=== PATIENT | female | born 1955 | race Caucasian/White ===

== ENCOUNTER 2017-04-08 14:56 | Emergency (ER) | payer OTHER, SELFPAY ==
[2017-04-08 15:02] VITALS: BP 143/56; PULSE 86; RESP 20; TEMP 37.1; O2SAT 99; BMI 35.2
--- NOTE | 2017-04-08 15:09 | CT_ITS ---
CT abdomen pelvis wo con CLINICAL INDICATION: Nausea, vomiting, abdominal pain ITS.REASON: N/V/D/ABDOMINAL PAIN ORDERING PHYSICIAN: Sarah Foster MD PATIENT AGE: 61 years COMPARISON: None TECHNIQUE: Axial images obtained with sagittal and coronal reformats. PROCEDURE: Oral Contrast: None IV Contrast: None . FINDINGS: No acute finding in the lung bases. No focal liver lesion is evident. There is a long right hepatic lobe consistent with a Ina's lobe. The gallbladder is distended. There is a question of gallbladder wall thickening versus small amount of pericholecystic fluid. Ultrasound may be of further value. Spleen, adrenal glands, pancreas, and kidneys have an unremarkable appearance. No intestinal obstruction or free air is evident. There are few diverticula within the colon but no evidence of diverticulitis. No evidence of appendicitis. No focal inflammatory change or pelvic mass evident. No acute bony findings. IMPRESSION: 1. Distended gallbladder with suspected gallbladder wall thickening versus small amount pericholecystic fluid. Gallbladder ultrasound suggested for further evaluation. No radio opaque stones are identified. 2. Scattered colonic diverticula with no evidence of diverticulitis
[2017-04-08 15:27] LABS: Basophils % 0.2 % (0.1-2.0); Eosinophils % 0.4 % (0.1-12.0); Hematocrit 37.9 % (37.0-47.0); Hemoglobin 11.7 g/dL (12.2-16.2); Lymphocytes # 1.5 K/mm3 (0.7-4.5); Lymphocytes % 14.3 K/mm3 (10-50); Mean Corpuscular Hemoglobin 25.9 pg (27.0-31.2); Mean Corpuscular Volume 83.5 fl (81-99); Mean Platelet Volume 7.5 fl (7.4-10.4); Monocytes # 0.6 K/mm3 (0.1-1.0); Monocytes % 5.6 % (1.7-9.3); Neutrophils # 8.3 K/mm3 (1.8-7.8); Neutrophils % 79.5 % (37.0-80.0); Platelet Count 261 K/mm3 (142-424); Red Blood Count 4.53 M/mm3 (4.20-5.40); Red Cell Distribution Width 14.3 % (11.5-17.5); White Blood Count 10.4 K/mm3 (4.8-10.8)
--- NOTE | 2017-04-08 15:40 | HMH.EDGENADL ---
ED Disposition Clinical Impression: Acute cholecystitis with chronic cholecystitis Disposition: Home, Self-Care Condition on Discharge: Fair Additional Instructions: Alternate ice and heat and continue to use whichever helps the most Prescriptions: Acetaminophen with Codeine [Tylenol with Codeine #3 tablet] 1 tab PO Q6H PRN 3 Days #18 tab PRN Reason: Severe Pain Referrals: Faustino Toure MD [Primary Care Provider] - Time of Disposition: 19:22 - Critical Care Critical Care Time: No Attestation: On 04/08/17, the high probability of a clinically significant, sudden or life threatening deterioration of the following system(s) required my full and direct attention, intervention and personal management. The time I documented below is in addition to time spent performing reported procedures but includes the following listed in this critical care notation. Medical Decision Making - Medical Records Medical records reviewed: Yes: I reviewed the patient's medical records. Vital Signs: 04/08/17 15:02 Temperature 98.7 F Temperature Source Oral Pulse Rate [Left Brachial] 86 Respiratory Rate 20 Blood Pressure [Right Arm] 143/56 Blood Pressure Mean [Right Arm] 85 Blood Pressure Source [Right Arm] Automatic Cuff Blood Pressure Position [Right Arm] Supine 02 Sat by Pulse Oximetry 99 Oxygen Delivery Method Room Air - Lab Data Lab Results 04/08/17 15:12: WBC 10.4, RBC 4.53, Hgb 11.7 L, Hct 37.9, MCV 83.5, MCH 25.9 L, MCHC 31.0 L, RDW 14.3, Plt Count 261, MPV 7.5, Neut % (Auto) 79.5, Lymph % (Auto) 14.3, [place] % (Auto) 5.6, Eos % (Auto) 0.4, Baso % (Auto) 0.2, Neut # (Auto) 8.3 H, Lymph # (Auto) 1.5, [place] # (Auto) 0.6, Eos # (Auto) 0.0, Baso # (Auto) 0.0 04/08/17 15:12: Sodium 137, Potassium 3.8, Chloride 102, Carbon Dioxide 26, Anion Gap 12.8, BUN 7, Creatinine 0.68, Estimated Creat Clear 113, Estimated GFR 88, Est GFR ( Amer) 107, Glucose 145 H, Calcium 8.7, Total Bilirubin 0.3, AST 11 L, ALT 16, Alkaline Phosphatase 71, Total Protein 7.7, Albumin 3.4, Globulin 4.3 H, Albumin/Globulin Ratio 0.8 L 04/08/17 15:12: Amylase 25, Lipase 49 L 04/08/17 18:07: Urine Color Yellow, Urine Appearance Sl cloudy, Urine pH 6.0, Ur Specific [place] 1.025, Urine Protein Trace, Urine Glucose (UA) Negative, Urine Ketones Negative, Urine Blood 1+, Urine Nitrate Negative, Urine Bilirubin Negative, Urine Urobilinogen 0.2, Ur Leukocyte Esterase Negative, Urine RBC 3-5, Urine WBC 5-10, Ur Squamous Epith Cells 5-10, Urine Bacteria 2+, Urine Mucus 1+ Result diagrams: 04/08/17 15:12 04/08/17 15:12 Orders (Tests/Meds): ED MEDICATIONS Discontinued Medications Generic Name Dose Route Start Last Admin Trade Name Freq PRN Reason Stop Dose Admin Sodium Chloride 500 mls @ 999 mls/hr 04/08/17 15:15 04/08/17 15:24 Sod Chlor 0.9% 1000ml Bag IV 04/08/17 15:45 999 mls/hr .Q31M DAGOBERTO Administration Ondansetron HCl 4 mg 04/08/17 15:23 04/08/17 15:24 Zofran 4mg/2ml Vial IV 04/08/17 15:24 4 mg ONCE ONE Administration ORDERS Category Date Time Status Diarrhea Panel, PCR Stat Lab 04/08/17 15:09 Ordered Urine Culture Stat Micro 04/08/17 18:07 Received - CT Data CT Scan: Abdomen, Pelvis Time Received: 19:[address] Reviewed: Yes: I have reviewed the patient's CT results, I discussed the CT results w/the radiologist, I have viewed the radiologist's interpretation Findings Narrative: Distended and thickened GB...needs an US of gallbladder and if stones are present needs GB removed. If no stones present, needs a HIDA scan and if a non-functioning GB, also needs it removed - Alndry Inquiry Pt receiving controlled substance: Yes Landry was queried for this patient: No Reason not queried -: Emergent pt cond-no time Risks and benefits of using a controlled substance: were discussed with pt by me General Adult HPI - General Chief complaint: Nausea/Vomiting/Diarrhea Stated complaint: C/O ABDOMINAL PAIN
[2017-04-08 15:41] LABS: Alanine Aminotransferase 16 U/L (12-78); Albumin Level 3.4 gm/dL (3.4-5.0); Albumin/Globulin Ratio 0.8 (1.1-1.8); Alkaline Phosphatase 71 U/L (46-116); Anion Gap 12.8 mEq/L (5-15); Aspartate Amino Transferase 11 U/L (15-37); Bilirubin,Total 0.3 mg/dL (0.2-1.0); Blood Urea Nitrogen 7 mg/dL (7-18); Calcium 8.7 mg/dL (8.5-10.1); Carbon Dioxide 26 mmol/L (21.0-32.0); Chloride 102 mmol/L (98-107); Creatinine Clearance Estimated 113 mL/min (0-300); Creatinine,Serum 0.68 mg/dL (0.55-1.02); Estimated Glomerular Filt Rate 88 ml/min (>60); GFR (African American) 107 ML/MIN (>60); Globulin 4.3 gm/dl (1.3-3.2); Glucose 145 mg/dL (74-106); Potassium 3.8 mmoL/L (3.5-5.1); Sodium 137 mmol/L (136-145); Total Protein,Serum 7.7 gm/dL (6.4-8.2)
--- NOTE | 2017-04-08 15:48 | ED_ITS ---
ED Disposition Clinical Impression: Acute cholecystitis with chronic cholecystitis Disposition: Home, Self-Care Condition on Discharge: Fair Additional Instructions: Alternate ice and heat and continue to use whichever helps the most Prescriptions: Acetaminophen with Codeine [Tylenol with Codeine #3 tablet] 1 tab PO Q6H PRN 3 Days #18 tab PRN Reason: Severe Pain Referrals: Faustino Toure MD [Primary Care Provider] - Time of Disposition: 19:22 - Critical Care Critical Care Time: No Attestation: On 04/08/17, the high probability of a clinically significant, sudden or life threatening deterioration of the following system(s) required my full and direct attention, intervention and personal management. The time I documented below is in addition to time spent performing reported procedures but includes the following listed in this critical care notation. Medical Decision Making - Medical Records Medical records reviewed: Yes: I reviewed the patient's medical records. Vital Signs: 04/08/17 15:02 Temperature 98.7 F Temperature Source Oral Pulse Rate [Left Brachial] 86 Respiratory Rate 20 Blood Pressure [Right Arm] 143/56 Blood Pressure Mean [Right Arm] 85 Blood Pressure Source [Right Arm] Automatic Cuff Blood Pressure Position [Right Arm] Supine 02 Sat by Pulse Oximetry 99 Oxygen Delivery Method Room Air - Lab Data Lab Results 04/08/17 15:12: WBC 10.4, RBC 4.53, Hgb 11.7 L, Hct 37.9, MCV 83.5, MCH 25.9 L, MCHC 31.0 L, RDW 14.3, Plt Count 261, MPV 7.5, Neut % (Auto) 79.5, Lymph % (Auto ) 14.3, [place] % (Auto) 5.6, Eos % (Auto) 0.4, Baso % (Auto) 0.2, Neut # (Auto) 8.3 H, Lymph # (Auto) 1.5, [place] # (Auto) 0.6, Eos # (Auto) 0.0, Baso # (Auto) 0.0 04/08/17 15:12: Sodium 137, Potassium 3.8, Chloride 102, Carbon Dioxide 26, Anion Gap 12.8, BUN 7, Creatinine 0.68, Estimated Creat Clear 113, Estimated GFR 88, Est GFR ( Amer) 107, Glucose 145 H, Calcium 8.7, Total Bilirubin 0.3, AST 11 L, ALT 16, Alkaline Phosphatase 71, Total Protein 7.7, Albumin 3.4, Globulin 4.3 H, Albumin/Globulin Ratio 0.8 L 04/08/17 15:12: Amylase 25, Lipase 49 L 04/08/17 18:07: Urine Color Yellow, Urine Appearance Sl cloudy, Urine pH 6.0, Ur Specific [place] 1.025, Urine Protein Trace, Urine Glucose (UA) Negative, Urine Ketones Negative, Urine Blood 1+, Urine Nitrate Negative, Urine Bilirubin Negative, Urine Urobilinogen 0.2, Ur Leukocyte Esterase Negative, Urine RBC 3-5 , Urine WBC 5-10, Ur Squamous Epith Cells 5-10, Urine Bacteria 2+, Urine Mucus 1 + Result diagrams: 04/08/17 15:12 04/08/17 15:12 Orders (Tests/Meds): ED MEDICATIONS Discontinued Medications Generic Name Dose Route Start Last Admin Trade Name Freq PRN Reason Stop Dose Admin Sodium Chloride 500 mls @ 999 mls/hr 04/08/17 15:15 04/08/17 15:24 Sod Chlor 0.9% 1000ml Bag IV 04/08/17 15:45 999 mls/hr .Q31M DAGOBERTO Administration Ondansetron HCl 4 mg 04/08/17 15:23 04/08/17 15:24 Zofran 4mg/2ml Vial IV 04/08/17 15:24 4 mg ONCE ONE Administration ORDERS Category Date Time Status Diarrhea Panel, PCR Stat Lab 04/08/17 15:09 Ordered Urine Culture Stat Micro 04/08/17 18:07 Received - CT Data CT Scan: Abdomen, Pelvis Time Received: 19:[address] Reviewed: Yes: I have reviewed the patient's CT results, I discussed the CT results w/the radiologist
[2017-04-08 16:06] LABS: Amylase 25 U/L (25-125); Lipase 49 u/L (73-393)
[2017-04-08 18:19] LABS: Microscopic, Urine URINE MICROSCOPIC (MICROSCOPIC)
[2017-04-08 18:28] LABS: Appearance,Urine SL CLOUDY (Clear); Bilirubin,Urine Negative (Negative); Blood, Urine 1+ (Negative); Color,Urine YELLOW (Yellow); Glucose,Urine (UA) Negative (Negative); Ketones,Urine Negative (Negative); Leukocyte Esterase,Urine Negative (Negative); Nitrate,Urine Negative (Negative); Protein,Urine TRACE (Negative); Specific Gravity, Urine 1.025 (1.005-1.030); Urobilinogen,Urine 0.2 EU/dl (0.2)
[2017-04-08 18:46] LABS: Bacteria,Urine 2+ /lpf; Mucus,Urine 1+ /lpf
[2017-04-08 20:08] VITALS: BP 134/52; PULSE 96; RESP 20; TEMP 37.1; O2SAT 98
== END 2017-04-08 20:11 | disposition home or self-care (01) ==
PROVIDERS: Emergency Provider General Practice; PCP Emergency Medicine
DX: K81.2 Acute cholecystitis with chronic cholecystitis (principal); F17.210 Nicotine dependence, cigarettes, uncomplicated; Z79.84 Long term (current) use of oral hypoglycemic drugs; Z88.6 Allergy status to analgesic agent
CPT/HCPCS: 74176; 80053; 81001; 82150; 83690; 85025; 87086; 96365; 96374; 96375; 99282; J2405

== ENCOUNTER → 2017-10-24 07:20 | Outpatient (CLI) | payer OTHER, SELFPAY ==
--- NOTE | 2017-10-24 08:00 | US_ITS ---
US gallbladder HISTORY: ITS.REASON: ABD PAIN ORDERING PHYSICIAN: Faustino Toure MD PATIENT AGE: 62 years Comparison: None FINDINGS: PANCREAS: Unremarkable. No obvious mass or abnormal fluid collection. No ductal dilatation LIVER: No focal liver lesions demonstrated. Homogeneous echogenicity. No intrahepatic biliary ductal dilatation evident RIGHT KIDNEY: Unremarkable. Normal size and echogenicity. No hydronephrosis GALLBLADDER: Cholelithiasis. A gallstone is present measuring approximately 1.6 cm. No gallbladder wall thickening pericholecystic fluid or biliary dilatation is evident. IMPRESSION: Cholelithiasis
== END ==
PROVIDERS: PCP Emergency Medicine; Visit Provider Emergency Medicine
DX: R10.9 Unspecified abdominal pain (principal)
CPT/HCPCS: 76705

== ENCOUNTER 2017-10-24 08:21 | Outpatient (RCR) | payer OTHER, SELFPAY ==
--- NOTE | 2017-10-24 12:35 | HMH.SLDYSPHA ---
Speech & Language Evaluation Speech/Language Dysphagia Evaluation Start: 10/24/17 09:38 Freq: ONCE Status: Active Protocol: Document 10/24/17 09:38 LIVAN (Rec: 10/24/17 12:35 LIVAN [id number]) Dysphagia Assess/Goals/Plan Assessment Date of Evaluation: 10/24/17 Evaluation Type Initial Certification Assessment/Problems [facility]. Does Patient Qualify for Service No Qualify/Failure Comment No clinical signs or symptoms of dysphagia were observed during evaluation. Pt. denies difficulty with food going down the wrong way. Reports two incidences of choking months ago and coughing due to allergies. Recommendations PHYSICIAN CERTIFICATION: The specified therapy services are required, authorized, and reviewed every 30 days. Diet Recommendations chopped meat due to lack of teeth Liquid Type Recommendations Normal/Thin SL Swallow Guidelines Standard Aspiration Prec. Dysphagia Swallow Precautions/Strategies Sitting Upright (90 deg) Plan Pt/Guardian verbally ack understanding Yes of dx/prognosis/goals G -code Required No Education Instructions provided Pt instructed to eat slowly, take small bites, follow dry food with water or liquid to clear residue. Pt/Caregiver able to recall information Able to recall/restate Reinforcement needed Yes Speech & Language HPI History Present Illness Description of Patient Problem Pt was referred by physician for clinical evaluation of swallowing due to choking . Pt. denies choking with the exception of two incidences several months ago when she choked on food twice . She reports coughing when she is around cats and attibutes that to allergies. She denies difficulty chewing despite being edentulous. She reports her teeth have been gone since her 20's and that she can chew meat and crackers with no difficulty. Pt. did well with all consistencies given today. With water from straw and cup
== END 2017-10-24 08:22 | disposition home or self-care (01) ==
LOC: ST 08:21
PROVIDERS: PCP Emergency Medicine; Visit Provider Emergency Medicine
DX: R13.10 Dysphagia, unspecified (principal)
CPT/HCPCS: 92610

== ENCOUNTER 2017-10-24 08:29 | Outpatient (RCR) | payer OTHER, SELFPAY | END 2017-10-24 08:30 | disposition home or self-care (01) | LOC: PT 08:29 | PROVIDERS: PCP Emergency Medicine; Visit Provider Emergency Medicine | DX: R26.9 Unspecified abnormalities of gait and mobility (principal); G89.29 Other chronic pain ==

== ENCOUNTER 2017-11-21 10:00 | Outpatient (RCR) | payer OTHER, SELFPAY ==
--- NOTE | 2017-10-24 10:45 | HMH.OTOPEV ---
OT Inpatient Evaluation Rehab OT Outpatient Eval Start: 10/24/17 10:19 Freq: Status: Active Protocol: Document 10/24/17 10:19 RMARSHALL (Rec: 10/24/17 10:45 [facility] [id number] Electronically Signed By Santiago Quiles OT 10/24/17 10:19 Outpatient Therapy Subjective History Subjective History Pt is a 62 year old female who reports to therapy for initial evaluation to right hand. Pt reports she broke her right hand 3 years ago. Since she broke her hand pt's fingers MP joints have stayed in a flexed position. Pt is able to actively move her thumb and index finger within normal limits; digits 3-5 stay in ~65-70 degrees flexed at MP joints. Pt's MP joints 3-5 are able to be passively stretching WNL with pain. 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 Pt will continue to be seen in order address all deficits. 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 Work/Reading Sleeping Recreation Activity Symptom Description Constant but Variable Level of pain today (0-10) 4 Pain scale - at its best (0-10) 1 Pain scale - at its worst (0-10) 8 Wrist/Hand Eval Finger Range of Motion Right Little Finger Finger ROM Limitations Pain Finger Metacarpophalangeal Flexion 90 degrees Active Range of Motion (degrees) Finger Metacarpophalangeal Extension 0-70 degrees Active Range of Motion (degrees) Right Ring Finger Finger ROM Limitations Pain Finger Metacarpophalangeal Flexion 90 degrees Active Range of Motion (degrees) Finger Metacarpophalangeal Extension 0-68 degrees Active Range of Motion (degrees) Right Mi
== END 2017-11-21 10:01 | disposition home or self-care (01) ==
LOC: OT 10:00
PROVIDERS: PCP Emergency Medicine; Visit Provider Emergency Medicine
DX: G89.29 Other chronic pain (principal); M25.641 Stiffness of right hand, not elsewhere classified
CPT/HCPCS: 97140; 97166

== ENCOUNTER 2018-12-30 04:12 | Inpatient (IN) ==
[2018-12-30 04:45] LABS: Microscopic, Urine URINE MICROSCOPIC (MICROSCOPIC)
--- NOTE | 2018-12-30 04:48 | Emergency Department Note ---
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: without halfway use Diabetes mellitus complication status: without complication Qualified Code(s): E11.9 - Type 2 diabetes mellitus without complications Cholelithiasis Qualifiers: Cholelithiasis location: gallbladder Cholecystitis presence: without cholecystitis Biliary obstruction: without biliary obstruction Qualified Code(s): K80.20 - Calculus of gallbladder without cholecystitis without obstruction Disposition: Admitted As Inpatient Condition on Discharge: Fair - Critical Care Critical Care Time: No Attestation: On 12/30/18, the high probability of a clinically significant, sudden or life threatening deterioration of the following system(s) required my full and direct attention, intervention and personal management. The time I documented below is in addition to time spent performing reported procedures but includes the following listed in this critical care notation. Medical Decision Making - Medical Records Medical records reviewed: Yes: I reviewed the patient's medical records. - 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 Pt receiving controlled substance: No Vital Signs: 12/30/18 04:15 12/30/18 04:40 12/30/18 06:22 Temperature 102.8 F H 103.4 F H Temperature Source Oral Rectal Pulse Rate [Right Brachial] 105 H Respiratory Rate 20 Blood Pressure [Right Arm] 147/53 H 113/57 L Blood Pressure Mean [Right Arm] 84 75 Blood Pressure Source [Right Arm] Automatic Cuff Automatic Cuff Blood Pressure Position [Right Arm] Supine Supine 02 Sat by Pulse Oximetry 95 Oxygen Delivery Method Nasal Cannula Oxygen Flow Rate (LPM) 2 12/30/18 06:24 Temperature 100.3 F H Temperature Source Oral Pulse Rate [Right Brachial] 88 Respiratory Rate 18 Blood Pressure [Right Arm] 113/57 L Blood Pressure Mean [Right Arm] 75 Blood Pressure Source [Right Arm] Automatic Cuff Blood Pressure Position [Right Arm] Sitting 02 Sat by Pulse Oximetry 96 Oxygen Delivery Method Nasal Cannula Oxygen Flow Rate (LPM) 2 - Lab Data Lab results reviewed: Yes: I reviewed the patient's lab results. Lab Results 12/30/18 04:10: WBC 23.1 H*, RBC 4.22, Hgb 11.9 L, Hct 37.5, MCV 88.9, MCH 28.3, MCHC 31.8, RDW 15.3, Plt Count 318, MPV 7.9, Neut % (Auto) 90.6 H, Lymph % (Auto) 4.5 L, [place] % (Auto) 4.6, Eos % (Auto) 0.1, Baso % (Auto) 0.2, Neut # (Auto) 20.9 H, Lymph # (Auto) 1.1, [place] # (Auto) 1.1 H, Eos # (Auto) 0.0, Baso # (Auto) 0.0, Total Counted 100, Neutrophils % (Manual) 85 H, Band Neutrophils % 12.0 H, Lymphocytes % (Manual) 3 L, Platelet Estimate Normal, Hypochromasia 1+ 12/30/18 04:10: Sodium 128 L, Potassium 3.1 L, Chloride 88 L, Carbon Dioxide 29, Anion Gap 14.1, BUN 10, Creatinine 1.08 H, Estimated Creat Clear 62, Estimated GFR 51 L, Est GFR ( Amer) 62, Glucose 178 H, Calcium 8.8, Total Bilirubin 0.8, AST 22, ALT 12, Alkaline Phosphatase 93, Total Protein 8.0, Albumin 2.6 L, Globulin 5.4 H, Albumin/Globulin Ratio 0.5 L 12/30/18 04:10: Lactate 1.7 12/30/18 04:20: Influenza Type A Ag Negative, Influenza Type B Ag Negative 12/30/18 04:39: Urine Color Yellow, Urine Appearance Clear, Urine pH 6.0, Ur Specific [place] 1.010, Urine Protein 1+, Urine Glucose (UA) Negative, Urine Ketones Negative, Urine Blood 3+, Urine Nitrate Negative, Urine Bilirubin Negative, Urine Urobilinogen 1.0, Ur Leukocyte Esterase Negative, Urine RBC 5- 10, Urine WBC 3-5, Amorphous Sediment 1+ Result diagrams: 12/30/18 04:10 12/30/18 04:10 Orders (Tests/Meds): ED MEDICATIONS Generic Name Dose Route Start Last Admin Trade Name Freq PRN Reason Stop Dose Admin Ceftriaxone Sodium 1 gm/ 50 mls @ 100 mls/hr 12/30/18 05:00 12/30/18 05:04 Sodium Chloride IV 01/13/19 04:59 100 mls/hr Q24H DAGOBERTO Administration Protocol Azithromycin 500 mg/ Sodium 250 mls @ 250 mls/hr 12/30/18 05:00 12/30/18 05:33 Chloride IV 01/13/19 04:59 250 mls/hr Q24H DAGOBERTO Administration Protocol Sodium Chloride 1,000 mls @ 999 mls/hr 12/30/18 05:15 12/30/18 05:02 Sod Chlor 0.9% 1000ml Bag IV 12/30/18 06:15 999 mls/hr .Q1H1M DAGOBERTO Administration Discontinued Medications Generic Name Dose Route Start Last Admin Trade Name Iggyq PRN Reason Stop Dose Admin Acetaminophen 1,000 mg 12/30/18 04:40 12/30/18 04:45 Tylenol 500mg Tablet PO 12/30/18 04:41 1,000 mg ONCE ONE Administration Sodium Chloride 2,180 mls @ 1,090 mls/hr 12/30/18 04:40 12/30/18 04:42 Sod Chlor 0.9% 1000ml Bag 30 ml/kg infuse over 2 hr (2180 ml) 12/30/18 06:39 1,090 mls/hr IV Administration .Q2H ONE ORDERS Category Date Time Status Blood Culture Stat Micro 12/30/18 04:10 Received - Radiology Data #1 Image(s): Chest Image Reviewed: Yes I reviewed the patient's radiology image Preliminary Findings: Abnormal (lt pneumonia) Fever HPI - General Chief Complaint: Fever Stated Complaint: FEVER; CHEST CONGESTION Time Seen by Provider: 12/30/18 04:47 Mode of Arrival: EMS Source of Information: Patient, EMS, Medical Record Limitations: No Limitations Description of Symptoms (Recalled from ER Triage Doc. by RN): PATIENT PRESENTS TO [place] [facility] VIA EMS FROM [facility] C/O "NOT FEELING WELL" X 2 DAYS. EMS REPORTS ORAL TEMP OF 101.2 UPON THEIR ARRIVAL. NO TREATMENT ADMINISTERED PRIOR TO ARRIVAL. - History of Present Illness HPI Narrative: pt with not feeling well and was sent from [facility] for [facility]IL[facility] complaint: fever, weakness Onset (ago): day(s) Associated symptoms: denies other symptoms Treatments prior to arrival fever: none - Related Data Home Medications Medication Instructions Recorded Confirmed Acetaminophen [Acetaminophen 325mg 325 mg PO Q6HP PRN 04/08/17 12/30/18 tab] Albuterol Sulfate [Proventil-HFA 1 - 2 puffs IH Q4HP PRN 04/08/17 12/30/18 90mcg/puff Inh] Benztropine Mesylate 2 mg PO BID 04/08/17 12/30/18 Citalopram Hydrobromide [Celexa 20 mg PO DAILY 04/08/17 12/30/18 20mg Tablet] Metformin HCl [Glucophage 500mg 500 mg PO BID 04/08/17 12/30/18 Tablet] risperiDONE [Risperdal 1mg Tablet] 3 mg PO BID 04/08/17 12/30/18 gabapentin 100 mg capsule 100 mg PO BID cap 07/07/18 12/30/18 hydrochlorothiazide 12.5 mg tablet 12.5 mg PO DAILY 07/07/18 12/30/18 ropinirole 0.5 mg tablet 1 mg PO QHS 07/07/18 12/30/18 Previous Rx's Medication Instructions Recorded Acetaminophen with Codeine 1 tab PO Q6H PRN 3 Days #18 tab 04/08/17 [Tylenol with Codeine #3 tablet] Allergies Allergy/AdvReac Type Severity Reaction Status Date / Time aspirin Allergy Verified 12/02/17 11:10 [facility] History - Hepatitis A Screen Drug use history?: No High risk sexual behaviors?: No History of sexually transmitted infection?: No Currently employed?: No Childcare worker?: No Do you have indoor plumbing?: Yes Do you have electricity?: Yes Attestation statement:: This patient has been screened for Hepatitis A risk factors. I have reviewed the patient's past medical history: Yes Medical History: Reports:: Diabetes Mellitus Type 2 Denies:: Cancer, Diabetes Mellitus Type 1, MRSA Amputation: No Fractures: No - Social History Smoking Status: Current every day smoker Tobacco Type: cigarettes Alcohol Intake: never ROS Obtained: Yes All systems reviewed & no additional complaints - Constitutional Constitutional: Reports fever(s) - Eyes Eyes: Denies change in vision - ENT Ears, Nose, Mouth, and Throat: Denies sore throat - Cardiovascular Cardiovascular: Denies chest pain, Denies dyspnea - Respiratory Respiratory: Yes as per HPI, Yes cough, Yes non-productive cough, No coughing up blood - Gastrointestinal Gastrointestingal: Denies: vomiting - Genitourinary Female Genitourinary: Denies hematuria - Musculoskeletal Musculoskeletal: Denies joint pain, Denies joint swelling - Integumentary/Breasts Skin/Breast: Denies rash - Neurologic Neurologic: Denies seizure-like activity Physical Exam - General General appearance: alert, obese - Head Head exam: normocephalic - Eye Eye exam: Present: PERRL, EOMI - ENT ENT exam: Present: mucous membranes dry - Neck Neck exam: Present: trachea midline - Respiratory Respiratory exam: Present: other (dec bs bilat ). Absent: respiratory distress - Cardiovascular Cardiovascular exam: Present: regular rate, systolic murmur, +S4 - Abdominal Exam Abdominal exam: Present: soft - Extremities Exam Extremities exam: Absent: calf tenderness - Neurological Exam Neurological exam: Present: alert, oriented X3, CN II-XII intact - Psychiatric Psychiatric exam: Present: normal affect - Skin Skin exam: Absent: rash
[2018-12-30 04:54] LABS: Basophils % 0.2 % (0.1-2.0); Eosinophils % 0.1 % (0.1-12.0); Hematocrit 37.5 % (37.0-47.0); Hemoglobin 11.9 g/dL (12.2-16.2); Lymphocytes # 1.1 K/mm3 (0.7-4.5); Lymphocytes % 4.5 % (10-50); Mean Corpuscular HGB Conc 31.8 g/dL (31.8-35.4); Mean Corpuscular Volume 88.9 fl (81-99); Mean Platelet Volume 7.9 fl (7.4-10.4); Monocytes # 1.1 K/mm3 (0.1-1.0); Monocytes % 4.6 % (1.7-9.3); Neutrophils # 20.9 K/mm3 (1.8-7.8); Neutrophils % 90.6 % (37.0-80.0); Platelet Count 318 K/mm3 (142-424); Red Blood Count 4.22 M/mm3 (4.20-5.40); Red Cell Distribution Width 15.3 % (11.5-17.5); White Blood Count 23.1 K/mm3 (4.8-10.8)
[2018-12-30 04:56] LABS: Albumin Level 2.6 gm/dL (3.4-5.0); Albumin/Globulin Ratio 0.5 (1.1-1.8); Anion Gap 14.1 mEq/L (5-15); Bilirubin,Total 0.8 mg/dL (0.2-1.0); Calcium 8.8 mg/dL (8.5-10.1); Globulin 5.4 gm/dl (1.3-3.2)
[2018-12-30 04:56] LABS: Appearance,Urine CLEAR (Clear); Bilirubin,Urine Negative (Negative); Blood, Urine 3+ (Negative); Color,Urine YELLOW (Yellow); Glucose,Urine (UA) Negative (Negative); Ketones,Urine Negative (Negative); Leukocyte Esterase,Urine Negative (Negative); Protein,Urine 1+ (Negative)
[2018-12-30 05:01] LABS: Amorphous Sediment,Urine 1+ /lpf
[2018-12-30 05:08] LABS: Lymphocytes % 3 % (10-50); Neutrophils % 85 % (42-76); Total Cells Counted 100
[2018-12-30 05:10] LABS: Hypochromasia 1+
--- NOTE | 2018-12-30 08:32 | Pharmacy Consult Notes ---
[facility] Pharmacy VTE Monitoring - Patient Demographics Admission date: 12/30/18 Report Date: 12/30/18 Time: 08:32 Allergies/Adverse Reactions: Patient Allergies aspirin Allergy (Verified 12/02/17 11:10) Height: 1.55 m Weight: 73.539 kg Patient Problems: Current Active Problems CAP (community acquired pneumonia) (Acute) Schizophrenia (Acute) Diabetes mellitus (Acute) Hyponatremia (Acute) Hypokalemia (Acute) SIRS (systemic inflammatory response syndrome) (Acute) Cholelithiasis (Acute) - VTE Risk Labs: VTE Related Lab Results Hgb 11.9 g/dL (12.2-16.2) L 12/30/18 04:10 Hct 37.5 % (37.0-47.0) 12/30/18 04:10 Plt Count 318 K/mm3 (142-424) 12/30/18 04:10 BUN 10 mg/dL (7-18) 12/30/18 04:10 Creatinine 1.08 mg/dL (0.55-1.02) H 12/30/18 04:10 Estimated Creat Clear 62 mL/min (50-200) 12/30/18 04:10 - Prophylaxis VTE Prophylaxis Ordered?: Yes Types of VTE Prophylaxis: TEDS Knee High Location of Applied Device: Bilateral Lower Extremeties - VTE Diagnosis Confirmed Treatment or plan recommended: Continue Current Treatment
--- NOTE | 2018-12-30 08:48 | History & Physical Report ---
*Admission Date: 12/30/18 *Chief complaint: cough *History of present illness: this wf is patient at [facility] - over the last 2 days has had nonproductive cough and felt weak- she had dec po intake and dev fever last night with increasing resp sx- she does use tob and is a diabetic - she was sent to the ed and found to have lt cap - she was admitted with resp treatments and ivf and abx - [facility] History I have reviewed the patient's past medical history: Yes Medical History: Reports:: Diabetes Mellitus Type 2 Denies:: Cancer, Diabetes Mellitus Type 1, Internal Pacemaker, MRSA *Have you ever received a pneumonia vaccine?: No *Have you received a flu vaccine this season?: No Other Medical History: Reports: Cataracts Other Surgeries: No: Pacemaker Amputation: No Fractures: No - *Social History Educational Level: Completed High School Smoking Status: Current every day smoker Tobacco Type: cigarettes # Packs/Day (cigarettes): 1 Alcohol Intake: never *Occupational Status:: disabled Housing: other *Travel in the last 8 weeks: None Family Hx:: Unable to obtain Review of Systems - Review of Systems Review of systems:: pertinent systems reviewed and negative unless documented below - Constitutional Reports fever(s), Reports malaise, Reports weakness - Eyes Denies change in vision - ENT Denies change in voice - *Cardiovascular Reports shortness of breath - *Respiratory Reports cough, Denies coughing up blood - *Gastrointestinal Denies vomiting - *Genitourinary Denies blood in urine - *Musculoskeletal Denies joint pain, Denies joint swelling - Integumentary/Breasts Denies rash - *Neurologic Denies localized weakness, Denies seizure-like activity Meds Home Medications Medication Instructions Recorded Confirmed Type Acetaminophen [Acetaminophen 325mg 325 mg PO Q6HP PRN 04/08/17 12/30/18 History tab] Albuterol Sulfate [Proventil-HFA 1 - 2 puffs IH Q4HP PRN 04/08/17 12/30/18 History 90mcg/puff Inh] Benztropine Mesylate 2 mg PO BID 04/08/17 12/30/18 History Citalopram Hydrobromide [Celexa 20 mg PO DAILY 04/08/17 12/30/18 History 20mg Tablet] Metformin HCl [Glucophage 500mg 500 mg PO BID 04/08/17 12/30/18 History Tablet] risperiDONE [Risperdal 1mg Tablet] 3 mg PO BID 04/08/17 12/30/18 History gabapentin 100 mg capsule 100 mg PO BID cap 07/07/18 12/30/18 History hydrochlorothiazide 12.5 mg tablet 12.5 mg PO DAILY 07/07/18 12/30/18 History ropinirole 0.5 mg tablet 1 mg PO QHS 07/07/18 12/30/18 History Ondansetron [Zofran 4mg ODT] 4 mg PO QID PRN 12/30/18 12/30/18 History guaiFENesin [Tussin Chest 100 mg PO Q4-6H PRN 12/30/18 12/30/18 History Congestion] Allergies Allergy/AdvReac Type Severity Reaction Status Date / Time aspirin Allergy Verified 12/02/17 11:10 Exam Vital signs and Labs for Last 24 Hours: Temp Pulse Resp BP Pulse Ox 98.4 F 80 20 106/49 L 97 12/30/18 08:08 12/30/18 08:08 12/30/18 08:08 12/30/18 08:08 12/30/18 08:08 Laboratory Results - last 24 hr 12/30/18 04:10: WBC 23.1 H*, RBC 4.22, Hgb 11.9 L, Hct 37.5, MCV 88.9, MCH 28.3, MCHC 31.8, RDW 15.3, Plt Count 318, MPV 7.9, Neut % (Auto) 90.6 H, Lymph % (Auto) 4.5 L, [place] % (Auto) 4.6, Eos % (Auto) 0.1, Baso % (Auto) 0.2, Neut # (Auto) 20.9 H, Lymph # (Auto) 1.1, [place] # (Auto) 1.1 H, Eos # (Auto) 0.0, Baso # (Auto) 0.0, Total Counted 100, Neutrophils % (Manual) 85 H, Band Neutrophils % 12.0 H, Lymphocytes % (Manual) 3 L, Platelet Estimate Normal, Hypochromasia 1+ 12/30/18 04:10: Sodium 128 L, Potassium 3.1 L, Chloride 88 L, Carbon Dioxide 29, Anion Gap 14.1, BUN 10, Creatinine 1.08 H, Estimated Creat Clear 62, Estimated GFR 51 L, Est GFR ( Amer) 62, Glucose 178 H, Calcium 8.8, Total Bilirubin 0.8, AST 22, ALT 12, Alkaline Phosphatase 93, Total Protein 8.0, Albumin 2.6 L, Globulin 5.4 H, Albumin/Globulin Ratio 0.5 L 12/30/18 04:10: Lactate 1.7 12/30/18 04:20: Influenza Type A Ag Negative, Influenza Type B Ag Negative 12/30/18 04:39: Urine Color Yellow, Urine Appearance Clear, Urine pH 6.0, Ur Specific [place] 1.010, Urine Protein 1+, Urine Glucose (UA) Negative, Urine Ketones Negative, Urine Blood 3+, Urine Nitrate Negative, Urine Bilirubin Negative, Urine Urobilinogen 1.0, Ur Leukocyte Esterase Negative, Urine RBC 5- 10, Urine WBC 3-5, Amorphous Sediment 1+ I & O for Last 24 hours: Intake & Output 12/27/18 12/28/18 12/29/18 12/30/18 11:59 11:59 11:59 11:59 Intake Total 2500 / 2500 Balance 2500 / 2500 Weight 162 lb 2 oz - Constitutional no acute distress, obese - *Routine HEENT Exam Head: Present: normocephalic Eye: Present: EOMI, PERRL ENT: Present: mucous membranes dry - *Routine Neck Exam Present: supple. Absent: JVD - *Routine Respiratory Exam Present: decreased breath sounds, rhonchi - *Routine Cardiovascular Exam Present: RRR, murmur, S4 - *Routine Abdominal Exam Present: soft. Absent: tenderness - *Routine Extremities Exam Absent: calf tenderness - *Routine Skin Exam Present: intact - *Routine Neurological Exam Present: alert, CN II-XII intact. Absent: motor deficit - Routine Psychiatric Exam Present: normal affect Assessment and Plan (1) Obesity (BMI 30.0-34.9) Current visit: Yes Status: Acute Category: Medical Code(s): E66.9 - Obesity, unspecified (2) CAP (community acquired pneumonia) Current visit: Yes Status: Acute Qualifiers: Laterality: left Lung location: upper lobe of lung Qualified Code(s): J18.9 - Pneumonia, unspecified organism Category: Medical Code(s): J18.9 - Pneumonia, unspecified organism (3) Schizophrenia Current visit: Yes Status: Acute Qualifiers: Schizophrenia type: unspecified Qualified Code(s): F20.9 - Schizophrenia, unspecified Category: Medical Code(s): F20.9 - Schizophrenia, unspecified (4) Diabetes mellitus Current visit: Yes Status: Acute Qualifiers: Diabetes mellitus type: type 2 Diabetes mellitus watermelon inspector insulin use: without watermelon inspector use Diabetes mellitus complication status: without complication Qualified Code(s): E11.9 - Type 2 diabetes mellitus without complications Category: Medical Code(s): E11.9 - Type 2 diabetes mellitus without complications (5) Hyponatremia Current visit: Yes Status: Acute Category: Medical Code(s): E87.1 - Hypo- osmolality and hyponatremia (6) Hypokalemia Current visit: Yes Status: Acute Category: Medical Code(s): E87.6 - Hypokalemia (7) SIRS (systemic inflammatory response syndrome) Current visit: Yes Status: Acute Category: Medical Code(s): R65.10 - Systemic inflammatory response syndrome (SIRS) of non-infectious origin without acute organ dysfunction (8) Cholelithiasis Current visit: Yes Status: Acute Qualifiers: Cholelithiasis location: gallbladder Cholecystitis presence: without cholecystitis Biliary obstruction: without biliary obstruction Qualified Code(s): K80.20 - Calculus of gallbladder without cholecystitis without obstruction Category: Medical Code(s): K80.20 - Calculus of gallbladder without cholecystitis without obstruction (9) Tobacco use Current visit: Yes Status: Acute Category: Medical Code(s): Z72.0 - Tobacco use
[2018-12-31 06:03] LABS: Basophils % 0.1 % (0.1-2.0); Eosinophils # 0.1 K/mm3 (0.0-0.4); Eosinophils % 0.7 % (0.1-12.0); Hematocrit 33.7 % (37.0-47.0); Hemoglobin 10.7 g/dL (12.2-16.2); Lymphocytes # 1.7 K/mm3 (0.7-4.5); Lymphocytes % 9.6 % (10-50); Mean Corpuscular HGB Conc 31.9 g/dL (31.8-35.4); Mean Corpuscular Volume 88.7 fl (81-99); Mean Platelet Volume 7.6 fl (7.4-10.4); Monocytes # 0.6 K/mm3 (0.1-1.0); Monocytes % 3.5 % (1.7-9.3); Neutrophils # 15.5 K/mm3 (1.8-7.8); Platelet Count 248 K/mm3 (142-424); Red Cell Distribution Width 15.2 % (11.5-17.5); White Blood Count 18.1 K/mm3 (4.8-10.8)
[2018-12-31 06:14] LABS: Anion Gap 8.2 mEq/L (5-15); Calcium 8.8 mg/dL (8.5-10.1)
[2018-12-31 06:37] LABS: Hypochromasia 1+; Lymphocytes % 10 % (10-50); Neutrophils % 76 % (42-76); Total Cells Counted 100
--- NOTE | 2018-12-31 08:35 | Progress Note ---
Internal Medicine - PN: Subj *Date: 12/31/18 *Time: 08:33 Interval history: doing better - Exam Vital signs and Labs for Last 24 Hours: Temp Pulse Resp BP Pulse Ox 98.5 F 98 H 20 130/57 L 95 12/31/18 07:30 12/31/18 07:30 12/31/18 07:30 12/31/18 07:30 12/31/18 07:30 Laboratory Results - last 24 hr 12/30/18 04:39: Urine Color Yellow, Urine Appearance Clear, Urine pH 6.0, Ur Specific [place] 1.010, Urine Protein 1+, Urine Glucose (UA) Negative, Urine Ketones Negative, Urine Blood 3+, Urine Nitrate Negative, Urine Bilirubin Negative, Urine Urobilinogen 1.0, Ur Leukocyte Esterase Negative, Urine RBC 5- 10, Urine WBC 3-5, Amorphous Sediment 1+ 12/30/18 20:07: POC Glucose 162 H 12/31/18 05:45: WBC 18.1 H, RBC 3.80 L, Hgb 10.7 L, Hct 33.7 L, MCV 88.7, MCH 28.3, MCHC 31.9, RDW 15.2, Plt Count 248, MPV 7.6, Neut % (Auto) 86.0 H, Lymph % (Auto) 9.6 L, [place] % (Auto) 3.5, Eos % (Auto) 0.7, Baso % (Auto) 0.1, Neut # (Auto) 15.5 H, Lymph # (Auto) 1.7, [place] # (Auto) 0.6, Eos # (Auto) 0.1, Baso # (Auto) 0.0, Total Counted 100, Neutrophils % (Manual) 76, Band Neutrophils % 14.0 H, Lymphocytes % (Manual) 10, Platelet Estimate Normal, Hypochromasia 1+ 12/31/18 05:45: Sodium 135 L, Potassium 3.2 L, Chloride 99, Carbon Dioxide 31, Anion Gap 8.2, BUN 10, Creatinine 0.69 D, Estimated Creat Clear 69, Estimated GFR 86, Est GFR ( Amer) 104 D, Glucose 88, Calcium 8.8, Magnesium 2.0 I & O for Last 24 hours: Intake & Output 12/28/18 12/29/18 12/30/18 12/31/18 11:59 11:59 11:59 11:59 Intake Total 2500 / 2500 661 / 661 Balance 2500 / 2500 661 / 661 Weight 162 lb 2 oz 164 lb 6 oz Microbiology Reports for the Last 24 Hours: Microbiology 12/30/18 04:10 Blood Blood Culture - Preliminary Gram Positive Cocci - Constitutional no acute distress, morbidly obese - *Routine HEENT Exam Head: Present: normocephalic Eye: Present: EOMI, PERRL ENT: Present: mucous membranes dry - *Routine Neck Exam Present: supple - *Routine Respiratory Exam Absent: CTA bilaterally - *Routine Cardiovascular Exam Present: RRR, murmur - *Routine Abdominal Exam Present: soft - *Routine Extremities Exam Absent: calf tenderness - *Routine Skin Exam Present: intact - *Routine Neurological Exam Present: alert, CN II-XII intact - Routine Psychiatric Exam Present: normal affect Assessment and Plan (1) Obesity (BMI 30.0-34.9) Current visit: Yes Status: Acute Category: Medical Code(s): E66.9 - Obesity, unspecified (2) CAP (community acquired pneumonia) Current visit: Yes Status: Acute Qualifiers: Laterality: left Lung location: upper lobe of lung Qualified Code(s): J18.9 - Pneumonia, unspecified organism Category: Medical Code(s): J18.9 - Pneumonia, unspecified organism (3) Schizophrenia Current visit: Yes Status: Acute Qualifiers: Schizophrenia type: unspecified Qualified Code(s): F20.9 - Schizophrenia, unspecified Category: Medical Code(s): F20.9 - Schizophrenia, unspecified (4) Diabetes mellitus Current visit: Yes Status: Acute Qualifiers: Diabetes mellitus type: type 2 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 insulin use: without marine oil terminal superintendent use Diabetes mellitus complication status: without complication Qualified Code(s): E11.9 - Type 2 diabetes mellitus without complications Category: Medical Code(s): E11.9 - Type 2 diabetes mellitus without complications (5) Hyponatremia Current visit: Yes Status: Acute Category: Medical Code(s): E87.1 - Hypo- osmolality and hyponatremia (6) Hypokalemia Current visit: Yes Status: Acute Category: Medical Code(s): E87.6 - Hypokalemia (7) SIRS (systemic inflammatory response syndrome) Current visit: Yes Status: Acute Category: Medical Code(s): R65.10 - Systemic inflammatory response syndrome (SIRS) of non-infectious origin without acute organ dysfunction (8) Cholelithiasis Current visit: Yes Status: Acute Qualifiers: Cholelithiasis location: gallbladder Cholecystitis presence: without cholecystitis Biliary obstruction: without biliary obstruction Qualified Code(s): K80.20 - Calculus of gallbladder without cholecystitis without obstruction Category: Medical Code(s): K80.20 - Calculus of gallbladder without cholecystitis without obstruction (9) Tobacco use Current visit: Yes Status: Acute Category: Medical Code(s): Z72.0 - Tobacco use (10) Bacteremia due to Streptococcus pneumoniae Current visit: Yes Status: Acute Category: Medical Code(s): R78.81 - Bacteremia
--- NOTE | 2019-01-01 12:18 | Discharge Summary ---
General - General Admission date:: 12/30/18 Discharge date: 01/01/19 HPI HPI: this wf is patient at [facility] - over the last 2 days has had nonproductive cough and felt weak- she had dec po intake and dev fever last night with increasing resp sx- she does use tob and is a diabetic - she was sent to the ed and found to have lt cap - she was admitted with resp treatments and ivf and abx - Hospital Course Hospital Course: pt with cap and slowly improved on abx and was found to have strep pneumo bacteremia and has improved with stable loc and tolerating diet - Objective Vital signs: Temp Pulse Resp BP Pulse Ox 98.5 F 77 18 163/67 H 94 L 01/01/19 12:00 01/01/19 12:00 01/01/19 12:00 01/01/19 12:00 01/01/19 12:00 no acute distress, obese - *Routine HEENT Exam Head: Present: normocephalic Eye: Present: EOMI, PERRL ENT: Present: mucous membranes moist - *Routine Neck Exam Absent: JVD - *Routine Respiratory Exam Present: rhonchi - *Routine Cardiovascular Exam Present: RRR, murmur, S4 - *Routine Abdominal Exam Present: soft - *Routine Extremities Exam Present: edema - Routine Back/Spine/Pelvis Exam Back/Spine: Absent: CVA tenderness - *Routine Skin Exam Present: intact - *Routine Neurological Exam Present: alert, CN II-XII intact - Routine Psychiatric Exam Present: normal affect Results Labs on day of discharge: Labs from last 24 hours 01/01/19 12/31/18 12/31/18 06:06 20:04 16:51 POC Glucose 111 H 169 H 169 H 12/31/18 12/31/18 06:32 06:30 POC Glucose 91 94 Preliminary micro results at discharge 12/30/18 08:30 Sputum Culture - Preliminary Sputum - Expectorated Sputum 12/30/18 04:10 Blood Culture - Preliminary Blood Streptococcus pneumoniae 12/30/18 04:10 Blood Culture - Preliminary Blood NO GROWTH AFTER 48 HOURS DS: Diagnosis - Discharge Diagnosis (1) Obesity (BMI 30.0-34.9) Status: Acute (2) CAP (community acquired pneumonia) Status: Acute (3) Schizophrenia Status: Acute (4) Diabetes mellitus Status: Acute (5) Hyponatremia Status: Acute (6) Hypokalemia Status: Acute (7) SIRS (systemic inflammatory response syndrome) Status: Acute (8) Cholelithiasis Status: Acute (9) Tobacco use Status: Acute (10) Bacteremia due to Streptococcus pneumoniae Status: Acute Discharge Plan - Patient Discharge Instructions ACTIVITY: Continue current activity DIET: continue same diet Patient Instructions: DI for Pneumonia -- Adult, DI for Obesity -- Adult, DI for Bacteremia--Child - Follow up Plan Follow up with: Faustino Toure MD [Primary Care Provider] - Disposition: Home, Self-Halfway Medications: Home Medications Medication Instructions Recorded Confirmed Type Acetaminophen [Acetaminophen 325mg 325 mg PO Q6HP PRN 04/08/17 12/30/18 History tab] Albuterol Sulfate [Proventil-HFA 2 puffs IH Q4HP PRN 04/08/17 12/30/18 History 90mcg/puff Inh] Benztropine Mesylate 2 mg PO BID 04/08/17 12/30/18 History Citalopram Hydrobromide [Celexa 20 mg PO DAILY 04/08/17 12/30/18 History 20mg Tablet] Metformin HCl [Glucophage 500mg 500 mg PO BID 04/08/17 12/30/18 History Tablet] risperiDONE [Risperdal 1mg Tablet] 3 mg PO BID 04/08/17 12/30/18 History gabapentin 100 mg capsule 100 mg PO BID cap 07/07/18 12/30/18 History hydrochlorothiazide 12.5 mg tablet 12.5 mg PO DAILY 07/07/18 12/30/18 History ropinirole 0.5 mg tablet 1 mg PO HS 07/07/18 12/30/18 History Ondansetron [Zofran 4mg ODT] 4 mg PO Q6HP PRN 12/30/18 12/30/18 History guaiFENesin [Tussin Chest 100 mg PO Q4HP PRN 12/30/18 12/30/18 History Congestion] Ceftriaxone Sodium [Rocephin 1gm 1 gm IM Q24H 7 Days #7 vial 01/01/19 Rx vial] Nicotine [Nicoderm 21mg/24hr 21 mg TD DAILYP PRN #30 patch.td24 01/01/19 Rx patch] Prescriptions/Medication Reconciliation: New Ceftriaxone Sodium [Rocephin 1gm vial] 1 gm IM Q24H 7 Days #7 vial Nicotine [Nicoderm 21mg/24hr patch] 21 mg TD DAILYP PRN #30 patch.td24 PRN Reason: Nicotine Cravings Continued hydrochlorothiazide 12.5 mg tablet 12.5 mg PO DAILY ropinirole 0.5 mg tablet 1 mg PO HS gabapentin 100 mg capsule 100 mg PO BID cap Benztropine Mesylate 2 mg PO BID Albuterol Sulfate [Proventil-HFA 90mcg/puff Inh] 2 puffs IH Q4HP PRN PRN Reason: Shortness Of Breath Acetaminophen [Acetaminophen 325mg tab] 325 mg PO Q6HP PRN PRN Reason: PAIN risperiDONE [Risperdal 1mg Tablet] 3 mg PO BID Ondansetron [Zofran 4mg ODT] 4 mg PO Q6HP PRN PRN Reason: Nausea guaiFENesin [Tussin Chest Congestion] 100 mg PO Q4HP PRN PRN Reason: Cough Metformin HCl [Glucophage 500mg Tablet] 500 mg PO BID Citalopram Hydrobromide [Celexa 20mg Tablet] 20 mg PO DAILY - Problem Reconciliation Problems Reviewed?: Yes
--- OUTSIDE RECORDS SUMMARY | 2019-01-01 15:26 | External Medical Summary | Continuity of Care Document ---
:1955 Author Organization [facility] Address [address] [place] Phone Care Team Providers Name Role Phone Ani Toure Primary Care Provider Ani Toure Attending Provider Allergies, Adverse Reactions, Alerts Allergen Type Severity Reaction Last Updated Verified Status aspirin Allergy Yes Active Medications Medication Status Dose Units Route Sig Qty Days Start End Instruct ions Date Date Gabapentin Active 100 MG Oral Twice a July 072018 1:57pm Hydrochlorothia Active 12.5 MG Oral Daily July 072018 1:58pm Ropinirole Hcl Active 1 MG Oral At July 07, bedtime 2019 nightly 1:58pm Acetaminophen Active 325 MG Oral Every 6 April hours 2017 as 3:34pm needed Albuterol Active 2 PUFFS INHALATIO Every 4 April Sulfate N hours 2017 as 3:34pm needed Benztropine Active 2 MG Oral Twice a April Mesylate 2017 3:34pm Citalopram Active 20 MG Oral Daily April Hydrobromide 2017 3:34pm Metformin Hcl Active 500 MG Oral Twice a April 3:34pm Risperidone Active 3 MG Oral Twice a April 3:34pm Ondansetron Active 4 MG Oral Every 6 December needed 8:26am Guaifenesin Active 100 MG Oral Every 4 December hours 2018 needed 8:30am Nicotine Active 21 MG TRANSDERM Daily December 12:19pm Ceftriaxone Active 1 GM INTRAMUSC Q24H 7 7 December Sodium 2018 12:19pm Problems Active Problems Medical Problem Onset Date Status Acute cholecystitis with chronic Active cholecystitis Bacteremia due to Streptococcus Active pneumoniae Diabetes mellitus Active Hyponatremia Active CAP (community acquired pneumonia) Activ e SIRS (systemic inflammatory response Act drew syndrome) Obesity (BMI 30.0-34.9) Active Schizophrenia Active Tobacco use Active Cholelithiasis Active Hypokalemia Active Advance Directives Advance Directive Response Recorded Date/Time Living Will No December 30, 2018 7:20am Chief Complaint and Reason for Visit Chief Complaint Monthly Check-up Yearly H&P Pneumonia Reason for Visit Bacteremia due to Streptococ cus pneumoniae CAP (community acquired pneu monia) Cholelithiasis Diabetes mellitus Hypokalemia Hyponatremia Obesity (BMI 30.0-34.9) SIRS (systemic inflammatory response syndrome) Schizophrenia Tobacco use Encounters Encounter Location(s) Arrival/Admit Date Discharge/Depart Date Provider(s) Registered [facility] Physician October 06, 2018 [facility] Inpatient Group-Ambulatory 11:59pm MD Omaira Toure Registered [facility] Physician October 28 [facility] Inpatient Group-Ambulatory 2018 11:59pm MD Kenyon Toure Registered [facility] Physician December 30, [facility] January 01, [facility] Inpatient Group- 2019 3:16pm MD Tejal Recent Diagnosis Onset Date Bacteremia due to Streptococcus pneumoniae CAP (community acquired pneumonia) Cholelithiasis Diabetes mellitus Hypokalemia Hyponatremia Obesity (BMI 30.0-34.9) SIRS (systemic inflammatory response syndrome) Schizophrenia Tobacco use Assessments Diagnosis Onset Date Resolution Status Bacteremia due to acute Streptococcus pneumoniae CAP (community acquired acute pneumonia) Cholelithiasis acute Diabetes mellitus acute Hypokalemia acute Hyponatremia acute Obesity (BMI 30.0-34.9) acute SIRS (systemic inflammatory acut e response syndrome) Schizophrenia acute Tobacco use acute Functional Status No Functional Status information available Goals Acute Goals Nursing Diagnosis: Knowledge Deficit D isease/Condition Goal(s): Education of di sease process Instruction(s): Follow provider p cari/instructions (See attached discharge education) Follow/up with primary care provider as instructed in discharge packet Ambulatory Goals Patient verbalizes understanding of dise ase process/healthy behaviors. Patient to follow plan of care. Education provid ed. Immunizations Immunization Event Date Not Given Dose Traffic Counter Lot Vac cine Reason Number Number Informatio n Statement (VIS) Deta il Hepatitis A November Vaccine, adult 2017 dosage Mental Status No Mental Status Information Available Medical Equipment No Medical Equipment Information available Insurance Providers Guarantor Josefina Van Address [address] [place] [address] Contact Info. Home Phone: Payer Policy Id Coverage Id Subscriber's Subscriber Effective Expi ration Name Id Date Date [employer] [id number] Josefina [id number] John Paul Van Self Pay Self N/A Plan of Treatment Future Tests Future scheduled test information is unavailable Pending Tests Pending diagnostic test information is unavailable Future Visits Future appointment information is unavailable Referrals to Other Providers Reason for Referral Start Provider Provider Contact Provider Address Referral Date Information Admission to [facility] January [address] [place] [address] Future Procedures Future procedure information is unavailable Future Medications Future medication information is unavailable Patient Instructions DI for Pneumonia -- Adult DI for Obesity -- Adult DI for Bacteremia--Child Social History Observation Status Date of Observation Not December 30, 2018 Assigned Sex Female Vital Signs Vital Reading Result Reference Range Collection Date/ Time Height 155 cm January 01 12:24pm Weight 74.10 kg January 01 019 12:24pm Body Temperature 98.5 [degF] 97.6-99.6 January 01, 2019 12:00pm Heart Rate 76 /min 60-90 January 01 2:25pm Respiratory rate 18 /min -January 01, 2019 12:00pm Oxygen saturation by 94 % 95-100 January [id number] Pulse oximetry 12:00pm BP Systolic 163 mm[Hg] 110-140 January 01 019 12:00pm BP Diastolic 67 mm[Hg] 60-90 January 01 019 12:00pm BMI (Body Mass Index) 30.8 kg/m2 December 092018 12:24pm Inhaled oxygen 21 % January 01 concentration 6:41am
== END 2019-01-01 15:46 | disposition home or self-care (01) | DRG 194 ==
LOC: 2ND 04:12 → ER 04:12 → 2ND 08:02
PROVIDERS: ADMIT Emergency Medicine; ATTEND Emergency Medicine
CPT/HCPCS: 36415; 71010; 71045; 71250; 80048; 80053; 81001; 82962; 83605; 83735; 85007; 85025; 87040; 87070; 87077; 87186; 87205; 87275; 87276; 94640; 94761; 96365; 96366; 96367; 97162; 97166; 99285; J0456; J2405

== ENCOUNTER 2019-01-02 11:51 | Outpatient (CLI) | payer OTHER, SELFPAY ==
[2019-01-02 12:36] VITALS: BP 155/71; PULSE 84; RESP 18; O2SAT 94
== END 2019-01-02 12:36 | disposition home or self-care (01) ==
LOC: INF 11:51
PROVIDERS: Visit Provider Emergency Medicine
DX: J18.9 Pneumonia, unspecified organism (principal)
CPT/HCPCS: 96372

== ENCOUNTER 2019-01-03 10:53 | Outpatient (CLI) | payer OTHER, SELFPAY ==
[2019-01-03 11:50] VITALS: BP 148/81; PULSE 91; RESP 18
== END 2019-01-03 11:50 | disposition home or self-care (01) ==
LOC: INF 10:53
PROVIDERS: Visit Provider Emergency Medicine
DX: J18.9 Pneumonia, unspecified organism (principal)
CPT/HCPCS: 96372

== ENCOUNTER 2019-01-04 11:14 | Outpatient (CLI) | payer OTHER, SELFPAY ==
[2019-01-04 11:22] VITALS: BP 151/73; PULSE 103; RESP 20; TEMP 36.6; O2SAT 95; BMI 32.1
[2019-01-04 11:41] VITALS: BP 150/72; PULSE 98; RESP 17; TEMP 36.6; O2SAT 96
== END 2019-01-04 11:44 ==
LOC: INF 11:14
PROVIDERS: PCP Emergency Medicine; Visit Provider Emergency Medicine
DX: J18.9 Pneumonia, unspecified organism (principal)
CPT/HCPCS: G0463

== ENCOUNTER 2019-01-05 11:40 | Outpatient (CLI) | payer OTHER, SELFPAY ==
[2019-01-05 12:05] VITALS: BP 161/70; PULSE 87; RESP 18; TEMP 37.1; O2SAT 96
== END 2019-01-05 12:20 | disposition home or self-care (01) ==
LOC: INF 11:45
PROVIDERS: Visit Provider Emergency Medicine
DX: J18.9 Pneumonia, unspecified organism (principal)
CPT/HCPCS: 96372

== ENCOUNTER → 2019-01-06 10:24 | Outpatient (CLI) | payer OTHER, SELFPAY ==
[2019-01-06 10:55] VITALS: BP 152/71; PULSE 89; RESP 20; TEMP 36.7; O2SAT 100
[2019-01-06 11:15] VITALS: BP 146/72; PULSE 89; RESP 18; TEMP 36.7; O2SAT 98
== END ==
PROVIDERS: PCP Emergency Medicine; Visit Provider Emergency Medicine
DX: J18.9 Pneumonia, unspecified organism (principal)
CPT/HCPCS: 96372

== ENCOUNTER → 2019-01-07 13:24 | Outpatient (CLI) | payer OTHER, SELFPAY ==
[2019-01-07 13:58] VITALS: BP 119/63; PULSE 82; RESP 16; TEMP 36.6; O2SAT 96
== END ==
PROVIDERS: PCP Emergency Medicine; Visit Provider Emergency Medicine
DX: J18.9 Pneumonia, unspecified organism (principal)
CPT/HCPCS: 96372

== ENCOUNTER 2019-01-08 10:43 | Outpatient (CLI) | payer OTHER, SELFPAY ==
[2019-01-08 10:56] VITALS: BP 150/60; PULSE 86; RESP 18; TEMP 36.6; O2SAT 97
== END 2019-01-08 11:25 | disposition home or self-care (01) ==
LOC: INF 10:43
PROVIDERS: Visit Provider Emergency Medicine
DX: J18.9 Pneumonia, unspecified organism (principal)
CPT/HCPCS: 96372

== ENCOUNTER 2020-04-20 03:26 | Emergency (ER) | payer MEDICAID, SELFPAY ==
[2020-04-20] VITALS (8 sets, daily range): BP systolic 93–137; BP diastolic 38–72; PULSE 68–89; RESP 14–21; TEMP 36.4–36.6; O2SAT 91–97; BMI 37.8
--- NOTE | 2020-04-20 02:24 | ECG_ITS ---
APPROVED REPORT Exam: Resting ECG HR:89 bpm ECG Measurements Heart Rate 89 AXES IL 166 P 65 QRSd 100 QRS 72 QT 374 T 53 QTc 455 Conclusion Normal sinus rhythm Normal ECG Electronically signed by : Abdiaziz Ruiz, 04/20/2020 07:41:19
--- NOTE | 2020-04-20 03:25 | CT_ITS ---
PROCEDURE: CT ANGIO CHEST CLINCIAL INDICATION: shortness of air Cough, smoker, shortness of air COMPARISON: CT CT CHEST WO CON from 12/30/2018 TECHNIQUE: IV Contrast: 70ML Isovue 370 Axial images obtained with sagittal and coronal reformats. All CT scans at the facility use one or more dose reduction, viz: automated exposure control, ma/kV adjustment per patient size (including targeted exams where dose is matched to indication, i.e. head), or iterative reconstruction technique. FINDINGS: HEART AND MEDIASTINAL STRUCTURES: No central pulmonary embolus evident. Peripheral pulmonary arteries are not well opacified. No evidence of aortic aneurysm or dissection. Mild atheromatous changes are present involving the descending thoracic aorta. Coronary artery calcifications are present. LUNGS AND PLEURAL SPACES: Mild atelectatic or fibrotic changes are present in the right lower lobe medially and in the left upper lobe medially and lingula. There is evidence of old granulomatous disease. BONY STRUCTURES: Kyphosis with degenerative changes in the thoracic spine. UPPER ABDOMEN: Unremarkable. ADDITIONAL FINDINGS: No other significant abnormalities. IMPRESSION: 1. No evidence of pulmonary embolus. 2. Bilateral atelectatic or fibrotic change. Dictated by: Higinio Lemos MD 04/21/2020 11:41 Higinio Lemos MD in OV 04/21/2020 11:41
--- NOTE | 2020-04-20 03:42 | XR_ITS ---
PROCEDURE: XR CHEST 2V CLINICAL HISTORY: soa Shortness of air with cough COMPARISON: CR XR CHEST PORTABLE from 12/30/[address] CHEST WO CON from 12/30/2018 CR XR CHEST 2V from 01/08/[address] ANGIO CHEST from 04/20/2020 FINDINGS: The cardiomediastinal silhouette and pulmonary vascularity are within normal limits. . No lobar consolidation or collapse. No acute bony abnormalities. IMPRESSION: No acute findings. Dictated by: Higinio Lemos MD 04/20/2020 07:55 Higinio Lemos MD in [place] 04/20/2020 07:55
--- NOTE | 2020-04-20 03:45 | PC.NURSE ---
called radiology re: orders for patient
[2020-04-20 03:50] LABS: Basophils # 0.1 K/mm3 (0-0.2); Basophils % 0.6 % (0.1-2.0); Eosinophils # 0.3 K/mm3 (0.0-0.4); Eosinophils % 3.4 % (0.1-12.0); Hematocrit 40.6 % (37.0-47.0); Hemoglobin 13.4 g/dL (12.2-16.2); Lymphocytes # 2.6 K/mm3 (0.7-4.5); Lymphocytes % 29.9 % (10-50); Mean Corpuscular Hemoglobin 30.4 pg (27.0-31.2); Mean Corpuscular Volume 92.3 fl (81-99); Mean Platelet Volume 7.1 fl (7.4-10.4); Monocytes # 0.4 K/mm3 (0.1-1.0); Monocytes % 5.1 % (1.7-9.3); Neutrophils # 5.2 K/mm3 (1.8-7.8); Neutrophils % 60.9 % (37.0-80.0); Platelet Count 265 K/mm3 (142-424); Red Cell Distribution Width 14.3 % (11.5-17.5); White Blood Count 8.5 K/mm3 (4.8-10.8)
--- NOTE | 2020-04-20 03:50 | PC.NURSE ---
called xray re: xrays again
--- NOTE | 2020-04-20 03:55 | PC.NURSE ---
changed single view to 2 view per md request
[2020-04-20 04:00] LABS: Alanine Aminotransferase 12 U/L (12-78); Albumin Level 3.9 g/dl (3.5-5.0); Alkaline Phosphatase 77 U/L (38-126); Anion Gap 8.6 mEq/L (5-15); Aspartate Amino Transferase 26 U/L (14-36); Bilirubin,Indirect 0.3 mg/dL (0.0-0.9); Bilirubin,Total 0.3 mg/dl (0.2-1.3); Bilirubin,Unconjugated 0.2 mg/dL (0.0-1.1); Blood Urea Nitrogen 7 mg/dl (7-17); Calcium 9.1 mg/dl (8.4-10.2); Carbon Dioxide 31 mmol/L (22.0-30.0); Chloride 100 mmol/L (98-107); Creatinine Clearance Estimated 82 mL/min (50-200); Estimated Glomerular Filt Rate 101 ml/min (>60); GFR (African American) 122 ML/MIN (>60); Glucose 152 mg/dl (74-100); Potassium 3.6 mmoL/L (3.5-5.1); Sodium 136 mmol/L (136-145); Total Protein,Serum 7.7 g/dl (6.3-8.2)
[2020-04-20 04:04] LABS: C-Reactive Protein 23.6 mg/L (0-4)
[2020-04-20 04:10] LABS: NT Pro Brain Natriuretic Pep. 86.4 pg/mL (0-125)
--- NOTE | 2020-04-20 04:11 | PC.NURSE ---
continuing to wait on radiology to get patient
--- NOTE | 2020-04-20 04:13 | HMH.EDSOB ---
ED Disposition Clinical Impression: Acute exacerbation of chronic obstructive airways disease Disposition: Home, Self-Care Condition on Discharge: Good Instructions: DI for Shortness of Breath Additional Instructions: resume meds Referrals: Faustino Toure MD [Primary Care Provider] - - Critical Care Critical Care Time: No Attestation: On 04/20/20, the high probability of a clinically significant, sudden or life threatening deterioration of the following system(s) required my full and direct attention, intervention and personal management. The time I documented below is in addition to time spent performing reported procedures but includes the following listed in this critical care notation. Medical Decision Making - Medical Records Medical records reviewed: Yes: I reviewed the patient's medical records. - 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 Pt receiving controlled substance: No Vital Signs: 04/20/20 03:20 04/20/20 04:02 04/20/20 05:19 Temperature 97.9 F Temperature Source Oral Oral Pulse Rate Pulse Rate [Left Radial] 89 82 Respiratory Rate 21 16 Blood Pressure Blood Pressure [Right Arm] 126/72 137/64 109/38 L Blood Pressure Mean [Right Arm] 90 88 61 Blood Pressure Source Blood Pressure Source [Right Arm] Automatic Cuff Automatic Cuff Automatic Cuff Blood Pressure Position Blood Pressure Position [Right Arm] Supine 02 Sat by Pulse Oximetry 96 97 Oxygen Delivery Method Room Air Room Air 04/20/20 05:30 04/20/20 06:00 04/20/20 06:30 Temperature Temperature Source Pulse Rate Pulse Rate [Left Radial] 68 75 73 Respiratory Rate 16 15 14 Blood Pressure Blood Pressure [Right Arm] 93/39 L 93/40 L 104/41 L Blood Pressure Mean [Right Arm] 57 57 62 Blood Pressure Source Blood Pressure Source [Right Arm] Automatic Cuff Automatic Cuff Automatic Cuff Blood Pressure Position Blood Pressure Position [Right Arm] 02 Sat by Pulse Oximetry 93 L 91 L 92 L Oxygen Delivery Method Room Air Room Air 04/20/20 07:00 04/20/20 07:09 04/20/20 07:10 Temperature 97.5 F L Temperature Source Oral Pulse Rate 71 Pulse Rate [Left Radial] 74 Respiratory Rate 16 18 Blood Pressure 117/56 L Blood Pressure [Right Arm] 118/40 L Blood Pressure Mean [Right Arm] 66 Blood Pressure Source Automatic Cuff Blood Pressure Source [Right Arm] Automatic Cuff Blood Pressure Position Supine Blood Pressure Position [Right Arm] 02 Sat by Pulse Oximetry 94 L Oxygen Delivery Method Room Air Room Air Room Air - Lab Data Lab results reviewed: Yes: I reviewed the patient's lab results. Lab Results 04/20/20 03:40: WBC 8.5, RBC 4.40, Hgb 13.4, Hct 40.6, MCV 92.3, MCH 30.4, MCHC 33.0, RDW 14.3, Plt Count 265, MPV 7.1 L, Neut % (Auto) 60.9, Lymph % (Auto) 29.9, [place] % (Auto) 5.1, Eos % (Auto) 3.4, Baso % (Auto) 0.6, Neut # (Auto) 5.2, Lymph # (Auto) 2.6, [place] # (Auto) 0.4, Eos # (Auto) 0.3, Baso # (Auto) 0.1 04/20/20 03:40: Sodium 136, Potassium 3.6, Chloride 100, Carbon Dioxide 31 H, Anion Gap 8.6, BUN 7, Creatinine 0.60, Estimated Creat Clear 82, Estimated GFR 101, Est GFR ( Amer) 122, Glucose 152 H, Calcium 9.1, Total Bilirubin 0.3, Direct Bilirubin 0.0, Conjugated Bilirubin 0.0, Indirect Bilirubin 0.3, Unconjugated Bilirubin 0.2, AST 26, ALT 12, Alkaline Phosphatase 77, Total Protein 7.7, Albumin 3.9, Procalcitonin 0.042, TSH 2.80, Thyroxine (T4) 9.7 04/20/20 03:40: C-Reactive Protein 23.6 H, NT-Pro-B Natriuret Pep 86.4 04/20/20 03:40: ESR 63 H 04/20/20 03:40: Troponin I 0.04 H 04/20/20 04:00: Lactate 1.7 04/20/20 05:24: Urine Color Yellow, Urine Appearance Clear, Urine pH 6.5, Ur Specific [place] 1.010, Urine Protein Negative, Urine Glucose (UA) Negative, Urine Ketones Negative, Urine Blood 1+, Urine Nitrate Negative, Urine Bilirubin Negative, Urine Urobilinogen 0.2, Ur Leukocyte Esterase Negative, Urine RBC 3-5, Ur Squamous Epith Cells 3-5 04/20/20 06:30: Troponin I 0.03 Result diagrams: 0
--- NOTE | 2020-04-20 04:13 | PC.NURSE ---
xray at bedside transporting pt via wc.
[2020-04-20 04:16] LABS: Erythrocyte Sedimentation Rate 63 mm/hr (0-30)
[2020-04-20 04:17] LABS: Lactic Acid 1.7 mmol/L (0.7-2.1)
[2020-04-20 04:18] LABS: Procalcitonin 0.042 ng/mL (0.0-2.0); T4 (Thyroxine) 9.7 ug/dl (5.53-11.0)
--- NOTE | 2020-04-20 04:33 | PC.NURSE ---
Aspirin not given d/t pt reporting it causes swelling to hands and feet
[2020-04-20 04:41] LABS: Troponin I 0.04 ng/ml (0.00-0.034)
[2020-04-20 05:30] LABS: Appearance,Urine CLEAR (Clear); Bilirubin,Urine Negative (Negative); Blood, Urine 1+ (Negative); Color,Urine YELLOW (Yellow); Glucose,Urine (UA) Negative (Negative); Ketones,Urine Negative (Negative); Leukocyte Esterase,Urine Negative (Negative); Microscopic, Urine URINE MICROSCOPIC (MICROSCOPIC); Nitrate,Urine Negative (Negative); PH,Urine 6.5 (5.0-8.5); Protein,Urine Negative (Negative); Urobilinogen,Urine 0.2 EU/dl (0.2)
[2020-04-20 06:57] LABS: Troponin I 0.03 ng/ml (0.00-0.034)
--- NOTE | 2020-04-20 07:10 | PC.NURSE ---
Called [facility] to notify pt is ready to be picked up
== END 2020-04-20 07:21 | disposition home or self-care (01) ==
PROVIDERS: Emergency Provider Emergency Medicine; PCP Emergency Medicine
DX: J44.1 Chronic obstructive pulmonary disease with (acute) exacerbation (principal); E11.65 Type 2 diabetes mellitus with hyperglycemia; F17.210 Nicotine dependence, cigarettes, uncomplicated; Z79.899 Other long term (current) drug therapy
CPT/HCPCS: 71046; 71275; 80048; 80076; 81001; 83605; 83880; 84145; 84436; 84443; 84484; 85025; 85651; 86140; 93005; 96365; 96375; 99284; Q9967

== ENCOUNTER → 2020-10-30 08:24 | Outpatient (CLI) | payer MEDICAID, SELFPAY ==
--- NOTE | 2020-10-30 08:29 | US_ITS ---
PROCEDURE: US ABDOMEN LIMITED CLINICAL INDICATION: GALLSTONES ON PRIOR IMAGING COMPARISON: US US GALLBLADDER from 02/28/[address] ABDOMEN PELVIS WO CON from 02/28/2019 FINDINGS: PANCREAS: Unremarkable. No obvious mass or abnormal fluid collection. No ductal dilatation LIVER: No focal liver lesions demonstrated. Homogeneous echogenicity. No intrahepatic biliary ductal dilatation evident. There is appropriate direction of blood flow within a non dilated portal vein RIGHT KIDNEY: Unremarkable. Normal size and echogenicity. No hydronephrosis GALLBLADDER: There is a gallstone present measuring approximately 2 cm. No gallbladder wall thickening, pericholecystic fluid, or biliary dilatation. Common bile duct is 4 mm. IMPRESSION: Cholelithiasis otherwise negative. Dictated by: Higinio Lemos MD 10/30/2020 13:12 Higinio Lemos MD in [place] 10/30/2020 13:12
== END ==
PROVIDERS: PCP Emergency Medicine; Visit Provider Emergency Medicine
DX: K80.80 Other cholelithiasis without obstruction (principal)
CPT/HCPCS: 76705

== ENCOUNTER → 2020-12-18 09:29 | Outpatient (CLI) | payer MEDICAID, SELFPAY ==
--- NOTE | 2020-12-18 09:31 | CA_ITS ---
APPROVED REPORT EXAM: Comprehensive 2D, Doppler, and color-flow Echocardiogram Director Drug Safety: [place] CRT Ht: 5 ft 0 in Wt: 170lbs BSA: 1.74 BP: 147/61 mmHg Indications: Congenital Heart Disease, Shortness of Breath, Diabetes, Fatigue, Hypertension/HDD Chest Pressure, Diabetes, Fatigue, Hypertension/HDD, Pre-Op 2D Dimensions LVOT 1.77 cm (M/F) 1.5-2.5 LA Volume 26.80 mL LA Volume Index 15.40 mL/m2 (M/F) 16-34 M-Mode Dimensions RVDd 2.32 cm (0.9-2.6) LA Diam 3.43 cm (1.9-4.0) LVDd 4.14 cm (3.5-5.7) Ao Diam 2.93 cm (2.0-3.7) LVDs 2.71 cm (3.5-5.7) IVSd 1.07 cm (0.6-1.1) PWd 1.07 cm (0.6-1.1) EF (Teich) 64.00% FS 34.50% EDV (Teich) 75.90 mL TAPSE 2.70 (<1.7) ESV (Teich) 27.30 mL LV Diastology E Decel Time 263.00 (160-240 msec) E/A Ratio 0.84 MED E' 6.40 (< 7 cm/sec) MED A' 12.90 cm/s E'/MED E' Ratio 15.11 (>14) LAT E' 6.50 (<10 cm/sec) LAT A' 12.00 cm/s E/LAT E' Ratio 14.88 (>14) Aortic Valve AI PHT 347.00 ms AO Peak GR. 10.40 mmHg Mitral Valve MV A Velocity 115.00 (40-130 cm/s) E/A Ratio 0.84 MV Decel. Time 263.00 (160-240 ms) Pulmonary Valve PV Peak Velocity 97.00 (50-150 cm/s) Tricuspid Valve TR P. Velocity 156.00 cm/s RAP Estimate 10.00 mmHg RVSP 19.70 mmHg Left Ventricle Left atrium is mildly enlarged, left ventricle is normal size, mild concentric left ventricular hypertrophy, visually estimated ejection fraction 55% with no regional wall motion abnormality, grade 1 diastolic dysfunction seen without tissue Doppler evidence of raise left atrial pressure. Right Ventricle Right atrium and right ventricle is visually normal size and function. Aortic Valve Aortic valve is thickened and calcified without Doppler evidence of aortic stenosis, there is mild aortic insufficiency. Mitral Valve Mitral valve has mitral calcification, there is no mitral stenosis, there is mild mitral regurgitation. Tricuspid Valve Tricuspid valve is grossly normal, there is mild tricuspid regurgitation, tricuspid regurgitation jet velocity is inadequate for calculation of the right ventricular systolic pressure. Pulmonic Valve Pulmonic valve is poorly visualized. Great Vessels Aortic root is normal size. Inferior vena cava is normal size with normal inspiratory collapse. Pericardium No significant pericardial effusion noted. Conclusion 1. Mildly enlarged left atrium, normal left ventricular size, mild concentric left ventricular hypertrophy, visually estimated ejection fraction 55% with no regional wall motion abnormality, grade 1 diastolic dysfunction seen without tissue Doppler evidence of raise left atrial pressure. 2. Thickened and calcified aortic valve without aortic stenosis, there is mild aortic insufficiency. 3. Mild mitral and tricuspid regurgitation. 4. No significant pericardial effusion. 5. Inferior vena cava is normal size with normal inspiratory collapse. Electronically signed by : Remberto Pearce MD 12/19/2020 10:42:19
== END ==
PROVIDERS: PCP Emergency Medicine; Visit Provider Internal Medicine
DX: Z01.810 Encounter for preprocedural cardiovascular examination (principal); I10 Essential (primary) hypertension; Z72.0 Tobacco use
CPT/HCPCS: 93306

== ENCOUNTER 2021-06-29 12:59 | Emergency (ER) | payer MEDICAID, SELFPAY ==
[2021-06-29] VITALS (7 sets, daily range): BP systolic 111–122; BP diastolic 45–80; PULSE 80–96; RESP 16–18; TEMP 37; O2SAT 96–99; BMI 31.2
--- NOTE | 2021-06-29 13:43 | XR_ITS ---
FINAL REPORT CLINICAL HISTORY: soa, weakness FINDINGS: A portable view of the chest was obtained. Comparison is made to a prior exam dated April 20, 2020. Cardiac and mediastinal silhouettes are within normal limits. There are low lung volumes. There are bibasilar opacities which could represent atelectasis or pneumonia. There is no pleural effusion or pneumothorax. IMPRESSION: Bibasilar opacities could represent atelectasis or pneumonia. Reviewed, Interpreted and Dictated by Cathy Levi MD Transcribed by Stephen Fry Authenticated by Cathy Levi MD on 06/29/2021 03:14:[address] [facility]
--- NOTE | 2021-06-29 13:58 | ECG_ITS ---
APPROVED REPORT Exam: Resting ECG HR:74 bpm ECG Measurements Heart Rate 74 AXES [place] 183 P 56 QRSd 98 QRS 16 QT 379 T 44 QTc 407 Conclusion SINUS RHYTHM WITH OCCASIONAL VENTRICULAR PREMATURE COMPLEXES POSSIBLE LEFT ATRIAL ENLARGEMENT [-0.1mV P-WAVE IN V1/V2] LOW QRS VOLTAGE IN PRECORDIAL LEADS [QRS DEFLECTION < 1.0 mV IN CHEST LEADS] SEPTAL MYOCARDIAL INFARCTION , OF INDETERMINATE AGE [40+ ms Q WAVE IN V1/V2] ABNORMAL ECG UNCONFIRMED REPORT Electronically signed by : Abdiaziz Ruiz MD 06/29/2021 17:47:04
--- NOTE | 2021-06-29 14:19 | CT_ITS ---
FINAL REPORT TECHNIQUE: Thin section axial images were obtained from the lung bases to the pubic symphysis without IV contrast. CLINICAL HISTORY: generalized abd pain COMPARISON: 02/28/2019 FINDINGS: There are no renal or ureteral stones. There is no hydronephrosis or perinephric stranding. There is either gallbladder wall thickening or a small amount of pericholecystic fluid. There appears to be mild abnormal attenuation surrounding the gallbladder. Mild cholecystitis is not excluded. The liver is enlarged. There is no focal lesion. Spleen, adrenal glands, and pancreas are without acute abnormality. A small hiatal hernia is present. There is no small bowel obstruction. The appendix is normal. There are segmental areas of colonic wall thickening, to include the cecum and proximal ascending colon, as well as the mid descending colon. This could represent areas of colitis. There is a moderate amount of retained stool in the colon. The uterus is present. There is no lymphadenopathy or free fluid. No acute osseous abnormality is seen. No acute osseous abnormality is identified. IMPRESSION: Wall thickening of the gallbladder versus a small amount of pericholecystic fluid with possible surrounding inflammation. Acute cholecystitis is not excluded. Segmental areas of colonic wall thickening, favor colitis. Consider repeat exam with oral and IV contrast, if indicated. Reviewed, Interpreted and Dictated by Cathy Levi MD Transcribed by Gogo Wasserman Authenticated by Cathy Levi MD on 06/29/2021 05:02:03 PM [facility]
[2021-06-29 15:58] LABS: VBG HCO3 32.1 mmol/L (23-30); VBG Oxygen Saturation 71.9 % (50-70); VBG PH 7.32 mmol/L (7.31-7.41); VBG PO2 36.4 mmol/L (28-40); VBG Total CO2 34.1 mmol/L (23-27)
[2021-06-29 16:02] LABS: Basophils # 0.1 K/mm3 (0-0.2); Eosinophils # 0.3 K/mm3 (0.0-0.4); Eosinophils % 4.7 % (0.1-12.0); Hematocrit 42.4 % (37.0-47.0); Hemoglobin 13.3 g/dL (12.2-16.2); Lymphocytes # 1.5 K/mm3 (0.7-4.5); Lymphocytes % 22.6 % (10-50); Mean Corpuscular HGB Conc 31.3 g/dL (31.8-35.4); Mean Corpuscular Hemoglobin 29.9 pg (27.0-31.2); Mean Corpuscular Volume 95.3 fl (81-99); Mean Platelet Volume 7.7 fl (7.4-10.4); Monocytes # 0.5 K/mm3 (0.1-1.0); Monocytes % 6.7 % (1.7-9.3); Neutrophils # 4.3 K/mm3 (1.8-7.8); Platelet Count 302 K/mm3 (142-424); Red Blood Count 4.45 M/mm3 (4.20-5.40); Red Cell Distribution Width 15.6 % (11.5-17.5); White Blood Count 6.7 K/mm3 (4.8-10.8)
[2021-06-29 16:03] LABS: Chloride 100 mmol/L (98-107); Potassium 4.1 mmoL/L (3.5-5.1); Sodium 138 mmol/L (136-145)
[2021-06-29 16:05] LABS: Alanine Aminotransferase 14 U/L (12-78); Aspartate Amino Transferase 29 U/L (14-36); Blood Urea Nitrogen 9 mg/dl (7-17); Creatinine Clearance Estimated 65 mL/min (50-200); Estimated Glomerular Filt Rate 101 ml/min (>60); GFR (African American) 122 ML/MIN (>60)
[2021-06-29 16:06] LABS: Albumin Level 3.8 g/dl (3.5-5.0); Albumin/Globulin Ratio 1.2 (1.1-1.8); Alkaline Phosphatase 70 U/L (38-126); Anion Gap 6.1 mEq/L (5-15); Calcium 9.3 mg/dl (8.4-10.2); Carbon Dioxide 36 mmol/L (22.0-30.0); Globulin 3.3 g/dL (1.3-3.2); Glucose 121 mg/dl (74-100); Total Protein,Serum 7.1 g/dl (6.3-8.2)
[2021-06-29 16:14] LABS: Bilirubin,Total 0.1 mg/dl (0.2-1.3)
--- NOTE | 2021-06-29 16:30 | PC.NURSE ---
Pt up to restroom, walking on her own
--- NOTE | 2021-06-29 17:08 | PC.NURSE ---
Calling facility to let them know pt ready for d/c
--- NOTE | 2021-06-29 17:39 | HMH.EDGENADL ---
ED Disposition Clinical Impression: COPD (chronic obstructive pulmonary disease) Qualifiers: COPD type: COPD with acute exacerbation Qualified Code(s): J44.1 - Chronic obstructive pulmonary disease with (acute) exacerbation Disposition: Home, Self-Care Condition on Discharge: Good Instructions: DI for Chronic Obstructive Pulmonary Disease Additional Instructions: Please return to the ED with any new or worsening symptoms, please follow-up with surgery as scheduled outpatient if you develop right upper quadrant abdominal pain. Referrals: Faustino Toure MD [Primary Care Provider] - - Critical Care Critical Care Time: No Attestation: On 06/29/21, the high probability of a clinically significant, sudden or life threatening deterioration of the following system(s) required my full and direct attention, intervention and personal management. The time I documented below is in addition to time spent performing reported procedures but includes the following listed in this critical care notation. Medical Decision Making - Medical Records Medical records reviewed: Yes: I reviewed the patient's medical records. - 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 Pt receiving controlled substance: No Vital Signs: 06/29/21 12:59 Pulse Rate [Left Radial] 96 H Respiratory Rate 18 Blood Pressure [Right Arm] 111/45 L Blood Pressure Mean [Right Arm] 67 Blood Pressure Source [Right Arm] Automatic Cuff Blood Pressure Position [Right Arm] Sitting 02 Sat by Pulse Oximetry 96 Oxygen Delivery Method Room Air - Lab Data Lab Results 06/29/21 14:19: VBG pH 7.32, VBG pCO2 64.0 H, VBG pO2 36.4, VBG HCO3 32.1 H, VBG Total CO2 34.1 H, VBG O2 Saturation 71.9 H, VBG Base Excess 6.0 H 06/29/21 15:37: WBC 6.7, RBC 4.45, Hgb 13.3, Hct 42.4, MCV 95.3, MCH 29.9, MCHC 31.3 L, RDW 15.6, Plt Count 302, MPV 7.7, Neut % (Auto) 64.0, Lymph % (Auto) 22.6, [place] % (Auto) 6.7, Eos % (Auto) 4.7, Baso % (Auto) 2.0, Neut # (Auto) 4.3, Lymph # (Auto) 1.5, [place] # (Auto) 0.5, Eos # (Auto) 0.3, Baso # (Auto) 0.1 06/29/21 15:37: Sodium 138, Potassium 4.1, Chloride 100, Carbon Dioxide 36 H, Anion Gap 6.1, BUN 9, Creatinine 0.60, Estimated Creat Clear 65, Estimated GFR 101, Est GFR ( Amer) 122, Glucose 121 H, Calcium 9.3, Total Bilirubin 0.1 L, AST 29, ALT 14, Alkaline Phosphatase 70, Total Protein 7.1, Albumin 3.8, Globulin 3.3 H, Albumin/Globulin Ratio 1.2 Result diagrams: 06/29/21 15:37 06/29/21 15:37 Orders (Tests/Meds): ED MEDICATIONS Discontinued Medications Generic Name Dose Route Start Last Admin Trade Name Freq PRN Reason Stop Dose Admin Albuterol/Ipratropium 3 ml 06/29/21 14:20 06/29/21 14:42 Ipratropium/Albuterol 3 Ml Neb IH 06/29/21 14:21 3 ml Q4HP STA Administration Dexamethasone Sodium Phosphate 10 mg 06/29/21 17:00 06/29/21 17:03 Dexamethasone 4mg/Ml 1ml Vial IV 06/29/21 17:01 10 mg ONCE ONE Administration Medical Decision Narrative: Patient is a 65-year-old female presents the ED today for further evaluation of shortness of breath, somnolence at lunch today, patient states that she was very tired today as she was awake all night, states that she has restless legs and that these have kept her awake. Patient does endorse shortness of breath, states that she has been compliant with her inhalers at home, patient has prolonged expiratory phase, wheezes bilaterally on exam, we have given 1 nebulizer, 10 mg of IV Decadron, chest x-ray with bibasilar atelectasis, not consistent with pneumonia. Patient's abdomen is completely nontender, she has no generalized abdominal tenderness, no right upper quadrant pain, but was endorsing generalized abdominal tenderness yesterday, patient found to have gallstones, fluid around the gallbladder which could be consistent with a diagnosis of cholecystitis, however clinically she does not have this, no elevated white blood cell count, no elevation in bilirubin or liver enzymes. Will refer for outpatient
== END 2021-06-29 17:48 | disposition home or self-care (01) ==
PROVIDERS: Emergency Provider Student in an Organized Health Care Education/Training Program; PCP Emergency Medicine
DX: J44.1 Chronic obstructive pulmonary disease with (acute) exacerbation (principal); E11.9 Type 2 diabetes mellitus without complications; I10 Essential (primary) hypertension; Z72.0 Tobacco use
CPT/HCPCS: 71045; 74176; 80053; 82803; 85025; 93005; 96374; 99284

== ENCOUNTER → 2021-09-29 09:14 | Outpatient (CLI) | payer MEDICARE, MEDICAID, SELFPAY ==
--- NOTE | 2021-09-29 09:26 | US_ITS ---
FINAL REPORT CLINICAL HISTORY: poor circulation, Claudication, smoker, HTN, DM, FINDINGS: ANKLE-BRACHIAL PRESSURE INDICES Pressure indices are as follows: RIGHT LOWER EXTREMITY: Ankle-brachial pressure index: 0.45 LEFT LOWER EXTREMITY: Ankle-brachial pressure index: 0.52 Comments: Abnormally depressed bilaterally with monophasic waveforms. CONCLUSION: Findings consistent with moderate to extensive arterial occlusive disease. Consider a CTA or catheter directed angiogram. Reviewed, Interpreted and Dictated by Florentino Cuevas MD Transcribed by Pushpa Rondon Authenticated and [facility]
== END ==
PROVIDERS: PCP Emergency Medicine; Visit Provider Emergency Medicine
DX: R09.89 Other specified symptoms and signs involving the circulatory and respiratory systems (principal)
CPT/HCPCS: 93923

== ENCOUNTER 2022-01-25 13:55 | Inpatient (IN) | payer MEDICAID, MEDICARE, SELFPAY ==
[2022-01-25] VITALS (12 sets, daily range): BP systolic 129–161; BP diastolic 54–81; PULSE 78–95; RESP 8–26; TEMP 36.4–37.4; O2SAT 93–99; BMI 25.7; BMI 26.4
--- NOTE | 2022-01-25 14:04 | XR_ITS ---
FINAL REPORT CLINICAL HISTORY: COPD exacerbation COMPARISON: June 29, 2021 FINDINGS: A single portable view of the chest was obtained. The patient is rotated to the right. The heart size and pulmonary vascularity are within normal limits. The mediastinum is within normal limits. There are mild bibasilar opacities. The bony thorax is intact. IMPRESSION: Mild bibasilar opacities favor atelectasis. Reviewed, Interpreted and Dictated by Jose L Haas III, MD Transcribed by Pushpa Rondon Authenticated and [facility]
--- NOTE | 2022-01-25 14:05 | PC.NURSE ---
When pt arrives via EMS, o2 noted 66% on RA. Pt placed on 3.5L NC. 95% noted.
--- NOTE | 2022-01-25 14:11 | HMH.EDGENADL ---
Discharge Plan Disposition Patient Disposition: Admitted As Inpatient Condition: Fair Clinical Impressions Clinical Impression: Respiratory distress Discharge ED Provider: Bry Karimi General Adult HPI General Chief complaint: Shortness of Breath/Dyspnea Stated complaint: Weakness Time Seen by Provider: 01/25/22 14:00 Mode of Arrival: EMS Source of Information: Patient Limitations: No Limitations History of Present Illness HPI narrative: This is a 66-year-old female with history of COPD, diabetes, schizophrenia, morbid obesity, tobacco abuse, hypertension, hyperlipidemia presenting with shortness of breath and weakness. Patient states that she began feeling weak 1 day prior to arrival. She developed a cough that was productive of yellow sputum and she is coughing more than she usually does. Denies fevers, chills, chest pain, diaphoresis, unilateral weakness. She has been vomiting nonbloody/nonbilious vomiting intermittently that has no relation to food, not associated with abdominal pain, but denies diarrhea. Related Data Home Medications Medication Instructions Recorded Confirmed acetaminophen 325 mg tablet 325 mg PO Q6HP PRN PAIN 04/08/17 01/25/22 albuterol sulfate 90 mcg/actuation 2 puffs IH Q4HP PRN Shortness Of 04/08/17 01/25/22 aerosol inhaler Breath benztropine 2 mg tablet 2 mg PO BID MOOD 04/08/17 01/25/22 citalopram 20 mg tablet 20 mg PO DAILY Depression 04/08/17 01/25/22 metformin 500 mg tablet 500 mg PO BID Diabetes 04/08/17 01/25/22 risperidone 1 mg tablet 3 mg PO BID MOOD 04/08/17 01/25/22 hydrochlorothiazide 12.5 mg tablet 12.5 mg PO DAILY Hypertension 07/07/18 01/25/22 ropinirole 0.5 mg tablet 2 mg PO HS RLS 07/07/18 01/25/22 guaifenesin 100 mg/5 mL oral liquid 100 mg PO Q4HP PRN Cough 12/30/18 01/25/22 ondansetron 4 mg disintegrating 4 mg PO Q6HP PRN Nausea 12/30/18 11/18/20 tablet donepezil 5 mg tablet 5 mg PO HS mood 11/18/20 01/25/22 loperamide 2 mg capsule 2 mg PO Q4H PRN Diarrhea 11/18/20 01/25/22 gabapentin 400 mg capsule 400 mg PO TID Pain 01/25/22 01/25/22 Allergies Allergy/AdvReac Type Severity Reaction Status Date / Time aspirin Allergy Intermediate edema Verified 11/18/20 09:27 Influenza Virus Vaccines AdvReac Intermediate Verified 11/18/20 09:27 [facility] Disclaimer: The information contained in this section may have been updated after the patient was seen, as this information can be updated by other users. Medical History (Updated 01/25/22 @ 18:52 by Leslie Adair RN) Depression HTN (hypertension) Seizure Family History (Updated 01/25/22 @ 16:19 by Christa Mason RN) Other No significant family history Social History (Updated 01/25/22 @ 16:20 by Christa Mason RN) Smoking Status: Current every day smoker tobacco type: cigarettes packs per day: 1 alcohol intake: never substance use type: denies use current occupational status: disabled and other Travel in the last 8 weeks: None household members: other housing: assisted living facility current occupational exposures/hazards: No caffeine: Yes ROS Obtained: Yes All systems reviewed & no additional complaints except as documented Physical Exam General General appearance: alert, in no apparent distress and lethargic Comment: Arousable, but sleepy appearing Head Head exam: atraumatic, normocephalic and normal inspection Eye Eye exam: Present normal appearance, PERRL and EOMI ENT ENT exam: Present normal exam, normal oropharynx, mucous membranes dry, TM's normal bilaterally and normal external ear exam; Absent mucous membranes moist Neck Neck exam: Present normal inspection, full ROM and trachea midline; Absent meningismus or lymphadenopathy Chest Chest inspection: Present normal inspection and symmetric chest wall rise; Absent tenderness Respiratory Respiratory exam: Present respiratory distress, wheezes, accessory muscle use and prolonged expiratory phase; Absent normal l
--- NOTE | 2022-01-25 14:12 | ECG_ITS ---
APPROVED REPORT Exam: Resting ECG HR:87 bpm ECG Measurements Heart Rate 87 AXES [place] 162 P 39 QRSd 104 QRS -8 QT 358 T -48 QTc 402 Conclusion SINUS RHYTHM POSSIBLE ANTERIOR MYOCARDIAL INFARCTION , OF INDETERMINATE AGE [30 ms Q WAVE IN V3/V4, OR R < 0.2 mV IN V4] ABNORMAL ECG UNCONFIRMED REPORT Electronically signed by : Abdiaziz Ruiz MD 01/26/2022 22:20:34
[2022-01-25 14:23] LABS: Basophils # 0.1 K/mm3 (0-0.2); Basophils % 1.4 % (0.1-2.0); Eosinophils % 0.7 % (0.1-12.0); Hematocrit 42.4 % (37.0-47.0); Hemoglobin 14.1 g/dL (12.2-16.2); Lymphocytes # 1.6 K/mm3 (0.7-4.5); Lymphocytes % 26.5 % (10-50); Mean Corpuscular HGB Conc 33.2 g/dL (31.8-35.4); Mean Corpuscular Hemoglobin 30.5 pg (27.0-31.2); Mean Corpuscular Volume 91.9 fl (81-99); Mean Platelet Volume 7.7 fl (7.4-10.4); Monocytes # 0.4 K/mm3 (0.1-1.0); Monocytes % 6.4 % (1.7-9.3); Neutrophils # 3.8 K/mm3 (1.8-7.8); Neutrophils % 65.1 % (37.0-80.0); Platelet Count 201 K/mm3 (142-424); Red Blood Count 4.62 M/mm3 (4.20-5.40); Red Cell Distribution Width 14.7 % (11.5-17.5); White Blood Count 5.9 K/mm3 (4.8-10.8)
[2022-01-25 14:27] LABS: VBG Base Excess 4.7 mmol/L (-2.4-2.3); VBG HCO3 31.6 mmol/L (23-30); VBG Oxygen Saturation 66.4 % (50-70); VBG PH 7.27 mmol/L (7.31-7.41); VBG PO2 38.9 mmol/L (28-40); VBG Total CO2 33.8 mmol/L (23-27)
[2022-01-25 14:28] LABS: Lactic Acid 1.3 mmol/L (0.7-2.1)
[2022-01-25 14:35] LABS: VBG PCO2 70.7 mmol/L (35-51)
[2022-01-25 14:37] LABS: Coronavirus 19, PCR Not Detected (NotDetected); Influenza B, PCR Not Detected (NotDetected)
--- NOTE | 2022-01-25 14:38 | PC.NURSE ---
aware of VBG
[2022-01-25 14:39] LABS: Influenza A, PCR Detected (NotDetected)
--- NOTE | 2022-01-25 14:40 | PC.NURSE ---
MD requesting bipap for more lethargic pt, respiratory aware
--- NOTE | 2022-01-25 14:53 | PC.NURSE ---
Respiratory at bedside placing pt on bipap at this time.
[2022-01-25 14:55] LABS: Chloride 93 mmol/L (98-107); Potassium 3.6 mmoL/L (3.5-5.1); Sodium 133 mmol/L (136-145)
[2022-01-25 14:58] LABS: Anion Gap 7.6 mEq/L (5-15); Blood Urea Nitrogen 15 mg/dl (7-17); Calcium 9.2 mg/dl (8.4-10.2); Carbon Dioxide 36 mmol/L (22.0-30.0); Creatinine Clearance Estimated 60 mL/min (50-200); Estimated Glomerular Filt Rate 72 ml/min (>60); GFR (African American) 87 ML/MIN (>60); Glucose 111 mg/dl (74-100)
[2022-01-25 15:13] LABS: NT Pro Brain Natriuretic Pep. 650 pg/mL (0-125)
[2022-01-25 15:16] LABS: Troponin I 0.08 ng/ml (0.00-0.034)
[2022-01-25 15:21] LABS: HCG,Quantitative < 2 mIU/ml (0-5.42)
--- NOTE | 2022-01-25 15:28 | PC.NURSE ---
HOWARD SILVERIO speaking with Dr. Jaramillo for admission
--- NOTE | 2022-01-25 15:40 | PC.NURSE ---
Spoke with Leanne in Care management regarding patient admission
[2022-01-25 15:51] LABS: ABG Base Excess 2.8 mmol/L (-2.4-2.3); ABG HCO3 29.7 mmhg (22.0-26.0); ABG Oxygen Saturation 99 % (90-100); ABG PH 7.27 mmol/L (7.35-7.45); ABG PO2 232.8 mmhg (80-100); ABG TCO2 31.7 mmhg (23-27)
--- NOTE | 2022-01-25 15:54 | EXP.HP ---
[facility] Disclaimer: The information contained in this section may have been updated after the patient was seen, as this information can be updated by other users. Social History Smoking Status: Current every day smoker tobacco type: cigarettes packs per day: 1 alcohol intake: never substance use type: denies use current occupational status: other Travel in the last 8 weeks: Inside the [place] household members: other housing: assisted living facility current occupational exposures/hazards: No caffeine: Yes Meds Home Medications and Allergies Home Medications Medication Instructions Recorded Confirmed Type acetaminophen 325 mg tablet 325 mg PO Q6HP PRN PAIN 04/08/17 11/18/20 History albuterol sulfate 90 mcg/actuation 2 puffs IH Q4HP PRN Shortness Of 04/08/17 11/18/20 History aerosol inhaler Breath benztropine 2 mg tablet 2 mg PO BID MOOD 04/08/17 11/18/20 History citalopram 20 mg tablet 20 mg PO DAILY Depression 04/08/17 11/18/20 History metformin 500 mg tablet 500 mg PO BID Diabetes 04/08/17 11/18/20 History risperidone 1 mg tablet 3 mg PO BID MOOD 04/08/17 11/18/20 History hydrochlorothiazide 12.5 mg tablet 12.5 mg PO DAILY Hypertension 07/07/18 11/18/20 History ropinirole 0.5 mg tablet 2 mg PO HS RLS 07/07/18 11/18/20 History guaifenesin 100 mg/5 mL oral liquid 100 mg PO Q4HP PRN Cough 12/30/18 11/18/20 History ondansetron 4 mg disintegrating 4 mg PO Q6HP PRN Nausea 12/30/18 11/18/20 History tablet donepezil 5 mg tablet 5 mg PO HS 11/18/20 11/18/20 History loperamide 2 mg capsule 2 mg PO Q4H PRN 11/18/20 11/18/20 History gabapentin 400 mg capsule 400 mg PO TID #90 caps 09/21/21 Rx New Prescriptions to Start Prescriptions: Allergies Allergy/AdvReac Type Severity Reaction Status Date / Time aspirin Allergy Intermediate edema Verified 11/18/20 09:27 Influenza Virus Vaccines AdvReac Intermediate Verified 11/18/20 09:27 Exam Data for Last 24 hours Vital signs and Labs for Last 24 Hours: Temp Pulse Resp BP Pulse Ox FiO2 99.3 F 88 20 134/65 95 60 01/25/22 13:55 01/25/22 15:00 01/25/22 13:55 01/25/22 15:00 01/25/22 15:00 01/25/22 15:00 Laboratory Results - last 24 hr 01/25/22 13:50: Sodium 133 L, Potassium 3.6, Chloride 93 L, Carbon Dioxide 36 H, Anion Gap 7.6, BUN 15, Creatinine 0.80, Estimated Creat Clear 60, Estimated GFR 72, Est GFR ( Amer) 87, Glucose 111 H, Calcium 9.2, Troponin I 0.08 H, NT-Pro-B Natriuret Pep 650 H, HCG, Quant < 2 01/25/22 14:05: VBG pH 7.27 L, VBG pCO2 70.7 H, VBG pO2 38.9, VBG HCO3 31.6 H, VBG Total CO2 33.8 H, VBG O2 Saturation 66.4, VBG Base Excess 4.7 H 01/25/22 14:05: WBC 5.9, RBC 4.62, Hgb 14.1, Hct 42.4, MCV 91.9, MCH 30.5, MCHC 33.2, RDW 14.7, Plt Count 201, MPV 7.7, Neut % (Auto) 65.1, Lymph % (Auto) 26.5, [place]cock % (Auto) 6.4, Eos % (Auto) 0.7, Baso % (Auto) 1.4, Neut # (Auto) 3.8, Lymph # (Auto) 1.6, [place]cock # (Auto) 0.4, Eos # (Auto) 0.0, Baso # (Auto) 0.1 01/25/22 14:05: Lactate 1.3 01/25/22 14:05: SARS-CoV-2 (PCR) Not detected, Influenza A Untype (PCR) Detected A, Influenza Type B (PCR) Not detected I & O for Last 24 hours: Intake & Output 01/22/22 01/23/22 01/24/22 01/25/22 23:59 23:59 23:59 23:59 Weight 68.039 kg
[2022-01-25 15:55] LABS: Allen's Test ACCEPTABLE; Oxygen 60 %; Pressure Support BIPAP 18/8; Source Left Radial; Vent Rate 18
[2022-01-25 15:57] LABS: ABG PCO2 65.7 mmhg (35.0-45.0)
--- NOTE | 2022-01-25 15:57 | PC.NURSE ---
RESPIRATORY CALLED WITH CRITICAL LABS ON ABG. NOTIFIED.
--- NOTE | 2022-01-25 16:34 | PC.NURSE ---
CALLED REPORT TO JULES CELIS.
[2022-01-25 16:49] LABS: Microscopic, Urine URINE MICROSCOPIC (MICROSCOPIC)
--- NOTE | 2022-01-25 16:52 | PC.NURSE ---
patient arrived from ED by stretcher
[2022-01-25 16:55] LABS: Appearance,Urine CLEAR (Clear); Bilirubin,Urine Negative (Negative); Blood, Urine 3+ (Negative); Color,Urine YELLOW (Yellow); Glucose,Urine (UA) Negative (Negative); Ketones,Urine Negative (Negative); Leukocyte Esterase,Urine Negative (Negative); Nitrate,Urine POSITIVE (Negative); PH,Urine 5.5 (5.0-8.5); Protein,Urine TRACE (Negative); Specific Gravity, Urine >= 1.030 (1.005-1.030); Urobilinogen,Urine 0.2 EU/dl (0.2)
[2022-01-25 16:59] LABS: Hemoglobin A1C 5.6 % (4.0-6.0)
[2022-01-25 17:05] LABS: Bacteria,Urine 3+ /lpf
[2022-01-25 18:56] LABS: Troponin I 0.05 ng/ml (0.00-0.034)
--- NOTE | 2022-01-25 19:45 | PC.NURSE ---
RESP CARE NOTE: Pt BIPAP setting adjusted per Dr Jaramillo order. IPAP of 20 cmH2O, and EPAP of 8 cmH2O. Rate also adjusted to 22 breaths per minute. Will continue to monitor patient closely.
[2022-01-25 19:58] LABS: ABG Base Excess 5.8 mmol/L (-2.4-2.3); ABG HCO3 31.4 mmhg (22.0-26.0); ABG Oxygen Saturation 93 % (90-100); ABG PH 7.35 mmol/L (7.35-7.45); ABG PO2 66.1 mmhg (80-100); ABG TCO2 33.1 mmhg (23-27)
[2022-01-25 20:01] LABS: Oxygen 30 %
[2022-01-25 20:02] LABS: Allen's Test Non Applicable; Pressure Support BIPAP 20/8; Source Right Radial
[2022-01-25 20:05] LABS: ABG PCO2 57.7 mmhg (35.0-45.0)
[2022-01-25 20:49] LABS: Troponin I 0.04 ng/ml (0.00-0.034)
[2022-01-25 20:57] LABS: POC Glucose,Bedside 151 (70-110)
--- NOTE | 2022-01-25 23:05 | PC.NURSE ---
Notified Dr Ruiz of pt being anxious, not wanting to wear Bipap, see new order for Ativan.
--- NOTE | 2022-01-25 23:43 | EXP.HP ---
History of Present Illness *Admission Date: 01/25/22 *Reason for visit:: Shorness of air, weakness *History of present illness: Ms. Van is a 66-year-old female with a past medical history of COPD, Chronic Tobacco Use, DM, Schizophrenia, HTN and Hyperlipidemia. She presented to [facility] due to shortness of air that progressively worsened over a 1 week period. In the ER she was noted to have a pCo2 of 65.7 with a pH of 7.27. Cxray showed mild bibasilar opacities, EKG and Troponin were unremarkable. The patient tested positive for Influenza A. The patient was admitted with initial impression: Acute Hypercapnic Respiratory Failure and Influenza. She was placed on BIPAP and transferred to the Medical Surgical Unit. [facility] Disclaimer: The information contained in this section may have been updated after the patient was seen, as this information can be updated by other users. Medical History (Updated 01/25/22 @ 23:51 by Austin Wheatley DNP) Depression HTN (hypertension) Hypertension Schizophrenia Seizure Family History Other No significant family history Social History Smoking Status: Current every day smoker tobacco type: cigarettes packs per day: 1 alcohol intake: never substance use type: denies use current occupational status: disabled and other Travel in the last 8 weeks: None household members: other housing: assisted living facility current occupational exposures/hazards: No caffeine: Yes Review of Systems Review of Systems Review of systems:: unable to obtain Meds Home Medications and Allergies Home Medications Medication Instructions Recorded Confirmed Type acetaminophen 325 mg tablet 650 mg PO MONTHLY Pain 04/08/17 01/26/22 History albuterol sulfate 90 mcg/actuation 2 puffs IH Q4HP PRN Shortness Of 04/08/17 01/25/22 History aerosol inhaler Breath benztropine 2 mg tablet 2 mg PO BID Tremors 04/08/17 01/25/22 History citalopram 20 mg tablet 20 mg PO DAILY Depression 04/08/17 01/25/22 History metformin 500 mg tablet 500 mg PO BID Diabetes 04/08/17 01/25/22 History risperidone 1 mg tablet 3 mg PO BID Mood 04/08/17 01/25/22 History hydrochlorothiazide 12.5 mg tablet 12.5 mg PO DAILY Hypertension 07/07/18 01/25/22 History ropinirole 0.5 mg tablet 2 mg PO HS Restless leg syndrome 07/07/18 01/25/22 History guaifenesin 100 mg/5 mL oral liquid 200 mg PO Q4HP PRN Cough 12/30/18 01/26/22 History ondansetron 4 mg disintegrating 4 mg PO Q6HP PRN Nausea 12/30/18 01/26/22 History tablet donepezil 5 mg tablet 5 mg PO HS Dementia 11/18/20 01/25/22 History loperamide 2 mg capsule 2 mg PO Q3HP PRN Diarrhea 11/18/20 01/26/22 History gabapentin 400 mg capsule 400 mg PO TID Neuropathic pain 01/25/22 01/25/22 History New Prescriptions to Start Prescriptions: Allergies Allergy/AdvReac Type Severity Reaction Status Date / Time aspirin Allergy Intermediate edema Verified 11/18/20 09:27 Influenza Virus Vaccines AdvReac Intermediate Verified 11/18/20 09:27 Exam Data for Last 24 hours Vital signs and Labs for Last 24 Hours: Temp Pulse Resp BP Pulse Ox FiO2 98.0 F 78 25 H 135/64 94 L 30 01/25/22 20:00 01/25/22 20:00 01/25/22 20:00 01/25/22 20:00 01/25/22 20:00 01/25/22 22:10 Laboratory Results - last 24 hr 01/25/22 13:50: Sodium 133 L, Potassium 3.6, Chloride 93 L, Carbon Dioxide 36 H, Anion Gap 7.6, BUN 15, Creatinine 0.80, Estimated Creat Clear 60, Estimated GFR 72, Est GFR ( Amer) 87, Glucose 111 H, Calcium 9.2, Troponin I 0.08 H, NT-Pro-B Natriuret Pep 650 H, HCG, Quant < 2 01/25/22 14:05: VBG pH 7.27 L, VBG pCO2 70.7 H, VBG pO2 38.9, VBG HCO3 31.6 H, VBG Total CO2 33.8 H, VBG O2 Saturation 66.4, VBG Base Excess 4.7 H 01/25/22 14:05: WBC 5.9, RBC 4.62, Hgb 14.1, Hct 42.4, MCV 91.9, MCH 30.5, MCHC 33.2, RDW 14.7, Plt Count 201, MPV 7.7, Ke
[2022-01-26] VITALS (9 sets, daily range): BP systolic 122–150; BP diastolic 44–66; PULSE 58–84; RESP 22–27; TEMP 36.4–36.7; O2SAT 91–98; BMI 25.9
[2022-01-26 01:42] LABS: Adenovirus,PCR Not Detected (NotDetected); Bordetella Pertussis Not Detected (NotDetected); Chlamydophila Pneumoniae, PCR Not Detected (NotDetected); Coronavirus 19, PCR Not Detected (NotDetected); Coronavirus 229E Not Detected (NotDetected); Coronavirus NL63 Not Detected (NotDetected); Coronavirus OC43 Not Detected (NotDetected); Coronovirus HKU1,PCR Not Detected (NotDetected); Human Metapneumovirus Not Detected (NotDetected); Influenza A, PCR Not Detected (NotDetected); Influenza AH1, PCR Not Detected (NotDetected); Influenza AH3,PCR Not Detected (NotDetected); Influenza B, PCR Not Detected (NotDetected); Mycoplasma Pneumoniae, PCR Not Detected (NotDetected); Parainfluenza 1, PCR Not Detected (NotDetected); Parainfluenza 2, PCR Not Detected (NotDetected); Parainfluenza 3, PCR Not Detected (NotDetected); Parainfluenza 4, PCR Not Detected (NotDetected); Respiratory Syncytial Virus Not Detected (NotDetected); Rhinovirus/Enterovirus Not Detected (NotDetected)
[2022-01-26 03:15] LABS: Influenza AH1, 2009 Detected (NotDetected)
--- NOTE | 2022-01-26 03:24 | PC.NURSE ---
Pt has been in bed all night, awake at this time, Alert to self and place at this time, pt has reported some leg cramps through the night, was anxious and would not wear Bipap early in shift. pt was given Ativan and did rest some. Pt is currently wearing Bipap at 35%. Lungs have been clear diminished this morning, resp even and non labored. Pt has a bed alarm on, pt is impulsive, tries to get up alone. IV in LAC is patent, no s/sx of infection at site. Pt was educated on Plan of care and encouraged to call out for any needs. Bed locked in low position, side rails up x 2, call light in reach.
[2022-01-26 06:15] LABS: POC Glucose,Bedside 138 (70-110)
[2022-01-26 06:49] LABS: ABG Base Excess 4.5 mmol/L (-2.4-2.3); ABG HCO3 30.1 mmhg (22.0-26.0); ABG Oxygen Saturation 95 % (90-100); ABG PH 7.35 mmol/L (7.35-7.45); ABG TCO2 31.8 mmhg (23-27)
[2022-01-26 06:53] LABS: Allen's Test ACCEPTABLE; Source R RADIAL
[2022-01-26 06:55] LABS: ABG PCO2 55.8 mmhg (35.0-45.0)
[2022-01-26 07:53] LABS: Basophils % 0.7 % (0.1-2.0); Eosinophils # 0.1 K/mm3 (0.0-0.4); Eosinophils % 0.9 % (0.1-12.0); Hematocrit 38.8 % (37.0-47.0); Hemoglobin 13.1 g/dL (12.2-16.2); Lymphocytes % 15.6 % (10-50); Mean Corpuscular HGB Conc 33.8 g/dL (31.8-35.4); Mean Corpuscular Hemoglobin 30.8 pg (27.0-31.2); Mean Corpuscular Volume 91.3 fl (81-99); Mean Platelet Volume 10.2 fl (7.4-10.4); Monocytes # 0.5 K/mm3 (0.1-1.0); Monocytes % 8.4 % (1.7-9.3); Neutrophils # 4.7 K/mm3 (1.8-7.8); Neutrophils % 74.4 % (37.0-80.0); Platelet Count 151 K/mm3 (142-424); Red Blood Count 4.25 M/mm3 (4.20-5.40); Red Cell Distribution Width 14.8 % (11.5-17.5); White Blood Count 6.3 K/mm3 (4.8-10.8)
--- NOTE | 2022-01-26 08:23 | P.CONPHA_ITS ---
Pharmacy Intervention Comments: home medication list clarified using list from senior care
[2022-01-26 09:33] LABS: Chloride 96 mmol/L (98-107); Potassium 3.8 mmoL/L (3.5-5.1); Sodium 134 mmol/L (136-145)
[2022-01-26 09:35] LABS: Alanine Aminotransferase 13 U/L (12-78); Aspartate Amino Transferase 41 U/L (14-36); Blood Urea Nitrogen 14 mg/dl (7-17); Creatinine Clearance Estimated 61 mL/min (50-200); Estimated Glomerular Filt Rate 100 ml/min (>60); GFR (African American) 121 ML/MIN (>60)
[2022-01-26 09:36] LABS: Albumin Level 3.4 g/dl (3.5-5.0); Albumin/Globulin Ratio 1.2 (1.1-1.8); Alkaline Phosphatase 61 U/L (38-126); Anion Gap 5.8 mEq/L (5-15); Calcium 8.5 mg/dl (8.4-10.2); Carbon Dioxide 36 mmol/L (22.0-30.0); Globulin 2.9 g/dL (1.3-3.2); Glucose 76 mg/dl (74-100); Total Protein,Serum 6.3 g/dl (6.3-8.2)
[2022-01-26 09:40] LABS: Bilirubin,Total < 0.1 mg/dl (0.2-1.3)
--- NOTE | 2022-01-26 10:18 | SW/DCPLANNER ---
Addendum entered by [facility] 01/28/22 08:06: Latoya allen/ [facility] is able to accept this patient today. I have updated patient's State Guardian and [facility] staff. Addendum entered by [facility] 01/27/22 15:18: [facility] is also reviewing patient information. Addendum entered by [facility] 01/27/22 13:33: [facility] is not able to accept this patient. Patient information has been faxed to [facility] and [facility]. Addendum entered by [facility] 01/27/22 12:30: Chelsy allen/ [facility] stated that she can not accept this patient at this time. Emily allen/ [facility] is reviewing patient information. Addendum entered by [facility] 01/27/22 10:34: Patient is still requiring oxygen at 3L. I have updated patient's State Guardian (Bobby) regarding discharge plans. Patient will need short term placement due to O2 requirement. Patient information has been faxed to [facility] and [facility]. I will continue to follow up with facilities and State Guardian. Discharge date is unknown at this time. Original Note: This patient currently resides at [facility]. I have faxed updated patient information to [facility]. Discharge date is unknown at this time. I will continue to update Sharon allen/ [facility] and patient's State Guardian.
--- NOTE | 2022-01-26 10:20 | PC.NURSE ---
per sindler, remove bipap and apply o2 via nc. o2 on 3l at 96%
[2022-01-26 11:49] LABS: POC Glucose,Bedside 143 (70-110)
--- NOTE | 2022-01-26 16:05 | PC.NURSE ---
pt has done well this shift. pt voices no conerns at this time. alert to self, lungs clear. still unable to obtain sputum at this time. O2 on 3l via nc with sats around 96%. elkins in place, adequate uop. cb within reach.
[2022-01-26 16:22] LABS: ABG Base Excess 7.3 mmol/L (-2.4-2.3); ABG HCO3 32.2 mmhg (22.0-26.0); ABG Oxygen Saturation 97 % (90-100); ABG PO2 94.8 mmhg (80-100); ABG TCO2 33.9 mmhg (23-27); Oxygen 3 LPM %
[2022-01-26 16:23] LABS: Allen's Test Patient Unable; Source Right Radial
[2022-01-26 16:25] LABS: ABG PCO2 53.8 mmhg (35.0-45.0)
[2022-01-26 17:09] LABS: POC Glucose,Bedside 161 (70-110)
--- NOTE | 2022-01-26 18:38 | PC.NURSE ---
pt unable to produce sputum during induction
--- NOTE | 2022-01-26 19:37 | EXP.PN ---
Subjective *Date: 01/26/22 *Time: 19:37 Interval history: No acute events overnight, patient tolerated BiPAP well and is feeling better this morning. Exam Data for Last 24 hours Vital signs and Labs for Last 24 Hours: Temp Pulse Resp BP Pulse Ox FiO2 97.6 F 66 24 144/66 H 97 35 01/26/22 16:00 01/26/22 18:21 01/26/22 16:00 01/26/22 16:00 01/26/22 16:00 01/26/22 05:49 Laboratory Results - last 24 hr 01/25/22 13:50: Chlamy pneumoniae PCR Not detected, Adenovirus (PCR) Not detected, B. pertussis DNA (PCR) Not detected, Coronavirus OC43 (PCR) Not detected, Coronavirus HKU1 (PCR) Not detected, Coronavirus 229E (PCR) Not detected, SARS-CoV-2 (PCR) Not detected, Coronavirus NL63 (PCR) Not detected, Human Metapneumovir PCR Not detected, Influenza A (H1) PCR Not detected, Influ A (H1N1/09) PCR Detected A, Influenza A (H3) PCR Not detected, Influenza Type A (PCR) Not detected, Influenza Type B (PCR) Not detected, M. pneumoniae (PCR) Not detected, Parainfluenza 1 (PCR) Not detected, Parainfluenza 2 (PCR) Not detected, Parainfluenza 3 (PCR) Not detected, Parainfluenza 4 (PCR) Not detected, RSV (PCR) Not detected, Entero/Rhino (PCR) Not detected 01/25/22 16:40: Urine Color Yellow, Urine Appearance Clear, Urine pH 5.5, Ur Specific [place] >= 1.030, Urine Protein Trace, Urine Glucose (UA) Negative, Urine Ketones Negative, Urine Blood 3+, Urine Nitrate Positive, Urine Bilirubin Negative, Urine Urobilinogen 0.2, Ur Leukocyte Esterase Negative, Urine RBC None, Urine WBC 3-5, Ur Squamous Epith Cells None, Urine Bacteria 3+ 01/25/22 19:42: Specimen Source Right radial, O2 % 30, ABG pH 7.35, ABG pCO2 57.7 H, ABG pO2 66.1 L, ABG HCO3 31.4 H, ABG Total CO2 33.1 H, ABG O2 Saturation 93, ABG Base Excess 5.8 H, Higinio Test Non applicable 01/25/22 20:11: POC Glucose 151 H 01/25/22 20:15: Troponin I 0.04 H 01/26/22 05:46: POC Glucose 138 H 01/26/22 06:00: Specimen Source R radial, O2 % 35%$, ABG pH 7.35, ABG pCO2 55.8 H, ABG pO2 78.0 L, ABG HCO3 30.1 H, ABG Total CO2 31.8 H, ABG O2 Saturation 95, ABG Base Excess 4.5 H, Higinio Test Acceptable, Tidal Volume /8 rr 22 01/26/22 07:27: WBC 6.3, RBC 4.25, Hgb 13.1, Hct 38.8, MCV 91.3, MCH 30.8, MCHC 33.8, RDW 14.8, Plt Count 151, MPV 10.2, Neut % (Auto) 74.4, Lymph % (Auto) 15.6, Potter % (Auto) 8.4, Eos % (Auto) 0.9, Baso % (Auto) 0.7, Neut # (Auto) 4.7, Lymph # (Auto) 1.0, Potter # (Auto) 0.5, Eos # (Auto) 0.1, Baso # (Auto) 0.0 01/26/22 09:08: Sodium 134 L, Potassium 3.8, Chloride 96 L, Carbon Dioxide 36 H, Anion Gap 5.8, BUN 14, Creatinine 0.60 D, Estimated Creat Clear 61, Estimated GFR 100, Est GFR ( Amer) 121 D, Glucose 76 D, Calcium 8.5, Magnesium 2.0, Total Bilirubin < 0.1 L, AST 41 H, ALT 13, Alkaline Phosphatase 61, Total Protein 6.3, Albumin 3.4 L, Globulin 2.9, Albumin/Globulin Ratio 1.2 01/26/22 11:41: POC Glucose 143 H 01/26/22 16:15: Specimen Source Right radial, O2 % 3 lpm, ABG pH 7.40, ABG pCO2 53.8 H, ABG pO2 94.8, ABG HCO3 32.2 H, ABG Total CO2 33.9 H, ABG O2 Saturation 97, ABG Base Excess 7.3 H, Higinio Test Patient unable 01/26/22 16:48: POC Glucose 161 H I & O for Last 24 hours: Intake & Output 01/23/22 01/24/22 01/25/22 01/26/22 23:59 23:59 23:59 23:59 Intake Total 120 / 120 Output Total 0 / 0 650 / 650 Balance 0 / 0 -530 / -530 Weight 70.364 kg 68.8 kg Microbiology Reports for the Last 24 Hours: Microbiology 01/25/22 16:40 Urine,Clean Catch Urine Culture - Preliminary Gram Negative Rods Constitutional Constitutional: no acute distress, chronically ill appearing and cooperative *Routine HEENT Exam Head: Present normocephalic and atraumatic Eye: Present EOMI and PERRL ENT: Present mucous membranes moist and oropharynx clear *Routine Neck Exam Neck: Present supple and full ROM *Routine Respiratory Exam Respiratory: Present decreased breath sounds, prolonged expiratory phase, wheezes, normal respiratory effort and able to speak in comp
[2022-01-27] VITALS (9 sets, daily range): BP systolic 123–137; BP diastolic 56–70; PULSE 60–87; RESP 18–22; TEMP 36.4–37.5; O2SAT 90–98; BMI 25.9
[2022-01-27 01:32] LABS: POC Glucose,Bedside 116 (70-110)
--- NOTE | 2022-01-27 03:59 | PC.NURSE ---
Pt has been resting in bed, has not worn Bipap, pt refused. Has been on 3L NC sats in the 's. Pt has been sleeping most of shift. Gas been a/o when awake. Pt was hard to wake at beginning of shift. Lungs had Bilat rhonchi and diminished this morning. loose cough. Pt IV is patent. Pt educated on deep breathing. Encouraged pt to use call light for needs. Safety alarm is on, Bed locked in low position, side rails up x 2. Call light in reach
[2022-01-27 05:49] LABS: POC Glucose,Bedside 91 (70-110)
[2022-01-27 06:16] LABS: Basophils % 0.4 % (0.1-2.0); Eosinophils % 0.5 % (0.1-12.0); Hematocrit 36.8 % (37.0-47.0); Lymphocytes # 2.1 K/mm3 (0.7-4.5); Lymphocytes % 30.6 % (10-50); Mean Corpuscular HGB Conc 32.5 g/dL (31.8-35.4); Mean Corpuscular Hemoglobin 30.3 pg (27.0-31.2); Mean Corpuscular Volume 93.1 fl (81-99); Mean Platelet Volume 7.7 fl (7.4-10.4); Monocytes # 0.2 K/mm3 (0.1-1.0); Monocytes % 3.5 % (1.7-9.3); Neutrophils # 4.5 K/mm3 (1.8-7.8); Platelet Count 162 K/mm3 (142-424); Red Blood Count 3.95 M/mm3 (4.20-5.40); Red Cell Distribution Width 15.1 % (11.5-17.5); White Blood Count 6.9 K/mm3 (4.8-10.8)
[2022-01-27 06:18] LABS: Chloride 98 mmol/L (98-107); Potassium 3.4 mmoL/L (3.5-5.1); Sodium 135 mmol/L (136-145)
[2022-01-27 06:20] LABS: Alanine Aminotransferase 12 U/L (12-78); Alkaline Phosphatase 61 U/L (38-126); Anion Gap 5.4 mEq/L (5-15); Aspartate Amino Transferase 35 U/L (14-36); Blood Urea Nitrogen 14 mg/dl (7-17); Carbon Dioxide 35 mmol/L (22.0-30.0); Creatinine Clearance Estimated 61 mL/min (50-200); Estimated Glomerular Filt Rate 100 ml/min (>60); GFR (African American) 121 ML/MIN (>60)
[2022-01-27 06:21] LABS: Albumin Level 3.3 g/dl (3.5-5.0); Albumin/Globulin Ratio 1.2 (1.1-1.8); Calcium 8.6 mg/dl (8.4-10.2); Globulin 2.8 g/dL (1.3-3.2); Glucose 70 mg/dl (74-100); Total Protein,Serum 6.1 g/dl (6.3-8.2)
[2022-01-27 06:31] LABS: Troponin I 0.03 ng/ml (0.00-0.034)
[2022-01-27 06:35] LABS: Bilirubin,Total < 0.1 mg/dl (0.2-1.3)
--- NOTE | 2022-01-27 10:22 | HMH.OTEV ---
OT Inpatient Evaluation Rehab OT IP Evaluation Start: 01/27/22 07:46 Freq: ONCE Status: Active Protocol: Document 01/27/22 10:11 ANASTASIA (Rec: 01/27/22 10:22 ANASTASIA [id number]) Rehab OT IP Assessment Subjective History Ms. Van is a 66-year-old female with a past medical history of COPD, Chronic Tobacco Use, DM, Schizophrenia , HTN and Hyperlipidemia. She presented to [facility] due to shortness of air that progressively worsened over a 1 week period. In the ER she was noted to have a pCo2 of 65 .7 with a pH of 7.27. Cxray showed mild bibasilar opacities, EKG and Troponin were unremarkable. The patient tested positive for Influenza A. The patient was admitted with initial impression: Acute Hypercapnic Respiratory Failure and Influenza. She was placed on BIPAP and transferred to the Medical Surgical Unit. Patient lives in at [facility]. Subjective I can get up. Instructed Patient on proper hand and foot placement to complete supine->sit @ EOB requiring CGA. Instructed Patient on SPT from EOB->BSC. Assisted Patient back to recliner at end of session. Patient is currently on 02 dependent and will need placement for rehabilitation prior to returning to . Objective Patient Orientation Person,Place,Name,Age,Birthday ,Year Upper Extremity Gross ROM WFL Bed Mobility bed mobility - supine/sit Assist Level Contact Guard/Hand Hold Transfer Training Sit/Stand/Pivot Transfer Assist Level Contact Guard/Hand Hold Chair Transfer Ability Contact Guard/Hand Hold Chair Transfer Technique Sit to/from Ambulatory Chair Transfer Assistive Devices Rolling Walker
--- NOTE | 2022-01-27 10:27 | PC.NURSE ---
courtesy tech round: took some coffee to pt per request. pt is up to chair and states she is comfortable. call light is within reach
--- NOTE | 2022-01-27 11:21 | HMH.PTEV ---
Physical Therapy Evaluation Rehab PT IP Evaluation Start: 01/27/22 07:46 Freq: ONCE Status: Active Protocol: Document 01/27/22 11:11 JOHN (Rec: 01/27/22 11:21 JOHN [id number]) Subjective/History History History Patient is a 66 year old female admitted to [facility] secondary to respiratory failure and flu. Patient reports that she was previously living at [facility] where she was indpenent with all ADL's except for cooking. Patient is currently on 3L O2. Subjective Subjective Patient reports mild shortness of air. Rehab PT IP Eval Objective Appearance Patient Behavior Appropriate,Cooperative Patient Orientation Person,Place,Name,Birthday Difficulty following instructions none Speech Pattern Clear,Appropriate Ambulation Patient Able to Ambulate Yes Ambulation Observation IP General Gait Pattern Observation No Deviations/Normal Ambulation Distance (feet) 10 Ambulation Assistive Device None Ambulation Ability Contact Guard/Hand Hold Balance Ability to Arise Able, uses arms to help Sitting Balance Steady, safe Dynamic Sitting Balance Ability Normal Dynamic Standing Balance Ability Good Transfers Bed Transfer Ability Supervision/Stand by Sit to Stand Bed Transfer Ability Minimal x 1 (25% assist) Sit to Stand Chair Transfer Ability Supervision/Stand by ROM All Extremities PT ROM Status WFL MMT All Extremities PT MMT WFL Rehab PT IP prob,goals,plan Problems Date of Evaluation: 01/27/22 PT IP Problems Bed Mobility,Transfers,Gait, Balance,Self care,Safety Rehab Potential Rehab Potential Good Equipment Needs Assistive Devices Rolling / Wheeled Walker Plan PT Intervention Plan Bed Mobility,Transfers,Gait, Balance,Self care,Safety, Therapeutic Exercise PT Plan Frequency BID Duration LOS Discharge Goals Bed Transfer Ability Supervision/Stand by Sit to Stand Chair Transfer Ability Supervision/Stand by Ambulation Assistive Device Rolling Walker Ambulation Distance (feet) 20 Discharge Plan PT Discharge Plan PT suggests that patient is good to discharge back to SNF once found medically stable by
--- NOTE | 2022-01-27 14:57 | EXP.PN ---
Subjective *Date: 01/27/22 *Time: 14:57 Interval history: Patient still feels very tired and overall unwell today. Exam Data for Last 24 hours Vital signs and Labs for Last 24 Hours: Temp Pulse Resp BP Pulse Ox FiO2 97.6 F 82 18 137/66 90 L 35 01/27/22 08:00 01/27/22 11:06 01/27/22 08:00 01/27/22 08:00 01/27/22 11:06 01/26/22 05:49 Laboratory Results - last 24 hr 01/26/22 16:15: Specimen Source Right radial, O2 % 3 lpm, ABG pH 7.40, ABG pCO2 53.8 H, ABG pO2 94.8, ABG HCO3 32.2 H, ABG Total CO2 33.9 H, ABG O2 Saturation 97, ABG Base Excess 7.3 H, Higinio Test Patient unable 01/26/22 16:48: POC Glucose 161 H 01/26/22 21:08: POC Glucose 116 H 01/27/22 05:13: POC Glucose 91 01/27/22 05:48: Troponin I 0.03 01/27/22 05:48: WBC 6.9, RBC 3.95 L, Hgb 12.0 L, Hct 36.8 L, MCV 93.1, MCH 30.3, MCHC 32.5, RDW 15.1, Plt Count 162, MPV 7.7, Neut % (Auto) 65.0, Lymph % (Auto) 30.6, [place]kins % (Auto) 3.5, Eos % (Auto) 0.5, Baso % (Auto) 0.4, Neut # (Auto) 4.5, Lymph # (Auto) 2.1, [place] # (Auto) 0.2, Eos # (Auto) 0.0, Baso # (Auto) 0.0 01/27/22 05:48: Sodium 135 L, Potassium 3.4 L, Chloride 98, Carbon Dioxide 35 H, Anion Gap 5.4, BUN 14, Creatinine 0.60, Estimated Creat Clear 61, Estimated GFR 100, Est GFR ( Amer) 121, Glucose 70 L, Calcium 8.6, Total Bilirubin < 0.1 L, AST 35, ALT 12, Alkaline Phosphatase 61, Total Protein 6.1 L, Albumin 3.3 L, Globulin 2.8, Albumin/Globulin Ratio 1.2 I & O for Last 24 hours: Intake & Output 01/24/22 01/25/22 01/26/22 01/27/22 23:59 23:59 23:59 23:59 Intake Total 120 / 120 600 / 600 Output Total 0 / 0 650 / 1630 1830 / 1830 Balance 0 / 0 -530 / -1510 -1230 / -1230 Weight 70.364 kg 68.8 kg 69.031 kg Microbiology Reports for the Last 24 Hours: Microbiology 01/25/22 16:40 Urine,Clean Catch Urine Culture - Final Escherichia coli Constitutional Constitutional: no acute distress, average body habitus, chronically ill appearing and cooperative *Routine HEENT Exam Head: Present normocephalic and atraumatic Eye: Present EOMI and PERRL ENT: Present mucous membranes moist and oropharynx clear *Routine Neck Exam Neck: Present supple and full ROM *Routine Respiratory Exam Respiratory: Present decreased breath sounds, prolonged expiratory phase, wheezes, crackles (Bibasilar), normal respiratory effort and able to speak in complete sentences; Absent accessory muscle use, CTA bilaterally, respiratory distress or rhonchi *Routine Cardiovascular Exam Cardiovascular: Present RRR, Normal S1 and Normal S2; Absent murmur *Routine Abdominal Exam Abdominal: Present soft and normoactive bowel sounds; Absent tenderness, distended, rebound or guarding *Routine Extremities Exam Extremities: Present full ROM, pulses intact and normal capillary refill; Absent edema or tenderness *Routine Neurological Exam Neurological: Present alert, oriented X3, CN II-XII intact, moving all extremities, normal tone and normal speech; Absent sensory deficit or motor deficit Routine Psychiatric Exam Psychiatric: Present normal affect, normal thought process and cooperative; Absent good insight (Patient seems to have some baseline confusion versus intellectual deficit) Assessment and Plan *Assessment and plan (1) Acute hypercapnic respiratory failure: Status: Acute Category: Medical Code(s): J96.02 - Acute respiratory failure with hypercapnia (2) Influenza: Status: Acute Category: Medical Code(s): J11.1 - Influenza due to unidentified influenza virus with other respiratory manifestations (3) COPD exacerbation: Status: Acute Category: Medical Code(s): J44.1 - Chronic obstructive pulmonary disease with (acute) exacerbation (4) Diabetes: Status: Acute Category: Medical Code(s): E11.9 - Type 2 diabetes mellitus without complications (5) Hypertension: Status: Acute Category: Medical Code(s): I10 -
--- NOTE | 2022-01-27 17:43 | PC.NURSE ---
NO ACUTE CHANGES. PT IS PLEASANT AND COOPERATIVE. LUNGS W/ WHEEZES TO. HR REG. ABDOMEN SOFT, NON-TENDER W/ ACTIVE BS. PT DID HAVE A BM TODAY. VOIDING W/O DIFFICULTY SINCE COELLO CATH WAS DC'D. PT HAS BEEN ASSISTED TO BSC, PT REPORTS W/ ACTIVITY SHE DOES BECOME LIGHT HEADED AND SOA BUT TOLERATES ACTIVITY WELL. PT CONTINUES TO HAVE NON-PRODUCTIVE COUGH, SPECI CUP AT BEDSIDE FOR SPUTUM COLLECTION IF SHE IS ABLE. NO COMPLAINTS VOICED THIS SHIFT. CALL BONILLA W/IN REACH. NO NEEDS VOICED.
[2022-01-27 20:08] LABS: POC Glucose,Bedside 272 (70-110)
--- NOTE | 2022-01-28 03:45 | PC.NURSE ---
Pt has been up in chair this shift. Pt currently resting in bed. Has been A/O X 4 this shift. Pt sats in the 90's on 2 L NC, tolerates ambulation well. Pt lungs had some wheezing Bilat, non productive cough. Pt is is Patent no s/sx of infection at IV site. Pt educated on medications and Plan of care. Pt bed locked in low position, side rails up x 2, call light in reach.
[2022-01-28 04:00] VITALS: BP 131/58; PULSE 72; RESP 18; TEMP 36.8; O2SAT 97; BMI 26.5
[2022-01-28 06:28] VITALS: PULSE 75; PULSE 79; O2SAT 92
[2022-01-28 07:42] LABS: Basophils # 0.1 K/mm3 (0-0.2); Basophils % 0.9 % (0.1-2.0); Eosinophils % 0.4 % (0.1-12.0); Hematocrit 38.6 % (37.0-47.0); Hemoglobin 12.5 g/dL (12.2-16.2); Lymphocytes % 38.2 % (10-50); Mean Corpuscular HGB Conc 32.4 g/dL (31.8-35.4); Mean Corpuscular Hemoglobin 30.2 pg (27.0-31.2); Mean Corpuscular Volume 93.2 fl (81-99); Mean Platelet Volume 7.6 fl (7.4-10.4); Monocytes # 0.3 K/mm3 (0.1-1.0); Monocytes % 6.3 % (1.7-9.3); Neutrophils # 2.9 K/mm3 (1.8-7.8); Neutrophils % 54.2 % (37.0-80.0); Platelet Count 186 K/mm3 (142-424); Red Blood Count 4.14 M/mm3 (4.20-5.40); White Blood Count 5.3 K/mm3 (4.8-10.8)
[2022-01-28 07:50] LABS: Chloride 95 mmol/L (98-107); Potassium 3.5 mmoL/L (3.5-5.1); Sodium 135 mmol/L (136-145)
[2022-01-28 07:53] LABS: Alanine Aminotransferase 18 U/L (12-78); Albumin Level 3.6 g/dl (3.5-5.0); Albumin/Globulin Ratio 1.1 (1.1-1.8); Alkaline Phosphatase 64 U/L (38-126); Anion Gap 8.5 mEq/L (5-15); Aspartate Amino Transferase 53 U/L (14-36); Blood Urea Nitrogen 12 mg/dl (7-17); Calcium 9.1 mg/dl (8.4-10.2); Carbon Dioxide 35 mmol/L (22.0-30.0); Creatinine Clearance Estimated 62 mL/min (50-200); Estimated Glomerular Filt Rate 100 ml/min (>60); GFR (African American) 121 ML/MIN (>60); Globulin 3.3 g/dL (1.3-3.2); Glucose 80 mg/dl (74-100); Total Protein,Serum 6.9 g/dl (6.3-8.2)
[2022-01-28 07:55] LABS: Bilirubin,Total 0.1 mg/dl (0.2-1.3)
[2022-01-28 08:00] VITALS: BP 115/61; PULSE 86; RESP 16; TEMP 36.9; O2SAT 95
--- NOTE | 2022-01-28 10:43 | EXP.DC.SUM ---
General Admission date:: 01/25/22 Discharge date: 01/28/22 HPI HPI HPI: Ms. Van is a 66-year-old female with a past medical history of COPD, Chronic Tobacco Use, DM, Schizophrenia, HTN and Hyperlipidemia. She presented to [facility] due to shortness of air that progressively worsened over a 1 week period. In the ER she was noted to have a pCo2 of 65.7 with a pH of 7.27. Cxray showed mild bibasilar opacities, EKG and Troponin were unremarkable. The patient tested positive for Influenza A. The patient was admitted with initial impression: Acute Hypercapnic Respiratory Failure and Influenza. She was placed on BIPAP and transferred to the Medical Surgical Unit. Hospital Course Hospital Course Hospital Course: Patient was admitted for acute hypercapnic respiratory failure secondary to COPD exacerbation and influenza. Patient was initially placed on BiPAP, however this was able to be transitioned to nasal cannula by the morning after admission. She was given Tamiflu and nebulizers for COPD and influenza, as well as doxycycline and steroids for COPD. Patient's supplemental oxygen requirement gradually improved from 4-3 to now 2 L by nasal cannula. Wheezing improved as well and today she is medically stable for transfer to intermediate care facility. Patient is well was noted to have UTI with urine cultures positive for E. coli with ESBL. Ertapenem was started on 01/27, so patient will continue Bactrim DS p.o. twice daily and Macrobid for 6 days. Patient's diabetes was managed with sliding scale insulin, hypertension with hydrochlorothiazide 12.5 mg p.o. daily. Aricept was DC'd to avoid polypharmacy. Continue citalopram 20 mg p.o. daily gabapentin 400 mg p.o. 3 times daily Risperdal 3 mg p.o. twice daily, ropinirole 2 mg p.o. nightly, and benztropine 2 mg p.o. twice daily. Consider weaning down risperidone if polypharmacy is a concern. Exam Data for Last 24 hours Vital signs and Labs for Last 24 Hours: Temp Pulse Resp BP Pulse Ox FiO2 98.4 F 86 16 115/61 95 35 01/28/22 08:00 01/28/22 08:00 01/28/22 08:00 01/28/22 08:00 01/28/22 08:00 01/26/22 05:49 Laboratory Results - last 24 hr 01/27/22 20:01: POC Glucose 272 H 01/28/22 07:23: WBC 5.3, RBC 4.14 L, Hgb 12.5, Hct 38.6, MCV 93.2, MCH 30.2, MCHC 32.4, RDW 15.0, Plt Count 186, MPV 7.6, Neut % (Auto) 54.2, Lymph % (Auto) 38.2, [place] % (Auto) 6.3, Eos % (Auto) 0.4, Baso % (Auto) 0.9, Neut # (Auto) 2.9, Lymph # (Auto) 2.0, [place] # (Auto) 0.3, Eos # (Auto) 0.0, Baso # (Auto) 0.1 01/28/22 07:23: Sodium 135 L, Potassium 3.5, Chloride 95 L, Carbon Dioxide 35 H, Anion Gap 8.5, BUN 12, Creatinine 0.60, Estimated Creat Clear 62, Estimated GFR 100, Est GFR ( Amer) 121, Glucose 80, Calcium 9.1, Total Bilirubin 0.1 L, AST 53 H D, ALT 18 D, Alkaline Phosphatase 64, Total Protein 6.9, Albumin 3.6, Globulin 3.3 H, Albumin/Globulin Ratio 1.1 I & O for Last 24 hours: Intake & Output 01/25/22 01/26/22 01/27/22 01/28/22 23:59 23:59 23:59 23:59 Intake Total 120 / 120 1530 / 1530 860 / 860 Output Total 0 / 0 650 / 1630 2530 / 2530 1400 / 1400 Balance 0 / 0 -530 / -1510 -1000 / -1000 -540 / -540 Weight 70.364 kg 68.8 kg 69.031 kg 70.5 kg Microbiology Reports for the Last 24 Hours: Microbiology 01/25/22 16:40 Urine,Clean Catch Urine Culture - Final Escherichia coli Constitutional Constitutional: no acute distress, average body habitus, chronically ill appearing and cooperative *Routine HEENT Exam Head: Present normocephalic and atraumatic Eye: Present EOMI and PERRL ENT: Present mucous membranes moist and oropharynx clear *Routine Neck Exam Neck: Present supple and full ROM *Routine Respiratory Exam Respiratory: Present decreased breath sounds, prolonged expiratory phase, wheezes (faint, improved ), normal respiratory effort and able to speak in complete sentences; Absent accessory muscle use, CTA bilaterally, respira
[2022-01-28 11:00] VITALS: PULSE 69; O2SAT 92
[2022-01-28 12:40] LABS: Coronavirus 19, PCR Not Detected (NotDetected); Influenza B, PCR Not Detected (NotDetected)
[2022-01-28 13:07] LABS: Influenza A, PCR Detected (NotDetected)
--- NOTE | 2022-01-28 13:34 | PC.NURSE ---
REPORT GIVEN TO SANTANA AT [facility]. CALLED [facility] FOR TRANSPORT DIDN'T GET AN ANSWER, WILL CONTINUE TO CALL.
--- NOTE | 2022-01-28 14:41 | PC.NURSE ---
EMS HAS BEEN NOTIFIED, WAITING FOR TRANSPORT
--- NOTE | 2022-01-29 13:21 | CARE MANAGER ---
Contacted [facility] patient is doing very well. They deny questions or concerns at this time. LALITA Hodgson
== END 2022-01-28 17:00 | DRG 189 ==
LOC: ER 14:06 → 2ND 15:47
PROVIDERS: Nurse Practitioner Family; Admitting Provider Internal Medicine Adolescent Medicine; Emergency Provider Emergency Medicine; Visit Provider Emergency Medicine
DX: J96.02 Acute respiratory failure with hypercapnia (principal); J10.00 Influenza due to other identified influenza virus with unspecified type of pneumonia; N39.0 Urinary tract infection, site not specified; J44.1 Chronic obstructive pulmonary disease with (acute) exacerbation; Z16.12 Extended spectrum beta lactamase (ESBL) resistance; E11.9 Type 2 diabetes mellitus without complications; Z79.84 Long term (current) use of oral hypoglycemic drugs; J44.9 Chronic obstructive pulmonary disease, unspecified; F20.9 Schizophrenia, unspecified; I10 Essential (primary) hypertension; E78.5 Hyperlipidemia, unspecified; B96.20 Unspecified Escherichia coli [E. coli] as the cause of diseases classified elsewhere
CPT/HCPCS: 36415; 51702; 71045; 80048; 80053; 81001; 82803; 82962; 83036; 83605; 83735; 83880; 84484; 84702; 85025; 87086; 87088; 87186; 87581; 87632; 87798; 93005; 94640; 94761; 97163; 97165; 97530; 97535; 99285; C9803; J1335; U0003; U0005

== ENCOUNTER 2022-07-28 09:38 | Emergency (ER) | payer MEDICARE, MEDICAID, SELFPAY ==
[2022-07-28 09:39] VITALS: BP 134/53; PULSE 84; RESP 16; TEMP 36.6; O2SAT 96; BMI 30.2
--- NOTE | 2022-07-28 09:44 | XR_ITS ---
FINAL REPORT CLINICAL HISTORY: cough weakness COMPARISON: 01/25/2022 FINDINGS: The heart size is normal. The mediastinum is normal. There is no focal infiltrate or edema. There are mild chronic changes in the lungs bilaterally that are unchanged since the prior exam of January 2022. There are no pleural effusions. There is no pneumothorax. There is no osseous abnormality. IMPRESSION: No acute cardiopulmonary process Mild chronic changes in the lung crowder bilaterally unchanged since January 2022. Reviewed, Interpreted and Dictated by Florentino Cuevas MD Transcribed by Laureen Fallon Authenticated and [facility]
--- NOTE | 2022-07-28 09:45 | HMH.EDGENADL ---
Discharge Plan Disposition Patient Disposition: Home, Self-Care Condition: Good Chief Complaint: Fall Prescriptions Prescriptions: No Action gabapentin 400 mg capsule 400 mg PO TID Qty: 90 5RF clonazepam [Klonopin] 0.5 mg tablet 0.5 mg PO BID Qty: 60 2RF citalopram 20 MG tablet 20 mg PO DAILY benztropine 2 MG tablet 2 mg PO BID sulfamethoxazole-trimethoprim [Bactrim DS] 800-160 mg tablet 1 tab PO BID 6 Days Qty: 12 0RF nitrofurantoin monohyd/m-cryst [Macrobid] 100 mg capsule 100 mg PO BID 6 Days Qty: 12 0RF Rx Instructions: must administer with a meal/food prednisone 20 mg Tablet See Rx Instructions .ROUTE .COMPLEX Qty: 12 0RF Rx Instructions: Take 2 tabs daily for 3 days; 1 tab daily for 3 days; then 1/2 tab daily for 3 days. metformin 500 MG tablet 500 mg PO BID Qty: 60 0RF acetaminophen 325 MG tablet 650 mg PO MONTHLY Qty: 30 0RF ropinirole 0.5 mg tablet 2 mg PO HS Qty: 30 0RF albuterol sulfate 200 PUFFS HFA aerosol inhaler 2 puff inhalation Q4HP PRN (Reason: Shortness Of Breath) Qty: 8.5 0RF ondansetron 4 MG tablet,disintegrating 4 mg PO Q6HP PRN (Reason: Nausea) Qty: 20 0RF risperidone 1 MG tablet 3 mg PO BID Qty: 30 0RF hydrochlorothiazide 12.5 mg tablet 12.5 mg PO DAILY Qty: 30 0RF Referrals Follow up/Referrals: Provider,Referral, MD [Primary Care Provider] - See instructions Clinical Impressions Clinical Impression: Weakness Instructions Patient Instructions: DI for Muscle Weakness Discharge ED Provider: Jan Doss General Adult HPI General Chief complaint: Fall Stated complaint: weakness Time Seen by Provider: 07/28/22 09:52 History of Present Illness HPI narrative: This is a 66-year-old white female brought in via EMS from her care facility because apparently she was at the dining table and fell asleep. Here in the emergency room patient only has a complaint of URI type symptoms for the past week no chest pain no shortness of breath no abdominal pain no nausea vomiting or diarrhea. Related Data Home Medications Medication Instructions Recorded Confirmed benztropine 2 mg tablet 2 mg PO BID Tremors 04/08/17 01/25/22 citalopram 20 mg tablet 20 mg PO DAILY Depression 04/08/17 01/25/22 Previous Rx's Medication Instructions Recorded acetaminophen 325 mg tablet 650 mg PO MONTHLY Pain #30 tabs 01/28/22 albuterol sulfate 90 mcg/actuation 2 puff inhalation Q4HP PRN 01/28/22 aerosol inhaler Shortness Of Breath #8.5 grams hydrochlorothiazide 12.5 mg tablet 12.5 mg PO DAILY Hypertension #30 01/28/22 tabs metformin 500 mg tablet 500 mg PO BID Diabetes #60 tabs 01/28/22 nitrofurantoin 100 mg PO BID 6 days #12 caps 01/28/22 monohydrate/macrocrystals 100 mg capsule (Macrobid) ondansetron 4 mg disintegrating 4 mg PO Q6HP PRN Nausea #20 tabs 01/28/22 tablet prednisone 20 mg tablet See Rx Instructions .Route 01/28/22 .COMPLEX #12 tabs risperidone 1 mg tablet 3 mg PO BID Mood #30 tabs 01/28/22 ropinirole 0.5 mg tablet 2 mg PO HS Restless leg syndrome 01/28/22 #30 tabs sulfamethoxazole 800 1 tab PO BID 6 days #12 tabs 01/28/22 mg-trimethoprim 160 mg tablet (Bactrim DS) gabapentin 400 mg capsule 400 mg PO TID Neuropathic pain #90 03/25/22 caps clonazepam 0.5 mg tablet (Klonopin) 0.5 mg PO BID #60 tabs 06/21/22 Allergies Allergy/AdvReac Type Severity Reaction Status Date / Time aspirin Allergy Intermediate edema Verified 11/18/20 09:27 Influenza Virus Vaccines AdvReac Intermediate Verified 11/18/20 09:27 [facility] Disclaimer: The information contained in this section may have been updated after the patient was seen, as this information can be updated by other users. Medical History (Updated 07/28/22 @ 10:52 by Jan Doss MD) Depression HTN (hypertension) Hypertension Schizophrenia Seizure Family History Ot
[2022-07-28 10:15] LABS: Basophils % 0.2 % (0.1-2.0); Eosinophils # 0.3 K/mm3 (0.0-0.4); Eosinophils % 5.2 % (0.1-12.0); Hematocrit 37.7 % (37.0-47.0); Hemoglobin 11.9 g/dL (12.2-16.2); Lymphocytes # 1.5 K/mm3 (0.7-4.5); Lymphocytes % 26.6 % (10-50); Mean Corpuscular HGB Conc 31.6 g/dL (31.8-35.4); Mean Corpuscular Volume 88.6 fl (81-99); Mean Platelet Volume 7.2 fl (7.4-10.4); Monocytes # 0.4 K/mm3 (0.1-1.0); Monocytes % 7.6 % (1.7-9.3); Neutrophils # 3.3 K/mm3 (1.8-7.8); Neutrophils % 60.4 % (37.0-80.0); Platelet Count 296 K/mm3 (142-424); Red Blood Count 4.25 M/mm3 (4.20-5.40); Red Cell Distribution Width 15.2 % (11.5-17.5); White Blood Count 5.5 K/mm3 (4.8-10.8)
[2022-07-28 10:16] LABS: Chloride 101 mmol/L (98-107)
[2022-07-28 10:17] LABS: Potassium 4.1 mmoL/L (3.5-5.1); Sodium 138 mmol/L (136-145)
[2022-07-28 10:19] LABS: Alanine Aminotransferase 20 U/L (12-78); Alkaline Phosphatase 74 U/L (38-126); Anion Gap 10.1 mEq/L (5-15); Aspartate Amino Transferase 25 U/L (14-36); Bilirubin,Total 0.2 mg/dl (0.2-1.3); Blood Urea Nitrogen 8 mg/dl (7-17); Carbon Dioxide 31 mmol/L (22.0-30.0); Creatinine Clearance Estimated 64 mL/min (50-200); Estimated Glomerular Filt Rate 84 ml/min (>60); GFR (African American) 102 ML/MIN (>60)
[2022-07-28 10:20] LABS: Albumin Level 3.4 g/dl (3.5-5.0); Albumin/Globulin Ratio 1.1 (1.1-1.8); Globulin 3.2 g/dL (1.3-3.2); Glucose 160 mg/dl (74-100); Total Protein,Serum 6.6 g/dl (6.3-8.2)
[2022-07-28 10:31] VITALS: BP 95/42; PULSE 62; RESP 18; O2SAT 94
[2022-07-28 11:00] VITALS: BP 107/45; PULSE 62; O2SAT 92
--- NOTE | 2022-07-28 11:00 | PC.NURSE ---
rolando states they will come for pt
[2022-07-28 11:30] VITALS: BP 108/47; PULSE 64; RESP 20; O2SAT 94
[2022-07-28 11:58] VITALS: BP 108/50; PULSE 68; RESP 16; TEMP 36.7
== END 2022-07-28 11:59 | disposition home or self-care (01) ==
PROVIDERS: Emergency Provider Emergency Medicine
DX: R53.1 Weakness (principal); F17.210 Nicotine dependence, cigarettes, uncomplicated; F20.9 Schizophrenia, unspecified; I10 Essential (primary) hypertension; F32.A Depression, unspecified
CPT/HCPCS: 71045; 80053; 85025; 99283; 99284

== ENCOUNTER 2022-11-09 08:45 | Day surgery (SDC) | payer MEDICARE, MEDICAID, SELFPAY ==
[2022-11-09] VITALS (13 sets, daily range): BP systolic 95–160; BP diastolic 53–88; PULSE 68–92; RESP 17–18; TEMP 37.1; O2SAT 94–98; BMI 30.2
--- NOTE | 2022-11-09 07:06 | IR_ITS ---
APPROVED REPORT Patient Location: Outpatient [employer] Administrator: PORTIA Nielson RT (R) PROCEDURES Left heart catheterization Left ventriculogram Selective coronary angiogram Catheter placed in the right external iliac artery Right external iliac artery antegrade angiogram with unilateral runoff to the right foot Catheter placement in the left external iliac artery Left external iliac artery antegrade angiogram with unilateral runoff to the left foot Catheter placement in the distal abdominal aorta Distal abdominal aortography INDICATION Coronary artery disease, Abnormal CECE 0.50.4, Rico claudication class III-IV, Peripheral artery disease, Informed consent was obtained prior to the procedure. COMPLICATIONS None Estimated Blood Loss: Less than 10 ML TECHNIQUE One percent lidocaine used to anesthetize the right anterior aspect of the wrist. The right radial artery was accessed via the Seldinger technique. A 6 Swedish sheath was placed in the right radial artery. 2.5 mg of Verapamil, 800 mcg of nitroglycerin, 1mg Lidocaine and 5000 U Heparin were given through the arterial sheath. The papa catheter was also used to perform left heart catheterization, left ventriculogram and selective coronary angiogram. At the end the diagnostic angiogram of the Poppa catheter was placed in the transverse aorta and the wire was advanced to the descending aorta. The catheter was exchanged for a PV multi curve with a PV multi curve was advanced under fluoroscopic guidance into the right external iliac artery where antegrade angiography was performed with unilateral runoff to the right foot. This was repeated into the left external iliac artery where antegrade angiography was performed with unilateral runoff to the left foot. The catheter was then pulled back to the distal abdominal aorta were distal abdominal aortography was performed. At the end the procedure the apparatus was removed the sheath was removed and hemostasis achieved using TR banding patient was transferred to postop putting in stable condition ANGIOGRAPHIC RESULTS The left main artery Normal The left anterior descending artery Has proximal concentric 30% stenosis with a mid vessel 30% stenosis. The circumflex artery Nondominant with proximal to mid vessel 30 to 40% stenosis The right coronary artery Is a large dominant vessel and has proximal to mid vessel 40 to 50% calcified stenoses with distal 30% calcified stenosis The VERDE ventriculogram reveals Slightly hyperdynamic at 70 to 75% The left ventricular end-diastolic pressure 15 mmHg Distal abdominal aorta is atheromatous calcified with 30% stenosis Right common internal and external iliac arteries are patent. The right common femoral artery has 20 to 30% stenoses. The right superficial femoral artery is ostially occluded and fills distally from the profunda femoris at the suprapatellar level.. The popliteal artery is then patent and then trifurcates and gives three-vessel runoff to the foot Left common internal and external iliac arteries are patent. The left common femoral artery is patent. The left profunda femoris artery is patent. The left superficial femoral artery has a long proximal 90% stenosis however is patent and gives inline flow into the popliteal artery. The left popliteal artery is patent and then trifurcates distally and gives three-vessel runoff to the left foot IMPRESSION Moderate coronary artery disease as described above best treated medically Hyperdynamic ventricle with mildly elevated LVEDP Bilateral SFA disease as described above Three-vessel runoff below the knees bilaterally PLAN 1. Medical management for coronary artery disease 2. Patient be brought back to the [facility] in 2 weeks and will undergo left leg drug-c
[2022-11-09 09:32] LABS: Basophils % 0.3 % (0.1-2.0); Eosinophils # 0.3 K/mm3 (0.0-0.4); Hematocrit 43.7 % (37.0-47.0); Hemoglobin 13.7 g/dL (12.2-16.2); Lymphocytes % 24.4 % (10-50); Mean Corpuscular HGB Conc 31.4 g/dL (31.8-35.4); Mean Corpuscular Hemoglobin 28.9 pg (27.0-31.2); Mean Corpuscular Volume 91.9 fl (81-99); Mean Platelet Volume 7.5 fl (7.4-10.4); Monocytes # 0.5 K/mm3 (0.1-1.0); Monocytes % 5.8 % (1.7-9.3); Neutrophils # 5.5 K/mm3 (1.8-7.8); Neutrophils % 66.4 % (37.0-80.0); Platelet Count 249 K/mm3 (142-424); Red Blood Count 4.75 M/mm3 (4.20-5.40); Red Cell Distribution Width 15.4 % (11.5-17.5); White Blood Count 8.2 K/mm3 (4.8-10.8)
[2022-11-09 09:35] LABS: Chloride 98 mmol/L (98-107); Potassium 4.6 mmoL/L (3.5-5.1); Sodium 134 mmol/L (136-145)
[2022-11-09 09:38] LABS: Anion Gap 9.6 mEq/L (5-15); Blood Urea Nitrogen 9 mg/dl (7-17); Calcium 8.7 mg/dl (8.4-10.2); Carbon Dioxide 31 mmol/L (22.0-30.0); Creatinine Clearance Estimated 63 mL/min (50-200); Estimated Glomerular Filt Rate 84 ml/min (>60); GFR (African American) 101 ML/MIN (>60); Glucose 103 mg/dl (74-100)
--- NOTE | 2022-11-09 14:57 | SUR.PHASEII ---
Spoke to kenan from [facility] mo storey gave d/c instructions
== END 2022-11-09 14:58 | disposition home or self-care (01) ==
PROVIDERS: PCP Emergency Medicine; Visit Provider Internal Medicine
DX: E78.5 Hyperlipidemia, unspecified (principal); I10 Essential (primary) hypertension; I70.223 Atherosclerosis of native arteries of extremities with rest pain, bilateral legs; R06.00 Dyspnea, unspecified; R60.0 Localized edema; R94.31 Abnormal electrocardiogram [ECG] [EKG]; I25.10 Atherosclerotic heart disease of native coronary artery without angina pectoris; F17.210 Nicotine dependence, cigarettes, uncomplicated; Z79.899 Other long term (current) drug therapy; R07.89 Other chest pain; I77.1 Stricture of artery
CPT/HCPCS: 36247; 75716; 80048; 85025; 93458; 99152; 99153; C1725; C1760; C1769; J1644; Q9966; Q9967

== ENCOUNTER 2022-11-20 13:29 | Inpatient (IN) | payer MEDICAID, MEDICARE, SELFPAY ==
[2022-11-20] VITALS (11 sets, daily range): BP systolic 112–164; BP diastolic 32–86; PULSE 74–104; RESP 12–20; TEMP 36.8–36.9; O2SAT 88–100; BMI 31.2; BMI 31.3
--- NOTE | 2022-11-20 13:40 | ECG_ITS ---
APPROVED REPORT Exam: Resting ECG HR:76 bpm ECG Measurements Heart Rate 76 AXES NH 198 P 54 QRSd 98 QRS 28 QT 379 T 47 QTc 410 Conclusion SINUS RHYTHM NORMAL ECG UNCONFIRMED REPORT Electronically signed by : Abdiaziz Ruiz MD 11/21/2022 15:16:47
--- NOTE | 2022-11-20 13:40 | CT_ITS ---
PROCEDURE INFORMATION: Exam: CT Head Without Contrast Exam date and time: 11/20/2022 2:50 PM Age: 67 years old Clinical indication: Injury or trauma; Fall; Blunt trauma (contusions or hematomas); Additional info: Fall confusion TECHNIQUE: Imaging protocol: Computed tomography of the head without contrast. Radiation optimization: All CT scans at this facility use at least one of these dose optimization techniques: automated exposure control; mA and/or kV adjustment per patient size (includes targeted exams where dose is matched to clinical indication); or iterative reconstruction. REPORTING DATA: Count of CT and Cardiac NM exams in prior 12 months: This patient has received 0 known CTs and 0 known cardiac nuclear medicine studies in the 12 months prior to the current study. COMPARISON: No relevant prior studies available. FINDINGS: Brain: Central and cortical brain atrophy evident, appropriate for patient age. There is nonspecific periventricular low attenuation, likely microangiopathic disease. No acute intracranial hemorrhage. Cerebral ventricles: No ventriculomegaly. Paranasal sinuses: Visualized sinuses are unremarkable. No fluid levels. Mastoid air cells: Visualized mastoid air cells are well aerated. Bones/joints: Unremarkable. No acute fracture. Soft tissues: Unremarkable. Other findings: Limited by patient motion. IMPRESSION: 1. Limited by patient motion. 2. No acute intracranial abnormality.
--- NOTE | 2022-11-20 13:40 | XR_ITS ---
PROCEDURE INFORMATION: Exam: XR Chest Exam date and time: 11/20/2022 3:25 PM Age: 67 years old Clinical indication: Shortness of breath; Additional info: O2 req TECHNIQUE: Imaging protocol: Radiologic exam of the chest. Views: 1 view. Portable upright chest x-ray. COMPARISON: CT CHEST W CON 11/20/2022 2:57 PM FINDINGS: Lungs: Bibasilar reticulonodular opacities. Mild peribronchial thickening. No confluent airspace consolidation or nodules. Pleural spaces: No pleural effusion. No pneumothorax. Heart/Mediastinum: Heart may be slightly enlarged. Bones/joints: No fractures or bone lesions. IMPRESSION: 1. Reticulonodular opacities and peribronchial thickening could represent pulmonary edema or pneumonitis, either viral or atypical. 2. Mild cardiomegaly.
[2022-11-20 13:46] LABS: Basophils % 0.5 % (0.1-2.0); Eosinophils # 0.2 K/mm3 (0.0-0.4); Eosinophils % 2.8 % (0.1-12.0); Hemoglobin 11.3 g/dL (12.2-16.2); Lymphocytes # 2.2 K/mm3 (0.7-4.5); Lymphocytes % 28.6 % (10-50); Mean Corpuscular HGB Conc 33.2 g/dL (31.8-35.4); Mean Corpuscular Hemoglobin 30.5 pg (27.0-31.2); Mean Corpuscular Volume 91.8 fl (81-99); Monocytes # 0.5 K/mm3 (0.1-1.0); Monocytes % 7.1 % (1.7-9.3); Neutrophils # 4.7 K/mm3 (1.8-7.8); Platelet Count 227 K/mm3 (142-424); Red Cell Distribution Width 15.4 % (11.5-17.5); White Blood Count 7.7 K/mm3 (4.8-10.8)
[2022-11-20 13:51] LABS: Chloride 96 mmol/L (98-107); Sodium 134 mmol/L (136-145)
[2022-11-20 13:53] LABS: Blood Urea Nitrogen 11 mg/dl (7-17); Creatinine Clearance Estimated 63 mL/min (50-200); Estimated Glomerular Filt Rate 84 ml/min (>60); GFR (African American) 101 ML/MIN (>60)
[2022-11-20 13:54] LABS: Alanine Aminotransferase 17 U/L (12-78); Albumin Level 3.6 g/dl (3.5-5.0); Alkaline Phosphatase 66 U/L (38-126); Aspartate Amino Transferase 30 U/L (14-36); Calcium 8.5 mg/dl (8.4-10.2); Carbon Dioxide 32 mmol/L (22.0-30.0); Globulin 3.6 g/dL (1.3-3.2); Glucose 93 mg/dl (74-100); Total Protein,Serum 7.2 g/dl (6.3-8.2)
[2022-11-20 13:55] LABS: VBG Base Excess 4.9 mmol/L (-2.4-2.3); VBG PH 7.32 mmol/L (7.31-7.41); VBG Total CO2 32.9 mmol/L (23-27)
[2022-11-20 13:59] LABS: VBG PCO2 61.7 mmol/L (35-51)
[2022-11-20 14:27] LABS: Bilirubin,Total 0.1 mg/dl (0.2-1.3)
[2022-11-20 14:30] LABS: Microscopic, Urine URINE MICROSCOPIC (MICROSCOPIC)
--- NOTE | 2022-11-20 14:30 | CT_ITS ---
PROCEDURE INFORMATION: Exam: CT Cervical Spine Without Contrast Exam date and time: 11/20/2022 2:55 PM Age: 67 years old Clinical indication: Injury or trauma; Fall; Blunt trauma; Additional info: Fall, neck pain TECHNIQUE: Imaging protocol: Computed tomography of the cervical spine without contrast. Radiation optimization: All CT scans at this facility use at least one of these dose optimization techniques: automated exposure control; mA and/or kV adjustment per patient size (includes targeted exams where dose is matched to clinical indication); or iterative reconstruction. REPORTING DATA: Count of CT and Cardiac NM exams in prior 12 months: This patient has received 0 known CTs and 0 known cardiac nuclear medicine studies in the 12 months prior to the current study. COMPARISON: CT HEAD/BRAIN WO CON 11/20/2022 2:50 PM FINDINGS: Bones/joints: No acute fracture. Normal alignment. No significant disc bulge or herniation. No severe spinal canal stenosis. Multilevel facet arthropathy. No significant neural foraminal narrowing. Lungs: Lung apices are normal. Soft tissues: Unremarkable. IMPRESSION: No acute findings.
--- NOTE | 2022-11-20 14:30 | CT_ITS ---
PROCEDURE INFORMATION: Exam: CT Chest With Contrast; Diagnostic Exam date and time: 11/20/2022 2:57 PM Age: 67 years old Clinical indication: Cough and shortness of breath; Additional info: SOA cough TECHNIQUE: Imaging protocol: Diagnostic computed tomography of the chest with contrast. Radiation optimization: All CT scans at this facility use at least one of these dose optimization techniques: automated exposure control; mA and/or kV adjustment per patient size (includes targeted exams where dose is matched to clinical indication); or iterative reconstruction. Contrast material: ISOVUE; Contrast volume: 75 ml; Contrast route: IV; REPORTING DATA: Count of CT and Cardiac NM exams in prior 12 months: This patient has received 0 known CTs and 0 known cardiac nuclear medicine studies in the 12 months prior to the current study. COMPARISON: CT ANGIO CHEST 04/20/2020 4:30 AM FINDINGS: Lungs: Smooth peribronchial thickening and occasional mucoid impaction in both lung bases. Scattered interstitial thickening and reticulonodular opacities affect the lung bases more than the upper lobes. No confluent airspace consolidation. Mild centrilobular emphysema. Pleural spaces: No pneumothorax. No pleural effusion. Heart: No cardiomegaly. No pericardial effusion. Coronary arteries: Moderate number of coronary artery calcifications. Esophagus: No wall thickening or abnormal luminal dilatation. Lymph nodes: A few subcentimeter paratracheal and subcarinal lymph nodes are probably inflammatory. Vasculature: No aortic aneurysm. Bones/joints: No acute fracture. No focal bone lesions. Soft tissues: No chest wall masses. IMPRESSION: 1. Peribronchial thickening, reticulonodular opacities, and occasional mucoid impaction in the lung bases likely due to pneumonia. Exacerbation of airways disease is a consideration. 2. No other acute findings in the chest. COMMENTS: In the absence of a history or active diagnosis of lung cancer, it is recommended that this patient with emphysema be evaluated for enrollment in a low dose CT lung cancer screening program.
--- NOTE | 2022-11-20 14:31 | HMH.EDGENADL ---
Discharge Plan Disposition Patient Disposition: Home, Self-Care Chief Complaint: Fall Prescriptions Prescriptions: No Action gabapentin 400 mg capsule 400 mg PO TID Qty: 90 5RF albuterol sulfate 90 mcg/actuation HFA aerosol inhaler 2 puff inhalation Q4HP PRN (Reason: Shortness Of Breath) Qty: 8.5 6RF atorvastatin [Lipitor] 40 mg tablet 40 mg PO DAILY prednisone 20 mg tablet See Rx Instructions .ROUTE .COMPLEX Rx Instructions: Take 2 tabs daily for 3 days; 1 tab daily for 3 days; then 1/2 tab daily for 3 days. clonazepam [Klonopin] 0.5 mg tablet 0.5 mg PO BID sulfamethoxazole-trimethoprim [Bactrim DS] 800-160 mg tablet 1 tab PO BID aspirin [Adult Low Dose Aspirin] 81 mg tablet,delayed release (DR/EC) 81 mg PO DAILY nitrofurantoin monohyd/m-cryst [Macrobid] 100 mg capsule 100 mg PO BID Rx Instructions: must administer with a meal/food citalopram 20 MG tablet 20 mg PO DAILY benztropine 2 MG tablet 2 mg PO BID metformin 500 MG tablet 500 mg PO BID Qty: 60 0RF Hold Instructions: Resume on 11/12/22. HOLD FOR 2 DAYS acetaminophen 325 MG tablet 650 mg PO MONTHLY Qty: 30 0RF ropinirole 0.5 mg tablet 2 mg PO HS Qty: 30 0RF ondansetron 4 MG tablet,disintegrating 4 mg PO Q6HP PRN (Reason: Nausea) Qty: 20 0RF risperidone 1 MG tablet 3 mg PO BID Qty: 30 0RF hydrochlorothiazide 12.5 mg tablet 12.5 mg PO DAILY Qty: 30 0RF Referrals Follow up/Referrals: Provider,MD Nancy [Primary Care Provider] - See instructions Clinical Impressions Clinical Impression: COPD (chronic obstructive pulmonary disease), Non-ST elevation MS (NSTEMI), Acute on chronic respiratory failure with hypoxemia, Pneumonia Discharge ED Provider: Bry Karimi General Adult HPI <Tiny Morin MD - Last Filed: 11/20/22 15:52> General Chief complaint: Fall Stated complaint: FALL Time Seen by Provider: 11/20/22 14:04 Mode of Arrival: EMS Source of Information: Patient and EMS Limitations: No Limitations Description of Symptoms (Recalled from ER Triage Doc. by RN): [facility] with possible LOC, pt denies back pain but complains of neck pain and right sided face/head pain. pt is on no blood thinners according to facility records, pt appears very drowsy but say this is her norm. per ems fbs was 113 and pt has bed bugs and a 20g in left ac History of Present Illness HPI narrative: This 67-year-old female presents to the emergency department from [place] with concerns of fall and possible loss of consciousness, but it was unwitnessed. Patient is complaining of neck pain as well as right-sided face/head pain. Patient appears drowsy but states that she feels essentially at baseline though she feels mildly short of breath compared to normal. She states she has been having a cough for the last 2 to 3 days and also says she has felt feverish occasionally. EMS states that her fingerstick glucose was 113 and that she has bedbugs. Patient does not take any blood thinners. She is unsure if she lost consciousness. She is not complaining of pain or injury elsewhere. She is on 2 L nasal cannula due to saturating 88% on room air with EMS prior to arrival. Related Data Home Medications Medication Instructions Recorded Confirmed benztropine 2 mg tablet 2 mg PO BID Tremors 04/08/17 11/09/22 citalopram 20 mg tablet 20 mg PO DAILY Depression 04/08/17 11/09/22 aspirin 81 mg tablet,delayed 81 mg PO DAILY . 11/09/22 11/09/22 release (Adult Low Dose Aspirin) atorvastatin 40 mg tablet (Lipitor) 40 mg PO DAILY . 11/09/22 11/09/22 clonazepam 0.5 mg tablet (Klonopin) 0.5 mg PO BID . 11/09/22 11/09/22 Previous Rx's Medication Instructions Recorded acetaminophen 325 mg tablet 650 mg PO MONTHLY Pain #30 tabs 01/28/22 hydrochlorothiazide 12.5 mg tablet 12.5 mg PO DAILY Hypertension #30 01/28/22 tabs metformin 500 mg table
[2022-11-20 14:34] LABS: Appearance,Urine CLEAR (Clear); Bilirubin,Urine Negative (Negative); Blood, Urine 2+ (Negative); Color,Urine YELLOW (Yellow); Glucose,Urine (UA) Negative (Negative); Ketones,Urine Negative (Negative); Leukocyte Esterase,Urine Negative (Negative); Nitrate,Urine Negative (Negative); PH,Urine 5.5 (5.0-8.5); Protein,Urine Negative (Negative); Specific Gravity, Urine 1.025 (1.005-1.030); Urobilinogen,Urine 0.2 EU/dl (0.2)
--- NOTE | 2022-11-20 14:44 | PC.NURSE ---
transported to radiology via stretcher, 2 l of o2, and radio operator
[2022-11-20 14:47] LABS: Troponin I 0.13 ng/ml (0.00-0.034)
--- NOTE | 2022-11-20 15:21 | PC.NURSE ---
c collar in place per ER MD verbal order
--- NOTE | 2022-11-20 15:56 | PC.NURSE ---
removed c collar per er md, ct scan of neck is clear
--- NOTE | 2022-11-20 16:00 | PC.NURSE ---
Per ER MD blood cultures not needed
--- NOTE | 2022-11-20 16:30 | PC.NURSE ---
Dr Karimi speaking with hospitalist, dr almazan
--- NOTE | 2022-11-20 16:32 | PC.NURSE ---
ER on the phone with hospital medicine for admission
--- NOTE | 2022-11-20 16:38 | EXP.HP ---
History of Present Illness *Admission Date: 11/20/22 *Reason for visit:: weakness, found down *History of present illness: Ms. Van is a 67yo F with Hx of smoking, CAD, diabetes, COPD, schizophrenia who presented via EMS from her personal-correction [facility]. Patient was found down with a witnessed episode at her personal-correction. EMS was called. Patient's fingerstick on arrival was 113. Concern for new oxygen requirement/hypoxia on evaluation in the field. Was brought to the ER for further management. Patient states she has been feeling weak and short of breath for about a week. Continues to smoke up until earlier today. Denies any nausea or vomiting. Cough is productive. Necessitating 2 L nasal cannula in the ER for sats above 88%. Work-up in the ER concerning for patchy airspace disease on CT, rhonchorous breath sounds, productive cough. Given new oxygen requirement and concern for pneumonia on imaging, medicine consulted for admission and further management. Arrival to the floor, patient states she is feeling little bit better now. Is afebrile. Stable on 2 L nasal cannula. Does not recall losing consciousness. States there are bugs at her personal-correction including bedbugs. Does not think she has them in her room. [facility] Disclaimer: The information contained in this section may have been updated after the patient was seen, as this information can be updated by other users. Medical History Abnormal ankle brachial index (CECE) Coronary artery calcification seen on CAT scan Depression Dyspnea HTN (hypertension) Hypertension Schizophrenia Seizure Family History No significant family history Social History Smoking Status: Current every day smoker tobacco type: cigarettes packs per day: 1 alcohol intake: never substance use type: denies use current occupational status: disabled and other Travel in the last 8 weeks: None household members: other housing: assisted living facility current occupational exposures/hazards: No caffeine: Yes Review of Systems Review of Systems Review of systems (narrative): 14 point review of systems performed, pertinent positives and negatives as per HPI Constitutional Constitutional: Reports headache(s) and Denies weakness ENT Ears, Nose, Mouth, and Throat: Denies dizziness and Reports headache(s) *Musculoskeletal Musculoskeletal: Denies numbness and Denies tingling *Neurologic Neurologic: Denies dizziness, Reports headache(s), Denies numbness, Denies tingling and Denies weakness Meds Home Medications and Allergies Home Medications Medication Instructions Recorded Confirmed Type benztropine 2 mg tablet 2 mg PO BID Tremors 04/08/17 11/20/22 History citalopram 20 mg tablet 20 mg PO DAILY Depression 04/08/17 11/20/22 History acetaminophen 325 mg tablet 650 mg PO MONTHLY Pain #30 tabs 01/28/22 11/20/22 Rx hydrochlorothiazide 12.5 mg tablet 12.5 mg PO DAILY Hypertension #30 01/28/22 11/20/22 Rx tabs metformin 500 mg tablet 500 mg PO BID Diabetes #60 tabs 01/28/22 11/20/22 Rx ondansetron 4 mg disintegrating 4 mg PO Q6HP PRN Nausea #20 tabs 01/28/22 11/20/22 Rx tablet risperidone 1 mg tablet 3 mg PO BID Mood #30 tabs 01/28/22 11/20/22 Rx ropinirole 0.5 mg tablet 2 mg PO HS Restless leg syndrome 01/28/22 11/20/22 Rx #30 tabs gabapentin 400 mg capsule 400 mg PO TID Neuropathic pain #90 09/23/22 11/20/22 Rx caps albuterol sulfate 90 mcg/actuation 2 puff inhalation Q4HP PRN 11/03/22 11/20/22 Rx aerosol inhaler Shortness Of Breath #8.5 grams aspirin 81 mg tablet,delayed 81 mg PO DAILY . 11/09/22 11/09/22 History release (Adult Low Dose Aspirin) atorvastatin 40 mg tablet (Lipitor) 40 mg PO DAILY . 11/09/22 11/09/22 History clonazepam 0.5 mg tablet (Klonopin) 0.5 mg PO BID . 11/09/22
--- NOTE | 2022-11-20 16:58 | PC.NURSE ---
called report to Sena CELIS
[2022-11-20 17:35] LABS: Troponin I 0.13 ng/ml (0.00-0.034)
[2022-11-20 17:55] LABS: Adenovirus,PCR Not Detected (NotDetected); Coronavirus 19, PCR Not Detected (NotDetected); Coronavirus 229E Not Detected (NotDetected); Coronavirus NL63 Not Detected (NotDetected); Coronavirus OC43 Not Detected (NotDetected); Coronovirus HKU1,PCR Not Detected (NotDetected); Human Metapneumovirus Not Detected (NotDetected); Influenza A, PCR Not Detected (NotDetected); Influenza AH1, 2009 Not Detected (NotDetected); Influenza AH1, PCR Not Detected (NotDetected); Influenza AH3,PCR Not Detected (NotDetected); Influenza B, PCR Not Detected (NotDetected); Parainfluenza 1, PCR Not Detected (NotDetected); Parainfluenza 2, PCR Not Detected (NotDetected); Parainfluenza 3, PCR Not Detected (NotDetected); Parainfluenza 4, PCR Not Detected (NotDetected); Respiratory Syncytial Virus Not Detected (NotDetected)
--- NOTE | 2022-11-20 19:02 | PC.NURSE ---
Patient admitted today from [facility]. Patient has a new oxygen requirement after arrival to ER.
[2022-11-20 19:20] LABS: Rhinovirus/Enterovirus Detected (NotDetected)
[2022-11-20 20:02] LABS: Troponin I 0.11 ng/ml (0.00-0.034)
[2022-11-21] VITALS (14 sets, daily range): BP systolic 103–143; BP diastolic 48–61; PULSE 64–101; RESP 16–22; TEMP 36.9–37.4; O2SAT 91–100; BMI 31.7
[2022-11-21 01:25] LABS: POC Glucose,Bedside 171 (70-110)
[2022-11-21 05:28] LABS: POC Glucose,Bedside 120 (70-110)
[2022-11-21 08:23] LABS: Basophils % 0.4 % (0.1-2.0); Eosinophils # 0.1 K/mm3 (0.0-0.4); Eosinophils % 2.1 % (0.1-12.0); Hematocrit 36.4 % (37.0-47.0); Hemoglobin 11.8 g/dL (12.2-16.2); Lymphocytes # 1.2 K/mm3 (0.7-4.5); Mean Corpuscular HGB Conc 32.4 g/dL (31.8-35.4); Mean Corpuscular Volume 95.7 fl (81-99); Mean Platelet Volume 7.5 fl (7.4-10.4); Monocytes # 0.4 K/mm3 (0.1-1.0); Monocytes % 8.1 % (1.7-9.3); Neutrophils # 3.6 K/mm3 (1.8-7.8); Neutrophils % 66.3 % (37.0-80.0); Platelet Count 187 K/mm3 (142-424); White Blood Count 5.4 K/mm3 (4.8-10.8)
[2022-11-21 08:31] LABS: Chloride 99 mmol/L (98-107); Potassium 3.6 mmoL/L (3.5-5.1); Sodium 134 mmol/L (136-145)
[2022-11-21 08:34] LABS: Alanine Aminotransferase 11 U/L (12-78); Albumin Level 3.2 g/dl (3.5-5.0); Alkaline Phosphatase 66 U/L (38-126); Anion Gap 9.6 mEq/L (5-15); Aspartate Amino Transferase 28 U/L (14-36); Blood Urea Nitrogen 8 mg/dl (7-17); Calcium 8.1 mg/dl (8.4-10.2); Carbon Dioxide 29 mmol/L (22.0-30.0); Creatinine Clearance Estimated 64 mL/min (50-200); Estimated Glomerular Filt Rate 100 ml/min (>60); GFR (African American) 121 ML/MIN (>60); Globulin 3.3 g/dL (1.3-3.2); Glucose 147 mg/dl (74-100); Magnesium 1.8 mg/dl (1.6-2.3); Total Protein,Serum 6.5 g/dl (6.3-8.2)
[2022-11-21 08:46] LABS: Bilirubin,Total < 0.1 mg/dl (0.2-1.3)
--- NOTE | 2022-11-21 09:29 | EXP.ACUTE.PN ---
Subjective *Date: 11/21/22 *Time: 12:59 Interval history: Patient still requiring 2 L nasal cannula oxygen this morning. Afebrile overnight and hemodynamically stable. No nausea or vomiting. Cough still slightly productive. Labs consistent with yesterday. Medical Exam Vital signs and Labs for Last 24 Hours: Vital Signs Temp Pulse Pulse Resp BP BP Pulse Ox 11/21/22 08:00 98.8 F 95 H 22 118/51 L 100 11/21/22 06:00 101 H 11/21/22 06:00 100 H 11/21/22 06:00 93 L 11/21/22 06:35 11/21/22 04:54 11/21/22 04:00 86 11/21/22 04:00 98.5 F 92 H 18 119/54 L 91 L 11/21/22 03:00 11/21/22 01:00 11/21/22 00:22 88 11/21/22 00:00 99.4 F 90 22 143/59 H 98 11/21/22 00:03 85 11/21/22 00:02 88 11/20/22 23:00 11/20/22 20:00 86 11/20/22 21:00 11/20/22 20:00 100 11/20/22 19:52 98.3 F 90 18 124/50 L 100 11/20/22 18:44 93 H 11/20/22 18:44 93 H 11/20/22 18:44 91 L 11/20/22 18:20 98.2 F 96 H 18 126/78 96 11/20/22 16:55 98.5 F 100 H 14 144/86 H 11/20/22 16:31 104 H 20 144/86 H 93 L 11/20/22 16:00 78 18 139/61 99 11/20/22 15:30 74 16 147/32 H 95 11/20/22 14:30 77 16 121/65 93 L 11/20/22 14:01 99 H 18 112/64 98 11/20/22 13:29 98.4 F 79 12 164/55 H 88 L O2 Del Method O2 Flow Rate 11/21/22 08:00 Nasal Cannula 2 11/21/22 06:00 11/21/22 06:00 11/21/22 06:00 Nasal Cannula 2 11/21/22 06:35 Nasal Cannula 2 11/21/22 04:54 Nasal Cannula 2 11/21/22 04:00 11/21/22 04:00 Nasal Cannula 2 11/21/22 03:00 Nasal Cannula 2 11/21/22 01:00 Nasal Cannula 2 11/21/22 00:22 11/21/22 00:00 Nasal Cannula 2 11/21/22 00:03 11/21/22 00:02 11/20/22 23:00 Room Air 11/20/22 20:00 11/20/22 21:00 Nasal Cannula 2 11/20/22 20:00 Nasal Cannula 2 11/20/22 19:52 Room Air 11/20/22 18:44 11/20/22 18:44 11/20/22 18:44 Nasal Cannula 2 11/20/22 18:20 Nasal Cannula 2 11/20/22 16:55 Nasal Cannula 2 11/20/22 16:31 2 11/20/22 16:00 11/20/22 15:30 2 11/20/22 14:30 11/20/22 14:01 11/20/22 13:29 Room Air 2 Intake and Output 11/20/22 11/21/22 11/21/22 23:59 07:59 15:59 Intake Total 480 / 480 Output Total 800 / 800 400 / 400 Balance -320 / -320 -400 / -400 Intake: Intake, Oral Amount 480 / 480 Output: Output, Urine Amount 800 / 800 400 / 400 Other: Number of Unmeasured Voids 1 0 Weight 72.688 kg 73.284 kg Patient Weight 11/21/22 23:59 Weight 73.284 kg Laboratory Results - last 24 hr 11/20/22 13:33: WBC 7.7, RBC 3.70 L, Hgb 11.3 L, Hct 34.0 L, MCV 91.8, MCH 30.5, MCHC 33.2, RDW 15.4, Plt Count 227, MPV 8.0, Neut % (Auto) 61.0, Lymph % (Auto) 28.6, Gregg % (Auto) 7.1, Eos % (Auto) 2.8, Baso % (Auto) 0.5, Neut # (Auto) 4.7, Lymph # (Auto) 2.2, Gregg # (Auto) 0.5, Eos # (Auto) 0.2, Baso # (Auto) 0.0, Sodium 134 L, Potassium 4.0, Chloride 96 L, Carbon Dioxide 32 H, Anion Gap 10.0, BUN 11, Creatinine 0.70, Estimated Creat Clear 63, Estimated GFR 84, Est GFR ( Amer) 101, Glucose 93, Calcium 8.5, Total Bilirubin 0.1 L, AST 30, ALT 17, Alkaline Phosphatase 66, Troponin I 0.13 H, Total Protein 7.2, Albumin 3.6, Globulin 3.6 H, Albumin/Globulin Ratio 1.0 L 11/20/22 13:40: VBG pH 7.32, VBG pCO2 61.7 H, VBG pO2 55.0 H, VBG HCO3 31.0 H, VBG Total CO2 32.9 H, VBG O2 Saturation 88.0 H, VBG Base Excess 4.9 H 11/20/22 14:20: Urine Color Yellow, Urine Appearance Clear, Urine pH 5.5, Ur Specific [place] 1.025, Urine Protein Negative, Urine Glucose (UA) Negative, Urine Ketones Negative, Urine Blood 2+, Urine Nitrate Negative, Urine Bilirubin Negative, Urine Urobilinogen 0.2, Ur Leukocyte Esterase Negative, Urine RBC 3-5, Urine WBC None, Ur Squamous Epith Cells None, Urine Bacteria None 11/20/22 17:08: Troponin I 0.13 H 11/20/22 17:50: Chlamy pneumoniae PCR TNP, Ruslan
--- NOTE | 2022-11-21 09:33 | HMH.PHAINT1 ---
Pharmacy Intervention Comments: MEDICATION RECONCILIATION COMPLETE USING MAR FROM [facility] GODINE[facility].
[2022-11-21 11:21] LABS: POC Glucose,Bedside 95 (70-110)
[2022-11-21 16:53] LABS: POC Glucose,Bedside 105 (70-110)
--- NOTE | 2022-11-21 18:24 | PC.NURSE ---
Pt o2 sats 100% on 2lpm n/c. Turn pt down to 1pm n/c
--- NOTE | 2022-11-21 18:55 | PC.NURSE ---
Patient was weaned to 1L NC throughout shift. Vital signs stable
[2022-11-21 21:17] LABS: POC Glucose,Bedside 145 (70-110)
--- NOTE | 2022-11-21 21:51 | PC.NURSE ---
patient c/o cough: PAPITO Yousif called orders received see MAR
[2022-11-22] VITALS: BP 136/50; PULSE 100; PULSE 87; RESP 20; TEMP 36.9; O2SAT 95
[2022-11-22 04:00] VITALS: BP 139/54; PULSE 100; PULSE 80; RESP 20; TEMP 37.2; O2SAT 95; BMI 32.5
[2022-11-22 05:51] VITALS: PULSE 63; PULSE 68
[2022-11-22 05:51] LABS: POC Glucose,Bedside 93 (70-110)
--- NOTE | 2022-11-22 05:55 | PC.NURSE ---
Patient has been stable this shift, adequate urine output via purewick. Had c/o coughing and pain due to cough, one time dose order of tesslon pearls administered stated it helped. Patient had a coughing spell at 0530 and wanted to get up to [facility], respiratory called for scheduled breathing treatment. Vitals remained stable. No acute changes noted this shift. Remains on1lnc.
[2022-11-22 07:31] VITALS: BP 145/53; PULSE 97; RESP 18; TEMP 36.8; O2SAT 94
--- NOTE | 2022-11-22 07:38 | PC.NURSE ---
RA SAT 94% AT REST.
[2022-11-22 08:00] VITALS: PULSE 85
--- NOTE | 2022-11-22 10:29 | HMH.OTEV ---
OT Inpatient Evaluation Rehab OT IP Evaluation Start: 11/22/22 07:37 Freq: ONCE Status: Active Protocol: Document 11/22/22 10:22 ANASTASIA (Rec: 11/22/22 10:29 ANASTASIA [id number]) Rehab OT IP Assessment Subjective History Ms. Van is a 67yo F with Hx of smoking, CAD, diabetes, COPD, schizophrenia who presented via EMS from her personal-group home [facility]. Patient was found down with a witnessed episode at her personal-group home. EMS was called. Patient's fingerstick on arrival was 113. Concern for new oxygen requirement/ hypoxia on evaluation in the field. Was brought to the ER for further management. Patient states she has been feeling weak and short of breath for about a week. Continues to smoke up until earlier today. Denies any nausea or vomiting. Cough is productive. Necessitating 2 L nasal cannula in the ER for sats above 88%. Work-up in the ER concerning for patchy airspace disease on CT, rhonchorous breath sounds, productive cough. Given new oxygen requirement and concern for pneumonia on imaging, medicine consulted for admission and further management. Arrival to the floor, patient states she is feeling little bit better now. Is afebrile. Stable on 2 L nasal cannula. Does not recall losing consciousness. States there are bugs at her personal-group home including bedbugs. Does not think she has them in her room. Patient is a resident at [facility]. Independent with ADLs and fx'l m
--- NOTE | 2022-11-22 10:46 | HMH.PTEV ---
Physical Therapy Evaluation Rehab PT IP Evaluation Start: 11/22/22 07:37 Freq: ONCE Status: Active Protocol: Document 11/22/22 10:43 KIKI (Rec: 11/22/22 10:46 KIKI [id number]) Subjective/History History History 67 yowf adm to [facility] with PNA and COPD exac. She has PMH of CAD, DM, COPD, and schizophrenia. She lives at a local personal residential at baseline and is generally independent with all mobility and ADLs Subjective Subjective Pt has no c/o this am and is aggreable to mobility assessment. New diagnosis of cancer in past 12 No months? Rehab PT IP Eval Objective Appearance Patient Behavior Appropriate,Confused Patient Orientation Person Difficulty following instructions mild Speech Pattern Clear Ambulation Patient Able to Ambulate Yes Ambulation Observation IP General Gait Pattern Observation Wide Based Gait Ambulation Distance (feet) 40 Ambulation Assistive Device None Ambulation Ability Supervision/Stand by Balance Ability to Arise Able, uses arms to help Sitting Balance Steady, safe Standing Balance Steady, wide stance Dynamic Sitting Balance Ability Good Dynamic Standing Balance Ability Good Transfers Chair Transfer Ability Supervision/Stand by Sit to Stand Bed Transfer Ability Supervision/Stand by Sit to Stand Chair Transfer Ability Supervision/Stand by ROM All Extremities PT ROM Status WFL MMT All Extremities PT MMT WFL Rehab PT IP prob,goals,plan Problems Date of Evaluation: 11/22/22 Discharge Plan PT Discharge Plan Pt appears to be at baseline for all mobility at this time. She is appropriate to return to personal residential once medically stable for d/c. Eval Complexity Eval Charge Codes 56023 - High Complexity PHYSICIAN CERTIFICATION: I certify the specified therapy services for Josefina Van are required, authorized, and reviewed every 30 days.
--- NOTE | 2022-11-22 10:50 | EXP.DC.SUM ---
General Admission date:: 11/20/22 Discharge date: 11/22/22 HPI HPI HPI: Ms. Van is a 67yo F with Hx of smoking, CAD, diabetes, COPD, schizophrenia who presented via EMS from her personal-retirement [facility]. Patient was found down with a witnessed episode at her personal-retirement. EMS was called. Patient's fingerstick on arrival was 113. Concern for new oxygen requirement/hypoxia on evaluation in the field. Was brought to the ER for further management. Patient states she has been feeling weak and short of breath for about a week. Continues to smoke up until earlier today. Denies any nausea or vomiting. Cough is productive. Necessitating 2 L nasal cannula in the ER for sats above 88%. Work-up in the ER concerning for patchy airspace disease on CT, rhonchorous breath sounds, productive cough. Given new oxygen requirement and concern for pneumonia on imaging, medicine consulted for admission and further management. Arrival to the floor, patient states she is feeling little bit better now. Is afebrile. Stable on 2 L nasal cannula. Does not recall losing consciousness. States there are bugs at her personal-retirement including bedbugs. Does not think she has them in her room. Hospital Course Hospital Course Hospital Course: 67-year-old female with schizophrenia, COPD, CAD who presented to the ER after being found down at [place] personal-retirement. New oxygen requirement. Imaging concerning for pneumonia. Discussed case with ER physician, request admission for oxygen therapy, breathing treatments, IV antibiotics. Medicine agreed to admit for further management. Continues to require inpatient management due to persistent O2 requirement. Comprehensive respiratory panel found to be positive for rhino/enterovirus. Able to wean oxygen over 48 hours. Independently ambulatory, stable to discharge back to her personal-retirement. We will continue antibiotics and steroids for 5 days for COPD exacerbation. Stable to discharge. Problems addressed as follows during admission: Pneumonia COPD -New oxygen requirement, required 2 L to maintain sats greater 90%. Gradually weaned over admission. CT reviewed showing patchy right-sided airspace disease consistent with pneumonia, viral panel positive for rhino enterovirus. Likely viral pneumonia. Initiated on ceftriaxone and azithromycin. We will continue azithromycin to complete 5-day course. Started on steroids, will continue prednisone 40 mg daily for 5-day course. Continue inhalers at discharge. DuoNebs during admission. CAD: Hypertension: NSTEMI -Recent heart cath 2 weeks ago, recommended medical management. Initiated on Plavix 75 mg daily. We will continue at this time. Holding aspirin due to allergy. No chest pain during admission. Troponin trended down from 0.13-0.09. Follow-up with cardiology as scheduled Diabetes: Sliding scale and fingerstick ACHS during admission, initially held gabapentin and metformin due to sedation and found down. resume on discharge. Schizophrenia: Continue home Risperdal and ropinirole. Held trazodone initially due to sedation. Okay to resume meds at discharge. Stable for discharge back to [place]. Patient is weaned to room air. Finish antibiotics and steroids for COPD exacerbation and viral pneumonia. Exam Data for Last 24 hours Vital signs and Labs for Last 24 Hours: Temp Pulse Resp BP Pulse Ox O2 Del Method O2 Flow Rate 98.3 F 97 H 18 145/53 H 94 L Room Air 1 11/22/22 07:31 11/22/22 07:31 11/22/22 07:31 11/22/22 07:31 11/22/22 07:31 11/22/22 09:00 11/22/22 04:00 Laboratory Results - last 24 hr 11/21/22 11:03: POC Glucose 95 11/21/22 16:38: POC Glucose 105 11/21/22 20:49: POC Glucose 145 H 11/22/22 05:37: POC Glucose 93 I & O for Last 24 hours: Intake & Output 11/19/22 11/20/22 11/21/22 11/22/22 23:59 23:59 23:59 23:59 Intake Total 480 / 480 810 / 870 330 / 330 Output Total 800 /
[2022-11-22 11:09] LABS: POC Glucose,Bedside 123 (70-110)
[2022-11-22 11:10] VITALS: PULSE 80; RESP 18
--- NOTE | 2022-11-22 11:16 | SW/DCPLANNER ---
This patient currently resides at [facility]. PT/OT evaluated patient today and stated that patient is good to return to [facility] at time of discharge. I have updated Sharon allen/ [facility] and she is marvin allen/ patient returning. Patient will return to [facility] today. I will arrange [facility] for this patient.
--- NOTE | 2022-11-23 14:40 | CARE MANAGER ---
Contacted [facility] related to patient's discharge. They state patient is doing well and deny any questions or concerns. LALITA Hodgson
== END 2022-11-22 12:39 | disposition home or self-care (01) | DRG 193 ==
LOC: ER 16:34 → 2ND 18:23
PROVIDERS: Emergency Medicine; Admitting Provider Internal Medicine Adolescent Medicine; Emergency Provider Emergency Medicine; Visit Provider Internal Medicine Adolescent Medicine
DX: J18.9 Pneumonia, unspecified organism (principal); I21.4 Non-ST elevation (NSTEMI) myocardial infarction; J96.21 Acute and chronic respiratory failure with hypoxia; J44.1 Chronic obstructive pulmonary disease with (acute) exacerbation; J44.0 Chronic obstructive pulmonary disease with (acute) lower respiratory infection; I10 Essential (primary) hypertension; F20.9 Schizophrenia, unspecified; F32.A Depression, unspecified; F17.210 Nicotine dependence, cigarettes, uncomplicated; E11.9 Type 2 diabetes mellitus without complications; Z79.84 Long term (current) use of oral hypoglycemic drugs
CPT/HCPCS: 70450; 71045; 71260; 72125; 80053; 81001; 82803; 82962; 83735; 84484; 85025; 87632; 87635; 93005; 94640; 94760; 97163; 97165; 99291; J0456; J0696; J2405; Q9967

== ENCOUNTER 2022-12-20 12:51 | Emergency (ER) | payer MEDICARE, MEDICAID, SELFPAY ==
[2022-12-20] VITALS (8 sets, daily range): BP systolic 103–161; BP diastolic 44–75; PULSE 75–98; RESP 14–20; TEMP 36.6–36.7; O2SAT 92–96
--- NOTE | 2022-12-20 13:25 | HMH.EDGENADL ---
Discharge Plan Disposition Patient Disposition: Home, Self-Care Prescriptions Prescriptions: No Action gabapentin 400 mg capsule 400 mg PO TID Qty: 90 5RF albuterol sulfate 90 mcg/actuation HFA aerosol inhaler 2 puff inhalation Q4HP PRN (Reason: Shortness Of Breath) Qty: 8.5 6RF clopidogrel 75 mg tablet See Rx Instructions .ROUTE .COMPLEX Qty: 30 11RF Dose Instruction: GIVE 1 TABLET BY MOUTH ONCE DAILY Rx Instructions: GIVE 1 TABLET BY MOUTH ONCE DAILY clonazepam 0.5 mg tablet 0.5 mg PO BID Qty: 60 0RF citalopram 20 MG tablet 20 mg PO DAILY benztropine 2 MG tablet 2 mg PO BID ondansetron 4 MG tablet,disintegrating 4 mg PO Q6HP PRN (Reason: Nausea) Qty: 20 0RF hydrochlorothiazide 12.5 mg tablet 12.5 mg PO DAILY Qty: 30 0RF loperamide 2 mg Tablet 2 mg PO Q3HP PRN (Reason: Diarrhea) donepezil 5 mg Tablet 5 mg PO HS trazodone 50 mg Tablet 50 mg PO HS metformin 500 mg tablet 500 mg PO BIDWMEAL sennosides [senna] 8.6 mg Tablet 17.2 mg PO DAILYP PRN (Reason: Constipation) acetaminophen 325 mg Tablet 650 mg PO BID risperidone 3 mg tablet 3 mg PO BID guaifenesin 100 mg/5 mL Liquid 200 mg PO Q4HP PRN (Reason: Chest Congestion) ropinirole 2 mg tablet 2 mg PO HS atorvastatin 40 mg Tablet 40 mg PO DAILY 30 Days Qty: 30 0RF prednisone 20 mg Tablet 40 mg PO DAILY 3 Days Qty: 6 0RF azithromycin 500 mg tablet 500 mg PO DAILY 2 Days Qty: 2 0RF Referrals Follow up/Referrals: Provider,Referral, [Primary Care Provider] - See instructions Clinical Impressions Clinical Impression: Weakness, Tremor, Elevated troponin Discharge ED Provider: Pasquale Bernal General Adult HPI <Bry Karimi MD - Last Filed: 12/22/22 08:02> General Chief complaint: Weakness Stated complaint: weakness Time Seen by Provider: 12/20/22 12:54 Mode of Arrival: EMS Source of Information: Patient and EMS Limitations: No Limitations Description of Symptoms (Recalled from ER Triage Doc. by RN): EMS states the patient complains of restless leg pain. Per [place] patient hasn't been getting up and walking around lately. Patient states that her whole body is shaking and her stomach is upset. History of Present Illness HPI narrative: 67-year-old female history of hypertension, hyperlipidemia, diabetes, schizophrenia, COPD not currently on home oxygen presenting with restless legs. Patient states she has been having troubles with her right leg shaking for months. Alert and oriented, not currently complaining of right leg shakes. Denies spine injuries, bowel or bladder dysfunction, or any other concerns at this time. Related Data Home Medications Medication Instructions Recorded Confirmed benztropine 2 mg tablet 2 mg PO BID Tremors 04/08/17 11/21/22 citalopram 20 mg tablet 20 mg PO DAILY Depression 04/08/17 11/21/22 donepezil 5 mg tablet 5 mg PO HS MEMORY 11/20/22 11/21/22 loperamide 2 mg tablet 2 mg PO Q3HP PRN Diarrhea 11/20/22 11/21/22 trazodone 50 mg tablet 50 mg PO HS Insomnia 11/20/22 11/21/22 acetaminophen 325 mg tablet 650 mg PO BID Pain 11/21/22 11/21/22 guaifenesin 100 mg/5 mL oral liquid 200 mg PO Q4HP PRN Chest Congestion 11/21/22 11/21/22 metformin 500 mg tablet 500 mg PO BIDWMEAL Diabetes 11/21/22 11/21/22 risperidone 3 mg tablet 3 mg PO BID MOOD 11/21/22 11/21/22 ropinirole 2 mg tablet 2 mg PO HS Restless Leg(S) 11/21/22 11/21/22 sennosides 8.6 mg tablet (senna) 17.2 mg PO DAILYP PRN Constipation 11/21/22 11/21/22 Previous Rx's Medication Instructions Recorded hydrochlorothiazide 12.5 mg tablet 12.5 mg PO DAILY Hypertension #30 01/28/22 tabs ondansetron 4 mg disintegrating 4 mg PO Q6HP PRN Nausea #20 tabs 01/28/22 tablet gabapentin 400 mg capsule 400 mg PO TID Neuropathic pain #90 09/23/22 caps albuterol sulfate 90 mcg/actuation 2 puff inhalation Q4HP PRN 11/03/22 aerosol inhaler Shortness O
--- NOTE | 2022-12-20 13:26 | XR_ITS ---
FINAL REPORT TECHNIQUE: Single view chest CLINICAL HISTORY: bed bugs, tired. history of copd FINDINGS: A single view of the chest was obtained. The heart and mediastinum are within normal limits. There are chronic changes at the lung bases. The lungs are otherwise clear. There is no pneumothorax. Osseous structures are unremarkable. IMPRESSION: No acute cardiopulmonary process. Reviewed, Interpreted and Dictated by Florentino Cuevas MD Transcribed by Fatimah Calhoun Authenticated and [facility]
--- NOTE | 2022-12-20 13:52 | ECG_ITS ---
APPROVED REPORT Exam: Resting ECG HR:77 bpm ECG Measurements Heart Rate [address] 181 P 61 QRSd 101 QRS 43 QT 374 T 15 QTc 405 Conclusion SINUS RHYTHM LOW QRS VOLTAGE IN PRECORDIAL LEADS [QRS DEFLECTION < 1.0 mV IN CHEST LEADS] BORDERLINE ECG UNCONFIRMED REPORT Electronically signed by : Abdiaziz Ruiz MD 12/21/2022 20:12:42
[2022-12-20 14:08] LABS: VBG Base Excess 3.8 mmol/L (-2.4-2.3); VBG HCO3 29.4 mmol/L (23-30); VBG Oxygen Saturation 97.9 % (50-70); VBG PH 7.35 mmol/L (7.31-7.41); VBG PO2 103.2 mmol/L (28-40); VBG Total CO2 31.1 mmol/L (23-27)
[2022-12-20 14:12] LABS: VBG PCO2 54.6 mmol/L (35-51)
[2022-12-20 14:14] LABS: Alanine Aminotransferase 18 U/L (12-78); Albumin Level 3.8 g/dl (3.5-5.0); Albumin/Globulin Ratio 1.1 (1.1-1.8); Alkaline Phosphatase 82 U/L (38-126); Anion Gap 9.6 mEq/L (5-15); Aspartate Amino Transferase 29 U/L (14-36); Blood Urea Nitrogen 8 mg/dl (7-17); Calcium 8.9 mg/dl (8.4-10.2); Carbon Dioxide 33 mmol/L (22.0-30.0); Chloride 98 mmol/L (98-107); Creatinine Clearance Estimated 61 mL/min (50-200); Estimated Glomerular Filt Rate 84 ml/min (>60); GFR (African American) 101 ML/MIN (>60); Globulin 3.4 g/dL (1.3-3.2); Glucose 96 mg/dl (74-100); Potassium 3.6 mmoL/L (3.5-5.1); Sodium 137 mmol/L (136-145); Total Protein,Serum 7.2 g/dl (6.3-8.2)
[2022-12-20 14:15] LABS: Bilirubin,Total 0.1 mg/dl (0.2-1.3)
[2022-12-20 14:23] LABS: NT Pro Brain Natriuretic Pep. 135 pg/mL (0-125)
[2022-12-20 14:26] LABS: Troponin I 0.13 ng/ml (0.00-0.034)
[2022-12-20 14:36] LABS: Basophils % 0.3 % (0.1-2.0); Eosinophils # 0.2 K/mm3 (0.0-0.4); Eosinophils % 3.7 % (0.1-12.0); Hematocrit 35.9 % (37.0-47.0); Hemoglobin 12.1 g/dL (12.2-16.2); Lymphocytes # 1.6 K/mm3 (0.7-4.5); Lymphocytes % 29.6 % (10-50); Mean Corpuscular HGB Conc 33.6 g/dL (31.8-35.4); Mean Corpuscular Hemoglobin 30.5 pg (27.0-31.2); Mean Corpuscular Volume 90.7 fl (81-99); Mean Platelet Volume 6.6 fl (7.4-10.4); Monocytes # 0.3 K/mm3 (0.1-1.0); Neutrophils # 3.4 K/mm3 (1.8-7.8); Neutrophils % 60.4 % (37.0-80.0); Platelet Count 232 K/mm3 (142-424); Red Blood Count 3.96 M/mm3 (4.20-5.40); Red Cell Distribution Width 15.2 % (11.5-17.5); White Blood Count 5.6 K/mm3 (4.8-10.8)
--- NOTE | 2022-12-20 14:56 | PC.NURSE ---
Dr. Karimi speaking with hospitalist
--- NOTE | 2022-12-20 15:02 | ECG_ITS ---
APPROVED REPORT Exam: Resting ECG HR:91 bpm ECG Measurements Heart Rate 91 AXES MA 175 P 54 QRSd 99 QRS 56 QT 351 T 9 QTc 400 Conclusion SINUS RHYTHM LOW QRS VOLTAGE IN PRECORDIAL LEADS [QRS DEFLECTION < 1.0 mV IN CHEST LEADS] SEPTAL MYOCARDIAL INFARCTION , OF INDETERMINATE AGE [40+ ms Q WAVE IN V1/V2] ABNORMAL ECG UNCONFIRMED REPORT Electronically signed by : Abdiaziz Ruiz MD 12/21/2022 20:12:12
--- NOTE | 2022-12-20 15:03 | EXP.MED.CON ---
History of Present Illness *Admission Date: 12/20/22 *Reason for visit:: Shortness of breath *History of present illness: Ms. Corona is a 67-year-old female who resides at [facility]. Multiple comorbidities including diabetes, CAD, hyperlipidemia, diabetes, hypertension, schizophrenia, and COPD. She presented to the ER via EMS due to complaint of legs feeling restless. Per [facility], she has not been as ambulatory lately. Has had an upset stomach for the past day. Denies any vomiting, diarrhea. She is stable on room air at time of my evaluation. Denies any falls or amos loss of consciousness. Work in the ER with relatively unremarkable labs. She has a normal white cell count, normal kidney function. Blood gas nonactionable. Sats in the low 90s on room air. Noted to have a troponin initially of 0.13. This is the same level she had 4 weeks ago. Of note, per chart review she had a heart cath 6 weeks ago at [facility]. Noted to have some moderate disease that did not require intervention. Recommended medical management at that time. Patient adamantly denies chest pain and EKG shows no ischemic changes or T wave inversions. Medicine consulted to evaluate patient. On my evaluation, she ambulated to the bathroom with no assistance. She will awaken to voice and minimal stimuli. Afebrile and hemodynamically stable. Of note had bedbugs upon arrival to the ER. [facility] Disclaimer: The information contained in this section may have been updated after the patient was seen, as this information can be updated by other users. Medical History Abnormal ankle brachial index (CECE) Abnormal electrocardiogram [ECG] [EKG] Coronary artery calcification seen on CAT scan Depression Dyspnea HTN (hypertension) Hypertension Schizophrenia Seizure Family History No significant family history Social History Smoking Status: Current every day smoker tobacco type: cigarettes packs per day: 1 alcohol intake: never substance use type: denies use current occupational status: disabled and other Travel in the last 8 weeks: None household members: other housing: assisted living facility current occupational exposures/hazards: No caffeine: Yes Review of Systems Review of Systems Review of systems (narrative): 14 point review of systems performed, pertinent positives and negatives as per HPI Exam Data for Last 24 hours Vital signs and Labs for Last 24 Hours: Temp Pulse Resp BP Pulse Ox O2 Del Method 97.9 F 80 18 133/53 L 96 Room Air 12/20/22 12:47 12/20/22 14:30 12/20/22 14:30 12/20/22 14:30 12/20/22 14:30 12/20/22 12:47 Laboratory Results - last 24 hr 12/20/22 13:26: VBG pH 7.35, VBG pCO2 54.6 H, VBG pO2 103.2 H, VBG HCO3 29.4, VBG Total CO2 31.1 H, VBG O2 Saturation 97.9 H, VBG Base Excess 3.8 H 12/20/22 13:49: WBC 5.6, RBC 3.96 L, Hgb 12.1 L, Hct 35.9 L, MCV 90.7, MCH 30.5, MCHC 33.6, RDW 15.2, Plt Count 232, MPV 6.6 L, Neut % (Auto) 60.4, Lymph % (Auto) 29.6, [place] % (Auto) 6.0, Eos % (Auto) 3.7, Baso % (Auto) 0.3, Neut # (Auto) 3.4, Lymph # (Auto) 1.6, [place] # (Auto) 0.3, Eos # (Auto) 0.2, Baso # (Auto) 0.0, Sodium 137, Potassium 3.6, Chloride 98, Carbon Dioxide 33 H, Anion Gap 9.6, BUN 8, Creatinine 0.70, Estimated Creat Clear 61, Estimated GFR 84, Est GFR ( Amer) 101, Glucose 96, Calcium 8.9, Total Bilirubin 0.1 L, AST 29, ALT 18, Alkaline Phosphatase 82, Troponin I 0.13 H, NT-Pro-B Natriuret Pep 135 H, Total Protein 7.2, Albumin 3.8, Globulin 3.4 H, Albumin/Globulin Ratio 1.1 I & O for Last 24 hours: Intake & Output 12/17/22 12/18/22 12/19/22 12/20/22 23:59 23:59 23:59 23:59 Weight 69.853 kg Constitutional Constitutional: no acute distress, average body habitus, chronically ill appearing and coope
--- NOTE | 2022-12-20 15:11 | PC.NURSE ---
notified care management of admission
--- NOTE | 2022-12-20 15:14 | SW/DCPLANNER ---
Addendum entered by Tiara Olson 12/20/22 15:41: Per Dr Jaramillo patient could return back to [facility] if able to ambulate independently. Nursing staff (May) ambulated patient: patient could walk independently. Original Note: This patient currently resides at [facility]. I have updated Sharon allen/ [facility] [place] that patient is being admitted to [facility].
--- NOTE | 2022-12-20 15:38 | PC.NURSE ---
pt ambulated [address] feet down the hallway with minimal assistance
--- NOTE | 2022-12-20 15:45 | PC.NURSE ---
per dr. almazan and dr. heredia get repeat troponin, if not elevation pt okay to d/c back to [facility]. holding admission at this time.
[2022-12-20 17:18] LABS: Troponin I 0.08 ng/ml (0.00-0.034)
--- NOTE | 2022-12-20 17:48 | PC.NURSE ---
attempted to call [facility] for transport, no answer
--- NOTE | 2022-12-20 18:32 | PC.NURSE ---
called [facility] to check on eta of arrival time for lease picker on pt. states they are trying to get ahold of their accounting office manager to find someone to come and get her. er aware.
--- NOTE | 2022-12-20 19:45 | PC.NURSE ---
unable to reach staff at [place] or [facility]. Nurse informed
--- NOTE | 2022-12-20 19:55 | PC.NURSE ---
Spoke with [facility] at this time. States they do not have pt by this name. Called [place], and no answer.
--- NOTE | 2022-12-20 19:55 | PC.NURSE ---
call placed to dispatch to see if there is anyone available to transport back to [place]. Dispatch will place a call out to see if there is anyone available
[2022-12-20 20:46] LABS: Troponin I 0.13 ng/ml (0.00-0.034)
--- NOTE | 2022-12-20 20:53 | PC.NURSE ---
Spoke with [facility] staff. Unable to make contact with [facility] staff. Inquired about when staff was going to be able to pick patient up and transport back to facility and a good number to reach staff at at [facility], since our phone numbers are not answered by facility. Informed by [facility] staff member that she will call her manager film for return call back to [facility] ER.
--- NOTE | 2022-12-20 21:29 | PC.NURSE ---
Spoke with Noah Nichols lawn manager java, who states that Rebecca from [facility] will be coming shortly to cherry picker operator resident to transport home.
== END 2022-12-20 22:16 | disposition home or self-care (01) ==
LOC: ER 15:19 → 2ND 16:17
PROVIDERS: Emergency Medicine; Emergency Provider Emergency Medicine
DX: R53.1 Weakness (principal); J44.9 Chronic obstructive pulmonary disease, unspecified; E78.5 Hyperlipidemia, unspecified; I10 Essential (primary) hypertension; F20.9 Schizophrenia, unspecified; E11.9 Type 2 diabetes mellitus without complications; I21.4 Non-ST elevation (NSTEMI) myocardial infarction; R74.8 Abnormal levels of other serum enzymes; R25.1 Tremor, unspecified; F17.210 Nicotine dependence, cigarettes, uncomplicated; Z79.84 Long term (current) use of oral hypoglycemic drugs
CPT/HCPCS: 36415; 71045; 80053; 82803; 83880; 84484; 85025; 93005; 96374; 99285

== ENCOUNTER 2023-03-14 12:44 | Emergency (ER) | payer MEDICARE, MEDICAID, SELFPAY ==
[2023-03-14 12:44] VITALS: BP 136/64; PULSE 86; RESP 18; TEMP 36.7; O2SAT 94; BMI 28.1
--- NOTE | 2023-03-14 12:58 | PC.NURSE ---
DR HARKINS AT BEDSIDE
--- NOTE | 2023-03-14 13:17 | ED_ITS ---
Discharge Plan Disposition Patient Disposition: Home, Self-Care Condition: Good Prescriptions Prescriptions: No Action albuterol sulfate 90 mcg/actuation HFA aerosol inhaler 2 puff inhalation Q4HP PRN (Reason: Shortness Of Breath) Qty: 8.5 6RF clopidogrel 75 mg tablet See Rx Instructions .ROUTE .COMPLEX Qty: 30 11RF Dose Instruction: GIVE 1 TABLET BY MOUTH ONCE DAILY Rx Instructions: GIVE 1 TABLET BY MOUTH ONCE DAILY gabapentin 400 mg capsule 400 mg PO TID Qty: 90 5RF clonazepam 0.5 mg tablet 0.5 mg PO BID Qty: 60 0RF citalopram 20 MG tablet 20 mg PO DAILY benztropine 2 MG tablet 2 mg PO BID ondansetron 4 MG tablet,disintegrating 4 mg PO Q6HP PRN (Reason: Nausea) Qty: 20 0RF hydrochlorothiazide 12.5 mg tablet 12.5 mg PO DAILY Qty: 30 0RF loperamide 2 mg Tablet 2 mg PO Q3HP PRN (Reason: Diarrhea) donepezil 5 mg Tablet 5 mg PO HS trazodone 50 mg Tablet 50 mg PO HS metformin 500 mg tablet 500 mg PO BIDWMEAL sennosides [senna] 8.6 mg Tablet 17.2 mg PO DAILYP PRN (Reason: Constipation) acetaminophen 325 mg Tablet 650 mg PO BID risperidone 3 mg tablet 3 mg PO BID guaifenesin 100 mg/5 mL Liquid 200 mg PO Q4HP PRN (Reason: Chest Congestion) ropinirole 2 mg tablet 2 mg PO HS atorvastatin 40 mg Tablet 40 mg PO DAILY 30 Days Qty: 30 0RF prednisone 20 mg Tablet 40 mg PO DAILY 3 Days Qty: 6 0RF azithromycin 500 mg tablet 500 mg PO DAILY 2 Days Qty: 2 0RF Activity Restrictions/Add. Instructions Additional Instructions/Restrictions: Please follow-up with your primary care provider. Take your medications at home as prescribed. Return to the emergency department for new or worsening symptoms. Clinical Impressions Clinical Impression: Bilateral leg pain Instructions Patient Instructions: DI for Acute Pain -- Adult Discharge ED Provider: Lenora Mohan General Adult HPI General Chief complaint: PAIN Stated complaint: LEG PAIN Time Seen by Provider: 03/14/23 12:45 Mode of Arrival: EMS Source of Information: Patient Limitations: No Limitations Description of Symptoms (Recalled from ER Triage Doc. by RN): Patient reports bilateral leg pain. History of Present Illness HPI narrative: This patient is a 67-year-old female with extensive psychiatric history as well as hypertension, hyperlipidemia, and chronic tremor presenting from [facility] by EMS with concern for leg twitching and pain. Patient states that she is not sure what is wrong, but she knows that she does have sleeping legs. She denies any other concerns or complaints. EMS notes the vitals were normal en route. Related Data Home Medications Medication Instructions Recorded Confirmed benztropine 2 mg tablet 2 mg PO BID Tremors 04/08/17 11/21/22 citalopram 20 mg tablet 20 mg PO DAILY Depression 04/08/17 11/21/22 donepezil 5 mg tablet 5 mg PO HS MEMORY 11/20/22 11/21/22 loperamide 2 mg tablet 2 mg PO Q3HP PRN Diarrhea 11/20/22 11/21/22 trazodone 50 mg tablet 50 mg PO HS Insomnia 11/20/22 11/21/22 acetaminophen 325 mg tablet 650 mg PO BID Pain 11/21/22 11/21/22 guaifenesin 100 mg/5 mL oral liquid 200 mg PO Q4HP PRN Chest Congestion 11/21/22 11/21/22 metformin 500 mg tablet 500 mg PO BIDWMEAL Diabetes 11/21/22 11/21/22 risperidone 3 mg tablet 3 mg PO BID MOOD 11/21/22 11/21/22 ropinirole 2 mg tablet 2 mg PO HS Restless Leg(S) 11/21/22 11/21/22 sennosides 8.6 mg tablet (senna) 17.2 mg PO DAILYP PRN Constipation 11/21/22 11/21/22 Previous Rx's Medication Instructions Recorded hydrochlorothiazide 12.5 mg tablet 12.5 mg PO DAILY Hypertension #30 01/28/22 tabs ondansetron 4 mg disintegrating 4 mg PO Q6HP PRN Nausea #20 tabs 01/28/22 tablet albuterol sulfate 90 mcg/actuation 2 puff inhalation Q4HP PRN 11/03/22 aerosol inhaler Shortness Of Breath #8.5 grams atorvastatin 40 mg tablet 40 mg PO DAILY 30 days #30 tabs 11/22/22 azithromycin 500 mg tablet 500 mg PO DAILY 2 days #2 tabs 11/22/22 prednisone 20 mg tablet 40 mg PO DAILY 3 days #6 tabs 11/22/22 clopidogrel 75 mg tablet See Rx Instructions .Route 12/08/22 .COMPLEX #30 ea gabapentin 400 mg capsule 400 mg PO TID Neuropathic pain #90 12/28/22 caps clonazepam 0.5 mg tablet 0.5 mg PO BID #60 ea 01/20/23 Allergies Allergy/AdvReac Type Severity Reaction Status Date / Time aspirin Allergy Intermediate edema Verified 11/20/22 18:04 Influenza Virus Vaccines AdvReac Intermediate Verified 11/20/22 18:04 PFSH [facility] Disclaimer: The information contained in this section may have been updated after the patient was seen, as this information can be updated by other users. Medical History Abnormal ankle brachial index (CECE) Abnormal electrocardiogram [ECG] [EKG] Coronary artery calcification seen on CAT scan Depression Dyspnea HTN (hypertension) Hypertension Schizophrenia Seizure Family History Other No significant family history Social History Smoking Status: Unknown if ever smoked alcohol intake: never substance use type: denies use current occupational status: disabled and other Travel in the last 8 weeks: None household members: other housing: assisted living facility current occupational exposures/hazards: No caffeine: Yes ROS Obtained: Yes All systems reviewed & no additional complaints except as documented Physical Exam General General appearance: alert and in no apparent distress Head Head exam: atraumatic and normocephalic Eye Eye exam: Present normal appearance, PERRL and EOMI ENT ENT exam: Present normal exam, normal oropharynx, mucous membranes moist and normal external ear exam Neck Neck exam: Present normal inspection, full ROM and trachea midline; Absent tenderness Chest Chest inspection: Present normal inspection and symmetric chest wall rise; Absent tenderness Respiratory Respiratory exam: Present normal lung sounds bilaterally; Absent respiratory distress, wheezes, stridor or accessory muscle use Cardiovascular Cardiovascular exam: Present regular rate and normal rhythm Abdominal Exam Abdominal exam: Present soft; Absent distention, tenderness or guarding Extremities Exam Extremities exam: Present normal inspection, full ROM, normal capillary refill and other (Full intact range of motion of the bilateral lower extremities with no rigidity. All compartments soft. No deformities or swelling. Neurovascularly intact.); Absent tenderness or edema Back Exam Back exam: Present normal inspection and full ROM; Absent tenderness Neurological Exam Neurological exam: Present alert, oriented X3, CN II-XII intact and normal gait; Absent motor sensory deficit Psychiatric Psychiatric exam: Present normal affect and normal mood Skin Skin exam: Present warm and dry Medical Decision Making Medical Records Medical records reviewed: Yes I reviewed the patient's medical records. 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 Pt receiving controlled substance: No Vital Signs: 03/14/23 12:44 03/14/23 13:30 03/14/23 14:45 Temperature 98.1 F 98.2 F Temperature Source Oral Oral Pulse Rate 90 88 Pulse Rate [Radial] 86 Respiratory Rate 18 20 18 Blood Pressure 127/65 136/80 Blood Pressure [Right Arm] 136/64 Blood Pressure Mean 85 Blood Pressure Mean [Right Arm] 88 Blood Pressure Source Automatic Cuff Blood Pressure Source [Right Arm] Automatic Cuff Blood Pressure Position Sitting Blood Pressure Position [Right Arm] Sitting 02 Sat by Pulse Oximetry 94 L 96 Oxygen Delivery Method Room Air Room Air Lab Data Lab results reviewed: Yes I reviewed the patient's lab results. Lab Results 03/14/23 13:30: WBC 6.0, RBC 4.21, Hgb 12.1 L, Hct 37.2, MCV 88.5, MCH 28.8, MCHC 32.5, RDW 16.6, Plt Count 288, MPV 7.6, Neut % (Auto) 58.3, Lymph % (Auto) 30.7, [place] % (Auto) 6.1, Eos % (Auto) 4.4, Baso % (Auto) 0.4, Neut # (Auto) 3.5, Lymph # (Auto) 1.8, [place] # (Auto) 0.4, Eos # (Auto) 0.3, Baso # (Auto) 0.0, Sodium 139, Potassium 3.9, Chloride 100, Carbon Dioxide 35 H, Anion Gap 7.9, BUN 6 L, Creatinine 0.70, Estimated Creat Clear 61, Estimated GFR 84, Est GFR ( Amer) 101, Glucose 90, Calcium 8.9, Total Bilirubin 0.1 L, AST 25, ALT 16, Alkaline Phosphatase 77, Total Creatine Kinase 72, Total Protein 6.6, Albumin 3.5, Globulin 3.1, Albumin/Globulin Ratio 1.1 03/14/23 13:30 03/14/23 13:30 Orders (Tests/Meds): ED MEDICATIONS Discontinued Medications Generic Name Dose Route Start Last Admin Trade Name Idania PRN Reason Stop Dose Admin Acetaminophen 1,000 mg 03/14/23 13:06 03/14/23 13:31 Acetaminophen 500mg Tab PO 03/14/23 13:07 1,000 mg ONCE ONE Administration Sodium Chloride 10 ml 03/14/23 14:38 Sodium Chloride 0.9% 10ml Flush Syringe IV 04/13/23 14:37 NEEDED PRN Maintain IV Site ORDERS Category Date Time Status Complete Blood Count Auto Diff Stat Lab 03/14/23 13:30 Completed Comprehensive Metabolic Panel Stat Lab 03/14/23 13:30 Completed Creatine Kinase Stat Lab 03/14/23 13:30 Completed Medical Decision Narrative: In summary, this patient is a 67-year-old female presenting to the Emergency Department for evaluation of bilateral leg pain and twitching, stating she has sleeping legs . Differential diagnoses considered include but are not limited to restless leg syndrome, clonus, rhabdomyolysis. Ruling out the most morbid conditions drove assessment. Patient is on a statin which increases her risk for rhabdomyolysis. She also has extensive psychiatric history on multiple psychiatric medications. This is increased risk for morbidity. On exam, the patient is well-appearing. Her legs are neurovascularly intact with no swelling or other concerns. She has intact range of motion. No traumatic injuries noted. Workup included CBC, CMP, and CK. She was given oral Tylenol. On reassessment, the patient is resting calmly with improved symptoms. Vitals are reassuring on cardiac telemetry. Labs do not demonstrate any acute concerning abnormalities but given this, feel the patient is appropriate for discharge with close follow-up with primary care provider. She was given strict return precautions and was discharged back to [facility] in stable condition. Critical Care Critical Care Time Critical Care Time: No
[2023-03-14 13:30] VITALS: BP 127/65; PULSE 90; RESP 20; O2SAT 96
[2023-03-14] MEDS: ACETAMINOPHEN 500MG TAB 1000 MG PO (13:31)
[2023-03-14 13:48] LABS: Basophils % 0.4 % (0.1-2.0); Eosinophils # 0.3 K/mm3 (0.0-0.4); Eosinophils % 4.4 % (0.1-12.0); Hematocrit 37.2 % (37.0-47.0); Hemoglobin 12.1 g/dL (12.2-16.2); Lymphocytes # 1.8 K/mm3 (0.7-4.5); Lymphocytes % 30.7 % (10-50); Mean Corpuscular HGB Conc 32.5 g/dL (31.8-35.4); Mean Corpuscular Hemoglobin 28.8 pg (27.0-31.2); Mean Corpuscular Volume 88.5 fl (81-99); Mean Platelet Volume 7.6 fl (7.4-10.4); Monocytes # 0.4 K/mm3 (0.1-1.0); Monocytes % 6.1 % (1.7-9.3); Neutrophils # 3.5 K/mm3 (1.8-7.8); Neutrophils % 58.3 % (37.0-80.0); Platelet Count 288 K/mm3 (142-424); Red Blood Count 4.21 M/mm3 (4.20-5.40); Red Cell Distribution Width 16.6 % (11.5-17.5)
[2023-03-14 13:59] LABS: Alanine Aminotransferase 16 U/L (12-78); Albumin Level 3.5 g/dl (3.5-5.0); Albumin/Globulin Ratio 1.1 (1.1-1.8); Alkaline Phosphatase 77 U/L (38-126); Anion Gap 7.9 mEq/L (5-15); Aspartate Amino Transferase 25 U/L (14-36); Blood Urea Nitrogen 6 mg/dl (7-17); Calcium 8.9 mg/dl (8.4-10.2); Carbon Dioxide 35 mmol/L (22.0-30.0); Chloride 100 mmol/L (98-107); Creatine Kinase 72 U/L (30-135); Creatinine Clearance Estimated 61 mL/min (50-200); Estimated Glomerular Filt Rate 84 ml/min (>60); GFR (African American) 101 ML/MIN (>60); Globulin 3.1 g/dL (1.3-3.2); Glucose 90 mg/dl (74-100); Potassium 3.9 mmoL/L (3.5-5.1); Sodium 139 mmol/L (136-145); Total Protein,Serum 6.6 g/dl (6.3-8.2)
[2023-03-14 14:04] LABS: Bilirubin,Total 0.1 mg/dl (0.2-1.3)
--- NOTE | 2023-03-14 14:22 | PC.NURSE ---
[facility] NOTIFIED THAT PT IS READY FOR DISCHARGE, SOMEONE WILL BE HERE SOON TO [employer] [facility] [employer] PT.
[2023-03-14 14:45] VITALS: BP 136/80; PULSE 88; RESP 18; TEMP 36.8; O2SAT 97
== END 2023-03-14 14:45 | disposition home or self-care (01) ==
PROVIDERS: Emergency Provider Emergency Medicine
DX: M79.604 Pain in right leg (principal); M79.605 Pain in left leg; I10 Essential (primary) hypertension; E78.5 Hyperlipidemia, unspecified
CPT/HCPCS: 80053; 82550; 85025; 99283

== ENCOUNTER 2023-03-23 09:21 | Emergency (ER) | payer MEDICARE, MEDICAID, SELFPAY ==
[2023-03-23] VITALS (8 sets, daily range): BP systolic 111–135; BP diastolic 52–57; PULSE 71–84; RESP 16–18; TEMP 36.6–36.9; O2SAT 95–98; BMI 28.1
--- NOTE | 2023-03-23 09:36 | PC.NURSE ---
Dr. Corey at [facility] for pt eval
--- NOTE | 2023-03-23 09:48 | PC.NURSE ---
Dr. Corey speaking with staff at [facility]
--- NOTE | 2023-03-23 09:49 | HMH.EDGENADL ---
Discharge Plan Disposition Patient Disposition: Home, Self-Care Condition: Good Prescriptions Prescriptions: New cefdinir 300 mg capsule 300 mg PO BID 7 Days Qty: 14 0RF No Action albuterol sulfate 90 mcg/actuation HFA aerosol inhaler 2 puff inhalation Q4HP PRN (Reason: Shortness Of Breath) Qty: 8.5 6RF clopidogrel 75 mg tablet See Rx Instructions .ROUTE .COMPLEX Qty: 30 11RF Dose Instruction: GIVE 1 TABLET BY MOUTH ONCE DAILY Rx Instructions: GIVE 1 TABLET BY MOUTH ONCE DAILY gabapentin 400 mg capsule 400 mg PO TID Qty: 90 5RF clonazepam 0.5 mg tablet 0.5 mg PO BID Qty: 60 0RF citalopram 20 MG tablet 20 mg PO DAILY benztropine 2 MG tablet 2 mg PO BID ondansetron 4 MG tablet,disintegrating 4 mg PO Q6HP PRN (Reason: Nausea) Qty: 20 0RF hydrochlorothiazide 12.5 mg tablet 12.5 mg PO DAILY Qty: 30 0RF loperamide 2 mg Tablet 2 mg PO Q3HP PRN (Reason: Diarrhea) donepezil 5 mg Tablet 5 mg PO HS trazodone 50 mg Tablet 50 mg PO HS metformin 500 mg tablet 500 mg PO BIDWMEAL sennosides [senna] 8.6 mg Tablet 17.2 mg PO DAILYP PRN (Reason: Constipation) acetaminophen 325 mg Tablet 650 mg PO BID risperidone 3 mg tablet 3 mg PO BID guaifenesin 100 mg/5 mL Liquid 200 mg PO Q4HP PRN (Reason: Chest Congestion) ropinirole 2 mg tablet 2 mg PO HS atorvastatin 40 mg Tablet 40 mg PO DAILY 30 Days Qty: 30 0RF prednisone 20 mg Tablet 40 mg PO DAILY 3 Days Qty: 6 0RF azithromycin 500 mg tablet 500 mg PO DAILY 2 Days Qty: 2 0RF Referrals Follow up/Referrals: Provider,Referral, MD [Referring] - See instructions Activity Restrictions/Add. Instructions Additional Instructions/Restrictions: You have been evaluated in the ED for your complaints. You may follow-up with your PCP in the next 3 to 5 days. Please return to ED for any new or worsening symptoms. I have written for prescription for cefdinir to treat your urinary tract infection. Please take this medication as prescribed. Clinical Impressions Clinical Impression: UTI (urinary tract infection), Generalized weakness Instructions Patient Instructions: Urinary Tract Infection Discharge ED Provider: Wang Corey General Adult HPI General Chief complaint: Headache Stated complaint: Generalized weakness Time Seen by Provider: 03/23/23 09:35 Mode of Arrival: EMS Source of Information: Patient Limitations: No Limitations Description of Symptoms (Recalled from ER Triage Doc. by RN): Patient states she has a headache. History of Present Illness HPI narrative: 67-year-old female with past medical history significant for COPD, schizophrenia, diabetes, history of STEMI, hypertension, history of seizures, presents today from care facility for evaluation concerning cough, congestion, lethargy, myalgias over the past few days. Patient has also been urinating on herself as well. She denies having any fevers, chills, chest pain, shortness of breath, hematuria. She does report generalized abdominal pain. She has also been having diarrhea. No further complaints. Related Data Home Medications Medication Instructions Recorded Confirmed benztropine 2 mg tablet 2 mg PO BID Tremors 04/08/17 11/21/22 citalopram 20 mg tablet 20 mg PO DAILY Depression 04/08/17 11/21/22 donepezil 5 mg tablet 5 mg PO HS MEMORY 11/20/22 11/21/22 loperamide 2 mg tablet 2 mg PO Q3HP PRN Diarrhea 11/20/22 11/21/22 trazodone 50 mg tablet 50 mg PO HS Insomnia 11/20/22 11/21/22 acetaminophen 325 mg tablet 650 mg PO BID Pain 11/21/22 11/21/22 guaifenesin 100 mg/5 mL oral liquid 200 mg PO Q4HP PRN Chest Congestion 11/21/22 11/21/22 metformin 500 mg tablet 500 mg PO BIDWMEAL Diabetes 11/21/22 11/21/22 risperidone 3 mg tablet 3 mg PO BID MOOD 11/21/22 11/21/22 ropinirole 2 mg tablet 2 mg PO HS Restless Leg(S) 11/21/22 11/21/22 sennosides 8.6 mg tablet (senna) 17.2 mg PO DAILYP PRN Constipation 11/21/22 11/21/22 Previous Rx's Medication Instructions Recorded hydrochlorothiazide 12.5 mg tablet 12.5 mg PO DAILY Hypertension #30 01/28/22 tabs ondansetron 4 mg disintegrating 4 mg PO Q6HP PRN Nausea #20 tabs 01/28/22 tablet albuterol sulfate 90 mcg/actuation 2 puff inhalation Q4HP PRN 11/03/22 aerosol inhaler Shortness Of Breath #8.5 grams atorvastatin 40 mg tablet 40 mg PO DAILY 30 days #30 tabs 11/22/22 azithromycin 500 mg tablet 500 mg PO DAILY 2 days #2 tabs 11/22/22 prednisone 20 mg tablet 40 mg PO DAILY 3 days #6 tabs 11/22/22 clopidogrel 75 mg tablet See Rx Instructions .Route 12/08/22 .COMPLEX #30 ea gabapentin 400 mg capsule 400 mg PO TID Neuropathic pain #90 12/28/22 caps clonazepam 0.5 mg tablet 0.5 mg PO BID #60 ea 01/20/23 cefdinir 300 mg capsule 300 mg PO BID 7 days #14 caps 03/23/23 Allergies Allergy/AdvReac Type Severity Reaction Status Date / Time aspirin Allergy Intermediate edema Verified 11/20/22 18:04 Influenza Virus Vaccines AdvReac Intermediate Verified 11/20/22 18:04 PFSH [facility] Disclaimer: The information contained in this section may have been updated after the patient was seen, as this information can be updated by other users. Medical History Abnormal ankle brachial index (CECE) Abnormal electrocardiogram [ECG] [EKG] Coronary artery calcification seen on CAT scan Depression Dyspnea HTN (hypertension) Hypertension Schizophrenia Seizure Family History Other No significant family history Social History Smoking Status: Current every day smoker tobacco type: cigarettes packs per day: 1 alcohol intake: never substance use type: denies use current occupational status: disabled and other Travel in the last 8 weeks: None household members: other housing: assisted living facility current occupational exposures/hazards: No caffeine: Yes ROS Obtained: Yes All systems reviewed & no additional complaints except as documented Physical Exam General General appearance: alert, in no apparent distress and lethargic Head Head exam: atraumatic and normocephalic Eye Eye exam: Present normal appearance, PERRL and EOMI ENT ENT exam: Present normal oropharynx and mucous membranes moist Neck Neck exam: Present full ROM; Absent meningismus Respiratory Respiratory exam: Absent respiratory distress, wheezes, stridor or accessory muscle use Cardiovascular Cardiovascular exam: Present normal rhythm Abdominal Exam Abdominal exam: Present soft and tenderness (Mild generalized tenderness palpation of the abdomen.); Absent distention, guarding, rebound or rigidity Neurological Exam Neurological exam: Present alert, oriented X3 and CN II-XII intact; Absent motor sensory deficit Psychiatric Psychiatric exam: Present normal affect and normal mood Skin Skin exam: Present warm and dry Medical Decision Making Medical Records Medical records reviewed: Yes I reviewed the patient's medical records. 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 Pt receiving controlled substance: No Landry was queried for this patient: No Vital Signs: 03/23/23 09:21 03/23/23 11:01 Temperature 98.4 F Temperature Source Oral Pulse Rate 71 Pulse Rate [Radial] 82 Respiratory Rate 16 Blood Pressure 113/54 L Blood Pressure [Right Arm] 115/52 L Blood Pressure Mean 77 Blood Pressure Mean [Right Arm] 73 Blood Pressure Source [Right Arm] Automatic Cuff Blood Pressure Position [Right Arm] Sitting 02 Sat by Pulse Oximetry 95 98 Oxygen Delivery Method Room Air Room Air Lab Data Lab Results 03/23/23 09:58: WBC 7.4, RBC 4.03 L, Hgb 11.5 L, Hct 35.7 L, MCV 88.5, MCH 28.5, MCHC 32.2, RDW 16.6, Plt Count 257, MPV 8.0, Neut % (Auto) 69.8, Lymph % (Auto) 21.4, [place] % (Auto) 6.4, Eos % (Auto) 2.2, Baso % (Auto) 0.2, Neut # (Auto) 5.2, Lymph # (Auto) 1.6, [place] # (Auto) 0.5, Eos # (Auto) 0.2, Baso # (Auto) 0.0, Sodium 137, Potassium 4.0, Chloride 102, Carbon Dioxide 37 H, Anion Gap 2.0 L, BUN 11, Creatinine 0.80, Estimated Creat Clear 61, Estimated GFR 72, Est GFR ( Amer) 87, Glucose 114 H, Lactate 1.1, Calcium 8.3 L, Total Bilirubin 0.3, AST 25, ALT 14, Alkaline Phosphatase 81, Total Protein 6.6, Albumin 3.4 L, Globulin 3.2, Albumin/Globulin Ratio 1.1, Lipase 12 L 03/23/23 10:12: SARS-CoV-2 (PCR) Not detected, Influenza A Untype (PCR) Not detected, Influenza Type B (PCR) Not detected 03/23/23 10:47: Urine Color Yellow, Urine Appearance Clear, Urine pH 7.0, Ur Specific [place] 1.020, Urine Protein Negative, Urine Glucose (UA) Negative, Urine Ketones Negative, Urine Blood 2+, Urine Nitrate Negative, Urine Bilirubin Negative, Urine Urobilinogen 0.2, Ur Leukocyte Esterase 2+ A, Urine RBC 3-5, Urine WBC 10-20, Ur Squamous Epith Cells 20-50, Urine Bacteria 1+ 03/23/23 09:58 03/23/23 09:58 Orders (Tests/Meds): ED MEDICATIONS Discontinued Medications Generic Name Dose Route Start Last Admin Trade Name Freq PRN Reason Stop Dose Admin Lactated Ringer's 500 mls @ 999 mls/hr 03/23/23 09:47 03/23/23 10:06 Lactated Ringer's 1000 Ml Bag IV 03/23/23 10:17 999 mls/hr .Q31M ONE Administration ORDERS Category Date Time Status CBC w/Auto Diff [Complete Blood Count Auto Diff] Stat Lab 03/23/23 09:58 Completed CMP [Comprehensive Metabolic Panel] Stat Lab 03/23/23 09:58 Completed Lactic Acid Stat Lab 03/23/23 09:58 Completed Lipase Stat Lab 03/23/23 09:58 Completed Rapid PCR Covid and Flu A/B Stat Lab 03/23/23 10:12 Completed UA [Urinalysis and Microscopic] Stat Lab 03/23/23 10:47 Completed Urine Culture Stat Micro 03/23/23 10:47 Received ECG initial [place] Routine Y 03/23/23 09:52 Completed Medical Decision Narrative: 67-year-old female with past medical history significant for COPD, schizophrenia, diabetes, history of STEMI, hypertension, history of seizures, presents today from care facility for evaluation concerning cough, congestion, lethargy, myalgias over the past few days. Patient has also been urinating on herself as well and has also had nonbloody diarrhea. Has not had any fevers or chills. On assessment, she is in medically stable and in no acute distress. She did have a lethargic appearance however she was alert and able to converse. Chest was clear to auscultation bilaterally. The abdomen was soft and nondistended however was generally tender to palpation. Otherwise exam findings unremarkable. Differential diagnoses include not limited to COVID, influenza, other viral URI, UTI, gastritis, gastroenteritis, electrolyte disturbance, among others Patient's lab workup today has been remarkable for a stable anemia with hemoglobin of 11.5. Hematocrit of 35.7. No elevation in WBC at 7.4. CMP with a low anion gap of 2.0. Otherwise nonactionable. Negative COVID and influenza swabs. Urinalysis with 2+ leukocyte esterase, 10-20 WBCs, 1+ bacteria. Will treat as UTI. On reassessment patient nakita medically stable and in no acute distress. I discussed her ED workup and results and current plan to discharge home with prescription for cefdinir to treat her urinary tract infection which is likely contributing to her symptoms today. She has requested a sandwich and a beverage prior to discharge for which I have provided. Provided her with return ED precautions and instructions concerning PCP follow-up. She verbalized understanding and agreement with plan. Subsequently discharged hemodynamically stable and in no acute distress. Critical Care Critical Care Time Critical Care Time: No
--- NOTE | 2023-03-23 09:52 | ECG_ITS ---
APPROVED REPORT Exam: Resting ECG HR:75 bpm ECG Measurements Heart Rate 75 AXES ID 183 P 81 QRSd 102 QRS 72 QT 377 T 70 QTc 406 Conclusion SINUS RHYTHM NORMAL ECG UNCONFIRMED REPORT Electronically signed by : Abdiaziz Ruiz MD 03/23/2023 20:58:18
[2023-03-23] MEDS: LACTATED RINGERS 1000ML 500 ML 999 ML IV (10:06)
[2023-03-23 10:09] LABS: Basophils % 0.2 % (0.1-2.0); Eosinophils # 0.2 K/mm3 (0.0-0.4); Eosinophils % 2.2 % (0.1-12.0); Hematocrit 35.7 % (37.0-47.0); Hemoglobin 11.5 g/dL (12.2-16.2); Lymphocytes # 1.6 K/mm3 (0.7-4.5); Lymphocytes % 21.4 % (10-50); Mean Corpuscular HGB Conc 32.2 g/dL (31.8-35.4); Mean Corpuscular Hemoglobin 28.5 pg (27.0-31.2); Mean Corpuscular Volume 88.5 fl (81-99); Monocytes # 0.5 K/mm3 (0.1-1.0); Monocytes % 6.4 % (1.7-9.3); Neutrophils # 5.2 K/mm3 (1.8-7.8); Neutrophils % 69.8 % (37.0-80.0); Platelet Count 257 K/mm3 (142-424); Red Blood Count 4.03 M/mm3 (4.20-5.40); Red Cell Distribution Width 16.6 % (11.5-17.5); White Blood Count 7.4 K/mm3 (4.8-10.8)
[2023-03-23 10:13] LABS: Chloride 102 mmol/L (98-107)
[2023-03-23 10:14] LABS: Sodium 137 mmol/L (136-145)
--- NOTE | 2023-03-23 10:14 | PC.NURSE ---
PT RESTING ON LEFT SIDE, CALL LIGHT WITHIN REACH. NO NEEDS VOICED AT THIS TIME
[2023-03-23 10:16] LABS: Coronavirus 19, PCR Not Detected (NotDetected); Influenza A, PCR Not Detected (NotDetected); Influenza B, PCR Not Detected (NotDetected)
[2023-03-23 10:16] LABS: Alanine Aminotransferase 14 U/L (12-78); Albumin Level 3.4 g/dl (3.5-5.0); Alkaline Phosphatase 81 U/L (38-126); Aspartate Amino Transferase 25 U/L (14-36); Bilirubin,Total 0.3 mg/dl (0.2-1.3); Blood Urea Nitrogen 11 mg/dl (7-17); Carbon Dioxide 37 mmol/L (22.0-30.0); Creatinine Clearance Estimated 61 mL/min (50-200); Estimated Glomerular Filt Rate 72 ml/min (>60); GFR (African American) 87 ML/MIN (>60); Lipase 12 U/L (23-300)
[2023-03-23 10:17] LABS: Albumin/Globulin Ratio 1.1 (1.1-1.8); Calcium 8.3 mg/dl (8.4-10.2); Globulin 3.2 g/dL (1.3-3.2); Glucose 114 mg/dl (74-100); Lactic Acid 1.1 mmol/L (0.7-2.1); Total Protein,Serum 6.6 g/dl (6.3-8.2)
[2023-03-23 10:50] LABS: Microscopic, Urine URINE MICROSCOPIC (MICROSCOPIC)
--- NOTE | 2023-03-23 11:04 | PC.NURSE ---
Pt assisted to move up in bed. No other needs voiced. Call light within reach.
--- NOTE | 2023-03-23 11:06 | PC.NURSE ---
Patient was bathed and cleaned up. Straight cath for urine.
[2023-03-23 11:07] LABS: Appearance,Urine CLEAR (Clear); Bilirubin,Urine Negative (Negative); Blood, Urine 2+ (Negative); Color,Urine YELLOW (Yellow); Glucose,Urine (UA) Negative (Negative); Ketones,Urine Negative (Negative); Leukocyte Esterase,Urine 2+ (Negative); Nitrate,Urine Negative (Negative); Protein,Urine Negative (Negative); Urobilinogen,Urine 0.2 EU/dl (0.2)
--- NOTE | 2023-03-23 12:09 | PC.NURSE ---
PT PROVIDED SANDWICH AND DRINK, CALL LIGHT WITHIN REACH
[2023-03-23 12:14] LABS: Bacteria,Urine 1+ /lpf; Squamous Epithelial Cell,Urine 20-50 #/hpf (0-5)
--- NOTE | 2023-03-23 12:32 | PC.NURSE ---
[facility] notified of patient's discharge.
--- NOTE | 2023-03-23 12:50 | PC.NURSE ---
PT REPOSITIONED IN BED, REAPPLIED B/P CUFF. PT INSTRUCTED TO KEEP B/P CUFF ON FOR MONITORING OF VITAL SIGNS. CALL LIGHT WITHI REACH. PT DENIES NEEDS AT THIS TIME
--- NOTE | 2023-03-23 13:31 | PC.NURSE ---
PT ASSISTED TO BR. PLACED IN WC. CALL LIGHT WITHIN REACH
--- NOTE | 2023-03-23 13:43 | PC.NURSE ---
SPOKE WITH RONAK R/T PT'S RIDE FOR DISCHARGE, STAFF STATES THAT SOMEONE FROM [facility] WOULD BE PICKING UP PT.
== END 2023-03-23 14:05 | disposition home or self-care (01) ==
PROVIDERS: Emergency Provider Emergency Medicine; PCP Nurse Practitioner Acute Care
DX: N39.0 Urinary tract infection, site not specified (principal); R53.1 Weakness; J44.9 Chronic obstructive pulmonary disease, unspecified; F17.210 Nicotine dependence, cigarettes, uncomplicated; E11.9 Type 2 diabetes mellitus without complications; I10 Essential (primary) hypertension; Z79.84 Long term (current) use of oral hypoglycemic drugs; R05.9 Cough, unspecified; R09.81 Nasal congestion
CPT/HCPCS: 80053; 81001; 83605; 83690; 85025; 87086; 87636; 93005; 99284

== ENCOUNTER 2023-05-05 13:10 | Emergency (ER) | payer MEDICARE, MEDICAID, SELFPAY ==
[2023-05-05 13:11] VITALS: BP 103/45; PULSE 88; RESP 18; TEMP 36.7; O2SAT 91
[2023-05-05 13:30] VITALS: BP 84/40; PULSE 77; RESP 20
[2023-05-05 14:00] VITALS: BP 106/43; PULSE 86; RESP 20
--- NOTE | 2023-05-05 14:10 | CT_ITS ---
FINAL REPORT TECHNIQUE: Axial images were obtained of the cervical spine by computed tomography. Coronal and sagittal reconstruction process performed. This study was performed with techniques to keep radiation doses as low as reasonably achievable (ALARA). Individualized dose reduction techniques using automated exposure control or adjustment of mA and/or kV according to the patient''s size were employed. CLINICAL HISTORY: AMS, fall COMPARISON: 11/20/2022 FINDINGS: There is mild disc space narrowing at C5-6 and C6-7. Endplate hypertrophy is noted. On the parasagittal images there is mild bilateral neuroforaminal narrowing at C5-6 and moderate to high-grade bilateral neuroforaminal narrowing at C6-7. Incidental note is made of a 1.3 cm nodule inferior to the right parotid gland best seen on image 37 of series 7. Significance is unclear. IMPRESSION: No acute process. Reviewed, Interpreted and Dictated by Florentino Cuevas MD Transcribed by Leanne Xiong Authenticated and [facility]
--- NOTE | 2023-05-05 14:10 | XR_ITS ---
FINAL REPORT CLINICAL HISTORY: AMS, fall COMPARISON: 12/20/2022 FINDINGS: The heart size is normal. The mediastinum is normal. There is no focal infiltrate or edema. There are mild chronic changes in both lungs. There are no pleural effusions. There is no pneumothorax. There is no osseous abnormality. IMPRESSION: No acute cardiopulmonary process. No acute osseous abnormality. Reviewed, Interpreted and Dictated by Florentino Cuevas MD Transcribed by Leanne Xiong Authenticated and . [facility]
--- NOTE | 2023-05-05 14:10 | XR_ITS ---
FINAL REPORT CLINICAL HISTORY: AMS, fall COMPARISON: None FINDINGS: SINGLE VIEW PELVIS: A single view of the pelvis was obtained. There is no acute fracture or dislocation. There are mild hypertrophic changes of the acetabular margins. Visualized joint spaces are normally aligned. Soft tissues are unremarkable. IMPRESSION: No acute bony abnormality. Reviewed, Interpreted and Dictated by Florentino Cuevas MD Transcribed by Leanne Xiong Authenticated and [facility]
--- NOTE | 2023-05-05 14:10 | CT_ITS ---
FINAL REPORT TECHNIQUE: multiple axial CT images were performed from the foramen magnum to the vertex without enhancement. CLINICAL HISTORY: AMS, fall COMPARISON: 11/20/2022 FINDINGS: The ventricles are enlarged. There is moderate atrophy. There is periventricular white matter change likely related to small vessel disease. There is no evidence of hemorrhage. No masses are identified. No extra-axial fluid is seen. There is mild mucoperiosteal thickening in both maxillary sinuses. There are no air-fluid levels. IMPRESSION: Moderate atrophy without acute intracranial abnormality. Chronic sinusitis. Reviewed, Interpreted and Dictated by Florentino Cuevas MD Transcribed by Leanne Xiong Authenticated and [facility]
--- NOTE | 2023-05-05 14:17 | ED_ITS ---
Discharge Plan Disposition Patient Disposition: Home, Self-Care Prescriptions Prescriptions: No Action albuterol sulfate 90 mcg/actuation HFA aerosol inhaler 2 puff inhalation Q4HP PRN (Reason: Shortness Of Breath) Qty: 8.5 6RF clopidogrel 75 mg tablet See Rx Instructions .ROUTE .COMPLEX Qty: 30 11RF Dose Instruction: GIVE 1 TABLET BY MOUTH ONCE DAILY Rx Instructions: GIVE 1 TABLET BY MOUTH ONCE DAILY gabapentin 400 mg capsule 400 mg PO TID Qty: 90 5RF clonazepam 0.5 mg tablet 0.5 mg PO BID Qty: 60 0RF cefdinir 300 mg capsule 300 mg PO BID 7 Days Qty: 14 0RF citalopram 20 MG tablet 20 mg PO DAILY benztropine 2 MG tablet 2 mg PO BID ondansetron 4 MG tablet,disintegrating 4 mg PO Q6HP PRN (Reason: Nausea) Qty: 20 0RF hydrochlorothiazide 12.5 mg tablet 12.5 mg PO DAILY Qty: 30 0RF loperamide 2 mg Tablet 2 mg PO Q3HP PRN (Reason: Diarrhea) donepezil 5 mg Tablet 5 mg PO HS trazodone 50 mg Tablet 50 mg PO HS metformin 500 mg tablet 500 mg PO BIDWMEAL sennosides [senna] 8.6 mg Tablet 17.2 mg PO DAILYP PRN (Reason: Constipation) acetaminophen 325 mg Tablet 650 mg PO BID risperidone 3 mg tablet 3 mg PO BID guaifenesin 100 mg/5 mL Liquid 200 mg PO Q4HP PRN (Reason: Chest Congestion) ropinirole 2 mg tablet 2 mg PO HS atorvastatin 40 mg Tablet 40 mg PO DAILY 30 Days Qty: 30 0RF prednisone 20 mg Tablet 40 mg PO DAILY 3 Days Qty: 6 0RF azithromycin 500 mg tablet 500 mg PO DAILY 2 Days Qty: 2 0RF Referrals Follow up/Referrals: Bobby Bates, [facility] [Primary Care Provider] - See instructions Activity Restrictions/Add. Instructions Additional Instructions/Restrictions: At this time it was felt you are safe to be discharged home. If new or worsening symptoms please do not hesitate to return the emergency department. If symptoms persist please follow-up with your family doctor as you are able. Clinical Impressions Clinical Impression: Fall Discharge ED Provider: Pasquale Bernal General Adult HPI <Lenora Mohan DO - Last Filed: 05/05/23 15:39> General Chief complaint: Fall Stated complaint: fall Time Seen by Provider: 05/05/23 13:11 Mode of Arrival: EMS Source of Information: Patient Limitations: No Limitations Description of Symptoms (Recalled from ER Triage Doc. by RN): Patient states she misstepped and was assisted to the ground by her friend. Denies any pain or discomfort. History of Present Illness HPI narrative: This patient is a 67-year-old female with a history of COPD, schizophrenia, diabetes, history of STEMI, hypertension, history of seizures, and multiple frequent ED evaluations with concern for falls and chronic leg pain presenting with concern for possible fall. According to EMS, they were called to [facility], where the patient resides, because she misstepped, her legs gave out, and she had to be lowered to the ground by an acquaintance there. She denies true fall or head injury. She initially denied any concerns or complaints upon arrival, but then she became very somnolent. She does have history of polypharmacy, which could be playing a role. Related Data Home Medications Medication Instructions Recorded Confirmed benztropine 2 mg tablet 2 mg PO BID Tremors 04/08/17 11/21/22 citalopram 20 mg tablet 20 mg PO DAILY Depression 04/08/17 11/21/22 donepezil 5 mg tablet 5 mg PO HS MEMORY 11/20/22 11/21/22 loperamide 2 mg tablet 2 mg PO Q3HP PRN Diarrhea 11/20/22 11/21/22 trazodone 50 mg tablet 50 mg PO HS Insomnia 11/20/22 11/21/22 acetaminophen 325 mg tablet 650 mg PO BID Pain 11/21/22 11/21/22 guaifenesin 100 mg/5 mL oral liquid 200 mg PO Q4HP PRN Chest Congestion 11/21/22 11/21/22 metformin 500 mg tablet 500 mg PO BIDWMEAL Diabetes 11/21/22 11/21/22 risperidone 3 mg tablet 3 mg PO BID MOOD 11/21/22 11/21/22 ropinirole 2 mg tablet 2 mg PO HS Restless Leg(S) 11/21/22 11/21/22 sennosides 8.6 mg tablet (senna) 17.2 mg PO DAILYP PRN Constipation 11/21/22 11/21/22 Previous Rx's Medication Instructions Recorded hydrochlorothiazide 12.5 mg tablet 12.5 mg PO DAILY Hypertension #30 01/28/22 tabs ondansetron 4 mg disintegrating 4 mg PO Q6HP PRN Nausea #20 tabs 01/28/22 tablet albuterol sulfate 90 mcg/actuation 2 puff inhalation Q4HP PRN 11/03/22 aerosol inhaler Shortness Of Breath #8.5 grams atorvastatin 40 mg tablet 40 mg PO DAILY 30 days #30 tabs 11/22/22 azithromycin 500 mg tablet 500 mg PO DAILY 2 days #2 tabs 11/22/22 prednisone 20 mg tablet 40 mg (2 x 20 mg) PO DAILY 3 days 11/22/22 #6 tabs clopidogrel 75 mg tablet See Rx Instructions .Route 12/08/22 .COMPLEX #30 ea gabapentin 400 mg capsule 400 mg PO TID Neuropathic pain #90 12/28/22 caps clonazepam 0.5 mg tablet 0.5 mg PO BID #60 ea 01/20/23 cefdinir 300 mg capsule 300 mg PO BID 7 days #14 caps 03/23/23 Allergies Allergy/AdvReac Type Severity Reaction Status Date / Time aspirin Allergy Intermediate edema Verified 11/20/22 18:04 Influenza Virus Vaccines AdvReac Intermediate Verified 11/20/22 18:04 PFSH <Lenora Mohan DO - Last Filed: 05/05/23 15:39> PFS Disclaimer: The information contained in this section may have been updated after the patient was seen, as this information can be updated by other users. Medical History Coronary artery calcification seen on CAT scan Dyspnea Abnormal ankle brachial index (CECE) Abnormal electrocardiogram [ECG] [EKG] Hypertension Schizophrenia Seizure Depression HTN (hypertension) Family History Other No significant family history Social History Smoking Status: Current every day smoker tobacco type: cigarettes packs per day: 1 alcohol intake: never substance use type: denies use current occupational status: disabled and other Travel in the last 8 weeks: None household members: other housing: assisted living facility current occupational exposures/hazards: No caffeine: Yes <Lenora Mohan DO - Last Filed: 05/05/23 15:39> ROS Obtained: Yes unobtainable due to mental status Physical Exam <Lenora Candelaria Mohan, DO - Last Filed: 05/05/23 15:39> General General appearance: in no apparent distress and obtunded Comment: Somnolent, sleeping comfortably. Arouses to repetitive stimuli Head Head exam: atraumatic and normocephalic Eye Eye exam: Present normal appearance, PERRL and EOMI ENT ENT exam: Present normal exam, normal oropharynx, mucous membranes moist and normal external ear exam Neck Neck exam: Present normal inspection, full ROM and trachea midline; Absent tenderness Chest Chest inspection: Present normal inspection and symmetric chest wall rise; Absent tenderness Respiratory Respiratory exam: Present normal lung sounds bilaterally; Absent respiratory distress, wheezes, stridor or accessory muscle use Cardiovascular Cardiovascular exam: Present regular rate and normal rhythm Abdominal Exam Abdominal exam: Present soft; Absent distention, tenderness or guarding Extremities Exam Extremities exam: Present normal inspection, full ROM and normal capillary refill; Absent tenderness or edema Back Exam Back exam: Present normal inspection and full ROM; Absent tenderness Neurological Exam Neurological exam: Present CN II-XII intact and other (No obvious focal deficits); Absent motor sensory deficit Psychiatric Psychiatric exam: Present flat affect Skin Skin exam: Present warm and dry Medical Decision Making <Lenora Teagan Mohan, DO - Last Filed: 05/05/23 15:39> Medical Records Medical records reviewed: Yes I reviewed the patient's medical records. 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 Lab Results 05/05/23 14:10: VBG pH 7.35, VBG pCO2 54.8 H, VBG pO2 40.9 H, VBG HCO3 29.7, VBG Total CO2 31.4 H, VBG O2 Saturation 77.4 H, VBG Base Excess 4.1 H, VBG Lactic Acid 1.6 05/05/23 14:25: Urine Color Yellow, Urine Appearance Clear, Urine pH 6.0, Ur Specific Milligan 1.020, Urine Protein Negative, Urine Glucose (UA) Negative, Urine Ketones Negative, Urine Blood 2+, Urine Nitrate Negative, Urine Bilirubin Negative, Urine Urobilinogen 0.2, Ur Leukocyte Esterase 1+ A, Urine RBC 3-5, Urine WBC 3-5, Ur Squamous Epith Cells 5-10, Urine Bacteria Trace, Urine Opiates Screen Negative, Urine Methadone Screen Negative, Ur Barbituates Screen Negative, Ur Phencyclidine Scrn Negative, Ur Amphetamines Screen Negative, U Benzodiazepines Scrn Negative, Urine Cocaine Screen Negative, U Marijuana (THC) Screen Negative 05/05/23 15:20: WBC 5.7, RBC 4.12 L, Hgb 11.7 L, Hct 36.7 L, MCV 89.0, MCH 28.3, MCHC 31.8, RDW 16.8, Plt Count 211, MPV 7.9, Neut % (Auto) 50.5, Lymph % (Auto) 36.3, [place] % (Auto) 6.6, Eos % (Auto) 5.4, Baso % (Auto) 1.2, Neut # (Auto) 2.9, Lymph # (Auto) 2.1, [place] # (Auto) 0.4, Eos # (Auto) 0.3, Baso # (Auto) 0.1, D- Dimer 0.36, Sodium 134 L, Potassium 3.6, Chloride 98, Carbon Dioxide 35 H, Anion Gap 4.6 L, BUN 13, Creatinine 0.80, Estimated Creat Clear 61, Estimated GFR 72, Est GFR ( Amer) 87, Glucose 88, Calcium 8.9, Total Bilirubin 0.1 L, AST 33, ALT 17, Alkaline Phosphatase 84, Ammonia < 9 L, Troponin I 0.03, Total Protein 6.8, Albumin 3.8, Globulin 3.0, Albumin/Globulin Ratio 1.3, Salicylates < 1.0 L, Acetaminophen < 10 L 05/05/23 15:20 05/05/23 15:20 Orders (Tests/Meds): ORDERS Category Date Time Status CT cervical spine wo con Stat Cat Scan 05/05/23 14:[address] head/brain wo con Stat Cat Scan 05/05/23 14:10 Completed XR chest portable Stat Exams 05/05/23 14:10 Completed XR pelvis 1-2V Stat Exams 05/05/23 14:10 Completed Acetaminophen Stat Lab 05/05/23 15:20 Completed Ammonia Stat Lab 05/05/23 15:20 Completed Complete Blood Count Auto Diff Stat Lab 05/05/23 15:20 Completed Comprehensive Metabolic Panel Stat Lab 05/05/23 15:20 Completed D-Dimer Stat Lab 05/05/23 15:20 Completed Drug Screen,Urine Stat Lab 05/05/23 14:25 Completed Salicylate Stat Lab 05/05/23 15:20 Completed Troponin I Q3H Lab 05/05/23 17:15 Ordered Troponin I Q3H Lab 05/05/23 20:15 Ordered Troponin I Stat Lab 05/05/23 15:20 Completed Urinalysis and Microscopic Stat Lab 05/05/23 14:25 Completed Urine Culture Stat Micro 05/05/23 14:25 Received Venous Blood Gas Stat RT 05/05/23 14:10 Completed ECG Data Tracing #1: I reviewed this ECG and interpreted as documented below: Normal sinus rhythm with a ventricular rate of [address]/T wave wave changes without acute STEMI. No significant changes from prior EKG ECG initial impression date: 05/05/23 ECG initial impression time: 14:52 Medical Decision Narrative: In summary, this patient is a 67-year-old female presenting to the Emergency Department for evaluation after being lowered to the ground by an acquaintance at [facility] where she resides. She initially arrived awake with no complaints. On my assessment, she was generally weak and somnolent. She wakes up with repetitive stimulation. Differential diagnoses considered include but are not limited to fall, traumatic injury, electrolyte arrangement, anemia, polypharmacy, syncope, ACS, UTI. Ruling out the most morbid conditions drove assessment. Given the patient's complicated history as well as unreliable exam and history, decision was made to order a very broad workup including infectious, metabolic, cardiac, and tox workup. workup included CT head, CT C-spine, chest x-ray, pelvic x-ray, and EKG. Once workup was ordered, patient woke up stating that she needed to go to the bathroom. She got up out of bed and ambulated without difficulty to the restroom. Vitals are reassuring. I feel that she likely has waxing waning mental status secondary to polypharmacy, but workup is ongoing. Overall, patient is now well-appearing with no concerns or complaints. Patient care was signed out to the oncoming provider, Dr. Bernal, pending workup and disposition. <Pasquale Bernal MD - Last Filed: 05/05/23 16:47> Vital Signs: 05/05/23 13:11 05/05/23 13:30 05/05/23 14:00 Temperature 98.0 F Temperature Source Oral Pulse Rate 77 86 Pulse Rate [Radial] 88 Respiratory Rate 18 20 20 Blood Pressure 84/40 L 106/43 L Blood Pressure [Right Arm] 103/45 L Blood Pressure Mean 50 54 Blood Pressure Mean [Right Arm] 64 Blood Pressure Source [Right Arm] Automatic Cuff Blood Pressure Position [Right Arm] Supine 02 Sat by Pulse Oximetry 91 L Oxygen Delivery Method Room Air Lab Data Lab Results 05/05/23 14:10: VBG pH 7.35, VBG pCO2 54.8 H, VBG pO2 40.9 H, VBG HCO3 29.7, VBG Total CO2 31.4 H, VBG O2 Saturation 77.4 H, VBG Base Excess 4.1 H, VBG Lactic Acid 1.6 05/05/23 14:25: Urine Color Yellow, Urine Appearance Clear, Urine pH 6.0, Ur Specific Milligan 1.020, Urine Protein Negative, Urine Glucose (UA) Negative, Urine Ketones Negative, Urine Blood 2+, Urine Nitrate Negative, Urine Bilirubin Negative, Urine Urobilinogen 0.2, Ur Leukocyte Esterase 1+ A, Urine RBC 3-5, Urine WBC 3-5, Ur Squamous Epith Cells 5-10, Urine Bacteria Trace, Urine Opiates Screen Negative, Urine Methadone Screen Negative, Ur Barbituates Screen Negative, Ur Phencyclidine Scrn Negative, Ur Amphetamines Screen Negative, U Benzodiazepines Scrn Negative, Urine Cocaine Screen Negative, U Marijuana (THC) Screen Negative 05/05/23 15:20: WBC 5.7, RBC 4.12 L, Hgb 11.7 L, Hct 36.7 L, MCV 89.0, MCH 28.3, MCHC 31.8, RDW 16.8, Plt Count 211, MPV 7.9, Neut % (Auto) 50.5, Lymph % (Auto) 36.3, [place] % (Auto) 6.6, Eos % (Auto) 5.4, Baso % (Auto) 1.2, Neut # (Auto) 2.9, Lymph # (Auto) 2.1, [place] # (Auto) 0.4, Eos # (Auto) 0.3, Baso # (Auto) 0.1, D- Dimer 0.36, Sodium 134 L, Potassium 3.6, Chloride 98, Carbon Dioxide 35 H, Anion Gap 4.6 L, BUN 13, Creatinine 0.80, Estimated Creat Clear 61, Estimated GFR 72, Est GFR ( Amer) 87, Glucose 88, Calcium 8.9, Total Bilirubin 0.1 L, AST 33, ALT 17, Alkaline Phosphatase 84, Ammonia < 9 L, Troponin I 0.03, Total Protein 6.8, Albumin 3.8, Globulin 3.0, Albumin/Globulin Ratio 1.3, Salicylates < 1.0 L, Acetaminophen < 10 L Orders (Tests/Meds): ORDERS Category Date Time Status CT cervical spine wo con Stat Cat Scan 05/05/23 14:[address] head/brain wo con Stat Cat Scan 05/05/23 14:10 Completed XR chest portable Stat Exams 05/05/23 14:10 Completed XR pelvis 1-2V Stat Exams 05/05/23 14:10 Completed Acetaminophen Stat Lab 05/05/23 15:20 Completed Ammonia Stat Lab 05/05/23 15:20 Completed Complete Blood Count Auto Diff Stat Lab 05/05/23 15:20 Completed Comprehensive Metabolic Panel Stat Lab 05/05/23 15:20 Completed D-Dimer Stat Lab 05/05/23 15:20 Completed Drug Screen,Urine Stat Lab 05/05/23 14:25 Completed Salicylate Stat Lab 05/05/23 15:20 Completed Troponin I Q3H Lab 05/05/23 17:15 Ordered Troponin I Q3H Lab 05/05/23 20:15 Ordered Troponin I Stat Lab 05/05/23 15:20 Completed Urinalysis and Microscopic Stat Lab 05/05/23 14:25 Completed Urine Culture Stat Micro 05/05/23 14:25 Received Venous Blood Gas Stat RT 05/05/23 14:10 Completed Medical Decision Narrative: In summary, this patient is a 67-year-old female presenting to the Emergency Department for evaluation after being lowered to the ground by an acquaintance at [facility] where she resides. She initially arrived awake with no complaints. On my assessment, she was generally weak and somnolent. She wakes up with repetitive stimulation. Differential diagnoses considered include but are not limited to fall, traumatic injury, electrolyte arrangement, anemia, polypharmacy, syncope, ACS, UTI. Ruling out the most morbid conditions drove assessment. Given the patient's complicated history as well as unreliable exam and history, decision was made to order a very broad workup including infectious, metabolic, cardiac, and tox workup. workup included CT head, CT C-spine, chest x-ray, pelvic x-ray, and EKG. Once workup was ordered, patient woke up stating that she needed to go to the bathroom. She got up out of bed and ambulated without difficulty to the restroom. Vitals are reassuring. I feel that she likely has waxing waning mental status secondary to polypharmacy, but workup is ongoing. Overall, patient is now well-appearing with no concerns or complaints. Patient care was signed out to the oncoming provider, Dr. Bernal, pending workup and disposition. Pasquale Bernal: Upon assumption of care patient was hemodynamically stable. Workup thus far reviewed by me, hematologic labs are nonactionable. Patient has no complaints at bedside and is ambulatory. CT imaging shows no acute pathology, chronic sinusitis. Radiographic trauma survey negative. Given this patient is appropriate for discharge at this time. Critical Care <Lenora Mohan, DO - Last Filed: 05/05/23 15:39> Critical Care Time Critical Care Time: No
[2023-05-05 14:31] LABS: Microscopic, Urine URINE MICROSCOPIC (MICROSCOPIC)
[2023-05-05 14:33] LABS: Appearance,Urine CLEAR (Clear); Bilirubin,Urine Negative (Negative); Blood, Urine 2+ (Negative); Color,Urine YELLOW (Yellow); Glucose,Urine (UA) Negative (Negative); Ketones,Urine Negative (Negative); Leukocyte Esterase,Urine 1+ (Negative); Nitrate,Urine Negative (Negative); Protein,Urine Negative (Negative); Urobilinogen,Urine 0.2 EU/dl (0.2)
[2023-05-05 14:49] LABS: Amphetamine/Metha Screen,Urine Negative ng/ml (<1000); Barbiturates Screen,Urine Negative ng/ml (<200)
[2023-05-05 14:50] LABS: Benzodiazepines Screen,Urine Negative ng/ml (<200); Cannabinoid Screen,Urine Negative ng/ml (<50)
--- NOTE | 2023-05-05 14:50 | ECG_ITS ---
APPROVED REPORT Exam: Resting ECG HR:76 bpm ECG Measurements Heart Rate 76 AXES SC 172 P 69 QRSd 102 QRS 41 QT 374 T 42 QTc 404 Conclusion SINUS RHYTHM LOW QRS VOLTAGE IN PRECORDIAL LEADS [QRS DEFLECTION < 1.0 mV IN CHEST LEADS] BORDERLINE ECG Electronically signed by : AMT ALVARADO, 05/05/2023 23:35:56
[2023-05-05 14:51] LABS: Cocaine Screen,Urine Negative ng/ml (<300)
[2023-05-05 14:52] LABS: Methadone Screen,Urine Negative ng/ml (<300); Opiate Screen,Urine Negative ng/ml (<300)
[2023-05-05 14:53] LABS: Bacteria,Urine Trace /lpf; Phencyclidine Screen,Urine Negative ng/ml (<25)
[2023-05-05 15:35] LABS: Basophils # 0.1 K/mm3 (0-0.2); Basophils % 1.2 % (0.1-2.0); Eosinophils # 0.3 K/mm3 (0.0-0.4); Eosinophils % 5.4 % (0.1-12.0); Hematocrit 36.7 % (37.0-47.0); Hemoglobin 11.7 g/dL (12.2-16.2); Lymphocytes # 2.1 K/mm3 (0.7-4.5); Lymphocytes % 36.3 % (10-50); Mean Corpuscular HGB Conc 31.8 g/dL (31.8-35.4); Mean Corpuscular Hemoglobin 28.3 pg (27.0-31.2); Mean Platelet Volume 7.9 fl (7.4-10.4); Monocytes # 0.4 K/mm3 (0.1-1.0); Monocytes % 6.6 % (1.7-9.3); Neutrophils # 2.9 K/mm3 (1.8-7.8); Neutrophils % 50.5 % (37.0-80.0); Platelet Count 211 K/mm3 (142-424); Red Blood Count 4.12 M/mm3 (4.20-5.40); Red Cell Distribution Width 16.8 % (11.5-17.5); White Blood Count 5.7 K/mm3 (4.8-10.8)
[2023-05-05 15:41] LABS: Chloride 98 mmol/L (98-107); Sodium 134 mmol/L (136-145)
[2023-05-05 15:42] LABS: Lactate Venous 1.6 mmol/L (0.4-2.0); VBG Base Excess 4.1 mmol/L (-2.4-2.3); VBG HCO3 29.7 mmol/L (23-30); VBG Oxygen Saturation 77.4 % (50-70); VBG PH 7.35 mmol/L (7.31-7.41); VBG PO2 40.9 mmol/L (28-40); VBG Total CO2 31.4 mmol/L (23-27)
[2023-05-05 15:42] LABS: Potassium 3.6 mmoL/L (3.5-5.1)
[2023-05-05 15:44] LABS: Alanine Aminotransferase 17 U/L (12-78); Alkaline Phosphatase 84 U/L (38-126); Ammonia < 9 umol/L (9-30); Anion Gap 4.6 mEq/L (5-15); Aspartate Amino Transferase 33 U/L (14-36); Blood Urea Nitrogen 13 mg/dl (7-17); Calcium 8.9 mg/dl (8.4-10.2); Carbon Dioxide 35 mmol/L (22.0-30.0); Creatinine Clearance Estimated 61 mL/min (50-200); Estimated Glomerular Filt Rate 72 ml/min (>60); GFR (African American) 87 ML/MIN (>60); Glucose 88 mg/dl (74-100)
[2023-05-05 15:44] LABS: VBG PCO2 54.8 mmol/L (35-51)
[2023-05-05 15:45] LABS: Albumin Level 3.8 g/dl (3.5-5.0); Albumin/Globulin Ratio 1.3 (1.1-1.8); Total Protein,Serum 6.8 g/dl (6.3-8.2)
[2023-05-05 15:49] LABS: Acetaminophen < 10 ug/ml (10-30); Bilirubin,Total 0.1 mg/dl (0.2-1.3); D-Dimer 0.36 ug/mL (0.0-0.5); Salicylate < 1.0 mg/dL (2.0-20.0)
[2023-05-05 15:56] LABS: Troponin I 0.03 ng/ml (0.00-0.034)
--- NOTE | 2023-05-05 17:17 | PC.NURSE ---
ATTEMPTED TO CALL JOS[facility] WITH NO ANSWER, CALLED JAYESH WHO STATES SHE WILL CONTACT SOMEONE TO COME PICK THE PT UP
--- NOTE | 2023-05-05 17:23 | PC.NURSE ---
pt given sandwich and drink
[2023-05-05 17:30] VITALS: BP 134/61; PULSE 89; O2SAT 96
[2023-05-05 17:37] VITALS: BP 134/61; PULSE 89; RESP 20; TEMP 36.6; O2SAT 96
--- NOTE | 2023-05-08 12:34 | PC.NURSE ---
urine culture results discussed with , contaminated, NTD
== END 2023-05-05 17:39 | disposition home or self-care (01) ==
PROVIDERS: Emergency Medicine; Emergency Provider Emergency Medicine; PCP Nurse Practitioner Acute Care
DX: R53.1 Weakness (principal); R40.0 Somnolence; J44.9 Chronic obstructive pulmonary disease, unspecified; F20.9 Schizophrenia, unspecified; E11.9 Type 2 diabetes mellitus without complications; I10 Essential (primary) hypertension; R29.6 Repeated falls; G89.29 Other chronic pain; M79.606 Pain in leg, unspecified; W18.30XA Fall on same level, unspecified, initial encounter
CPT/HCPCS: 70450; 71045; 72125; 72170; 80053; 80307; 80329; 81001; 82140; 82803; 84484; 85025; 85378; 87086; 93005; 99285

== ENCOUNTER 2023-05-31 14:36 | Observation (INO) | payer MEDICARE, MEDICAID, SELFPAY ==
[2023-05-31] VITALS (10 sets, daily range): BP systolic 108–148; BP diastolic 43–93; PULSE 64–81; RESP 18–20; TEMP 36.7; O2SAT 90–98; BMI 29.0; BMI 26.7
--- NOTE | 2023-05-31 14:33 | ED_ITS ---
Discharge Plan Disposition Patient Disposition: Home, Self-Care Condition: Good Clinical Impressions Clinical Impression: Acute exacerbation of chronic obstructive pulmonary disease, Elevated troponin I level Discharge ED Provider: Bry Karimi HPI <THEODORA Guerrero - Last Filed: 05/31/23 19:33> General Chief Complaint: Weakness Stated Complaint: weakness Time Seen by Provider: 05/31/23 14:39 History of Present Illness HPI narrative: Patient sent for usp for reported weakness and altered mental status. Patient is a difficult historian and gives inconsistent history and complaints. Reportedly patient was sent because she was lethargic although patient has had very specific request for food while here but also reports that she can eat at the same time. Patient has a laundry list that is suggestive of a psychiatric history however we do not have confirmed diagnosis. Patient currently denies chest pain fever chills hemoptysis hematochezia melena nausea vomiting diarrhea. I do not know what her functional baseline is. Related Data Home Medications Medication Instructions Recorded Confirmed benztropine 2 mg tablet 2 mg PO BID Tremors 04/08/17 11/21/22 citalopram 20 mg tablet 20 mg PO DAILY Depression 04/08/17 11/21/22 donepezil 5 mg tablet 5 mg PO HS MEMORY 11/20/22 11/21/22 loperamide 2 mg tablet 2 mg PO Q3HP PRN Diarrhea 11/20/22 11/21/22 trazodone 50 mg tablet 50 mg PO HS Insomnia 11/20/22 11/21/22 acetaminophen 325 mg tablet 650 mg PO BID Pain 11/21/22 11/21/22 guaifenesin 100 mg/5 mL oral liquid 200 mg PO Q4HP PRN Chest Congestion 11/21/22 11/21/22 metformin 500 mg tablet 500 mg PO BIDWMEAL Diabetes 11/21/22 11/21/22 risperidone 3 mg tablet 3 mg PO BID MOOD 11/21/22 11/21/22 ropinirole 2 mg tablet 2 mg PO HS Restless Leg(S) 11/21/22 11/21/22 sennosides 8.6 mg tablet (senna) 17.2 mg PO DAILYP PRN Constipation 11/21/22 11/21/22 Previous Rx's Medication Instructions Recorded hydrochlorothiazide 12.5 mg tablet 12.5 mg PO DAILY Hypertension #30 01/28/22 tabs ondansetron 4 mg disintegrating 4 mg PO Q6HP PRN Nausea #20 tabs 01/28/22 tablet albuterol sulfate 90 mcg/actuation 2 puff inhalation Q4HP PRN 11/03/22 aerosol inhaler Shortness Of Breath #8.5 grams atorvastatin 40 mg tablet 40 mg PO DAILY 30 days #30 tabs 11/22/22 azithromycin 500 mg tablet 500 mg PO DAILY 2 days #2 tabs 11/22/22 prednisone 20 mg tablet 40 mg (2 x 20 mg) PO DAILY 3 days 11/22/22 #6 tabs clopidogrel 75 mg tablet See Rx Instructions .Route 12/08/22 .COMPLEX #30 ea gabapentin 400 mg capsule 400 mg PO TID Neuropathic pain #90 12/28/22 caps clonazepam 0.5 mg tablet 0.5 mg PO BID #60 ea 01/20/23 cefdinir 300 mg capsule 300 mg PO BID 7 days #14 caps 03/23/23 doxycycline hyclate 100 mg capsule 100 mg PO BID 10 days #20 caps 05/31/23 prednisone 50 mg tablet 50 mg PO DAILY 5 days #5 tabs 05/31/23 Allergies Allergy/AdvReac Type Severity Reaction Status Date / Time aspirin Allergy Intermediate edema Verified 11/20/22 18:04 Influenza Virus Vaccines AdvReac Intermediate Verified 11/20/22 18:04 [facility] <THEODORA Guerrero - Last Filed: 05/31/23 19:33> [facility] Disclaimer: The information contained in this section may have been updated after the patient was seen, as this information can be updated by other users. Medical History Coronary artery calcification seen on CAT scan Dyspnea Abnormal ankle brachial index (CECE) Abnormal electrocardiogram [ECG] [EKG] Hypertension Schizophrenia Seizure Depression HTN (hypertension) Family History Other No significant family history Social History Smoking Status: Never smoker alcohol intake: never substance use type: denies use current occupational status: disabled and other Travel in the last 8 weeks: None household members: other housing: assisted living facility current occupational exposures/hazards: No caffeine: Yes <THEODORA Guerrero - Last Filed: 05/31/23 19:33> ROS Obtained: Yes Systems reviewed as appropriate & no additional complaints except as documented Physical Exam <THEODORA Guerrero - Last Filed: 05/31/23 19:33> General General appearance: alert, in no apparent distress and other (Patient is a disheveled appearing much older than stated age appearing 67-year-old female) Head Head exam: atraumatic and normal inspection Eye Eye exam: Present normal appearance, PERRL and EOMI ENT ENT exam: Present normal exam, normal oropharynx and mucous membranes moist Neck Neck exam: Present normal inspection and full ROM; Absent lymphadenopathy Chest Chest inspection: Present normal inspection and symmetric chest wall rise Respiratory Respiratory exam: Present normal lung sounds bilaterally; Absent respiratory distress, wheezes, stridor or accessory muscle use Cardiovascular Cardiovascular exam: Present regular rate, normal rhythm, normal heart sounds, +S1 and +S2 Abdominal Exam Abdominal exam: Present soft and normal bowel sounds; Absent tenderness, guarding or rebound Extremities Exam Extremities exam: Present normal inspection, full ROM and normal capillary refill; Absent tenderness or edema Back Exam Back exam: Present normal inspection and full ROM; Absent tenderness Neurological Exam Neurological exam: Present alert, oriented X3 and CN II-XII intact Psychiatric Psychiatric exam: Present normal mood and flat affect Skin Skin exam: Present warm, dry and normal color HEART Score <THEODORA Guerrero - Last Filed: 05/31/23 19:33> HEART Score HEART Score assessment performed?: Yes History (anamnesis): Slightly suspicious ECG: Normal Age: >65 years Risk factors: Atherosclerosis history Troponin: 1-3x normal limit HEART Score: 5 <Bry Karimi MD - Last Filed: 05/31/23 19:53> HEART Score HEART Score: 5 Critical Care <THEODORA Guerrero - Last Filed: 05/31/23 19:33> Critical Care Time Critical Care Time: No <Bry Karimi MD - Last Filed: 05/31/23 19:53> Critical Care Time Critical Care Time: Yes (cv) Attestation: On 05/31/23, the high probability of a clinically significant, sudden or life threatening deterioration of the following system(s) required my full and direct attention, intervention and personal management. The time I documented below is in addition to time spent performing reported procedures but includes the following listed in this critical care notation. Total Time Total Critical Care Time: 45 Medical Decision Making <THEODORA Guerrero - Last Filed: 05/31/23 19:33> Medical Records Medical records reviewed: Yes I reviewed the patient's medical records. 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 Pt receiving controlled substance: No Vital Signs Vital Signs: 05/31/23 14:42 05/31/23 15:00 05/31/23 15:30 Temperature 98.1 F Temperature Source Oral Pulse Rate 64 81 Pulse Rate [Left Radial] 72 Respiratory Rate 20 Blood Pressure 108/43 L 116/93 H Blood Pressure [Right Arm] 121/50 L Blood Pressure Mean Blood Pressure Mean [Right Arm] 73 02 Sat by Pulse Oximetry 96 92 L 91 L Oxygen Delivery Method Room Air Room Air Room Air 05/31/23 15:59 05/31/23 16:55 05/31/23 17:01 Temperature Temperature Source Pulse Rate 78 71 Pulse Rate [Left Radial] Respiratory Rate Blood Pressure 141/56 H 143/68 H 137/58 L Blood Pressure [Right Arm] Blood Pressure Mean Blood Pressure Mean [Right Arm] 02 Sat by Pulse Oximetry 98 90 L 91 L Oxygen Delivery Method Room Air 05/31/23 17:30 05/31/23 18:00 Temperature Temperature Source Pulse Rate 70 71 Pulse Rate [Left Radial] Respiratory Rate Blood Pressure 148/71 H Blood Pressure [Right Arm] Blood Pressure Mean 107 Blood Pressure Mean [Right Arm] 02 Sat by Pulse Oximetry 97 94 L Oxygen Delivery Method Room Air Lab Data Lab results reviewed: Yes I reviewed the patient's lab results. Labs: Lab Results 05/31/23 14:30: WBC 5.5, RBC 4.14 L, Hgb 11.6 L, Hct 36.7 L, MCV 88.7, MCH 28.1, MCHC 31.7 L, RDW 16.5, Plt Count 213, MPV 8.1, Neut % (Auto) 58.3, Lymph % (Auto) 29.8, [place] % (Auto) 6.8, Eos % (Auto) 4.6, Baso % (Auto) 0.5, Neut # (Auto) 3.2, Lymph # (Auto) 1.6, [place] # (Auto) 0.4, Eos # (Auto) 0.3, Baso # (Auto) 0.0, PT 10.9, INR 1.01, Sodium 135 L, Potassium 3.9, Chloride 99, Carbon Dioxide 36 H, Anion Gap 3.9 L, BUN 8, Creatinine 0.60, Estimated Creat Clear 61, Estimated GFR 100, Est GFR ( Amer) 121, Glucose 82, Lactate 1.4, Calcium 8.9, Magnesium 1.9, Total Bilirubin 0.3, AST 27, ALT 16, Alkaline Phosphatase 73, Troponin I 0.03, NT-Pro-B Natriuret Pep 125, Total Protein 6.6, Albumin 3.6, Globulin 3.0, Albumin/Globulin Ratio 1.2, Acetone Level None detected 05/31/23 14:56: Urine Color Yellow, Urine Appearance Clear, Urine pH 6.0, Ur Specific [place] 1.015, Urine Protein Negative, Urine Glucose (UA) Negative, Urine Ketones Negative, Urine Blood 2+, Urine Nitrate Negative, Urine Bilirubin Negative, Urine Urobilinogen 0.2, Ur Leukocyte Esterase Negative, Urine RBC 5- 10, Urine WBC Occasional, Ur Squamous Epith Cells 5-10, Urine Bacteria None 05/31/23 15:10: VBG pH 7.28 L, VBG pCO2 66.3 H, VBG pO2 35.9, VBG HCO3 30.4 H, V BG Total CO2 32.4 H, VBG O2 Saturation 64.1, VBG Base Excess 3.6 H, VBG Lactic Acid 1.7 05/31/23 15:15: SARS-CoV-2 (PCR) Not detected, Influenza A Untype (PCR) Not detected, Influenza Type B (PCR) Not detected 05/31/23 15:27: Ammonia < 9 L 05/31/23 16:55: Urine Opiates Screen Negative, Urine Methadone Screen Negative, Ur Barbituates Screen Negative, Ur Phencyclidine Scrn Negative, Ur Amphetamines Screen Negative, U Benzodiazepines Scrn Negative, Urine Cocaine Screen Negative, U Marijuana (THC) Screen Negative 05/31/23 18:32: Troponin I 0.04 H 05/31/23 14:30 05/31/23 14:30 Response Orders (Tests/Meds): ED MEDICATIONS Generic Name Dose Route Start Last Admin Trade Name Freq PRN Reason Stop Dose Admin Acetaminophen 650 mg 05/31/23 19:39 Acetaminophen 325mg Tab PO 06/30/23 19:38 Q4HP PRN Fever or Mild Pain (1-3) Heparin Sodium/Dextrose 500 mls @ 16 mls/hr 05/31/23 19:45 Heparin 25,000 Units In D5w 500ml Premix IV 06/30/23 19:44 .Q25H DAGOBERTO 800 UNITS/HR Miscellaneous 1 each 05/31/23 19:30 Heparin Drip Consult NOTAPPLIC 06/30/23 19:29 CONSULT PHARMACY [facility] Morphine Sulfate 2 mg 05/31/23 19:39 Morphine 2mg/Ml Syringe IV 06/30/23 19:38 Q2HP PRN Severe Pain (7-10) Nicotine 21 mg 05/31/23 19:41 Nicotine 21mg/24hr Patch TD 06/30/23 19:40 DAILYP PRN Nicotine Cravings Pantoprazole Sodium 40 mg 05/31/23 19:45 Pantoprazole 40mg Tablet PO 06/30/23 19:44 DAILY [facility] Discontinued Medications Generic Name Dose Route Start Last Admin Trade Name Freq PRN Reason Stop Dose Admin Albuterol/Ipratropium 3 ml 05/31/23 17:04 05/31/23 17:28 Ipratropium/Albuterol 3 Ml Neb IH 05/31/23 17:05 3 ml ONCE ONE Administration Aspirin 324 mg 05/31/23 19:21 05/31/23 19:30 Aspirin 81mg Chewable Tablet PO 05/31/23 19:22 Not Given ONCE ONE Dexamethasone Sodium Phosphate 10 mg 05/31/23 17:04 05/31/23 17:28 Dexamethasone 4mg/Ml 1ml Vial IM 05/31/23 17:05 10 mg ONCE ONE Administration Heparin Sodium (Porcine) 4,000 unit 05/31/23 19:30 05/31/23 19:46 Heparin Sodium 5,000 Unit/Ml Vial IV 05/31/23 19:31 4,000 unit ONCE ONE Administration Lactated Ringer's 1,000 mls @ 999 mls/hr 05/31/23 14:54 05/31/23 15:12 Lactated Ringer's 1000 Ml Bag IV 05/31/23 15:54 999 mls/hr .Q1H1M ONE Administration ORDERS Category Date Time Status CT head/brain wo con Stat Cat Scan 05/31/23 14:54 Completed Chest XR -- portable [XR chest portable] Stat Exams 05/31/23 14:55 Taken Acetone, Serum (Rapid) Stat Lab 05/31/23 14:30 Completed Ammonia Stat Lab 05/31/23 15:27 Completed BNP [NT Pro Brain Natriuretic Pep.] Stat Lab 05/31/23 14:30 Completed CBC w/Auto Diff [Complete Blood Count Auto Diff] Stat Lab 05/31/23 14:30 Completed CMP [Comprehensive Metabolic Panel] Stat Lab 05/31/23 14:30 Completed INR [Prothrombin Time INR] Stat Lab 05/31/23 14:30 Completed Lactic Acid Stat Lab 05/31/23 14:30 Completed Magnesium Stat Lab 05/31/23 14:30 Completed PTT Heparin (inpatient only) Stat Lab 05/31/23 19:30 Ordered Rapid PCR Covid and Flu A/B Stat Lab 05/31/23 15:15 Completed Trop I [Troponin I] Stat Lab 05/31/23 14:30 Completed Troponin I Q3H Lab 05/31/23 18:32 Completed Troponin I Q3H Lab 05/31/23 21:00 Ordered UA [Urinalysis and Microscopic] Stat Lab 05/31/23 14:56 Completed UDS [Drug Screen,Urine] Stat Lab 05/31/23 16:55 Completed VBG [Venous Blood Gas] Stat RT 05/31/23 15:10 Completed MDM Narrative Medical Decision Narrative: I was consulted by the KRAIG, and we discussed the complexity of the problems being addressed. I approved the treatment and management plan for this patient?s care in the Emergency Department, thus performing a substantive portion of the medical decision making. EKG independently interpreted and demonstrated sinus rhythm 70 beats a minute. No ST or T wave changes concerning for acute ischemia. HI, QRS, QT intervals within normal limits. [place] normal. Bry Karimi MD In summary patient is a 67-year-old female who presents to the emergency department for evaluation of weakness . Patient is hemodynamically stable upon arrival, afebrile. Physical exam shows a disheveled appearing much older than stated age appearing but well-nourished well-developed 67-year-old female who does not appear to be in acute distress. She does have a run-on cough and expiratory wheezes in all 4 crowder. No increased work of breathing. I am unable to appreciate any focal findings and other than constitutional symptoms physical exam is unremarkable. Differential diagnosis includes stroke versus ACS versus toxic metabolic encephalopathy etc. Initial workup will be conducted with hematologic labs CT scan of the head twelve-lead EKG urinalysis. Initial interventions include fluid bolus. Initial workup reviewed by me shows a normal white count normal acetone normal ammonia, 0.003 troponin doubt chest pain and no evidence of ACS on her twelve-lead EKG, ABG shows slight acidosis and a slight elevation in her pCO2 and my informal review of her CT scan her head shows no acute processes and my informal review of her plain film chest x-ray shows no acute processes. The patient was placed in observation status at 1635. Medical necessity for observational status is serial troponins. The patient was provided serial reevaluations and cardiac monitoring while awaiting results. 3-hour troponin = 0.004. Because of these results I discussed patient management and admission with hospital medicine for further trending and cardiac workup and they agreed 1932. Total time in observation was 177 minutes. <Bry Karimi MD - Last Filed: 05/31/23 19:53> Vital Signs Vital Signs: 05/31/23 14:42 05/31/23 15:00 05/31/23 15:30 Temperature 98.1 F Temperature Source Oral Pulse Rate 64 81 Pulse Rate [Left Radial] 72 Respiratory Rate 20 Blood Pressure 108/43 L 116/93 H Blood Pressure [Right Arm] 121/50 L Blood Pressure Mean Blood Pressure Mean [Right Arm] 73 02 Sat by Pulse Oximetry 96 92 L 91 L Oxygen Delivery Method Room Air Room Air Room Air 05/31/23 15:59 05/31/23 16:55 05/31/23 17:01 Temperature Temperature Source Pulse Rate 78 71 Pulse Rate [Left Radial] Respiratory Rate Blood Pressure 141/56 H 143/68 H 137/58 L Blood Pressure [Right Arm] Blood Pressure Mean Blood Pressure Mean [Right Arm] 02 Sat by Pulse Oximetry 98 90 L 91 L Oxygen Delivery Method Room Air 05/31/23 17:30 05/31/23 18:00 Temperature Temperature Source Pulse Rate 70 71 Pulse Rate [Left Radial] Respiratory Rate Blood Pressure 148/71 H Blood Pressure [Right Arm] Blood Pressure Mean 107 Blood Pressure Mean [Right Arm] 02 Sat by Pulse Oximetry 97 94 L Oxygen Delivery Method Room Air Lab Data Labs: Lab Results 05/31/23 14:30: WBC 5.5, RBC 4.14 L, Hgb 11.6 L, Hct 36.7 L, MCV 88.7, MCH 28.1, MCHC 31.7 L, RDW 16.5, Plt Count 213, MPV 8.1, Neut % (Auto) 58.3, Lymph % (Auto) 29.8, [place] % (Auto) 6.8, Eos % (Auto) 4.6, Baso % (Auto) 0.5, Neut # (Auto) 3.2, Lymph # (Auto) 1.6, [place] # (Auto) 0.4, Eos # (Auto) 0.3, Baso # (Auto) 0.0, PT 10.9, INR 1.01, Sodium 135 L, Potassium 3.9, Chloride 99, Carbon Dioxide 36 H, Anion Gap 3.9 L, BUN 8, Creatinine 0.60, Estimated Creat Clear 61, Estimated GFR 100, Est GFR ( Amer) 121, Glucose 82, Lactate 1.4, Calcium 8.9, Magnesium 1.9, Total Bilirubin 0.3, AST 27, ALT 16, Alkaline Phosphatase 73, Troponin I 0.03, NT-Pro-B Natriuret Pep 125, Total Protein 6.6, Albumin 3.6, Globulin 3.0, Albumin/Globulin Ratio 1.2, Acetone Level None detected 05/31/23 14:56: Urine Color Yellow, Urine Appearance Clear, Urine pH 6.0, Ur Specific [place] 1.015, Urine Protein Negative, Urine Glucose (UA) Negative, Urine Ketones Negative, Urine Blood 2+, Urine Nitrate Negative, Urine Bilirubin Negative, Urine Urobilinogen 0.2, Ur Leukocyte Esterase Negative, Urine RBC 5- 10, Urine WBC Occasional, Ur Squamous Epith Cells 5-10, Urine Bacteria None 05/31/23 15:10: VBG pH 7.28 L, VBG pCO2 66.3 H, VBG pO2 35.9, VBG HCO3 30.4 H, V BG Total CO2 32.4 H, VBG O2 Saturation 64.1, VBG Base Excess 3.6 H, VBG Lactic Acid 1.7 05/31/23 15:15: SARS-CoV-2 (PCR) Not detected, Influenza A Untype (PCR) Not detected, Influenza Type B (PCR) Not detected 05/31/23 15:27: Ammonia < 9 L 05/31/23 16:55: Urine Opiates Screen Negative, Urine Methadone Screen Negative, Ur Barbituates Screen Negative, Ur Phencyclidine Scrn Negative, Ur Amphetamines Screen Negative, U Benzodiazepines Scrn Negative, Urine Cocaine Screen Negative, U Marijuana (THC) Screen Negative 05/31/23 18:32: Troponin I 0.04 H Response Orders (Tests/Meds): ED MEDICATIONS Generic Name Dose Route Start Last Admin Trade Name Freq PRN Reason Stop Dose Admin Acetaminophen 650 mg 05/31/23 19:39 Acetaminophen 325mg Tab PO 06/30/23 19:38 Q4HP PRN Fever or Mild Pain (1-3) Heparin Sodium/Dextrose 500 mls @ 16 mls/hr 05/31/23 19:45 Heparin 25,000 Units In D5w 500ml Premix IV 06/30/23 19:44 .Q25H DAGOBERTO 800 UNITS/HR Miscellaneous 1 each 05/31/23 19:30 Heparin Drip Consult NOTAPPLIC 06/30/23 19:29 CONSULT PHARMACY [facility] Morphine Sulfate 2 mg 05/31/23 19:39 Morphine 2mg/Ml Syringe IV 06/30/23 19:38 Q2HP PRN Severe Pain (7-10) Nicotine 21 mg 05/31/23 19:41 Nicotine 21mg/24hr Patch TD 06/30/23 19:40 DAILYP PRN Nicotine Cravings Pantoprazole Sodium 40 mg 05/31/23 19:45 Pantoprazole 40mg Tablet PO 06/30/23 19:44 DAILY DAGOBERTO Discontinued Medications Generic Name Dose Route Start Last Admin Trade Name Freq PRN Reason Stop Dose Admin Albuterol/Ipratropium 3 ml 05/31/23 17:04 05/31/23 17:28 Ipratropium/Albuterol 3 Ml Neb IH 05/31/23 17:05 3 ml ONCE ONE Administration Aspirin 324 mg 05/31/23 19:21 05/31/23 19:30 Aspirin 81mg Chewable Tablet PO 05/31/23 19:22 Not Given ONCE ONE Dexamethasone Sodium Phosphate 10 mg 05/31/23 17:04 05/31/23 17:28 Dexamethasone 4mg/Ml 1ml Vial IM 05/31/23 17:05 10 mg ONCE ONE Administration Heparin Sodium (Porcine) 4,000 unit 05/31/23 19:30 05/31/23 19:46 Heparin Sodium 5,000 Unit/Ml Vial IV 05/31/23 19:31 4,000 unit ONCE ONE Administration Lactated Ringer's 1,000 mls @ 999 mls/hr 05/31/23 14:54 05/31/23 15:12 Lactated Ringer's 1000 Ml Bag IV 05/31/23 15:54 999 mls/hr .Q1H1M ONE Administration ORDERS Category Date Time Status CT head/brain wo con Stat Cat Scan 05/31/23 14:54 Completed Chest XR -- portable [XR chest portable] Stat Exams 05/31/23 14:55 Taken Acetone, Serum (Rapid) Stat Lab 05/31/23 14:30 Completed Ammonia Stat Lab 05/31/23 15:27 Completed BNP [NT Pro Brain Natriuretic Pep.] Stat Lab 05/31/23 14:30 Completed CBC w/Auto Diff [Complete Blood Count Auto Diff] Stat Lab 05/31/23 14:30 Completed CMP [Comprehensive Metabolic Panel] Stat Lab 05/31/23 14:30 Completed INR [Prothrombin Time INR] Stat Lab 05/31/23 14:30 Completed Lactic Acid Stat Lab 05/31/23 14:30 Completed Magnesium Stat Lab 05/31/23 14:30 Completed PTT Heparin (inpatient only) Stat Lab 05/31/23 19:30 Ordered Rapid PCR Covid and Flu A/B Stat Lab 05/31/23 15:15 Completed Trop I [Troponin I] Stat Lab 05/31/23 14:30 Completed Troponin I Q3H Lab 05/31/23 18:32 Completed Troponin I Q3H Lab 05/31/23 21:00 Ordered UA [Urinalysis and Microscopic] Stat Lab 05/31/23 14:56 Completed UDS [Drug Screen,Urine] Stat Lab 05/31/23 16:55 Completed VBG [Venous Blood Gas] Stat RT 05/31/23 15:10 Completed MDM Narrative Medical Decision Narrative: In summary patient is a 67-year-old female who presents to the emergency department for evaluation of weakness . Patient is hemodynamically stable upon arrival, afebrile. Physical exam shows a disheveled appearing much older than stated age appearing but well-nourished well-developed 67-year-old female who does not appear to be in acute distress. She does have a run-on cough and expiratory wheezes in all 4 crowder. No increased work of breathing. I am unable to appreciate any focal findings and other than constitutional symptoms physical exam is unremarkable. Differential diagnosis includes stroke versus ACS versus toxic metabolic encephalopathy etc. Initial workup will be conducted with hematologic labs CT scan of the head twelve-lead EKG urinalysis. Initial interventions include fluid bolus. Initial workup reviewed by me shows a normal white count normal acetone normal ammonia, 0.003 troponin doubt chest pain and no evidence of ACS on her twelve-lead EKG, ABG shows slight acidosis and a slight elevation in her pCO2 and my informal review of her CT scan her head shows no acute processes and my informal review of her plain film chest x-ray shows no acute processes. The patient was placed in observation status at 1635. Medical necessity for observational status is serial troponins. The patient was provided serial reevaluations and cardiac monitoring while awaiting results. 3-hour troponin = 0.004. Because of these results I discussed patient management and admission with hospital medicine for further trending and cardiac workup and they agreed 1932. Total time in observation was 177 minutes. I was consulted by the KRAIG, and we discussed the complexity of the problems being addressed. I approved the treatment and management plan for this patient?s care in the Emergency Department, thus performing a substantive portion of the medical decision making. EKG independently interpreted and demonstrated sinus rhythm 70 beats a minute. No ST or T wave changes concerning for acute ischemia. HI, QRS, QT intervals within normal limits. [place] normal. Bry Karimi MD
--- NOTE | 2023-05-31 14:47 | PC.NURSE ---
SALAS LEE AT BS FOR PT EVAL
--- NOTE | 2023-05-31 14:54 | CT_ITS ---
FINAL REPORT TECHNIQUE: Axial imaging of the head was obtained without contrast. This study was performed with techniques to keep radiation doses as low as reasonably achievable, (ALARA). Individualized dose reduction techniques using automated exposure control or adjustment of mA and/or kV according to the patient's size were employed. CLINICAL HISTORY: Altered mental status COMPARISON: 05/05/2023 FINDINGS: The ventricles are normal in size. Moderate global atrophy is present. There is no evidence of hemorrhage. No masses are identified. No extra-axial fluid is seen. There is mild mucoperiosteal thickening in the bilateral maxillary and ethmoid air cells. There is no acute osseous abnormality. IMPRESSION: Moderate global atrophy without acute intracranial abnormality identified. Reviewed, Interpreted and Dictated by Florentino Cuevas MD Transcribed by Laureen Fallon Authenticated and [facility]
--- NOTE | 2023-05-31 14:55 | XR_ITS ---
FINAL REPORT CLINICAL HISTORY: Cough, altered mental status COMPARISON: 05/05/2023 FINDINGS: The heart size is normal. The mediastinum is normal. The lungs are underinflated. There are mild chronic changes in both lungs. There is no focal infiltrate or edema. There are no pleural effusions. There is no pneumothorax. There is no osseous abnormality. IMPRESSION: No acute cardiopulmonary process Reviewed, Interpreted and Dictated by Florentino Cuevas MD Transcribed by Leanne Xiong Authenticated and [facility]
--- NOTE | 2023-05-31 15:06 | PC.NURSE ---
PT GONE TO RAD VIA STRETCHER
[2023-05-31] MEDS: LACTATED RINGERS 1000ML 1,000 ML 999 ML IV (15:12)
[2023-05-31 15:13] LABS: Basophils % 0.5 % (0.1-2.0); Eosinophils # 0.3 K/mm3 (0.0-0.4); Eosinophils % 4.6 % (0.1-12.0); Hematocrit 36.7 % (37.0-47.0); Hemoglobin 11.6 g/dL (12.2-16.2); Lymphocytes # 1.6 K/mm3 (0.7-4.5); Lymphocytes % 29.8 % (10-50); Mean Corpuscular HGB Conc 31.7 g/dL (31.8-35.4); Mean Corpuscular Hemoglobin 28.1 pg (27.0-31.2); Mean Corpuscular Volume 88.7 fl (81-99); Mean Platelet Volume 8.1 fl (7.4-10.4); Monocytes # 0.4 K/mm3 (0.1-1.0); Monocytes % 6.8 % (1.7-9.3); Neutrophils # 3.2 K/mm3 (1.8-7.8); Neutrophils % 58.3 % (37.0-80.0); Platelet Count 213 K/mm3 (142-424); Red Blood Count 4.14 M/mm3 (4.20-5.40); Red Cell Distribution Width 16.5 % (11.5-17.5); White Blood Count 5.5 K/mm3 (4.8-10.8)
[2023-05-31 15:17] LABS: Acetone, Serum (Rapid) None Detected (None Detect)
[2023-05-31 15:17] LABS: Lactate Venous 1.7 mmol/L (0.4-2.0); VBG Base Excess 3.6 mmol/L (-2.4-2.3); VBG HCO3 30.4 mmol/L (23-30); VBG Oxygen Saturation 64.1 % (50-70); VBG PH 7.28 mmol/L (7.31-7.41); VBG PO2 35.9 mmol/L (28-40); VBG Total CO2 32.4 mmol/L (23-27)
[2023-05-31 15:18] LABS: Coronavirus 19, PCR Not Detected (NotDetected); Influenza A, PCR Not Detected (NotDetected); Influenza B, PCR Not Detected (NotDetected)
--- NOTE | 2023-05-31 15:19 | ECG_ITS ---
APPROVED REPORT Exam: Resting ECG HR:70 bpm ECG Measurements Heart Rate 70 AXES OH 183 P 69 QRSd 102 QRS 64 QT 411 T 57 QTc 432 Conclusion SINUS RHYTHM Electronically signed by : GAVIN REY, 05/31/2023 20:59:23
--- NOTE | 2023-05-31 15:20 | PC.NURSE ---
PT RETURNED TO ROOM FROM RAD
[2023-05-31 15:25] LABS: VBG PCO2 66.3 mmol/L (35-51)
[2023-05-31 15:26] LABS: Chloride 99 mmol/L (98-107); INR 1.01 (0.9-1.1); Potassium 3.9 mmoL/L (3.5-5.1); Prothrombin Time 10.9 seconds (10.1-12.5); Sodium 135 mmol/L (136-145)
[2023-05-31 15:28] LABS: Blood Urea Nitrogen 8 mg/dl (7-17); Creatinine Clearance Estimated 61 mL/min (50-200); Estimated Glomerular Filt Rate 100 ml/min (>60); GFR (African American) 121 ML/MIN (>60); Lactic Acid 1.4 mmol/L (0.7-2.1)
[2023-05-31 15:29] LABS: Alanine Aminotransferase 16 U/L (12-78); Albumin Level 3.6 g/dl (3.5-5.0); Albumin/Globulin Ratio 1.2 (1.1-1.8); Alkaline Phosphatase 73 U/L (38-126); Anion Gap 3.9 mEq/L (5-15); Aspartate Amino Transferase 27 U/L (14-36); Bilirubin,Total 0.3 mg/dl (0.2-1.3); Calcium 8.9 mg/dl (8.4-10.2); Carbon Dioxide 36 mmol/L (22.0-30.0); Glucose 82 mg/dl (74-100); Magnesium 1.9 mg/dl (1.6-2.3); Total Protein,Serum 6.6 g/dl (6.3-8.2)
[2023-05-31 15:39] LABS: NT Pro Brain Natriuretic Pep. 125 pg/mL (0-125)
[2023-05-31 15:41] LABS: Ammonia < 9 umol/L (9-30)
[2023-05-31 15:41] LABS: Troponin I 0.03 ng/ml (0.00-0.034)
[2023-05-31 17:01] LABS: Microscopic, Urine URINE MICROSCOPIC (MICROSCOPIC)
[2023-05-31 17:28] LABS: Appearance,Urine CLEAR (Clear); Bilirubin,Urine Negative (Negative); Blood, Urine 2+ (Negative); Color,Urine YELLOW (Yellow); Glucose,Urine (UA) Negative (Negative); Ketones,Urine Negative (Negative); Leukocyte Esterase,Urine Negative (Negative); Nitrate,Urine Negative (Negative); Protein,Urine Negative (Negative); Specific Gravity, Urine 1.015 (1.005-1.030); Urobilinogen,Urine 0.2 EU/dl (0.2)
[2023-05-31] MEDS: DEXAMETHASONE 4MG/ML 1ML VIAL 10 MG IM (17:28)
[2023-05-31] MEDS: IPRATROPIUM/ALBUTEROL 3 ML NEB IH (17:28)
[2023-05-31 17:46] LABS: WBC,Urine Occasional #/hpf (0-3)
[2023-05-31 17:59] LABS: Barbiturates Screen,Urine Negative ng/ml (<200); Benzodiazepines Screen,Urine Negative ng/ml (<200)
[2023-05-31 18:00] LABS: Amphetamine/Metha Screen,Urine Negative ng/ml (<1000)
[2023-05-31 18:01] LABS: Cannabinoid Screen,Urine Negative ng/ml (<50); Cocaine Screen,Urine Negative ng/ml (<300)
[2023-05-31 18:02] LABS: Methadone Screen,Urine Negative ng/ml (<300)
[2023-05-31 18:03] LABS: Opiate Screen,Urine Negative ng/ml (<300); Phencyclidine Screen,Urine Negative ng/ml (<25)
[2023-05-31 19:00] LABS: Troponin I 0.04 ng/ml (0.00-0.034)
--- NOTE | 2023-05-31 19:26 | PC.NURSE ---
aspirin noted on pts allergy list and pt reports allergy. aspirin held at this time. MD Karimi notified
--- NOTE | 2023-05-31 19:31 | PC.NURSE ---
notified seasonal warehouse associate of admission
--- NOTE | 2023-05-31 19:33 | PC.NURSE ---
pt provided with snack and drink at this time
--- NOTE | 2023-05-31 19:35 | PC.NURSE ---
consulted pharmacy for heparin gtt at this time. states they will put order in.
--- NOTE | 2023-05-31 19:43 | P.HP_ITS ---
History of Present Illness *Admission Date: 05/31/23 *Reason for visit:: generalized weakness, pain all over *History of present illness: This is a 67-year-old female, resident form [facility], who was sent to ED from her facility for evaluation of a changing condition that could be resumed as generalized weakness, unable to perform safe ADLs, and generalized pain. Facility reported been lethargic. Patient alert and oriented during this assessment, able to communicate her needs, however poor historian. PMHx per chart review include schizophrenia, NDDM, COPD, HTN,HLD, CAD on plavix. Patient is hemodynamically stable upon arrival, afebrile. Patient currently denies chest pain fever chills hemoptysis hematochezia melena nausea vomiting diarrhea. Unknown her functional baseline. Admitted for further work up and management. [facility] Disclaimer: The information contained in this section may have been updated after the patient was seen, as this information can be updated by other users. Medical History Coronary artery calcification seen on CAT scan Dyspnea Abnormal ankle brachial index (CECE) Abnormal electrocardiogram [ECG] [EKG] Hypertension Schizophrenia Seizure Depression HTN (hypertension) Family History Other No significant family history Social History (Updated 05/31/23 @ 21:15 by Makeda Mcgrath RN) Smoking Status: Never smoker alcohol intake: never substance use type: denies use current occupational status: disabled and other Travel in the last 8 weeks: None household members: other housing: assisted living facility current occupational exposures/hazards: No caffeine: Yes Review of Systems Review of Systems Review of systems:: pertinent systems reviewed and negative unless documented below Meds Home Medications and Allergies Home Medications Medication Instructions Recorded Confirmed Type benztropine 2 mg tablet 2 mg PO BID 04/08/17 05/31/23 History citalopram 20 mg tablet 20 mg PO DAILY Depression 04/08/17 06/01/23 History ondansetron 4 mg disintegrating 4 mg PO Q6HP PRN Nausea #20 tabs 01/28/22 05/31/23 Rx tablet albuterol sulfate 90 mcg/actuation 2 puff inhalation Q4HP PRN 11/03/22 06/01/23 Rx aerosol inhaler Shortness Of Breath #8.5 grams donepezil 5 mg tablet 5 mg PO HS 11/20/22 05/31/23 History loperamide 2 mg tablet 2 mg PO Q3H PRN Diarrhea 11/20/22 06/01/23 History acetaminophen 325 mg tablet 650 mg PO BID 11/21/22 05/31/23 History metformin 500 mg tablet 500 mg PO BIDWMEAL 11/21/22 05/31/23 History risperidone 3 mg tablet 3 mg PO BID 11/21/22 05/31/23 History ropinirole 2 mg tablet 1 mg PO BID 11/21/22 05/31/23 History sennosides 8.6 mg tablet (senna) 17.2 mg PO DAILYP PRN Constipation 11/21/22 05/31/23 History atorvastatin 40 mg tablet 40 mg PO DAILY 30 days #30 tabs 11/22/22 05/31/23 Rx gabapentin 400 mg capsule 400 mg PO TID Neuropathic pain #90 12/28/22 05/31/23 Rx caps clonazepam 0.5 mg tablet 0.5 mg PO BID #60 ea 01/20/23 05/31/23 Rx doxycycline hyclate 100 mg capsule 100 mg PO BID 10 days #20 caps 05/31/23 Rx famotidine 40 mg tablet 40 mg PO DAILY 05/31/23 05/31/23 History hydrochlorothiazide 12.5 mg tablet 12.5 mg PO AM 05/31/23 05/31/23 History prednisone 50 mg tablet 50 mg PO DAILY 5 days #5 tabs 05/31/23 Rx clopidogrel 75 mg tablet 75 mg PO DAILY 06/01/23 06/01/23 History trazodone 50 mg tablet 50 mg PO DAILY 06/01/23 06/01/23 History New Prescriptions to Start Prescriptions: doxycycline hyclate Louis Garcia prednisone Louis Garcia Allergies Allergy/AdvReac Type Severity Reaction Status Date / Time aspirin Allergy Intermediate edema Verified 11/20/22 18:04 Influenza Virus Vaccines AdvReac Intermediate Verified 11/20/22 18:04 Exam Data for Last 24 hours Vital signs and Labs for Last 24 Hours: Temp Pulse Resp BP Pulse Ox O2 Del Method 98.1 F 71 20 148/71 H 94 L Room Air 05/31/23 14:42 05/31/23 18:00 05/31/23 14:42 05/31/23 17:30 05/31/23 18:00 05/31/23 17:30 Laboratory Results - last 24 hr 05/31/23 14:30: WBC 5.5, RBC 4.14 L, Hgb 11.6 L, Hct 36.7 L, MCV 88.7, MCH 28.1, MCHC 31.7 L, RDW 16.5, Plt Count 213, MPV 8.1, Neut % (Auto) 58.3, Lymph % (Auto) 29.8, [place] % (Auto) 6.8, Eos % (Auto) 4.6, Baso % (Auto) 0.5, Neut # (Auto) 3.2, Lymph # (Auto) 1.6, [place] # (Auto) 0.4, Eos # (Auto) 0.3, Baso # (Au to) 0.0, PT 10.9, INR 1.01, Sodium 135 L, Potassium 3.9, Chloride 99, Carbon Dioxide 36 H, Anion Gap 3.9 L, BUN 8, Creatinine 0.60, Estimated Creat Clear 61, Estimated GFR 100, Est GFR ( Amer) 121, Glucose 82, Lactate 1.4, Calcium 8.9, Magnesium 1.9, Total Bilirubin 0.3, AST 27, ALT 16, Alkaline Phosphatase 73, Troponin I 0.03, NT-Pro-B Natriuret Pep 125, Total Protein 6.6, Albumin 3.6, Globulin 3.0, Albumin/Globulin Ratio 1.2, Acetone Level None detected 05/31/23 14:56: Urine Color Yellow, Urine Appearance Clear, Urine pH 6.0, Ur Specific [place] 1.015, Urine Protein Negative, Urine Glucose (UA) Negative, Urine Ketones Negative, Urine Blood 2+, Urine Nitrate Negative, Urine Bilirubin Negative, Urine Urobilinogen 0.2, Ur Leukocyte Esterase Negative, Urine RBC 5- 10, Urine WBC Occasional, Ur Squamous Epith Cells 5-10, Urine Bacteria None 05/31/23 15:10: VBG pH 7.28 L, VBG pCO2 66.3 H, VBG pO2 35.9, VBG HCO3 30.4 H, VBG Total CO2 32.4 H, VBG O2 Saturation 64.1, VBG Base Excess 3.6 H, VBG Lactic Acid 1.7 05/31/23 15:15: SARS-CoV-2 (PCR) Not detected, Influenza A Untype (PCR) Not detected, Influenza Type B (PCR) Not detected 05/31/23 15:27: Ammonia < 9 L 05/31/23 16:55: Urine Opiates Screen Negative, Urine Methadone Screen Negative, Ur Barbituates Screen Negative, Ur Phencyclidine Scrn Negative, Ur Amphetamines Screen Negative, U Benzodiazepines Scrn Negative, Urine Cocaine Screen Negative, U Marijuana (THC) Screen Negative 05/31/23 18:32: Troponin I 0.04 H Temp Pulse Resp BP Pulse Ox O2 Del Method O2 Flow Rate 98.4 F 78 18 139/61 99 Room Air 2 11/20/22 13:29 11/20/22 16:00 11/20/22 16:00 11/20/22 16:00 11/20/22 16:00 11/20/22 13:29 11/20/22 15:30 Laboratory Results - last 24 hr 11/20/22 13:33: WBC 7.7, RBC 3.70 L, Hgb 11.3 L, Hct 34.0 L, MCV 91.8, MCH 30.5, MCHC 33.2, RDW 15.4, Plt Count 227, MPV 8.0, Neut % (Auto) 61.0, Lymph % (Auto) 28.6, [place] % (Auto) 7.1, Eos % (Auto) 2.8, Baso % (Auto) 0.5, Neut # (Auto) 4.7, Lymph # (Auto) 2.2, [place] # (Auto) 0.5, Eos # (Auto) 0.2, Baso # (Auto) 0.0, Sodium 134 L, Potassium 4.0, Chloride 96 L, Carbon Dioxide 32 H, Anion Gap 10.0, BUN 11, Creatinine 0.70, Estimated Creat Clear 63, Estimated GFR 84, Est GFR ( Amer) 101, Glucose 93, Calcium 8.5, Total Bilirubin 0.1 L, AST 30, ALT 17, Alkaline Phosphatase 66, Troponin I 0.13 H, Total Protein 7.2, Albumin 3.6, Globulin 3.6 H, Albumin/Globulin Ratio 1.0 L 11/20/22 13:40: VBG pH 7.32, VBG pCO2 61.7 H, VBG pO2 55.0 H, VBG HCO3 31.0 H, VBG Total CO2 32.9 H, VBG O2 Saturation 88.0 H, VBG Base Excess 4.9 H 11/20/22 14:20: Urine Color Yellow, Urine Appearance Clear, Urine pH 5.5, Ur Specific [place] 1.025, Urine Protein Negative, Urine Glucose (UA) Negative, Urine Ketones Negative, Urine Blood 2+, Urine Nitrate Negative, Urine Bilirubin Negative, Urine Urobilinogen 0.2, Ur Leukocyte Esterase Negative, Urine RBC 3-5, Urine WBC None, Ur Squamous Epith Cells None, Urine Bacteria None I & O for Last 24 hours: Intake & Output 05/28/23 05/29/23 05/30/23 05/31/23 23:59 23:59 23:59 23:59 Weight 69.853 kg Intake & Output 11/17/22 11/18/22 11/19/22 11/20/22 23:59 23:59 23:59 23:59 Weight 72.575 kg Constitutional Constitutional: mild distress, obese and chronically ill appearing *Routine HEENT Exam Head: Present normocephalic Eye: Present EOMI ENT: Present mucous membranes dry *Routine Neck Exam Neck: Present supple *Routine Respiratory Exam Respiratory: Present decreased breath sounds, rhonchi and wheezes; Absent crackles Comments: Diminished throughout *Routine Cardiovascular Exam Cardiovascular: Present RRR *Routine Abdominal Exam Abdominal: Present soft and normoactive bowel sounds *Routine Rectal Exam Rectal:: deferred *Routine Genitalia Exam Genitalia:: deferred *Routine Extremities Exam Extremities: Absent cyanosis, clubbing or edema *Routine Skin Exam Skin: Present intact; Absent cyanosis or erythema *Routine Neurological Exam Neurological: Present alert, oriented X3, CN II-XII intact and moving all extremities; Absent altered mental status H&P: Result Imaging and Cardiology EKG: Status: image reviewed by me, Preliminary report and final report Chest x-ray: Status: image reviewed by me, Preliminary report and final report CT scan - head: Status: image reviewed by me, Preliminary report and final report Assessment and Plan *Assessment and plan (1) Elevated troponin I level: Status: Acute Category: Medical Code(s): R79.89 - Other specified abnormal findings of blood chemistry (2) Generalized weakness: Status: Acute Category: Medical Code(s): R53.1 - Weakness (3) COPD (chronic obstructive pulmonary disease): Status: Acute Qualifiers: COPD type: unspecified COPD Qualified Code(s): J44.9 - Chronic obstructive pulmonary disease, unspecified Category: Medical Code(s): J44.9 - Chronic obstructive pulmonary disease, unspecified (4) Hyperlipidemia: Status: Acute Qualifiers: Hyperlipidemia type: unspecified Qualified Code(s): E78.5 - Hyperlipidemia, unspecified Category: Medical Code(s): E78.5 - Hyperlipidemia, unspecified (5) Hypertension: Status: Chronic Qualifiers: Hypertension type: primary hypertension Qualified Code(s): I10 - Essential (primary) hypertension Category: Medical Code(s): I10 - Essential (primary) hypertension (6) Schizophrenia: Status: Chronic Qualifiers: Schizophrenia type: unspecified Qualified Code(s): F20.9 - Schizophrenia, unspecified Category: Medical Code(s): F20.9 - Schizophrenia, unspecified (7) Diabetes mellitus: Status: Chronic Qualifiers: Diabetes mellitus complication status: without complication Diabetes mellitus intermediate insulin 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 initial work up are grossly negative. labs work are mostly inactionable. CXR, CY and EKG as well. Due to patient not showing improvement after IV resuscitations and still c/o left shoulder pain troponin was repeated and found to start trending up. Discussed with ED, due to high score on cardiac risk, trending up troponin. Decision was made to admit patient to rule out ACS. Plan as follow: -elevated troponin: generalized weakness. patient presented with c/o back pain, shoulder pain. admit patient. to rule out ACS. Of note per chart review patient had a similar e pisode back in 12/2022. patient was discharged and recommended f/u with PCP. start continuous cardiac monitoring serial troponin. patient was given Aspirin and heparin at ER. will deferred the need of cardiac consult. Continue monitoring for signs of ACS pain management with tylenol and morphine Nitro SL for cardiac chest pain optimize O2 sat. PT/OT to eval and treat, Recommendations are needed for patient disposition [facility] Others chronic conditions: COPD, DM, HTN, HLD Schizophernia Continue gabapentin Donepezil 5 mg nightly Continue citalopram 20 mg daily Continue benztropine 2 mg twice daily Continue Klonopin 0.5 mg twice daily as needed on Plavix . Accucheck before meals sliding scale Full code Rounded on patient after nurse practitioner. Personally examined and interviewed patient. Agree with exam findings and care plan as documented.
[2023-05-31 20:11] LABS: PTT Heparin (inpatient only) 27.9 Seconds (23.6-34.0)
--- NOTE | 2023-05-31 20:20 | PC.NURSE ---
pt arrived to med surg floor @2019, via wheelchair
[2023-05-31] MEDS: HEPARIN SODIUM 5,000 UNIT/ML VIAL 4000 UNIT IV (20:26)
[2023-05-31] MEDS: HEPARIN SODIUM,PORCINE/D5W 500 ML 16 UNIT IV (20:32)
[2023-05-31] MEDS: HEPARIN DRIP CONSULT 1 EACH NOTAPPLIC (20:33)
[2023-05-31] MEDS: PANTOPRAZOLE 40MG TABLET 40 MG PO (20:34)
--- NOTE | 2023-05-31 20:58 | PC.NURSE ---
patient is unaware of which medications she takes while living at [facility], currently. Patient appears to have difficulty caring for herself independent based upon arrival. Patient was gave a bath by SRNA's and Charge once on the floor. She is now resting comfortably in bed with dinner. Heparin gtt infusing per APR. Patient refused nicotine patch at this time. Bed alarm on, just fell today at [facility]. CB within reach.
[2023-05-31 23:09] LABS: Troponin I 0.03 ng/ml (0.00-0.034)
[2023-06-01] VITALS (7 sets, daily range): BP systolic 99–158; BP diastolic 55–74; PULSE 58–80; RESP 16–21; TEMP 36.6–37; O2SAT 93–99; BMI 28.3
[2023-06-01 02:46] LABS: PTT Heparin (inpatient only) 64.7 Seconds (23.6-34.0)
--- NOTE | 2023-06-01 03:13 | PC.NURSE ---
jigna marie at [facility] - aptt within therapeutic range of 64, no changes for the heparin gtt at this time, remaining at 800 units/hr. redraw aptt at 0800.
[2023-06-01 05:20] LABS: POC Glucose,Bedside 176 (70-110)
[2023-06-01] MEDS: HYDROCHLOROTHIAZIDE 12.5 MG 12.5 EACH PO (06:28)
--- NOTE | 2023-06-01 07:28 | HMH.PHAINT1 ---
Pharmacy Intervention Comments: HOME MEDICATION LIST VERIFIED VIA FACILLITY LIST
--- NOTE | 2023-06-01 07:51 | HMH.PTEV ---
Physical Therapy Evaluation Rehab PT IP Evaluation Start: 05/31/23 21:21 Freq: ONCE Status: Active Protocol: Document 06/01/23 07:44 DENNYS (Rec: 06/01/23 07:51 DENNYS [id number]) Subjective/History History History Per H&P: This is a 67-year-old female, resident form [facility], who was sent to ED from her facility for evaluation of a changing condition that could be resumed as generalized weakness, unable to perform safe ADLs, and generalized pain. Facility reported been lethargic. Patient alert and oriented during this assessment, able to communicate her needs, however poor historian. PMHx per chart review include schizophrenia, NDDM, COPD, HTN,HLD, CAD on plavix. Patient is hemodynamically stable upon arrival, afebrile. Patient currently denies chest pain fever chills hemoptysis hematochezia melena nausea vomiting diarrhea. Unknown her functional baseline. Admitted for further work up and management. Subjective Subjective I need to use the restroom PLOF: Pt is a questionable historian. Pt unsure if she used AD prior to admission. Pt living at [facility]. New diagnosis of cancer in past 12 No months? Rehab PT IP Eval Objective Appearance Patient Behavior Appropriate Patient Orientation Person Difficulty following instructions none Speech Pattern Clear,Patient Baseline Ambulation Patient Able to Ambulate Yes Ambulation Observation IP General Gait Pattern Observation Wide Based Gait Ambulation Distance (feet) 4 Ambulation Assistive Device None Ambulation Ability Minimal x 1 (25% assist) Balance Ability to Arise Able, uses arms to help Sitting Balance Steady, safe Standing Balance Steady, wide stance Transfers Bed Transfer Ability Supervision/Stand by Sit to Stand Bed Transfer Ability Minimal x 1 (25% assist) Rehab PT IP prob,goals,plan Problems Date of Evaluation: 06/01/23 PT IP Problems Bed Mobility,Transfers,Gait, Balance,Self care,Safety Rehab Potential Rehab Potential Good Equipment Needs Assistive Devices Rolling / Wheeled Walker Plan PT Intervention Plan Bed Mobility,Transfers,Gait, Balance,Self care,Safety, Therapeutic Exercise Other Intervention Plan 1-2 times PT Plan Frequency Daily Duration LOS Discharge Goals Bed Transfer Ability Supervision/Stand by Sit to Stand Chair Transfer Ability Supervision/Stand by Ambulation Assistive Device Rolling Walker Ambulation Distance (feet) 20 Discharge Plan PT Discharge Plan Initial physical therapy evaluation performed. Patient presents below baseline at this time in functional mobility, transfers, gait, and strength. At this time, d/t increased needs for ADLs and mobility, PT recommending short-term rehabilitation stay upon d/c from [facility]. Pt may be able to return to [facility] pending improved ability to perform IND ambulation and transfers. Pt would benefit from skilled PT while at [facility] to prevent further functional decline and maximize safety with mobility . Eval Complexity Eval Charge Codes 18505 - Moderate Complexity PHYSICIAN CERTIFICATION: I certify the specified therapy services for Josefina Van are required, authorized, and reviewed every 30 days.
--- NOTE | 2023-06-01 08:03 | HMH.PHAHEP ---
[facility] Heparin Dosing Demographic Data Admission date:: 05/31/23 Date: 06/01/23 Time: 08:03 Allergies Allergy/AdvReac Type Severity Reaction Status Date / Time aspirin Allergy Intermediate edema Verified 11/20/22 18:04 Influenza Virus Vaccines AdvReac Intermediate Verified 11/20/22 18:04 Height: 1.55 m Weight: 67.993 kg Indication Medication therapy:: Heparin Current Indications:: NSTEMI/ACS - LOW DOSE PROTOCOL Current Active Problems (Updated 05/31/23 @ 22:45 by Neeraj Pang APRN) Elevated troponin I level (Acute) Acute exacerbation of chronic obstructive pulmonary disease (Acute) Generalized weakness (Acute) Hyperlipidemia (Acute) Hypertension (Chronic) Schizophrenia (Chronic) Diabetes mellitus (Chronic) COPD (chronic obstructive pulmonary disease) (Acute) CVA?: No Bleeding problem?: No Kidney disease?: No [place]?: Yes Additional History:: COPD, HYPERLIPIDEMIA, HYPERTENSION, DIABETES Desired PTT range:: 50-75 seconds Labs Anticoagulation Lab Results:: 05/31/23 14:30 Hgb 11.6 L Hct 36.7 L Plt Count 213 Monitoring Dose Monitor 1: Date: 05/31/23 Time: 19:47 PTT Result:: 27.9 SECONDS (BASELINE PTT) Infusion Rate:: INITIATED HEPARIN DRIP AT 800 UNITS/HOUR = 16 ML/HOUR AND BOLUSED 4000 UNITS HEPARIN IV ONCE. Dose Monitor 2: Date: 06/01/23 Time: 02:10 PTT Result:: 64.7 SECONDS Infusion Rate:: CONTINUE CURRENT HEPARIN DRIP RATE OF 800 UNITS/HOUR = 16 ML/HOUR. Dose Monitor 3: Date: 06/01/23 Time: 08:00 PTT Result:: 39.6 SECONDS Infusion Rate:: RECOMMEND INCREASING HEPARIN DRIP TO 1050 UNITS/HOUR = 21 ML/HR AND BOLUSING 4000 UNITS HEPARIN IV ONCE. Comment:: NURSE STATES PATIENT HAS LOST IV ACCESS AND IS A DIFFICULT STICK BUT WILL ATTEMPT TO REESTABLISH ACCESS AND RESUME AT THIS RATE. Core Measures Is INR > or = 2 at discharge?: No Most Recent Labs:: Laboratory Results - last 24 hr 05/31/23 14:30: WBC 5.5, RBC 4.14 L, Hgb 11.6 L, Hct 36.7 L, MCV 88.7, MCH 28.1, MCHC 31.7 L, RDW 16.5, Plt Count 213, MPV 8.1, Neut % (Auto) 58.3, Lymph % (Auto) 29.8, [place] % (Auto) 6.8, Eos % (Auto) 4.6, Baso % (Auto) 0.5, Neut # (Auto) 3.2, Lymph # (Auto) 1.6, [place] # (Auto) 0.4, Eos # (Auto) 0.3, Baso # (Auto) 0.0, PT 10.9, INR 1.01, Sodium 135 L, Potassium 3.9, Chloride 99, Carbon Dioxide 36 H, Anion Gap 3.9 L, BUN 8, Creatinine 0.60, Estimated Creat Clear 61, Estimated GFR 100, Est GFR ( Amer) 121, Glucose 82, Lactate 1.4, Calcium 8.9, Magnesium 1.9, Total Bilirubin 0.3, AST 27, ALT 16, Alkaline Phosphatase 73, Troponin I 0.03, NT-Pro-B Natriuret Pep 125, Total Protein 6.6, Albumin 3.6, Globulin 3.0, Albumin/Globulin Ratio 1.2, Acetone Level None detected 05/31/23 14:56: Urine Color Yellow, Urine Appearance Clear, Urine pH 6.0, Ur Specific [place] 1.015, Urine Protein Negative, Urine Glucose (UA) Negative, Urine Ketones Negative, Urine Blood 2+, Urine Nitrate Negative, Urine Bilirubin Negative, Urine Urobilinogen 0.2, Ur Leukocyte Esterase Negative, Urine RBC 5-10, Urine WBC Occasional, Ur Squamous Epith Cells 5-10, Urine Bacteria None 05/31/23 15:10: VBG pH 7.28 L, VBG pCO2 66.3 H, VBG pO2 35.9, VBG HCO3 30.4 H, VBG Total CO2 32.4 H, VBG O2 Saturation 64.1, VBG Base Excess 3.6 H, VBG Lactic Acid 1.7 05/31/23 15:15: SARS-CoV-2 (PCR) Not detected, Influenza A Untype (PCR) Not detected, Influenza Type B (PCR) Not detected 05/31/23 15:27: Ammonia < 9 L 05/31/23 16:55: Urine Opiates Screen Negative, Urine Methadone Screen Negative, Ur Barbituates Screen Negative, Ur Phencyclidine Scrn Negative, Ur Amphetamines Screen Negative, U Benzodiazepines Scrn Negative, Urine Cocaine Screen Negative, U Marijuana (THC) Screen Negative 05/31/23 18:32: Troponin I 0.04 H 05/31/23 19:47: APTT 27.9 05/31/23 21:39: Troponin I 0.03 06/01/23 02:10: APTT 64.7 H* 06/01/23 05:13: POC Glucose 176 H Were Heparin and Warfarin started on the same day?: No
[2023-06-01] MEDS: ROPINIROLE 1MG TABLET 1 MG PO ×2 (08:27→21:31)
[2023-06-01] MEDS: CITALOPRAM 20MG TABLET 20 MG PO (08:27)
[2023-06-01] MEDS: clonazePAM 0.5MG TABLET 0.5 MG PO ×2 (08:27→21:31)
[2023-06-01] MEDS: CLOPIDOGREL 75MG TAB 75 MG PO (08:27)
[2023-06-01] MEDS: hydroCHLOROthiazide 12.5MG CAPSULE 12.5 MG PO (08:27)
[2023-06-01] MEDS: PANTOPRAZOLE 40MG TABLET 40 MG PO (08:27)
[2023-06-01] MEDS: ATORVASTATIN 40MG TABLET 40 MG PO (08:27)
[2023-06-01] MEDS: GABAPENTIN 400MG CAPSULE 400 MG PO ×3 (08:27→21:31)
[2023-06-01] MEDS: FAMOTIDINE 20MG TABLET 40 MG PO (08:28)
[2023-06-01] MEDS: risperiDONE 1MG TABLET 3 MG PO ×2 (08:28→21:31)
[2023-06-01] MEDS: BENZTROPINE 1MG TABLET 2 MG PO ×2 (08:28→21:30)
[2023-06-01 09:54] LABS: Basophils % 0.4 % (0.1-2.0); Eosinophils % 0.5 % (0.1-12.0); Hematocrit 35.1 % (37.0-47.0); Hemoglobin 11.3 g/dL (12.2-16.2); Lymphocytes % 19.1 % (10-50); Mean Corpuscular HGB Conc 32.2 g/dL (31.8-35.4); Mean Corpuscular Volume 86.8 fl (81-99); Mean Platelet Volume 8.1 fl (7.4-10.4); Monocytes # 0.3 K/mm3 (0.1-1.0); Monocytes % 5.1 % (1.7-9.3); Neutrophils # 3.7 K/mm3 (1.8-7.8); Neutrophils % 74.9 % (37.0-80.0); Platelet Count 206 K/mm3 (142-424); Red Blood Count 4.05 M/mm3 (4.20-5.40); Red Cell Distribution Width 16.9 % (11.5-17.5)
--- NOTE | 2023-06-01 10:02 | HMH.OTEV ---
OT Inpatient Evaluation Rehab OT IP Evaluation Start: 05/31/23 21:21 Freq: ONCE Status: Active Protocol: Document 06/01/23 09:52 ANASTASIA (Rec: 06/01/23 10:02 ANASTASIA [id number]) Rehab OT IP Assessment Subjective History This is a 67-year-old female, resident form [facility], who was sent to ED from her facility for evaluation of a changing condition that could be resumed as generalized weakness, unable to perform safe ADLs, and generalized pain. Facility reported been lethargic. Patient alert and oriented during this assessment, able to communicate her needs, however poor historian. PMHx per chart review include schizophrenia, NDDM, COPD, HTN,HLD, CAD on plavix. Patient is hemodynamically stable upon arrival, afebrile. Patient currently denies chest pain fever chills hemoptysis hematochezia melena nausea vomiting diarrhea. Unknown her functional baseline. Admitted for further work up and management. Patient lives in [facility] at [place]. Facility requires patient's to complete all ADLs and fx'l mobility indpendently. Patient reported using a RW occasionally. Subjective I can stand. Patient sitting upright @ EOB at arrival of tx with nursing. Instructed Patient on safety awareness to complete sit-> stand wth Min A x2. Patient required max verbal cueing to maneuver safely in bed to be placed in upright positioning for IV medication. Left Patient sitting upright in bed with needs met at end of session. Objective Patient Orientation Person,Place,Name,Age,Birthday ,Year Right Upper Extremity Gross ROM WFL Left Upper Extremity Gross ROM WFL Bed Mobility bed mobility - supine/sit Assist Level Minimal x 2 (25% assist) Transfer Training Sit/Stand/Pivot Transfer Assist Level Minimal x 2 (25% assist) Rehab OT IP prob,goals,plan Problems Date of Evaluation: 06/01/23 OT IP Problems Bed Mobility,Transfers,Balance ,Self care,Safety Rehab Potential Rehab Potential Good Equipment Needs Assistive Devices None / NA Plan OT intervention Plan Bed Mobility,Transfers,Balance ,Self care,Safety,Therapeutic Exercise OT Plan Frequency Daily Duration LOS Discharge Goals Bed Mobility Ability Assistance x1 Sit to Stand Chair Transfer Ability Minimal x 1 (25% assist) Chair Transfer Ability Minimal x 1 (25% assist) Discharge Plan OT Discharge Plan REcommend placement at this time. Patient is requiring increase assistance for ADLs, transfers, ambulation and general safety to complete all tasks. Patient to be seen here at [facility] for IP OT services til d/c for proper placement. Eval Complexity Eval Charge Codes 15238 - Low Complexity PHYSICIAN CERTIFICATION: I certify the specified therapy services for Josefina Van are required, authorized, and reviewed every 30 days.
[2023-06-01 10:13] LABS: PTT Heparin (inpatient only) 39.6 Seconds (23.6-34.0)
[2023-06-01] MEDS: ACETAMINOPHEN 325MG TAB 650 MG PO (10:18)
[2023-06-01 10:32] LABS: Chloride 99 mmol/L (98-107); Sodium 132 mmol/L (136-145)
[2023-06-01 10:33] LABS: Potassium 4.3 mmoL/L (3.5-5.1)
[2023-06-01 10:35] LABS: Alanine Aminotransferase 13 U/L (12-78); Albumin Level 3.4 g/dl (3.5-5.0); Albumin/Globulin Ratio 1.4 (1.1-1.8); Alkaline Phosphatase 76 U/L (38-126); Anion Gap 6.3 mEq/L (5-15); Aspartate Amino Transferase 25 U/L (14-36); Bilirubin,Total 0.3 mg/dl (0.2-1.3); Blood Urea Nitrogen 11 mg/dl (7-17); Carbon Dioxide 31 mmol/L (22.0-30.0); Cholesterol 101 mg/dl (140-200); Creatinine Clearance Estimated 59 mL/min (50-200); Estimated Glomerular Filt Rate 123 ml/min (>60); GFR (African American) 149 ML/MIN (>60); Globulin 2.5 g/dL (1.3-3.2); Phosphorous 2.7 mg/dl (2.5-4.5); Total Protein,Serum 5.9 g/dl (6.3-8.2); Triglycerides 70 mg/dl (30-150); VLDL Cholesterol 14 mg/dL (0-40)
[2023-06-01 10:36] LABS: Calcium 8.8 mg/dl (8.4-10.2); Chol/HDL Ratio 2.2 (1-3.5); Glucose 169 mg/dl (74-100); HDL Cholesterol 46 mg/dl (40-60)
[2023-06-01 10:46] LABS: Direct LDL Cholesterol 40.12 mg/dL (100-129)
--- NOTE | 2023-06-01 10:49 | P.CONCA_ITS ---
History of Present Illness History of Present Illness Consult date: 06/01/23 Requesting physician: Robert Jaramillo Chief complaint: weakness Additional Medical History:: 1. CAD A. C, 11/2022, moderate disease of LAD, nondominant Cx and RCA. EF 70- 75%, LVEDP of 15 mm Hg 2. PAD A. Lower extremity runoff, 11/2022, mild disease except for occluded right SFA ostially with distal filling from the profunda for Joce at the suprapatellar level. Long 90% left SFA stenosis and gives inline flow into the popliteal artery three-vessel runoff noted to bilateral feet. Plan was for drug-coated balloon angioplasty of the left SFA in 2 weeks but this did not occur. 3. Diabetes mellitus 4. History of schizophrenia 5. Patient is a [facility] of the [facility] and resides at [facility] 6. COPD with tobacco use 7. Hypertension 8. Hyperlipidemia, on statin therapy History of present illness: This is a 67-year-old female, resident form [facility], who was sent to ED f rom her facility for evaluation of a changing condition that could be resumed as generalized weakness, unable to perform safe ADLs, and generalized pain. Facility reported been lethargic. Patient alert and oriented during this assessment, able to communicate her needs, however poor historian. PMHx per chart review include schizophrenia, NDDM, COPD, HTN,HLD, CAD on plavix. Patient is hemodynamically stable upon arrival, afebrile. Patient currently denies chest pain fever chills hemoptysis hematochezia melena nausea vomiting diarrhea. Unknown her functional baseline. Admitted for further work up and management. The above per Dr. Jaramillo Cardiology asked to see the patient due to 1 elevated troponin surrounded by 2 normal troponins. Poor historian due to history of schizophrenia Patient denies any chest pain, pressure or tightness. She states she cannot walk because her legs are weak. [facility] Disclaimer: The information contained in this section may have been updated after the patient was seen, as this information can be updated by other users. Medical History Coronary artery calcification seen on CAT scan Dyspnea Abnormal ankle brachial index (CECE) Abnormal electrocardiogram [ECG] [EKG] Hypertension Schizophrenia Seizure Depression HTN (hypertension) Family History Other No significant family history Social History (Updated 05/31/23 @ 21:15 by Makeda Mcgrath RN) Smoking Status: Never smoker alcohol intake: never substance use type: denies use current occupational status: disabled and other Travel in the last 8 weeks: None household members: other housing: assisted living facility current occupational exposures/hazards: No caffeine: Yes Exam Data for Last 24 hours Vital signs and Labs for Last 24 Hours: Temp Pulse Resp BP Pulse Ox O2 Del Method 98.3 F 76 19 158/74 H 98 Room Air 06/01/23 08:00 06/01/23 08:00 06/01/23 08:00 06/01/23 08:00 06/01/23 08:00 06/01/23 08:00 Laboratory Results - last 24 hr 05/31/23 14:30: WBC 5.5, RBC 4.14 L, Hgb 11.6 L, Hct 36.7 L, MCV 88.7, MCH 28.1, MCHC 31.7 L, RDW 16.5, Plt Count 213, MPV 8.1, Neut % (Auto) 58.3, Lymph % (Auto) 29.8, Jennings % (Auto) 6.8, Eos % (Auto) 4.6, Baso % (Auto) 0.5, Neut # (Auto) 3.2, Lymph # (Auto) 1.6, Jennings # (Auto) 0.4, Eos # (Auto) 0.3, Baso # (Auto) 0.0, PT 10.9, INR 1.01, Sodium 135 L, Potassium 3.9, Chloride 99, Carbon Dioxide 36 H, Anion Gap 3.9 L, BUN 8, Creatinine 0.60, Estimated Creat Clear 61, Estimated GFR 100, Est GFR ( Amer) 121, Glucose 82, Lactate 1.4, Calcium 8.9, Magnesium 1.9, Total Bilirubin 0.3, AST 27, ALT 16, Alkaline Phosphatase 73, Troponin I 0.03, NT-Pro-B Natriuret Pep 125, Total Protein 6.6, Albumin 3.6, Globulin 3.0, Albumin/Globulin Ratio 1.2, Acetone Level None detected 05/31/23 14:56: Urine Color Yellow, Urine Appearance Clear, Urine pH 6.0, Ur Specific Chloe 1.015, Urine Protein Negative, Urine Glucose (UA) Negative, Urine Ketones Negative, Urine Blood 2+, Urine Nitrate Negative, Urine Bilirubin Negative, Urine Urobilinogen 0.2, Ur Leukocyte Esterase Negative, Urine RBC 5- 10, Urine WBC Occasional, Ur Squamous Epith Cells 5-10, Urine Bacteria None 05/31/23 15:10: VBG pH 7.28 L, VBG pCO2 66.3 H, VBG pO2 35.9, VBG HCO3 30.4 H, VBG Total CO2 32.4 H, VBG O2 Saturation 64.1, VBG Base Excess 3.6 H, VBG Lactic Acid 1.7 05/31/23 15:15: SARS-CoV-2 (PCR) Not detected, Influenza A Untype (PCR) Not detected, Influenza Type B (PCR) Not detected 05/31/23 15:27: Ammonia < 9 L 05/31/23 16:55: Urine Opiates Screen Negative, Urine Methadone Screen Negative, Ur Barbituates Screen Negative, Ur Phencyclidine Scrn Negative, Ur Amphetamines Screen Negative, U Benzodiazepines Scrn Negative, Urine Cocaine Screen Negative, U Marijuana (THC) Screen Negative 05/31/23 18:32: Troponin I 0.04 H 05/31/23 19:47: APTT 27.9 05/31/23 21:39: Troponin I 0.03 06/01/23 02:10: APTT 64.7 H* 06/01/23 05:13: POC Glucose 176 H 06/01/23 09:40: WBC 5.0, RBC 4.05 L, Hgb 11.3 L, Hct 35.1 L, MCV 86.8, MCH 28.0, MCHC 32.2, RDW 16.9, Plt Count 206, MPV 8.1, Neut % (Auto) 74.9, Lymph % (Auto) 19.1, Jennings % (Auto) 5.1, Eos % (Auto) 0.5, Baso % (Auto) 0.4, Neut # (Auto) 3.7, Lymph # (Auto) 1.0, Jennings # (Auto) 0.3, Eos # (Auto) 0.0, Baso # (Auto) 0.0, APTT 39.6 H I & O for Last 24 hours: Intake & Output 05/29/23 05/30/23 05/31/23 06/01/23 11:59 11:59 11:59 11:59 Intake Total 1016 / 1016 Output Total 1050 / 1050 Balance -34 / -34 Weight 149 lb 14.382 oz Meds Home Medications and Allergies Home Medications Medication Instructions Recorded Confirmed Type benztropine 2 mg tablet 2 mg PO BID 04/08/17 05/31/23 History citalopram 20 mg tablet 20 mg PO DAILY Depression 04/08/17 06/01/23 History ondansetron 4 mg disintegrating 4 mg PO Q6HP PRN Nausea #20 tabs 01/28/22 05/31/23 Rx tablet albuterol sulfate 90 mcg/actuation 2 puff inhalation Q4HP PRN 11/03/22 06/01/23 Rx aerosol inhaler Shortness Of Breath #8.5 grams donepezil 5 mg tablet 5 mg PO HS 11/20/22 05/31/23 History loperamide 2 mg tablet 2 mg PO Q3H PRN Diarrhea 11/20/22 06/01/23 History acetaminophen 325 mg tablet 650 mg PO BID 11/21/22 05/31/23 History metformin 500 mg tablet 500 mg PO BIDWMEAL 11/21/22 05/31/23 History risperidone 3 mg tablet 3 mg PO BID 11/21/22 05/31/23 History ropinirole 2 mg tablet 1 mg PO BID 11/21/22 05/31/23 History sennosides 8.6 mg tablet (senna) 17.2 mg PO DAILYP PRN Constipation 11/21/22 05/31/23 History atorvastatin 40 mg tablet 40 mg PO DAILY 30 days #30 tabs 11/22/22 05/31/23 Rx gabapentin 400 mg capsule 400 mg PO TID Neuropathic pain #90 12/28/22 05/31/23 Rx caps clonazepam 0.5 mg tablet 0.5 mg PO BID #60 ea 01/20/23 05/31/23 Rx doxycycline hyclate 100 mg capsule 100 mg PO BID 10 days #20 caps 05/31/23 Rx famotidine 40 mg tablet 40 mg PO DAILY 05/31/23 05/31/23 History hydrochlorothiazide 12.5 mg tablet 12.5 mg PO AM 05/31/23 05/31/23 History prednisone 50 mg tablet 50 mg PO DAILY 5 days #5 tabs 05/31/23 Rx clopidogrel 75 mg tablet 75 mg PO DAILY 06/01/23 06/01/23 History trazodone 50 mg tablet 50 mg PO DAILY 06/01/23 06/01/23 History New Prescriptions to Start Prescriptions: doxycycline hyclate Radha,Louis prednisone Healy,Louis Allergies Allergy/AdvReac Type Severity Reaction Status Date / Time aspirin Allergy Intermediate edema Verified 11/20/22 18:04 Influenza Virus Vaccines AdvReac Intermediate Verified 11/20/22 18:04 Assessment and Plan *Assessment and plan (1) Elevated troponin I level: Status: Acute Category: Medical Code(s): R79.89 - Other specified abnormal findings of blood chemistry (2) Generalized weakness: Status: Acute Category: Medical Code(s): R53.1 - Weakness (3) Schizophrenia: Status: Chronic Qualifiers: Schizophrenia type: unspecified Qualified Code(s): F20.9 - Schizophrenia, unspecified Category: Medical Code(s): F20.9 - Schizophrenia, unspecified (4) Diabetes mellitus: Status: Chronic Qualifiers: Diabetes mellitus complication status: without complication Diabetes mellitus termite helper insulin use: without penitentiary use Diabetes mellitus type: type 2 Qualified Code(s): E11.9 - Type 2 diabetes mellitus without complications Category: Medical Code(s): E11.9 - Type 2 diabetes mellitus without complications (5) COPD (chronic obstructive pulmonary disease): Status: Acute Qualifiers: COPD type: unspecified COPD Qualified Code(s): J44.9 - Chronic obstructive pulmonary disease, unspecified Category: Medical Code(s): J44.9 - Chronic obstructive pulmonary disease, unspecified (6) Hypertension: Status: Chronic Qualifiers: Hypertension type: primary hypertension Qualified Code(s): I10 - Essential (primary) hypertension Category: Medical Code(s): I10 - Essential (primary) hypertension (7) Hyperlipidemia: Status: Acute Qualifiers: Hyperlipidemia type: unspecified Qualified Code(s): E78.5 - Hyperlipidemia, unspecified Category: Medical Code(s): E78.5 - Hyperlipidemia, unspecified Plan 1. Isolated Elevated troponin -continue plavix -add metoprolol for CAD -no further testing needed 2. Moderate CAD by [facility], 11/2022 -continue plavix 3. Generalized weakness 4. History of schizophrenia 5. Diabetes mellitus 6. COPD 7. Hypertension -Adding metoprolol for help with control 8. Hyperlipidemia with LDL 40 this admission -Continue statin therapy 9. PAD -recommend outpatient follow up to consider repeat LE angiography and possible stenting No plans for invasive procedures. Recommend medical therapy continuing Plavix 75 mg daily Continue atorvastatin 40 mg daily Continue HCTZ 12.5 mg daily adding metoprolol 25 mg daily adding Xarelto 2.5 mg BID for PAD Okay for discharge from cardiology standpoint Follow-up in our office in 1 to 2 weeks to readdress PAD and lower extremity weakness
[2023-06-01] MEDS: METOPROLOL SUCCINATE XL 25MG TABLET 25 MG PO (12:32)
[2023-06-01] MEDS: RIVAROXABAN 2.5MG TABLET 2.5 MG PO ×2 (12:32→18:17)
--- NOTE | 2023-06-01 12:37 | CARE MANAGER ---
Addendum entered by Tiara Olson 06/02/23 10:27: I have updated patient's State Guardian that she will discharge to [place] today. Addendum entered by Lorna Pandey RN 06/01/23 15:24: Patient has been accepted by [facility] and plan is for discharge to there in the morning. Addendum entered by Lorna Pandey RN 06/01/23 12:40: Patient is traditional Medicare, therefore will likely be discharged as ICF. Original Note: Patient is a [place] of the [facility], guardian's name is Shantelle Ernst and her cell number is [phone]. She has approved for patient's information to be sent to [facility] and [facility]. Patient will likely be SNF at discharge with plan to transition to an ICF bed once appropriate. Clinical has been faxed to both facilities. Chelsy with [facility] states that they do have a bed and are reviewing patient's information at this time. CM will continue to monitor.
[2023-06-01 12:41] LABS: POC Glucose,Bedside 132 (70-110)
[2023-06-01] MEDS: ONDANSETRON 4MG/2ML VIAL 4 MG IV (13:23)
[2023-06-01 17:08] LABS: POC Glucose,Bedside 108 (70-110)
--- NOTE | 2023-06-01 18:32 | EXP.ACUTE.PN ---
Subjective *Date: 06/01/23 *Time: 22:33 Interval history: Patient denies any pain this morning. Stable on room air. No nausea or vomiting. Alert and oriented to self and place. Weak, working with therapy. Medical Exam Vital signs and Labs for Last 24 Hours: Vital Signs Temp Pulse Pulse Resp BP BP Pulse Ox 06/01/23 16:00 97.9 F 80 18 146/66 H 98 06/01/23 15:00 06/01/23 13:00 06/01/23 12:00 80 06/01/23 12:00 98.2 F 70 21 133/65 99 06/01/23 11:00 06/01/23 09:00 06/01/23 08:00 80 06/01/23 08:00 06/01/23 08:00 98.3 F 76 19 158/74 H 98 06/01/23 06:18 06/01/23 04:33 06/01/23 04:00 64 06/01/23 04:00 98.6 F 67 16 145/58 H 98 06/01/23 02:21 06/01/23 01:00 06/01/23 00:00 98.4 F 73 16 151/64 H 98 06/01/23 00:00 79 05/31/23 23:00 05/31/23 21:00 05/31/23 20:20 98.1 F 70 18 138/70 96 05/31/23 20:18 98.1 F 70 20 148/71 H 05/31/23 20:00 O2 Del Method 06/01/23 16:00 Room Air 06/01/23 15:00 Room Air 06/01/23 13:00 Room Air 06/01/23 12:00 06/01/23 12:00 Room Air 06/01/23 11:00 Room Air 06/01/23 09:00 Room Air 06/01/23 08:00 06/01/23 08:00 Room Air 06/01/23 08:00 Room Air 06/01/23 06:18 Room Air 06/01/23 04:33 Room Air 06/01/23 04:00 06/01/23 04:00 06/01/23 02:21 Room Air 06/01/23 01:00 Room Air 06/01/23 00:00 06/01/23 00:00 05/31/23 23:00 Room Air 05/31/23 21:00 Room Air 05/31/23 20:20 05/31/23 20:18 05/31/23 20:00 Room Air Intake and Output 06/01/23 06/01/23 06/01/23 07:59 15:59 23:59 Intake Total 156 / 1206 630 / 1206 420 / 1206 Output Total 900 / 900 0 / 900 Balance 156 / 306 -270 / 306 420 / 306 Intake: Intake, Oral Amount 630 / 1050 420 / 1050 Intake, Total IV Amount 156 / 156 Heparin Sodium,Porcine/D5w 500 156 / 156 ml @ 800 UNITS/HR 16 mls/hr IV .Q25H [facility] Rx#:[id number] Output: Output, Urine Amount 900 / 900 0 / 900 Other: Number of Voids 2 2 Number of Unmeasured Voids 2 2 Number of Bowel Movements 1 Weight 67.993 kg 67.993 kg Patient Weight 06/01/23 23:59 Weight 67.993 kg Laboratory Results - last 24 hr 05/31/23 18:32: Troponin I 0.04 H 05/31/23 19:47: APTT 27.9 05/31/23 21:39: Troponin I 0.03 06/01/23 02:10: APTT 64.7 H* 06/01/23 05:13: POC Glucose 176 H 06/01/23 09:40: WBC 5.0, RBC 4.05 L, Hgb 11.3 L, Hct 35.1 L, MCV 86.8, MCH 28.0, MCHC 32.2, RDW 16.9, Plt Count 206, MPV 8.1, Neut % (Auto) 74.9, Lymph % (Auto) 19.1, Churchill % (Auto) 5.1, Eos % (Auto) 0.5, Baso % (Auto) 0.4, Neut # (Auto) 3.7, Lymph # (Auto) 1.0, Churchill # (Auto) 0.3, Eos # (Auto) 0.0, Baso # (Auto) 0.0, APTT 39.6 H, Sodium 132 L, Potassium 4.3, Chloride 99, Carbon Dioxide 31 H, Anion Gap 6.3, BUN 11 D, Creatinine 0.50 L, Estimated Creat Clear 59, Estimated GFR 123, Est GFR ( Amer) 149 D, Glucose 169 H D, Calcium 8.8, Phosphorus 2.7, Total Bilirubin 0.3, AST 25, ALT 13, Alkaline Phosphatase 76, Total Protein 5.9 L, Albumin 3.4 L, Globulin 2.5, Albumin/Globulin Ratio 1.4, Triglycerides 70, Cholesterol 101 L, LDL Cholesterol Direct 40.12 L, VLDL Cholesterol 14, HDL Cholesterol 46, Cholesterol/HDL Ratio 2.2 06/01/23 12:34: POC Glucose 132 H 06/01/23 16:37: POC Glucose 108 I & O for Labs for Last 24 Hours: Intake & Output 05/29/23 05/30/23 05/31/23 06/01/23 23:59 23:59 23:59 23:59 Intake Total 500 / 500 1206 / 1206 Output Total 150 / 150 900 / 900 Balance 350 / 350 306 / 306 Weight 64.319 kg 67.993 kg Constitutional: Present no acute distress, obese and chronically ill appearing Head: Present atraumatic and normocephalic ENT: Present normal exam Comment:: Puffy around eyes bilaterally. Neck: Present normal inspection Respiratory: Present rhonchi, wheezes and normal respiratory effort; Absent crackles Cardiac: Present Reg Rate and Rhythm GI: Present soft and normal bowel sounds; Absent distention or tenderness (female): Present deferred Extremities: Present normal inspection and full ROM Skin: Present intact; Absent erythema Neuro: Present Grossly Intact, alert, awake and moves all extremities Assessment and Plan *Assessment and plan (1) Generalized weakness: Status: Acute Category: Medical Code(s): R53.1 - Weakness (2) Elevated troponin I level: Status: Acute Category: Medical Code(s): R79.89 - Other specified abnormal findings of blood chemistry (3) COPD (chronic obstructive pulmonary disease): Status: Acute Qualifiers: COPD type: unspecified COPD Qualified Code(s): J44.9 - Chronic obstructive pulmonary disease, unspecified Category: Medical Code(s): J44.9 - Chronic obstructive pulmonary disease, unspecified (4) Hyperlipidemia: Status: Acute Qualifiers: Hyperlipidemia type: unspecified Qualified Code(s): E78.5 - Hyperlipidemia, unspecified Category: Medical Code(s): E78.5 - Hyperlipidemia, unspecified (5) Hypertension: Status: Chronic Qualifiers: Hypertension type: primary hypertension Qualified Code(s): I10 - Essential (primary) hypertension Category: Medical Code(s): I10 - Essential (primary) hypertension (6) Schizophrenia: Status: Chronic Qualifiers: Schizophrenia type: unspecified Qualified Code(s): F20.9 - Schizophrenia, unspecified Category: Medical Code(s): F20.9 - Schizophrenia, unspecified (7) Diabetes mellitus: Status: Chronic Qualifiers: Diabetes mellitus complication status: without complication Diabetes mellitus assistant terminal manager insulin use: without halfway use Diabetes mellitus type: type 2 Qualified Code(s): E11.9 - Type 2 diabetes mellitus without complications Category: Medical Code(s): E11.9 - Type 2 diabetes mellitus without complications Plan 67-year-old female, resident form [facility], who was sent to ED from her facility for evaluation of a changing condition that could be resumed as generalized weakness, unable to perform safe ADLs, and generalized pain. initial work up are grossly negative. labs work are mostly inactionable. CXR, CY and EKG as well. Due to patient not showing improvement after IV resuscitations and still c/o left shoulder pain, troponin was repeated and found to be elevated. No chest pain by morning. Admitted to medicine. Cardiology consulted to assist with care. Continues to require inpatient management. Therapy evaluated, will need placement for rehab. Problems addressed as follows: elevated troponin: generalized weakness. patient presented with c/o back pain, shoulder pain. Patient feeling somewhat better this morning. Still having shoulder and back pain but denies any chest pain. Cardiology evaluated. Had left heart cath in November with moderate CAD. Discussed case, recommend continuing medical management with Plavix. Add metoprolol for CAD and hypertension. Discontinue heparin drip. Continue Tylenol morphine as needed for pain. No further testing recommended per cardiology at this time for elevated troponin. CAD Hypertension Hyperlipidemia -Continue metoprolol 25 mg daily, Xarelto 2.5 mg twice daily for peripheral artery disease, Lipitor 40 mg daily, HCTZ 12.5 mg daily. Therapy working with patient daily. Needs placement for rehab. Continue benztropine 2mg twice daily for schizophrenia and Klonopin 0.5 mg twice daily for anxiety along with 20 mg citalopram daily. Diabetes: Sliding scale insulin and fingersticks ACHS. Full code Diabetic diet
[2023-06-01 20:20] LABS: POC Glucose,Bedside 129 (70-110)
[2023-06-01] MEDS: DONEPEZIL 5MG TAB 5 MG PO (21:31)
[2023-06-02] VITALS: BP 121/51; PULSE 58; RESP 18; TEMP 36.7; O2SAT 94
--- NOTE | 2023-06-02 02:32 | PC.NURSE ---
Patient was crawling out of the bed frequently until about 2300. Oriented to self. Confused. Patient resting well at this time. Bed alarm on. Frequent checks made.
[2023-06-02 04:00] VITALS: BP 116/48; PULSE 51; PULSE 52; RESP 18; TEMP 36.9; O2SAT 96; BMI 28.3
[2023-06-02 04:54] LABS: POC Glucose,Bedside 111 (70-110)
[2023-06-02 07:31] LABS: Basophils % 0.7 % (0.1-2.0); Eosinophils # 0.2 K/mm3 (0.0-0.4); Eosinophils % 3.6 % (0.1-12.0); Hematocrit 33.5 % (37.0-47.0); Hemoglobin 10.7 g/dL (12.2-16.2); Lymphocytes # 2.4 K/mm3 (0.7-4.5); Lymphocytes % 38.8 % (10-50); Mean Corpuscular HGB Conc 31.8 g/dL (31.8-35.4); Mean Corpuscular Hemoglobin 28.4 pg (27.0-31.2); Mean Corpuscular Volume 89.2 fl (81-99); Mean Platelet Volume 8.1 fl (7.4-10.4); Monocytes # 0.5 K/mm3 (0.1-1.0); Monocytes % 7.9 % (1.7-9.3); Neutrophils % 49.1 % (37.0-80.0); Platelet Count 219 K/mm3 (142-424); Red Blood Count 3.75 M/mm3 (4.20-5.40); White Blood Count 6.2 K/mm3 (4.8-10.8)
--- NOTE | 2023-06-02 07:45 | P.DS_ITS ---
General Admission date:: 05/31/23 Discharge date: 06/02/23 HPI HPI HPI: This is a 67-year-old female, resident form [facility], who was sent to ED from her facility for evaluation of a changing condition that could be resumed as generalized weakness, unable to perform safe ADLs, and generalized pain. Facility reported been lethargic. Patient alert and oriented during this assessment, able to communicate her needs, however poor historian. PMHx per chart review include schizophrenia, NDDM, COPD, HTN,HLD, CAD on plavix. Patient is hemodynamically stable upon arrival, afebrile. Patient currently denies chest pain fever chills hemoptysis hematochezia melena nausea vomiting diarrhea. Unknown her functional baseline. Admitted for further work up and management. Hospital Course Hospital Course Hospital Course: 67-year-old female, resident form [facility] who was sent to ED from her facility for evaluation of a changing condition described as generalized weakness, unable to perform safe ADLs, and generalized pain. initial work up are grossly negative. labs work are mostly inactionable. CXR, CY and EKG as well. Due to patient not showing improvement after IV resuscitations and still c/o left shoulder pain, troponin was repeated and found to be elevated. No chest pain by morning. Admitted to medicine. Cardiology consulted to assist with care. Medically stable for discharge at this time. Has been accepted to [facility] for further management. Problems addressed as follows: elevated troponin: generalized weakness. patient presented with c/o back pain, shoulder pain. Patient has had much pain for over 24 hours. Still has occasional shoulder and back pain. Stable on room air with hemodynamically stable vitals. Cardiology was consulted to assist with care. Had left heart cath in November with moderate CAD. Discussed case, recommend continuing medical management with Plavix. Add metoprolol for CAD and hypertension. Continue Tylenol morphine as needed for pain. No further testing recommended per cardiology at this time for elevated troponin. CAD Hypertension Hyperlipidemia -Continue metoprolol 25 mg daily, Xarelto 2.5 mg twice daily for peripheral artery disease, Lipitor 40 mg daily, HCTZ 12.5 mg daily. Therapy working with patient daily. Needs placement for rehab. Continue benztropine 2mg twice daily for schizophrenia and Klonopin 0.5 mg twice daily for anxiety along with 20 mg citalopram daily. Decrease Risperdal to 2 mg due to concern for oversedation. Diabetes: Continue oral regimen at discharge. Stable to discharge to [facility] for further care. Appreciate their assistance in management. Total time spent on discharge 32 minutes in counseling, documentation, chart review, and direct care with patient. Exam Data for Last 24 hours Vital signs and Labs for Last 24 Hours: Temp Pulse Resp BP Pulse Ox O2 Del Method 98.4 F 52 L 18 116/48 L 96 Room Air 06/02/23 04:00 06/02/23 04:00 06/02/23 04:00 06/02/23 04:00 06/02/23 04:00 06/02/23 06:31 Laboratory Results - last 24 hr 06/01/23 09:40: WBC 5.0, RBC 4.05 L, Hgb 11.3 L, Hct 35.1 L, MCV 86.8, MCH 28.0, MCHC 32.2, RDW 16.9, Plt Count 206, MPV 8.1, Neut % (Auto) 74.9, Lymph % (Auto) 19.1, [place] % (Auto) 5.1, Eos % (Auto) 0.5, Baso % (Auto) 0.4, Neut # (Auto) 3.7, Lymph # (Auto) 1.0, [place] # (Auto) 0.3, Eos # (Auto) 0.0, Baso # (Auto) 0.0, APTT 39.6 H, Sodium 132 L, Potassium 4.3, Chloride 99, Carbon Dioxide 31 H, Anion Gap 6.3, BUN 11 D, Creatinine 0.50 L, Estimated Creat Clear 59, Estimated GFR 123, Est GFR ( Amer) 149 D, Glucose 169 H D, Calcium 8.8, Phosphorus 2.7, Total Bilirubin 0.3, AST 25, ALT 13, Alkaline Phosphatase 76, Total Protein 5.9 L, Albumin 3.4 L, Globulin 2.5, Albumin/Globulin Ratio 1.4, Triglycerides 70, Cholesterol 101 L, LDL Cholesterol Direct 40.12 L, VLDL Cholesterol 14, HDL Cholesterol 46, Cholesterol/HDL Ratio 2.2 06/01/23 12:34: POC Glucose 132 H 06/01/23 16:37: POC Glucose 108 06/01/23 20:10: POC Glucose 129 H 06/02/23 04:45: POC Glucose 111 H 06/02/23 06:32: WBC 6.2, RBC 3.75 L, Hgb 10.7 L, Hct 33.5 L, MCV 89.2, MCH 28.4, MCHC 31.8, RDW 17.0, Plt Count 219, MPV 8.1, Neut % (Auto) 49.1, Lymph % (Auto) 38.8, [place] % (Auto) 7.9, Eos % (Auto) 3.6, Baso % (Auto) 0.7, Neut # (Auto) 3.0, Lymph # (Auto) 2.4, [place] # (Auto) 0.5, Eos # (Auto) 0.2, Baso # (Auto) 0.0 I & O for Last 24 hours: Intake & Output 05/30/23 05/31/23 06/01/23 06/02/23 23:59 23:59 23:59 23:59 Intake Total 500 / 500 1206 / 1446 240 / 240 Output Total 150 / 150 1100 / 1100 0 / 0 Balance 350 / 350 106 / 346 240 / 240 Weight 64.319 kg 67.993 kg 67.993 kg Constitutional Constitutional: no acute distress, average body habitus, chronically ill appearing and cooperative *Routine HEENT Exam Head: Present normocephalic and atraumatic Eye: Present EOMI and PERRL ENT: Present mucous membranes moist and oropharynx clear *Routine Neck Exam Neck: Present supple and full ROM *Routine Respiratory Exam Respiratory: Present prolonged expiratory phase, normal respiratory effort and able to speak in complete sentences; Absent accessory muscle use, rhonchi, wheezes or crackles *Routine Cardiovascular Exam Cardiovascular: Present RRR, Normal S1 and Normal S2; Absent murmur *Routine Abdominal Exam Abdominal: Present soft and normoactive bowel sounds; Absent tenderness, distended, rebound or guarding *Routine Rectal Exam Patient deferred: visual exam *Routine Exam Patient deferred: external exam *Routine Extremities Exam Extremities: Present full ROM, pulses intact and normal capillary refill; Absent edema or tenderness *Routine Neurological Exam Neurological: Present alert, CN II-XII intact, moving all extremities, normal tone and normal speech; Absent sensory deficit or motor deficit Comments: Oriented to self and situation. Results Data Completed and Pending Labs on day of discharge: Labs from last 24 hours 04/25/24 04/25/24 04/24/24 06:32 04:45 20:10 WBC 6.2 RBC 3.75 L Hgb 10.7 L Hct 33.5 L MCV 89.2 MCH 28.4 MCHC 31.8 RDW 17.0 Plt Count 219 MPV 8.1 Neut % (Auto) 49.1 Lymph % (Auto) 38.8 [place] % (Auto) 7.9 Eos % (Auto) 3.6 Baso % (Auto) 0.7 Neut # (Auto) 3.0 Lymph # (Auto) 2.4 [place] # (Auto) 0.5 Eos # (Auto) 0.2 Baso # (Auto) 0.0 APTT Sodium Potassium Chloride Carbon Dioxide Anion Gap BUN Creatinine Estimated Creat Clear Estimated GFR Est GFR ( Amer) Glucose POC Glucose 111 H 129 H Calcium Phosphorus Total Bilirubin AST ALT Alkaline Phosphatase Total Protein Albumin Globulin Albumin/Globulin Ratio Triglycerides Cholesterol LDL Cholesterol Direct VLDL Cholesterol HDL Cholesterol Cholesterol/HDL Ratio 06/01/23 06/01/23 06/01/23 16:37 12:34 09:40 WBC 5.0 RBC 4.05 L Hgb 11.3 L Hct 35.1 L MCV 86.8 MCH 28.0 MCHC 32.2 RDW 16.9 Plt Count 206 MPV 8.1 Neut % (Auto) 74.9 Lymph % (Auto) 19.1 [place] % (Auto) 5.1 Eos % (Auto) 0.5 Baso % (Auto) 0.4 Neut # (Auto) 3.7 Lymph # (Auto) 1.0 [place] # (Auto) 0.3 Eos # (Auto) 0.0 Baso # (Auto) 0.0 APTT 39.6 H Sodium 132 L Potassium 4.3 Chloride 99 Carbon Dioxide 31 H Anion Gap 6.3 BUN 11 D Creatinine 0.50 L Estimated Creat Clear 59 Estimated GFR 123 Est GFR ( Amer) 149 D Glucose 169 H D POC Glucose 108 132 H Calcium 8.8 Phosphorus 2.7 Total Bilirubin 0.3 AST 25 ALT 13 Alkaline Phosphatase 76 Total Protein 5.9 L Albumin 3.4 L Globulin 2.5 Albumin/Globulin Ratio 1.4 Triglycerides 70 Cholesterol 101 L LDL Cholesterol Direct 40.12 L VLDL Cholesterol 14 HDL Cholesterol 46 Cholesterol/HDL Ratio 2.2 DS: Diagnosis Discharge Diagnosis (1) Generalized weakness: Status: Acute Code(s): R53.1 - Weakness (2) Elevated troponin I level: Status: Acute Code(s): R79.89 - Other specified abnormal findings of blood chemistry (3) COPD (chronic obstructive pulmonary disease): Status: Acute Code(s): J44.9 - Chronic obstructive pulmonary disease, unspecified Qualifiers: COPD type: unspecified COPD Qualified Code(s): J44.9 - Chronic obstructive pulmonary disease, unspecified (4) Hyperlipidemia: Status: Acute Code(s): E78.5 - Hyperlipidemia, unspecified Qualifiers: Hyperlipidemia type: unspecified Qualified Code(s): E78.5 - Hyperlipidemia, unspecified (5) Hypertension: Status: Chronic Code(s): I10 - Essential (primary) hypertension Qualifiers: Hypertension type: primary hypertension Qualified Code(s): I10 - Essential (primary) hypertension (6) Schizophrenia: Status: Chronic Code(s): F20.9 - Schizophrenia, unspecified Qualifiers: Schizophrenia type: unspecified Qualified Code(s): F20.9 - Brady izophrenia, unspecified (7) Diabetes mellitus: Status: Chronic Code(s): E11.9 - Type 2 diabetes mellitus without complications Qualifiers: Diabetes mellitus complication status: without complication Diabetes mellitus intermediate manager insulin use: without long-term use Diabetes mellitus type: type 2 Qualified Code(s): E11.9 - Type 2 diabetes mellitus without complications Meds Home Medications and Allergies Home Medications Medication Instructions Recorded Confirmed Type benztropine 2 mg tablet 2 mg PO BID 04/08/17 05/31/23 History citalopram 20 mg tablet 20 mg PO DAILY Depression 04/08/17 06/01/23 History ondansetron 4 mg disintegrating 4 mg PO Q6HP PRN Nausea #20 tabs 01/28/22 05/31/23 Rx tablet albuterol sulfate 90 mcg/actuation 2 puff inhalation Q4HP PRN 11/03/22 06/01/23 Rx aerosol inhaler Shortness Of Breath #8.5 grams donepezil 5 mg tablet 5 mg PO HS 11/20/22 05/31/23 History loperamide 2 mg tablet 2 mg PO Q3H PRN Diarrhea 11/20/22 06/01/23 History acetaminophen 325 mg tablet 650 mg PO BID 11/21/22 05/31/23 History metformin 500 mg tablet 500 mg PO BIDWMEAL 11/21/22 05/31/23 History risperidone 3 mg tablet 3 mg PO BID 11/21/22 05/31/23 History ropinirole 2 mg tablet 1 mg PO BID 11/21/22 05/31/23 History sennosides 8.6 mg tablet (senna) 17.2 mg PO DAILYP PRN Constipation 11/21/22 05/31/23 History atorvastatin 40 mg tablet 40 mg PO DAILY 30 days #30 tabs 11/22/22 05/31/23 Rx doxycycline hyclate 100 mg capsule 100 mg PO BID 10 days #20 caps 05/31/23 Rx famotidine 40 mg tablet 40 mg PO DAILY 05/31/23 05/31/23 History hydrochlorothiazide 12.5 mg tablet 12.5 mg PO AM 05/31/23 05/31/23 History prednisone 50 mg tablet 50 mg PO DAILY 5 days #5 tabs 05/31/23 Rx clopidogrel 75 mg tablet 75 mg PO DAILY 06/01/23 06/01/23 History trazodone 50 mg tablet 50 mg PO DAILY 06/01/23 06/01/23 History clonazepam 0.5 mg tablet 0.5 mg PO BID 30 days #60 ea 06/02/23 Rx gabapentin 400 mg capsule 400 mg PO TID Neuropathic pain 30 06/02/23 Rx days #90 caps metoprolol succinate 25 mg 25 mg PO DAILY 30 days #30 tabs 06/02/23 Rx tablet,extended release 24 hr New Prescriptions to Start Prescriptions: clonazepam Robert Jaramillo doxycycline hyclate Louis Garcia gabapentin Robert Jaramillo metoprolol succinate Robert Jaramillo prednisone Louis Garcia Allergies Allergy/AdvReac Type Severity Reaction Status Date / Time aspirin Allergy Intermediate edema Verified 11/20/22 18:04 Influenza Virus Vaccines AdvReac Intermediate Verified 11/20/22 18:04 Discharge Plan Disposition Patient Disposition: Xfer SNF Condition: Fair Follow up Plan Follow up with: Montrell Fritz MD [Staff Physician] - Enter time for follow up Prescriptions/Medication Reconciliation: New prednisone 50 mg tablet 50 mg PO DAILY 5 Days Qty: 5 0RF doxycycline hyclate 100 mg capsule 100 mg PO BID 10 Days Qty: 20 0RF metoprolol succinate 25 mg Tablet Extended Release 24 Hr 25 mg PO DAILY 30 Days Qty: 30 0RF Continued albuterol sulfate 90 mcg/actuation HFA aerosol inhaler 2 puff inhalation Q4HP PRN (Reason: Shortness Of Breath) Qty: 8.5 6RF famotidine 40 mg tablet 40 mg PO DAILY hydrochlorothiazide 12.5 mg tablet 12.5 mg PO AM trazodone 50 mg tablet 50 mg PO DAILY clopidogrel 75 mg tablet 75 mg PO DAILY clonazepam 0.5 mg tablet 0.5 mg PO BID 30 Days Qty: 60 0RF gabapentin 400 mg capsule 400 mg PO TID 30 Days Qty: 90 5RF citalopram 20 MG tablet 20 mg PO DAILY benztropine 2 MG tablet 2 mg PO BID ondansetron 4 MG tablet,disintegrating 4 mg PO Q6HP PRN (Reason: Nausea) Qty: 20 0RF loperamide 2 mg Tablet 2 mg PO Q3H PRN (Reason: Diarrhea) donepezil 5 mg Tablet 5 mg PO HS metformin 500 mg tablet 500 mg PO BIDWMEAL sennosides [senna] 8.6 mg Tablet 17.2 mg PO DAILYP PRN (Reason: Constipation) acetaminophen 325 mg Tablet 650 mg PO BID risperidone 3 mg tablet 3 mg PO BID ropinirole 2 mg tablet 1 mg PO BID atorvastatin 40 mg Tablet 40 mg PO DAILY 30 Days Qty: 30 0RF Problem Reconciliation Problems Reviewed?: Yes Patient Discharge Instructions ACTIVITY: Ambulate as tolerated and Up with assistance DIET: continue same diet Patient Instructions: Chronic Obstructive Pulmonary Disease (Alternative Therapy) Providers Primary Care Provider: Bobby Bates Admit Provider: Robert Jaramillo Attending Provider: Robert Jaramillo
[2023-06-02 08:51] LABS: Chloride 100 mmol/L (98-107); Sodium 133 mmol/L (136-145)
[2023-06-02 08:54] LABS: Blood Urea Nitrogen 18 mg/dl (7-17); Creatinine Clearance Estimated 59 mL/min (50-200); Estimated Glomerular Filt Rate 72 ml/min (>60); GFR (African American) 87 ML/MIN (>60)
[2023-06-02 08:55] LABS: Calcium 8.6 mg/dl (8.4-10.2); Carbon Dioxide 34 mmol/L (22.0-30.0); Glucose 95 mg/dl (74-100)
[2023-06-02] MEDS: CLOPIDOGREL 75MG TAB 75 MG PO (09:31)
[2023-06-02] MEDS: GABAPENTIN 400MG CAPSULE 400 MG PO (09:31)
[2023-06-02] MEDS: ATORVASTATIN 40MG TABLET 40 MG PO (09:31)
[2023-06-02] MEDS: ROPINIROLE 1MG TABLET 1 MG PO (09:31)
[2023-06-02] MEDS: CITALOPRAM 20MG TABLET 20 MG PO (09:31)
[2023-06-02] MEDS: hydroCHLOROthiazide 12.5MG CAPSULE 12.5 MG PO (09:31)
[2023-06-02] MEDS: METOPROLOL SUCCINATE XL 25MG TABLET 25 MG PO (09:31)
[2023-06-02] MEDS: risperiDONE 1MG TABLET 3 MG PO (09:32)
[2023-06-02] MEDS: PANTOPRAZOLE 40MG TABLET 40 MG PO (09:33)
[2023-06-02] MEDS: FAMOTIDINE 20MG TABLET 40 MG PO (09:33)
[2023-06-02] MEDS: BENZTROPINE 1MG TABLET 2 MG PO (09:33)
[2023-06-02] MEDS: RIVAROXABAN 2.5MG TABLET 2.5 MG PO (09:36)
== END 2023-06-02 11:44 ==
LOC: ER 18:44 → 2ND 19:41
PROVIDERS: Nurse Practitioner Family; Physician Assistant; Admitting Provider Internal Medicine Adolescent Medicine; Emergency Provider Emergency Medicine; PCP Nurse Practitioner Acute Care; Visit Provider Internal Medicine Adolescent Medicine
DX: R79.89 Other specified abnormal findings of blood chemistry; R53.1 Weakness; J44.9 Chronic obstructive pulmonary disease, unspecified; E78.5 Hyperlipidemia, unspecified; I10 Essential (primary) hypertension; F20.9 Schizophrenia, unspecified; E11.9 Type 2 diabetes mellitus without complications; Z79.899 Other long term (current) drug therapy; I25.10 Atherosclerotic heart disease of native coronary artery without angina pectoris; Z79.84 Long term (current) use of oral hypoglycemic drugs
CPT/HCPCS: 36415; 70450; 71045; 80048; 80053; 80061; 80307; 81001; 82009; 82140; 82803; 82962; 83605; 83735; 83880; 84100; 84484; 85025; 85610; 85730; 87636; 93005; 97162; 97165; 97530; 99291; G0378; J2405

== ENCOUNTER 2023-06-21 08:16 | Outpatient (CLI) | payer MEDICARE, MEDICAID, SELFPAY ==
[2023-06-21 08:37] LABS: Basophils % 0.6 % (0.1-2.0); Eosinophils % 0.3 % (0.1-12.0); Hematocrit 35.4 % (37.0-47.0); Hemoglobin 11.5 g/dL (12.2-16.2); Lymphocytes # 1.1 K/mm3 (0.7-4.5); Lymphocytes % 14.6 % (10-50); Mean Corpuscular HGB Conc 32.4 g/dL (31.8-35.4); Mean Corpuscular Hemoglobin 28.2 pg (27.0-31.2); Mean Platelet Volume 8.3 fl (7.4-10.4); Monocytes # 0.6 K/mm3 (0.1-1.0); Monocytes % 8.4 % (1.7-9.3); Neutrophils # 5.7 K/mm3 (1.8-7.8); Neutrophils % 76.3 % (37.0-80.0); Platelet Count 163 K/mm3 (142-424); Red Blood Count 4.08 M/mm3 (4.20-5.40); Red Cell Distribution Width 17.3 % (11.5-17.5); White Blood Count 7.5 K/mm3 (4.8-10.8)
[2023-06-21 09:10] LABS: Erythrocyte Sedimentation Rate 32 mm/hr (0-30)
[2023-06-21 10:04] LABS: Alanine Aminotransferase 22 U/L (12-78); Albumin Level 3.6 g/dl (3.5-5.0); Albumin/Globulin Ratio 1.3 (1.1-1.8); Alkaline Phosphatase 75 U/L (38-126); Anion Gap 14.2 mEq/L (5-15); Aspartate Amino Transferase 42 U/L (14-36); Bilirubin,Total 0.4 mg/dl (0.2-1.3); Blood Urea Nitrogen 22 mg/dl (7-17); Calcium 8.9 mg/dl (8.4-10.2); Carbon Dioxide 25 mmol/L (22.0-30.0); Chloride 93 mmol/L (98-107); Estimated Glomerular Filt Rate 84 ml/min (>60); GFR (African American) 101 ML/MIN (>60); Globulin 2.7 g/dL (1.3-3.2); Glucose 131 mg/dl (74-100); Potassium 4.2 mmoL/L (3.5-5.1); Sodium 128 mmol/L (136-145); Total Protein,Serum 6.3 g/dl (6.3-8.2)
== END 2023-06-21 23:59 | disposition home or self-care (01) ==
LOC: LAB.DROPOF 08:18
PROVIDERS: PCP Internal Medicine Adolescent Medicine; Visit Provider Internal Medicine Adolescent Medicine
DX: J44.9 Chronic obstructive pulmonary disease, unspecified (principal)
CPT/HCPCS: 80053; 85025; 85651

== ENCOUNTER 2023-11-17 14:17 | Outpatient (CLI) | payer MEDICARE, SELFPAY ==
[2023-11-17 16:19] LABS: Occult Blood,Stool Negative (Negative)
== END 2023-11-17 23:59 | disposition home or self-care (01) ==
LOC: LAB.DROPOF 14:27
PROVIDERS: PCP Nurse Practitioner Family; Visit Provider Nurse Practitioner Family
DX: D64.9 Anemia, unspecified (principal)
CPT/HCPCS: 82272; G0328

== ENCOUNTER 2023-11-20 11:33 | Outpatient (CLI) | payer MEDICARE, SELFPAY ==
[2023-11-20 14:28] LABS: Occult Blood,Stool Negative (Negative)
== END 2023-11-20 23:59 | disposition home or self-care (01) ==
LOC: LAB 11:33
PROVIDERS: PCP Nurse Practitioner Family; Visit Provider Nurse Practitioner Family
DX: D64.9 Anemia, unspecified (principal)
CPT/HCPCS: 82272; G0328

== ENCOUNTER 2023-12-03 17:51 | Outpatient (CLI) | payer MEDICARE, SELFPAY ==
[2023-12-03 18:37] LABS: Chloride 97 mmol/L (98-107); Potassium 4.5 mmoL/L (3.5-5.1); Sodium 131 mmol/L (136-145)
[2023-12-03 18:40] LABS: Anion Gap 8.5 mEq/L (5-15); Blood Urea Nitrogen 15 mg/dl (7-17); Calcium 8.6 mg/dl (8.4-10.2); Carbon Dioxide 30 mmol/L (22.0-30.0); Estimated Glomerular Filt Rate 72 ml/min (>60); GFR (African American) 87 ML/MIN (>60); Glucose 130 mg/dl (74-100)
[2023-12-03 19:30] LABS: Basophils # 0.1 K/mm3 (0-0.2); Basophils % 0.6 % (0.1-2.0); Eosinophils # 0.3 K/mm3 (0.0-0.4); Eosinophils % 3.5 % (0.1-12.0); Lymphocytes # 1.8 K/mm3 (0.7-4.5); Mean Corpuscular HGB Conc 33.3 g/dL (31.8-35.4); Mean Corpuscular Hemoglobin 28.9 pg (27.0-31.2); Mean Corpuscular Volume 86.9 fl (81-99); Mean Platelet Volume 7.4 fl (7.4-10.4); Monocytes # 0.8 K/mm3 (0.1-1.0); Monocytes % 9.8 % (1.7-9.3); Neutrophils # 4.9 K/mm3 (1.8-7.8); Neutrophils % 63.1 % (37.0-80.0); Platelet Count 223 K/mm3 (142-424); Red Blood Count 3.11 M/mm3 (4.20-5.40); Red Cell Distribution Width 15.6 % (11.5-17.5); White Blood Count 7.7 K/mm3 (4.8-10.8)
== END 2023-12-03 23:59 | disposition home or self-care (01) ==
LOC: LAB.DROPOF 17:58
PROVIDERS: PCP Nurse Practitioner Family; Visit Provider Nurse Practitioner Family
DX: D64.9 Anemia, unspecified (principal); R53.1 Weakness
CPT/HCPCS: 80048; 85025

== ENCOUNTER 2024-02-01 08:51 | Inpatient (IN) | payer MEDICAID, MEDICARE, SELFPAY ==
[2024-02-01] VITALS (15 sets, daily range): BP systolic 119–159; BP diastolic 55–100; PULSE 46–107; RESP 18–19; TEMP 36.7–37.2; O2SAT 91–99; BMI 33.7; BMI 34.9
--- NOTE | 2024-02-01 10:28 | XR_ITS ---
PROCEDURE INFORMATION: Exam: XR Chest Exam date and time: 02/01/2024 11:09 AM Age: 68 years old Clinical indication: Cough and dyspnea TECHNIQUE: Imaging protocol: Radiologic exam of the chest. Views: 1 view. COMPARISON: CR XR CHEST PORTABLE 05/31/2023 3:06 PM FINDINGS: Lungs: Low lung volumes with bronchovascular crowding. No focal consolidation. Pleural spaces: Unremarkable. No pleural effusion. No pneumothorax. Heart/Mediastinum: Cardiomediastinal silhouette is unremarkable for technique. Bones/joints: Unremarkable. Other findings: Mild rightward rotation. IMPRESSION: No focal consolidation.
--- NOTE | 2024-02-01 10:31 | ED_ITS ---
Discharge Plan Disposition Patient Disposition: Admitted Chief Complaint: Nausea/Vomiting/Diarrhea Prescriptions Prescriptions: No Action albuterol sulfate 90 mcg/actuation HFA aerosol inhaler 2 puff inhalation Q4HP PRN (Reason: Shortness Of Breath) Qty: 8.5 6RF famotidine 40 mg tablet 40 mg PO DAILY hydrochlorothiazide 12.5 mg tablet 12.5 mg PO AM trazodone 50 mg tablet 50 mg PO DAILY clopidogrel 75 mg tablet 75 mg PO DAILY metoprolol succinate 25 mg Tablet Extended Release 24 Hr 25 mg PO DAILY 30 Days Qty: 30 0RF clonazepam 0.5 mg tablet 0.5 mg PO BID 30 Days Qty: 60 0RF gabapentin 400 mg capsule 400 mg PO TID 30 Days Qty: 90 5RF risperidone 1 mg Tablet 2 mg PO BID 30 Days Qty: 120 0RF Xarelto 2.5 mg Tablet 2.5 mg PO BIDWMEAL Qty: 0 0RF citalopram 20 MG tablet 20 mg PO DAILY benztropine 2 MG tablet 2 mg PO BID ondansetron 4 MG tablet,disintegrating 4 mg PO Q6HP PRN (Reason: Nausea) Qty: 20 0RF loperamide 2 mg Tablet 2 mg PO Q3H PRN (Reason: Diarrhea) donepezil 5 mg Tablet 5 mg PO HS metformin 500 mg tablet 500 mg PO BIDWMEAL sennosides [senna] 8.6 mg Tablet 17.2 mg PO DAILYP PRN (Reason: Constipation) acetaminophen 325 mg Tablet 650 mg PO BID ropinirole 2 mg tablet 1 mg PO BID atorvastatin 40 mg Tablet 40 mg PO DAILY 30 Days Qty: 30 0RF Referrals Follow up/Referrals: Bobby Bates APRN [Primary Care Provider] - See instructions Clinical Impressions Clinical Impression: Acute exacerbation of chronic obstructive pulmonary disease, Hyponatremia, UGIB (upper gastrointestinal bleed) Instructions Patient Instructions: DI for Diarrhea and Traveler's Diarrhea -- Adult, DI for Diarrhea and Traveler's Diarrhea -- Child, DI for Nausea -- Adult, DI for Nausea -- Child Print Language Print Language: Somali Discharge ED Provider: Pasquale Bernal General Adult HPI General Chief complaint: Nausea/Vomiting/Diarrhea Stated complaint: Poss GI Time Seen by Provider: 02/01/24 10:10 Mode of Arrival: EMS Source of Information: Patient Limitations: No Limitations Description of Symptoms (Recalled from ER Triage Doc. by RN): per pt cough only. per EMS called to facility pt vomiting coffee ground emesis. History of Present Illness HPI narrative: Patient is a 68-year-old female with past medical history of hypertension, COPD, diabetes who presents emergency department for multiple complaints. For the last 3 to 4 weeks she has had persistent cough which has gotten any better. She has also had 2 episodes of black emesis per day for weeks when you ask her, staff noticed that this morning and called 911 so she can present here for continued evaluation at her long-term care facility. Denies chest pain or abdominal pain. Related Data Home Medications ?Medication ?Instructions ?Recorded ?Confirmed benztropine 2 mg tablet 2 mg PO BID 04/08/17 05/31/23 citalopram 20 mg tablet 20 mg PO DAILY Depression 04/08/17 06/01/23 donepezil 5 mg tablet 5 mg PO HS 11/20/22 05/31/23 loperamide 2 mg tablet 2 mg PO Q3H PRN Diarrhea 11/20/22 06/01/23 acetaminophen 325 mg tablet 650 mg PO BID 11/21/22 05/31/23 metformin 500 mg tablet 500 mg PO BIDWMEAL 11/21/22 05/31/23 ropinirole 2 mg tablet 1 mg PO BID 11/21/22 05/31/23 sennosides 8.6 mg tablet (senna) 17.2 mg PO DAILYP PRN Constipation 11/21/22 05/31/23 famotidine 40 mg tablet 40 mg PO DAILY 05/31/23 05/31/23 hydrochlorothiazide 12.5 mg tablet 12.5 mg PO AM 05/31/23 05/31/23 clopidogrel 75 mg tablet 75 mg PO DAILY 06/01/23 06/01/23 trazodone 50 mg tablet 50 mg PO DAILY 06/01/23 06/01/23 Previous Rx's ?Medication ?Instructions ?Recorded ondansetron 4 mg disintegrating 4 mg PO Q6HP PRN Nausea #20 tabs 01/28/22 tablet albuterol sulfate 90 mcg/actuation 2 puff inhalation Q4HP PRN 11/03/22 aerosol inhaler Shortness Of Breath #8.5 grams atorvastatin 40 mg tablet 40 mg PO DAILY 30 days #30 tabs 11/22/22 clonazepam 0.5 mg tablet 0.5 mg PO BID 30 days #60 ea 06/02/23 gabapentin 400 mg capsule 400 mg PO TID Neuropathic pain 30 06/02/23 days #90 caps metoprolol succinate 25 mg 25 mg PO DAILY 30 days #30 tabs 06/02/23 tablet,extended release 24 hr risperidone 1 mg tablet 2 mg (2 x 1 mg) PO BID 30 days 06/02/23 #120 tabs rivaroxaban 2.5 mg tablet (Xarelto) 2.5 mg PO BIDWMEAL #0 tabs 06/02/23 Allergies Allergy/AdvReac Type Severity Reaction Status Date / Time aspirin Allergy Intermediate edema Verified 11/20/22 18:04 Influenza Virus Vaccines AdvReac Intermediate Verified 11/20/22 18:04 PFSH [facility] Disclaimer: The information contained in this section may have been updated after the patient was seen, as this information can be updated by other users. Medical History Coronary artery calcification seen on CAT scan Dyspnea Abnormal ankle brachial index (CECE) Abnormal electrocardiogram [ECG] [EKG] Hypertension Schizophrenia Seizure Depression HTN (hypertension) Family History Other No significant family history Social History (Updated 05/31/23 @ 21:15 by Makeda Mcgrath RN) Smoking Status: Unknown if ever smoked alcohol intake: never substance use type: denies use current occupational status: disabled and other Travel in the last 8 weeks: None household members: other housing: assisted living facility current occupational exposures/hazards: No caffeine: Yes Have you lived/traveled outside [place] in past 30 days?: No Contact w/someone who lives/traveled outside [place] past 30 days?: No Exposure to someone with infectious disease in past 14 days?: No Do you have a fever (greater than 100.4 F or 38 C)?: No Have you tested positive for COVID-19: No Exposed to someone with COVID-19 in past 14 days?: No Do you have a sore throat?: No Do you have a cough?: No Do you have any weakness?: No Do you have any diarrhea?: No Are you experiencing any unusual bleeding?: No Do you have any muscle aches/pain?: No Do you have any abdominal pain?: No Are you experiencing loss of taste or smell?: No Other Medical History Have you received the Flu Vaccine for this season: No Have you received the Pneumonia Vaccine: No ROS Obtained: Yes Systems reviewed as appropriate & no additional complaints except as documented Physical Exam General General appearance: alert and in no apparent distress Head Head exam: atraumatic and normocephalic Eye Eye exam: Present PERRL ENT ENT exam: Present mucous membranes moist Neck Neck exam: Present normal inspection Chest Chest inspection: Present normal inspection and symmetric chest wall rise Respiratory Respiratory exam: Present wheezes (Biphasic all lung crowder); Absent normal lung sounds bilaterally or respiratory distress Cardiovascular Cardiovascular exam: Present regular rate and normal rhythm Abdominal Exam Abdominal exam: Present soft; Absent tenderness Extremities Exam Extremities exam: Present normal inspection Neurological Exam Neurological exam: Present alert Psychiatric Psychiatric exam: Present normal affect Skin Skin exam: Present warm and dry Medical Decision Making Medical Records Screening: Per USPSTF and CDC recommendations, given the prevalence of disease in our region, it is our hospital?s policy to screen for HIV and viral Hepatitis for all patients aged 18 and over and those with ongoing risk factors. 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 Pt receiving controlled substance: No Vital Signs: 02/01/24 09:17 02/01/24 09:31 02/01/24 10:03 Temperature 98.5 F Temperature Source Oral Pulse Rate 88 84 Pulse Rate [Right Radial] 85 Respiratory Rate 18 Blood Pressure 132/55 L 159/64 H Blood Pressure [Right Arm] 155/63 H Blood Pressure Mean 80 Blood Pressure Mean [Right Arm] 93 02 Sat by Pulse Oximetry 95 93 L 98 Oxygen Delivery Method Room Air Room Air Room Air 02/01/24 10:34 02/01/24 11:10 02/01/24 12:00 Temperature Temperature Source Pulse Rate 81 84 102 H Pulse Rate [Right Radial] Respiratory Rate Blood Pressure 148/59 H 147/66 H 146/73 H Blood Pressure [Right Arm] Blood Pressure Mean 97 Blood Pressure Mean [Right Arm] 02 Sat by Pulse Oximetry 98 94 L 92 L Oxygen Delivery Method Room Air Room Air Room Air 02/01/24 12:31 02/01/24 12:45 Temperature Temperature Source Pulse Rate 100 H 46 L Pulse Rate [Right Radial] Respiratory Rate Blood Pressure 122/83 122/83 Blood Pressure [Right Arm] Blood Pressure Mean 96 Blood Pressure Mean [Right Arm] 02 Sat by Pulse Oximetry 91 L 91 L Oxygen Delivery Method Room Air Lab Data Lab Results 02/01/24 09:15: WBC 8.7, RBC 3.10 L, Hgb 8.9 L, Hct 27.7 L, MCV 89.4, MCH 28.7, MCHC 32.1, RDW 15.3, Plt Count 236, MPV 9.3, Neut % (Auto) 73.3, Lymph % (Auto) 13.2, [place] % (Auto) 7.4, Eos % (Auto) 4.4, Baso % (Auto) 0.3, Neut # (Auto) 6.4, Lymph # (Auto) 1.2, [place] # (Auto) 0.7, Eos # (Auto) 0.4, Baso # (Auto) 0.0, PT 10.8, INR 0.96, Sodium 125 L, Potassium 4.6, Chloride 93 L, Carbon Dioxide 32 H, Anion Gap 4.6 L, BUN 29 H, Creatinine 0.80, Estimated Creat Clear 77, Estimated GFR 72, Est GFR ( Amer) 87, Glucose 145 H, Calcium 8.6, Magnesium 1.7, Total Bilirubin 0.2, AST 37 H, ALT 18, Alkaline Phosphatase 78, Total Protein 6.6, Albumin 3.5, Globulin 3.1, Albumin/Globulin Ratio 1.1, Lipase 28, HIV Ag/Ab Combo Qual Negative 02/01/24 10:50: Blood Type O Positive, Antibody Screen Negative 02/01/24 11:05: SARS-CoV-2 (PCR) Not detected, Influenza A Untype (PCR) Not detected, Influenza Type B (PCR) Not detected 02/01/24 11:13: VBG pH 7.38, VBG pCO2 54.2 H, VBG pO2 53.0 H, VBG HCO3 31.6 H, V BG Total CO2 33.3 H, VBG O2 Saturation 85.7 H, VBG Base Excess 6.6 H, VBG Lactic Acid 1.8 02/01/24 09:15 02/01/24 09:15 Orders (Tests/Meds): ED MEDICATIONS Generic Name Dose Route Start Last Admin Trade Name Freq PRN Reason Stop Dose Admin Lidocaine HCl 5 ml 02/01/24 13:03 Lidocaine 2% 5ml Pf Vial IH 02/01/24 13:04 ONCE ONE Sodium Chloride 10 ml 02/01/24 10:30 Sodium Chloride 0.9% 10ml Vial IV 03/02/24 10:29 NEEDED PRN dilute protonix Discontinued Medications Generic Name Dose Route Start Last Admin Trade Name Iggyq PRN Reason Stop Dose Admin Albuterol/Ipratropium 9 ml 02/01/24 10:28 02/01/24 10:53 Ipratropium/Albuterol 3 Ml Neb 02/01/24 10:29 9 ml ONCE ONE Administration Azithromycin 500 mg 02/01/24 10:28 02/01/24 11:29 Azithromycin 250mg Tablet PO 02/01/24 10:29 500 mg ONCE ONE Administration Methylprednisolone Sodium Succinate 125 mg 02/01/24 10:28 02/01/24 10:54 Methylprednisolone Sod Succ 125mg Vial IV 02/01/24 10:29 125 mg ONCE ONE Administration Pantoprazole Sodium 40 mg 02/01/24 10:30 02/01/24 10:55 Pantoprazole 40mg Vial IV 02/01/24 10:31 40 mg ONCE ONE Administration ORDERS Category Date Time Status Type and Screen Stat BBK 02/01/24 10:50 Completed CXR --portable [XR chest portable] Stat Exams 02/01/24 10:28 Completed CBC w/Auto Diff [Complete Blood Count Auto Diff] Stat Lab 02/01/24 09:15 Completed CMP [Comprehensive Metabolic Panel] Stat Lab 02/01/24 09:15 Completed Complete Blood Count Auto Diff AMLAB Lab 02/02/24 06:00 Ordered Comprehensive Metabolic Panel AMLAB Lab 02/02/24 06:00 Ordered HIV Combo Stat Lab 02/01/24 09:15 Completed Hep C Ab with Reflex to RNA Stat Lab 02/01/24 09:15 Received Lipase Stat Lab 02/01/24 09:15 Completed MG [Magnesium] Stat Lab 02/01/24 09:15 Completed Magnesium AMLAB Lab 02/02/24 06:00 Ordered PT INR [Prothrombin Time INR] Stat Lab 02/01/24 09:15 Completed Rapid PCR Covid and Flu A/B Stat Lab 02/01/24 11:05 Completed VBG [Venous Blood Gas] Stat RT 02/01/24 11:13 Completed EKG Request [ECG Request] Stat Y 02/01/24 10:31 Ordered ECG Data Tracing #1: Independently interpreted by me rate is 83, rhythm is regular, axis is normal, no ST elevation in anatomical contiguous leads, QTc 392. Medical Decision Narrative: In summary patient is 68-year-old female past medical history described above who presents emergency department for evaluation of cough, wheezing, coffee- ground emesis. Patient is hemodynamically stable nontoxic-appearing upon arrival, afebrile. With respect to cough and wheezing she has a history of COPD for which differential includes viral COPD exacerbation versus pneumonia. Workup with respect to this will be conducted with chest x-ray, hematologic labs, EKG, troponin, VBG. Coffee-ground emesis concerning for upper GI bleed for which Protonix will be given, differential includes gastric ulcer, among others. She has no comorbidities to suggest variceal upper GI bleed. She is anticoagulated for more high risk. Type and screen will be obtained. Initial workup reviewed by me, hemoglobin 8.9 which is stable from November however downtrending from earlier this year. No thrombocytopenia, compensated acid-base status, uremia minimal at 29, no other critical electrolyte abnormality, minimally elevated BUN, COVID-negative. Glascow [place] bleeding score 11 is high risk for GI bleed. Upon repeat evaluation patient had significant improvement in wheezing however had persistent cough which lidocaine neb will be administered. Case was discussed with Dr. Jaramillo regarding management patient be admitted to his service for continued evaluation at this time. Critical Care Critical Care Time Critical Care Time: Yes Attestation: On 02/01/24, the high probability of a clinically significant, sudden or life threatening deterioration of the following system(s) required my full and direct attention, intervention and personal management. The time I documented below is in addition to time spent performing reported procedures but includes the following listed in this critical care notation. Total Time Total Critical Care Time: 35
[2024-02-01 10:42] LABS: Albumin Level 3.5 g/dl (3.5-5.0); Chloride 93 mmol/L (98-107); Hematocrit 27.7 % (37.0-47.0); Hemoglobin 8.9 g/dL (12.2-16.2); Mean Corpuscular HGB Conc 32.1 g/dL (31.8-35.4); Mean Corpuscular Hemoglobin 28.7 pg (27.0-31.2); Mean Corpuscular Volume 89.4 fl (81-99); Platelet Count 236 K/mm3 (142-424); Potassium 4.6 mmoL/L (3.5-5.1); Red Cell Distribution Width 15.3 % (11.5-17.5); Sodium 125 mmol/L (136-145); White Blood Count 8.7 K/mm3 (4.8-10.8)
[2024-02-01 10:43] LABS: Basophils % 0.3 % (0.1-2.0); Eosinophils # 0.4 K/mm3 (0.0-0.4); Eosinophils % 4.4 % (0.1-12.0); INR 0.96 (0.9-1.1); Lymphocytes # 1.2 K/mm3 (0.7-4.5); Lymphocytes % 13.2 % (10-50); Mean Platelet Volume 9.3 fl (7.4-10.4); Monocytes # 0.7 K/mm3 (0.1-1.0); Monocytes % 7.4 % (1.7-9.3); Neutrophils # 6.4 K/mm3 (1.8-7.8); Neutrophils % 73.3 % (37.0-80.0); Prothrombin Time 10.8 seconds (10.1-12.5)
[2024-02-01 10:45] LABS: Alanine Aminotransferase 18 U/L (12-78); Albumin/Globulin Ratio 1.1 (1.1-1.8); Alkaline Phosphatase 78 U/L (38-126); Anion Gap 4.6 mEq/L (5-15); Aspartate Amino Transferase 37 U/L (14-36); Bilirubin,Total 0.2 mg/dl (0.2-1.3); Blood Urea Nitrogen 29 mg/dl (7-17); Carbon Dioxide 32 mmol/L (22.0-30.0); Creatinine Clearance Estimated 77 mL/min (50-200); Estimated Glomerular Filt Rate 72 ml/min (>60); GFR (African American) 87 ML/MIN (>60); Globulin 3.1 g/dL (1.3-3.2); Lipase 28 U/L (23-300); Total Protein,Serum 6.6 g/dl (6.3-8.2)
[2024-02-01 10:46] LABS: Calcium 8.6 mg/dl (8.4-10.2); Glucose 145 mg/dl (74-100)
[2024-02-01] MEDS: IPRATROPIUM/ALBUTEROL 3 ML NEB 9 ML IH (10:53)
[2024-02-01] MEDS: METHYLPREDNISOLONE SOD SUCC 125MG VIAL 125 MG IV (10:54)
[2024-02-01] MEDS: PANTOPRAZOLE 40MG VIAL 40 MG IV ×2 (10:55→20:38)
--- NOTE | 2024-02-01 11:10 | ECG_ITS ---
APPROVED REPORT Exam: Resting ECG HR:83 bpm ECG Measurements Heart Rate 83 AXES ID 188 P 65 QRSd 100 QRS 50 QT 352 T 60 QTc 392 Conclusion SINUS RHYTHM NORMAL ECG Electronically signed by : MAT ALVARADO, 02/01/2024 15:29:09
[2024-02-01 11:12] LABS: Coronavirus 19, PCR Not Detected (NotDetected); Influenza A, PCR Not Detected (NotDetected); Influenza B, PCR Not Detected (NotDetected)
[2024-02-01 11:22] LABS: Magnesium 1.7 mg/dl (1.6-2.3)
[2024-02-01 11:22] LABS: Lactate Venous 1.8 mmol/L (0.4-2.0); VBG Base Excess 6.6 mmol/L (-2.4-2.3); VBG HCO3 31.6 mmol/L (23-30); VBG Oxygen Saturation 85.7 % (50-70); VBG PH 7.38 mmol/L (7.31-7.41); VBG Total CO2 33.3 mmol/L (23-27)
[2024-02-01 11:25] LABS: VBG PCO2 54.2 mmol/L (35-51)
[2024-02-01] MEDS: AZITHROMYCIN 250MG TABLET 500 MG PO (11:29)
[2024-02-01 12:25] LABS: HIV Combo NEGATIVE (Negative)
--- NOTE | 2024-02-01 13:33 | PC.NURSE ---
call made to section housekeeper for bed assignment
--- NOTE | 2024-02-01 13:37 | P.HP_ITS ---
History of Present Illness *Admission Date: 02/01/24 *Reason for visit:: Cough with posttussive emesis, coffee-ground emesis *History of present illness: Ms. Cowan is a 68-year-old female who previously resided at [facility]. After last admission, was discharged to [place] for further management due to debility. She presents today because of persistent cough for several weeks and posttussive emesis. Emesis has been accompanied by coffee grounds the past few days. Denies any chest pain but does complain of nausea and upset stomach. Cough is quite bothersome to her. On 2 L oxygen on presentation to the ER due to hypoxia. Remains afebrile. At base and patient. Denies any black stool. On workup in the ER, found to be persistently anemic with hemoglobin 8.9. Most recent hemoglobin of 9 in November. White count normal 8.7. Sodium low at 125. Kidney function normal with BUN 29, creatinine 0.8. Does appear slightly dry given the BUN/creatinine ratio greater than 20. Medicine was consulted for admission due to her posttussive emesis with concern for hematemesis and pe rsistent anemia. On arrival to the floor, patient is stable on 2 L oxygen. Sats in the 90s. Denies any fever, confusion. Is just asking for coffee. Does complain of coughing to the point she has vomited. Stopped smoking after being admitted to [place]. Complains of restless leg. No other complaints such as swelling of legs, focal neurologic symptoms, or increased phlegm production. [facility] Disclaimer: The information contained in this section may have been updated after the patient was seen, as this information can be updated by other users. Medical History Coronary artery calcification seen on CAT scan Dyspnea Abnormal ankle brachial index (CECE) Abnormal electrocardiogram [ECG] [EKG] Hypertension Schizophrenia Seizure Depression HTN (hypertension) Family History Other No significant family history Social History Smoking Status: Current every day smoker tobacco type: cigarettes packs per day: 1 alcohol intake: never substance use type: denies use current occupational status: disabled and other Travel in the last 8 weeks: None household members: other housing: assisted living facility current occupational exposures/hazards: No caffeine: Yes Have you lived/traveled outside US in past 30 days?: No Contact w/someone who lives/traveled outside US past 30 days?: No Exposure to someone with infectious disease in past 14 days?: No Do you have a fever (greater than 100.4 F or 38 C)?: No Have you tested positive for COVID-19: No Exposed to someone with COVID-19 in past 14 days?: No Do you have a sore throat?: No Do you have a cough?: No Do you have any weakness?: No Are you experiencing any nausea/vomitting?: Yes Do you have any diarrhea?: No Are you experiencing any unusual bleeding?: No Do you have any muscle aches/pain?: No Do you have any abdominal pain?: No Are you experiencing loss of taste or smell?: No Other Medical History Have you received the Flu Vaccine for this season: No Have you received the Pneumonia Vaccine: No Review of Systems Review of Systems Review of systems (narrative): 14 point review of systems performed, pertinent positives and negatives as per HPI Meds Home Medications and Allergies Home Medications ?Medication ?Instructions ?Recorded ?Confirmed ?Type benztropine 2 mg tablet 2 mg PO BID 04/08/17 02/01/24 History citalopram 20 mg tablet 20 mg PO DAILY Depression 04/08/17 02/01/24 History ondansetron 4 mg disintegrating 4 mg PO Q6HP PRN Nausea #20 tabs 01/28/22 02/01/24 Rx tablet albuterol sulfate 90 mcg/actuation 2 puff inhalation Q4HP PRN 11/03/22 02/01/24 Rx aerosol inhaler Shortness Of Breath #8.5 grams donepezil 5 mg tablet 5 mg PO HS 11/20/22 02/01/24 History loperamide 2 mg tablet 2 mg PO Q3H PRN Diarrhea 11/20/22 02/01/24 History acetaminophen 325 mg tablet 650 mg PO BID 11/21/22 02/01/24 History metformin 500 mg tablet 500 mg PO BIDWMEAL 11/21/22 02/01/24 History ropinirole 2 mg tablet 1 mg PO BID 11/21/22 02/01/24 History sennosides 8.6 mg tablet (senna) 17.2 mg PO DAILYP PRN Constipation 11/21/22 02/01/24 History atorvastatin 40 mg tablet 40 mg PO DAILY 30 days #30 tabs 11/22/22 02/01/24 Rx famotidine 40 mg tablet 40 mg PO DAILY 05/31/23 02/01/24 History hydrochlorothiazide 12.5 mg tablet 12.5 mg PO AM 05/31/23 02/01/24 History clopidogrel 75 mg tablet 75 mg PO DAILY 06/01/23 02/01/24 History trazodone 50 mg tablet 50 mg PO DAILY 06/01/23 02/01/24 History clonazepam 0.5 mg tablet 0.5 mg PO BID 30 days #60 ea 06/02/23 02/01/24 Rx gabapentin 400 mg capsule 400 mg PO TID Neuropathic pain 30 06/02/23 02/01/24 Rx days #90 caps metoprolol succinate 25 mg 25 mg PO DAILY 30 days #30 tabs 06/02/23 02/01/24 Rx tablet,extended release 24 hr risperidone 1 mg tablet 2 mg (2 x 1 mg) PO BID 30 days 06/02/23 02/01/24 Rx #120 tabs rivaroxaban 2.5 mg tablet (Xarelto) 2.5 mg PO BIDWMEAL #0 tabs 06/02/23 02/01/24 Rx New Prescriptions to Start Prescriptions: Allergies Allergy/AdvReac Type Severity Reaction Status Date / Time aspirin Allergy Intermediate edema Verified 11/20/22 18:04 Influenza Virus Vaccines AdvReac Intermediate Verified 11/20/22 18:04 Exam Data for Last 24 hours Vital signs and Labs for Last 24 Hours: Temp Pulse Resp BP Pulse Ox O2 Del Method 98.5 F 106 H 18 119/98 H 95 Room Air 02/01/24 09:17 02/01/24 13:30 02/01/24 09:17 02/01/24 13:30 02/01/24 13:30 02/01/24 13:30 Laboratory Results - last 24 hr 02/01/24 09:15: WBC 8.7, RBC 3.10 L, Hgb 8.9 L, Hct 27.7 L, MCV 89.4, MCH 28.7, MCHC 32.1, RDW 15.3, Plt Count 236, MPV 9.3, Neut % (Auto) 73.3, Lymph % (Auto) 13.2, [place] % (Auto) 7.4, Eos % (Auto) 4.4, Baso % (Auto) 0.3, Neut # (Auto) 6.4, Lymph # (Auto) 1.2, [place] # (Auto) 0.7, Eos # (Auto) 0.4, Baso # (Auto) 0.0, PT 10.8, INR 0.96, Sodium 125 L, Potassium 4.6, Chloride 93 L, Carbon Dioxide 32 H, Anion Gap 4.6 L, BUN 29 H, Creatinine 0.80, Estimated Creat Clear 77, Estimated GFR 72, Est GFR ( Amer) 87, Glucose 145 H, Calcium 8.6, Magnesium 1.7, Total Bilirubin 0.2, AST 37 H, ALT 18, Alkaline Phosphatase 78, Total Protein 6.6, Albumin 3.5, Globulin 3.1, Albumin/Globulin Ratio 1.1, Lipase 28, HIV Ag/Ab Combo Qual Negative 02/01/24 10:50: Blood Type O Positive, Antibody Screen Negative 02/01/24 11:05: SARS-CoV-2 (PCR) Not detected, Influenza A Untype (PCR) Not detected, Influenza Type B (PCR) Not detected 02/01/24 11:13: VBG pH 7.38, VBG pCO2 54.2 H, VBG pO2 53.0 H, VBG HCO3 31.6 H, VBG Total CO2 33.3 H, VBG O2 Saturation 85.7 H, VBG Base Excess 6.6 H, VBG Lactic Acid 1.8 I & O for Last 24 hours: Intake & Output 01/29/24 01/30/24 01/31/24 02/01/24 23:59 23:59 23:59 23:59 Weight 89.358 kg Constitutional Constitutional: no acute distress, obese, chronically ill appearing and cooperative *Routine HEENT Exam Head: Present normocephalic Eye: Present EOMI ENT: Present mucous membranes dry *Routine Neck Exam Neck: Present supple *Routine Respiratory Exam Respiratory: Present decreased breath sounds, rhonchi and wheezes; Absent crackles Comments: Diminished throughout *Routine Cardiovascular Exam Cardiovascular: Present RRR *Routine Abdominal Exam Abdominal: Present soft, normoactive bowel sounds and tenderness (Epigastric) *Routine Rectal Exam Rectal:: deferred *Routine Genitalia Exam Genitalia:: deferred *Routine Extremities Exam Extremities: Absent cyanosis, clubbing or edema Comments: Excoriations on legs, dry skin *Routine Skin Exam Skin: Present intact and dry; Absent cyanosis or erythema *Routine Neurological Exam Neurological: Present alert, oriented X3, CN II-XII intact and moving all extremities; Absent altered mental status Assessment and Plan *Assessment and plan (1) UGIB (upper gastrointestinal bleed): Status: Acute Category: Medical Code(s): K92.2 - Gastrointestinal hemorrhage, unspecified (2) Hyponatremia: Status: Acute Category: Medical Code(s): E87.1 - Hypo-osmolality and hyponatremia (3) Acute exacerbation of chronic obstructive pulmonary disease: Status: Acute Category: Medical Code(s): J44.1 - Chronic obstructive pulmonary disease with (acute) exacerbation (4) Post-tussive emesis: Status: Acute Category: Medical Code(s): R11.10 - Vomiting, unspecified (5) Hypertension: Status: Chronic Qualifiers: Hypertension type: primary hypertension Qualified Code(s): I10 - Essential (primary) hypertension Category: Medical Code(s): I10 - Essential (primary) hypertension (6) Hyperlipidemia: Status: Acute Qualifiers: Hyperlipidemia type: unspecified Qualified Code(s): E78.5 - Hyperlipidemia, unspecified Category: Medical Code(s): E78.5 - Hyperlipidemia, unspecified (7) Schizophrenia: Status: Chronic Qualifiers: Schizophrenia type: unspecified Qualified Code(s): F20.9 - Schizophrenia, unspecified Category: Medical Code(s): F20.9 - Schizophrenia, unspecified (8) Diabetes mellitus: Status: Chronic Qualifiers: Diabetes mellitus complication status: without complication 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 Has had persistent cough with posttussive emesis and concern for coffee-ground emesis. On workup in the ER, found to have hyponatremia and anemia. Discussed case with ER physician, request admission for COPD exacerbation, anemia, possible hematemesis. I agreed to admit for further treatment. Given the prolonged nature of her cough for over 3 weeks and posttussive emesis, will continue treatment for possible pertussis with comprehensive respiratory panel to evaluate. Necessitating inpatient care. Problems addressed as follows: COPD exacerbation Posttussive emesis Anemia suspicious for GI bleed - White count normal 8.7, hemoglobin 8.9. Platelets 236. Hemoglobin 9 2 months ago. Does not appear to be a significant drop from previous levels however has reported coffee-ground emesis per group home staff -Initiate pantoprazole 40 mg twice daily IV -New oxygen requirement, continue supplemental oxygen as needed, currently on 2 L with goal sats greater 90%. -Flu and COVID-negative -Per my review of chest x-ray, has significant bilateral scarring with perihilar congestion. no focal consolidation. -DuoNebs every 6 hours scheduled -Continue azithromycin 500 mg daily. Will treat for at least 5 days -BNP ordered to evaluate for component of CHF given patient's chronic COPD and risk for right-sided heart failure; Review of chart shows echocardiogram from 2020 with grade 1 diastolic dysfunction and preserved EF -Repeat H&H ordered for this evening, repeat CBC, CMP, magnesium ordered for the morning Hyponatremia: -Sodium 125, chloride 93. BUN elevated at 29 and creatinine 0.8. Consistent with prerenal state given BUN/creatinine ratio greater than 20. Schizophrenia Mood disorder -Continue benztropine 2 mg daily, citalopram 20 mg daily, Klonopin 0.5 mg to stay, donepezil 5 mg nightly, Risperdal 2 mg twice daily Peripheral artery disease/CAD: holding Xarelto, aspirin, 5X in the send of spectated hematemesis. Full code Holding anticoagulation in the setting of suspected GI bleed Clear liquid diet till midnight, n.p.o. thereafter
--- NOTE | 2024-02-01 13:50 | PC.NURSE ---
report called to clara on second floor
[2024-02-01 15:07] LABS: Adenovirus,PCR Not Detected (NotDetected); Bordetella Pertussis Not Detected (NotDetected); Chlamydophila Pneumoniae, PCR Not Detected (NotDetected); Coronavirus 19, PCR Not Detected (NotDetected); Coronavirus 229E Not Detected (NotDetected); Coronavirus NL63 Not Detected (NotDetected); Coronavirus OC43 Not Detected (NotDetected); Coronovirus HKU1,PCR Not Detected (NotDetected); Human Metapneumovirus Not Detected (NotDetected); Influenza A, PCR Not Detected (NotDetected); Influenza AH1, 2009 Not Detected (NotDetected); Influenza AH1, PCR Not Detected (NotDetected); Influenza AH3,PCR Not Detected (NotDetected); Influenza B, PCR Not Detected (NotDetected); Mycoplasma Pneumoniae, PCR Not Detected (NotDetected); Parainfluenza 1, PCR Not Detected (NotDetected); Parainfluenza 2, PCR Not Detected (NotDetected); Parainfluenza 3, PCR Not Detected (NotDetected); Parainfluenza 4, PCR Not Detected (NotDetected); Respiratory Syncytial Virus Not Detected (NotDetected); Rhinovirus/Enterovirus Not Detected (NotDetected)
[2024-02-01 15:48] LABS: NT Pro Brain Natriuretic Pep. 184 pg/mL (0-125)
[2024-02-01] MEDS: IPRATROPIUM/ALBUTEROL 3 ML NEB IH (18:28)
[2024-02-01 18:32] LABS: Hematocrit 29.1 % (37.0-47.0); Hemoglobin 9.5 g/dL (12.2-16.2)
[2024-02-01] MEDS: ONDANSETRON 4MG ODT 4 MG PO (19:56)
[2024-02-01] MEDS: risperiDONE 1MG TABLET 2 MG PO (20:37)
[2024-02-01] MEDS: DONEPEZIL 5MG TAB 5 MG PO (20:38)
[2024-02-01] MEDS: BENZTROPINE 1MG TABLET 2 MG PO (20:38)
[2024-02-01] MEDS: clonazePAM 0.5MG TABLET 0.5 MG PO (20:38)
[2024-02-01] MEDS: GABAPENTIN 400MG CAPSULE 400 MG PO (20:38)
[2024-02-02] VITALS (9 sets, daily range): BP systolic 104–174; BP diastolic 43–90; PULSE 71–107; RESP 16–18; TEMP 36.5–37.3; O2SAT 90–99; BMI 35.1
[2024-02-02] MEDS: IPRATROPIUM/ALBUTEROL 3 ML NEB IH ×4 (00:13→18:51)
--- NOTE | 2024-02-02 04:29 | PC.NURSE ---
68 yo fe pt admitted with COPD and GI bleed. Pt is alert to self and knows she is in a Hospital . Pt reported abdominal discomfort and actually had very small amount of emesis that appeared dark in color in emesis bag. Pt reportedly coughed making her stomach hurt . Medicated with zofran per APR. No further emesis through shift. pt voiding via [place]. No BM this shift. She has remained NPO since [place] for surgery consult. 02 sats remain above 90 with pt on 2 liters per nc.
--- NOTE | 2024-02-02 07:20 | P.CONS_ITS ---
History of Present Illness *Admission Date: 02/01/24 *Reason for visit:: Suspected hematemesis *History of present illness: Patient is a 68-year-old female previous resident at [place], after recent hospitalization discharged to [facility] due to debility. She presented to the emergency department yesterday with cough and reported posttussive emesis which appeared to be reportedly coffee-ground consistency. No reported melena. Hemoglobin upon presentation to the emergency department was 8.9, most recent hemoglobin at 9 in November. Sodium is 125 on presentation. Patient recently discontinued smoking [facility]. Chest x-ray reveals no evidence of any focal consolidation. Baseline hemoglobin is in the 11 range. However since 12/03/2023 hemoglobin has been 9. Upon presentation to the emergency department was 8.9. 9.5 today. She has a history of coronary artery disease diagnosed after she underwent left heart catheterization with Dr. Dalton on 11/09/2022 and recommended medical management for which she is currently been on Xarelto and Plavix. [facility] Disclaimer: The information contained in this section may have been updated after the patient was seen, as this information can be updated by other users. Medical History Coronary artery calcification seen on CAT scan Dyspnea Abnormal ankle brachial index (CECE) Abnormal electrocardiogram [ECG] [EKG] Hypertension Schizophrenia Seizure Depression HTN (hypertension) Family History Other No significant family history Social History Smoking Status: Current every day smoker tobacco type: cigarettes packs per day: 1 alcohol intake: never substance use type: denies use current occupational status: disabled and other Travel in the last 8 weeks: None household members: other housing: assisted living facility current occupational exposures/hazards: No caffeine: Yes Have you lived/traveled outside US in past 30 days?: No Contact w/someone who lives/traveled outside US past 30 days?: No Exposure to someone with infectious disease in past 14 days?: No Do you have a fever (greater than 100.4 F or 38 C)?: No Have you tested positive for COVID-19: No Exposed to someone with COVID-19 in past 14 days?: No Do you have a sore throat?: No Do you have a cough?: No Do you have any weakness?: No Are you experiencing any nausea/vomitting?: Yes Do you have any diarrhea?: No Are you experiencing any unusual bleeding?: No Do you have any muscle aches/pain?: No Do you have any abdominal pain?: No Are you experiencing loss of taste or smell?: No Meds Home Medications and Allergies Home Medications ?Medication ?Instructions ?Recorded ?Confirmed ?Type benztropine 2 mg tablet 2 mg PO BID 04/08/17 02/01/24 History citalopram 20 mg tablet 20 mg PO DAILY 04/08/17 02/01/24 History ondansetron 4 mg disintegrating 4 mg PO Q6HP PRN Nausea #20 tabs 01/28/22 02/01/24 Rx tablet albuterol sulfate 90 mcg/actuation 2 puff inhalation Q4HP PRN 11/03/22 02/01/24 Rx aerosol inhaler Shortness Of Breath #8.5 grams donepezil 5 mg tablet 5 mg PO HS 11/20/22 02/01/24 History loperamide 2 mg tablet 2 mg PO Q3HP PRN Diarrhea 11/20/22 02/02/24 History acetaminophen 325 mg tablet 650 mg PO BID 11/21/22 02/01/24 History metformin 500 mg tablet 500 mg PO BIDWMEAL 11/21/22 02/01/24 History sennosides 8.6 mg tablet (senna) 17.2 mg PO DAILYP PRN Constipation 11/21/22 02/01/24 History clopidogrel 75 mg tablet 75 mg PO DAILY 06/01/23 02/01/24 History clonazepam 0.5 mg tablet 0.5 mg PO BID 30 days #60 ea 06/02/23 02/01/24 Rx gabapentin 400 mg capsule 400 mg PO TID Neuropathic pain 30 06/02/23 02/01/24 Rx days #90 caps risperidone 1 mg tablet 2 mg (2 x 1 mg) PO BID 30 days 06/02/23 02/01/24 Rx #120 tabs ferrous sulfate 325 mg (65 mg 325 mg PO DAILY 02/02/24 02/02/24 History iron) tablet fluticasone fur. 100 mcg-umeclid 1 ea inhalation DAILY 02/02/24 02/02/24 History 62.5 mcg-vilant 25 mcg inhalat.powder (Trelegy Ellipta) furosemide 20 mg tablet 20 mg PO DAILY 02/02/24 02/02/24 History hydroxychloroquine 200 mg tablet 200 mg PO BID 02/02/24 02/02/24 History metoprolol tartrate 25 mg tablet 12.5 mg PO BID 02/02/24 02/02/24 History multivitamin 1 tab PO DAILY 02/02/24 02/02/24 History omeprazole 20 mg capsule,delayed 20 mg PO DAILY 02/02/24 02/02/24 History release ropinirole 1 mg tablet 1 mg PO BID 02/02/24 02/02/24 History New Prescriptions to Start Prescriptions: Allergies Allergy/AdvReac Type Severity Reaction Status Date / Time aspirin Allergy Intermediate edema Verified 11/20/22 18:04 Influenza Virus Vaccines AdvReac Intermediate Verified 11/20/22 18:04 Exam (Inpt) Vital signs and Labs for Last 24 Hours: Temp Pulse Resp BP Pulse Ox O2 Del Method O2 Flow Rate 97.7 F 77 16 154/66 H 98 Nasal Cannula 2 02/02/24 04:00 02/02/24 05:31 02/02/24 04:00 02/02/24 04:00 02/02/24 05:31 02/02/24 06:51 02/02/24 06:51 Laboratory Results - last 24 hr 02/01/24 09:15: WBC 8.7, RBC 3.10 L, Hgb 8.9 L, Hct 27.7 L, MCV 89.4, MCH 28.7, MCHC 32.1, RDW 15.3, Plt Count 236, MPV 9.3, Neut % (Auto) 73.3, Lymph % (Auto) 13.2, [place] % (Auto) 7.4, Eos % (Auto) 4.4, Baso % (Auto) 0.3, Neut # (Auto) 6.4, Lymph # (Auto) 1.2, [place] # (Auto) 0.7, Eos # (Auto) 0.4, Baso # (Auto) 0.0, PT 10.8, INR 0.96, Sodium 125 L, Potassium 4.6, Chloride 93 L, Carbon Dioxide 32 H, Anion Gap 4.6 L, BUN 29 H, Creatinine 0.80, Estimated Creat Clear 77, Estimated GFR 72, Est GFR ( Amer) 87, Glucose 145 H, Calcium 8.6, Magnesium 1.7, Total Bilirubin 0.2, AST 37 H, ALT 18, Alkaline Phosphatase 78, NT-Pro-B Natriuret Pep 184 H, Total Protein 6.6, Albumin 3.5, Globulin 3.1, Albumin/Globulin Ratio 1.1, Lipase 28, HIV Ag/Ab Combo Qual Negative 02/01/24 10:50: Blood Type O Positive, Antibody Screen Negative 02/01/24 11:04: Chlamy pneumoniae PCR Not detected, Adenovirus (PCR) Not detected, B. pertussis DNA (PCR) Not detected, Coronavirus OC43 (PCR) Not detected, Coronavirus HKU1 (PCR) Not detected, Coronavirus 229E (PCR) Not detected, SARS-CoV-2 (PCR) Not detected, Coronavirus NL63 (PCR) Not detected, Human Metapneumovir PCR Not detected, Influenza A (H1) PCR Not detected, Influ A (H1N1/09) PCR Not detected, Influenza A (H3) PCR Not detected, Influenza Type A (PCR) Not detected, Influenza Type B (PCR) Not detected, M. pneumoniae (PCR) Not detected, Parainfluenza 1 (PCR) Not detected, Parainfluenza 2 (PCR) Not detected, Parainfluenza 3 (PCR) Not detected, Parainfluenza 4 (PCR) Not detected, RSV (PCR) Not detected, Entero/Rhino (PCR) Not detected 02/01/24 11:05: SARS-CoV-2 (PCR) Not detected, Influenza A Untype (PCR) Not detected, Influenza Type B (PCR) Not detected 02/01/24 11:13: VBG pH 7.38, VBG pCO2 54.2 H, VBG pO2 53.0 H, VBG HCO3 31.6 H, V BG Total CO2 33.3 H, VBG O2 Saturation 85.7 H, VBG Base Excess 6.6 H, VBG Lactic Acid 1.8 02/01/24 18:25: Hgb 9.5 L, Hct 29.1 L I & O for Labs for Last 24 Hours: Intake & Output 01/30/24 01/31/24 02/01/24 02/02/24 11:59 11:59 11:59 11:59 Intake Total 600 / 600 Output Total 750 / 750 Balance -150 / -150 Weight 197 lb 205 lb 9.6 oz Constitutional: no acute distress GI: Present soft Results Labs 02/03/24 10:43 02/03/24 10:45 Labs: Laboratory Results - last 24 hr 02/01/24 09:15: WBC 8.7, RBC 3.10 L, Hgb 8.9 L, Hct 27.7 L, MCV 89.4, MCH 28.7, MCHC 32.1, RDW 15.3, Plt Count 236, MPV 9.3, Neut % (Auto) 73.3, Lymph % (Auto) 13.2, [place] % (Auto) 7.4, Eos % (Auto) 4.4, Baso % (Auto) 0.3, Neut # (Auto) 6.4, Lymph # (Auto) 1.2, [place] # (Auto) 0.7, Eos # (Auto) 0.4, Baso # (Auto) 0.0, PT 10.8, INR 0.96, Sodium 125 L, Potassium 4.6, Chloride 93 L, Carbon Dioxide 32 H, Anion Gap 4.6 L, BUN 29 H, Creatinine 0.80, Estimated Creat Clear 77, Estimated GFR 72, Est GFR ( Amer) 87, Glucose 145 H, Calcium 8.6, Magnesium 1.7, Total Bilirubin 0.2, AST 37 H, ALT 18, Alkaline Phosphatase 78, NT-Pro-B Natriuret Pep 184 H, Total Protein 6.6, Albumin 3.5, Globulin 3.1, Albumin/Globulin Ratio 1.1, Lipase 28, HIV Ag/Ab Combo Qual Negative 02/01/24 10:50: Blood Type O Positive, Antibody Screen Negative 02/01/24 11:04: Chlamy pneumoniae PCR Not detected, Adenovirus (PCR) Not detected, B. pertussis DNA (PCR) Not detected, Coronavirus OC43 (PCR) Not detected, Coronavirus HKU1 (PCR) Not detected, Coronavirus 229E (PCR) Not detected, SARS-CoV-2 (PCR) Not detected, Coronavirus NL63 (PCR) Not detected, Human Metapneumovir PCR Not detected, Influenza A (H1) PCR Not detected, Influ A (H1N1/09) PCR Not detected, Influenza A (H3) PCR Not detected, Influenza Type A (PCR) Not detected, Influenza Type B (PCR) Not detected, M. pneumoniae (PCR) Not detected, Parainfluenza 1 (PCR) Not detected, Parainfluenza 2 (PCR) Not detected, Parainfluenza 3 (PCR) Not detected, Parainfluenza 4 (PCR) Not detected, RSV (PCR) Not detected, Entero/Rhino (PCR) Not detected 02/01/24 11:05: SARS-CoV-2 (PCR) Not detected, Influenza A Untype (PCR) Not detected, Influenza Type B (PCR) Not detected 02/01/24 11:13: VBG pH 7.38, VBG pCO2 54.2 H, VBG pO2 53.0 H, VBG HCO3 31.6 H, V BG Total CO2 33.3 H, VBG O2 Saturation 85.7 H, VBG Base Excess 6.6 H, VBG Lactic Acid 1.8 02/01/24 18:25: Hgb 9.5 L, Hct 29.1 L Assessment and Plan *Assessment and plan (1) Post-tussive emesis: Status: Acute Category: Medical Code(s): R11.10 - Vomiting, unspecified (2) UGIB (upper gastrointestinal bleed): Status: Acute Category: Medical Code(s): K92.2 - Gastrointestinal hemorrhage, unspecified Plan Patient's hemoglobin has actually increased. I will discuss risk and benefits of upper endoscopy with hospitalist prior to proceeding.
[2024-02-02 07:46] LABS: Albumin Level 3.3 g/dl (3.5-5.0); Chloride 99 mmol/L (98-107); Potassium 4.6 mmoL/L (3.5-5.1); Sodium 131 mmol/L (136-145)
[2024-02-02 07:49] LABS: Alanine Aminotransferase 19 U/L (12-78); Albumin/Globulin Ratio 1.1 (1.1-1.8); Alkaline Phosphatase 69 U/L (38-126); Anion Gap 2.6 mEq/L (5-15); Aspartate Amino Transferase 36 U/L (14-36); Bilirubin,Total 0.2 mg/dl (0.2-1.3); Blood Urea Nitrogen 22 mg/dl (7-17); Carbon Dioxide 34 mmol/L (22.0-30.0); Creatinine Clearance Estimated 80 mL/min (50-200); Estimated Glomerular Filt Rate 72 ml/min (>60); GFR (African American) 87 ML/MIN (>60); Total Protein,Serum 6.3 g/dl (6.3-8.2)
[2024-02-02 07:50] LABS: Glucose 126 mg/dl (74-100); Magnesium 2.3 mg/dl (1.6-2.3)
[2024-02-02 07:52] LABS: Hematocrit 25.7 % (37.0-47.0); Mean Corpuscular Hemoglobin 28.9 pg (27.0-31.2); Mean Corpuscular Volume 89.5 fl (81-99); Red Blood Count 2.87 M/mm3 (4.20-5.40); White Blood Count 13.4 K/mm3 (4.8-10.8)
[2024-02-02 07:53] LABS: Basophils % 0.1 % (0.1-2.0); Eosinophils % 0.1 % (0.1-12.0); Lymphocytes # 1.2 K/mm3 (0.7-4.5); Lymphocytes % 8.8 % (10-50); Mean Corpuscular HGB Conc 32.3 g/dL (31.8-35.4); Mean Platelet Volume 8.9 fl (7.4-10.4); Monocytes # 0.9 K/mm3 (0.1-1.0); Monocytes % 6.9 % (1.7-9.3); Neutrophils # 11.1 K/mm3 (1.8-7.8); Neutrophils % 83.2 % (37.0-80.0); Platelet Count 207 K/mm3 (142-424); Red Cell Distribution Width 15.5 % (11.5-17.5)
[2024-02-02 08:02] LABS: Hemoglobin 8.3 g/dL (12.2-16.2)
--- NOTE | 2024-02-02 09:30 | P.CONPHA_ITS ---
Pharmacy Intervention Comments: MEDICATION RECONCILIATION COMPLETED ON PATIENT USING MAR FROM [facility]. -ROLANDO LOPEZ, GLORIAD
--- NOTE | 2024-02-02 09:30 | HMH.PHAINT1 ---
Pharmacy Intervention Comments: MEDICATION RECONCILIATION COMPLETED ON PATIENT USING [facility] FROM [facility]. -ROLANDO LOPEZ, GLORIAD
[2024-02-02] MEDS: METOPROLOL SUCCINATE XL 25MG TABLET 25 MG PO (09:51)
[2024-02-02] MEDS: AZITHROMYCIN 500 MG in 0.9 % SODIUM CHLORIDE 250 ML 250 MG IV (09:51)
[2024-02-02] MEDS: PANTOPRAZOLE 40MG VIAL 40 MG IV ×2 (09:51→20:21)
[2024-02-02] MEDS: BENZTROPINE 1MG TABLET 2 MG PO ×2 (09:51→20:21)
[2024-02-02] MEDS: CITALOPRAM 20MG TABLET 20 MG PO (09:51)
[2024-02-02] MEDS: GABAPENTIN 400MG CAPSULE 400 MG PO (09:51)
[2024-02-02] MEDS: SODIUM CHLORIDE 0.9% 10ML VIAL 10 ML IV ×2 (09:51→20:21)
[2024-02-02] MEDS: risperiDONE 1MG TABLET 2 MG PO (09:52)
[2024-02-02] MEDS: clonazePAM 0.5MG TABLET 0.5 MG PO (09:53)
--- NOTE | 2024-02-02 11:14 | SW/DCPLANNER ---
Addendum entered by Penny Otoole RN 02/03/24 16:22: Chelsy aware of patient returning today [facility]. Original Note: Patient is a resident of [facility]. She will return there when medically stable for discharge. Have updated Chelsy at [place].
--- NOTE | 2024-02-02 13:09 | P.PN_ITS ---
Subjective *Date: 02/02/24 *Time: 13:27 Interval history: Patient still short of breath this morning. Feeling somewhat better. Had reported episode that may have had blood streaking overnight with emesis. Denies any chest pain or confusion today. Afebrile. Hemoglobin relatively stable. No bowel movement since admission. Medical Exam Vital signs and Labs for Last 24 Hours: Vital Signs Temp Pulse Pulse Resp BP BP Pulse Ox 02/02/24 11:00 89 02/02/24 11:00 91 H 02/02/24 11:00 90 L 02/02/24 08:00 97.7 F 107 H 17 174/90 H 94 L 02/02/24 07:33 02/02/24 06:51 02/02/24 05:31 77 02/02/24 05:31 78 02/02/24 05:31 98 02/02/24 05:00 02/02/24 04:00 97.7 F 76 16 154/66 H 97 02/02/24 03:00 02/02/24 01:00 02/02/24 00:50 90 02/02/24 00:50 89 02/02/24 00:50 95 02/01/24 23:00 02/01/24 21:00 02/01/24 20:00 95 02/01/24 20:00 98.9 F 104 H 18 137/55 L 95 02/01/24 18:29 90 02/01/24 18:29 94 H 02/01/24 18:29 97 02/01/24 18:28 02/01/24 17:00 02/01/24 16:00 98.8 F 90 18 153/58 H 99 02/01/24 15:00 02/01/24 14:48 98.3 F 96 H 19 119/68 98 02/01/24 13:54 98.0 F 101 H 19 119/98 H 02/01/24 13:30 106 H 119/98 H 95 O2 Del Method O2 Flow Rate 02/02/24 11:00 02/02/24 11:00 02/02/24 11:00 Nasal Cannula 3 02/02/24 08:00 Nasal Cannula 3 02/02/24 07:33 Nasal Cannula 3 02/02/24 06:51 Nasal Cannula 2 02/02/24 05:31 02/02/24 05:31 02/02/24 05:31 Nasal Cannula 3 02/02/24 05:00 Nasal Cannula 2 02/02/24 04:00 Nasal Cannula 3 02/02/24 03:00 Nasal Cannula 2 02/02/24 01:00 Nasal Cannula 2 02/02/24 00:50 02/02/24 00:50 02/02/24 00:50 Nasal Cannula 3 02/01/24 23:00 Nasal Cannula 2 02/01/24 21:00 Nasal Cannula 2 02/01/24 20:00 Nasal Cannula 3 02/01/24 20:00 Nasal Cannula 3 02/01/24 18:29 02/01/24 18:29 02/01/24 18:29 Nasal Cannula 2 02/01/24 18:28 Room Air 02/01/24 17:00 Nasal Cannula 2 02/01/24 16:00 Nasal Cannula 3 02/01/24 15:00 Nasal Cannula 2 02/01/24 14:48 Room Air 02/01/24 13:54 02/01/24 13:30 Room Air Intake and Output 02/01/24 02/02/24 02/02/24 23:59 07:59 15:59 Intake Total 600 / 600 0 / 0 Output Total 750 / 750 650 / 1000 350 / 1000 Balance -150 / -150 -650 / -1000 -350 / -1000 Intake: Intake, Oral Amount 600 / 600 0 / 0 Output: Output, Urine Amount 750 / 750 650 / 1000 350 / 1000 Other: Number of Unmeasured Voids 1 1 0 Weight 93.259 kg Patient Weight 02/02/24 23:59 Weight 93.259 kg Laboratory Results - last 24 hr 02/01/24 09:15: NT-Pro-B Natriuret Pep 184 H 02/01/24 11:04: Chlamy pneumoniae PCR Not detected, Adenovirus (PCR) Not detected, B. pertussis DNA (PCR) Not detected, Coronavirus OC43 (PCR) Not detected, Coronavirus HKU1 (PCR) Not detected, Coronavirus 229E (PCR) Not detected, SARS-CoV-2 (PCR) Not detected, Coronavirus NL63 (PCR) Not detected, Human Metapneumovir PCR Not detected, Influenza A (H1) PCR Not detected, Influ A (H1N1/09) PCR Not detected, Influenza A (H3) PCR Not detected, Influenza Type A (PCR) Not detected, Influenza Type B (PCR) Not detected, M. pneumoniae (PCR) Not detected, Parainfluenza 1 (PCR) Not detected, Parainfluenza 2 (PCR) Not detected, Parainfluenza 3 (PCR) Not detected, Parainfluenza 4 (PCR) Not detected, RSV (PCR) Not detected, Entero/Rhino (PCR) Not detected 02/01/24 18:25: Hgb 9.5 L, Hct 29.1 L 02/02/24 06:24: WBC 13.4 H D, RBC 2.87 L, Hgb 8.3 L D, Hct 25.7 L, MCV 89.5, MCH 28.9, MCHC 32.3, RDW 15.5, Plt Count 207, MPV 8.9, Neut % (Auto) 83.2 H, Lymph % (Auto) 8.8 L, [place] % (Auto) 6.9, Eos % (Auto) 0.1, Baso % (Auto) 0.1, Neut # (Auto) 11.1 H, Lymph # (Auto) 1.2, [place] # (Auto) 0.9, Eos # (Auto) 0.0, Baso # (Auto) 0.0, Sodium 131 L, Potassium 4.6, Chloride 99, Carbon Dioxide 34 H, Anion Gap 2.6 L, BUN 22 H, Creatinine 0.80, Estimated Creat Clear 80, Estimated GFR 72, Est GFR ( Amer) 87, Glucose 126 H, Calcium 9.0, Magnesium 2.3 D, Total Bilirubin 0.2, AST 36, ALT 19, Alkaline Phosphatase 69, Total Protein 6.3, Albumin 3.3 L, Globulin 3.0, Albumin/Globulin Ratio 1.1 I & O for Labs for Last 24 Hours: Intake & Output 01/30/24 01/31/24 02/01/24 02/02/24 23:59 23:59 23:59 23:59 Intake Total 600 / 600 0 / 0 Output Total 750 / 750 1000 / 1000 Balance -150 / -150 -1000 / -1000 Weight 92.986 kg 93.259 kg Constitutional: Present no acute distress, obese, chronically ill appearing and cooperative Head: Present atraumatic and normocephalic ENT: Present normal exam Comment:: Puffy around eyes bilaterally. Neck: Present normal inspection Respiratory: Present rhonchi, wheezes and normal respiratory effort; Absent crackles Cardiac: Present Reg Rate and Rhythm GI: Present soft, tenderness (Epigastric) and normal bowel sounds; Absent distention (female): Present deferred Extremities: Present normal inspection and full ROM Skin: Present intact; Absent erythema Neuro: Present Grossly Intact, alert, awake and moves all extremities Assessment and Plan *Assessment and plan (1) UGIB (upper gastrointestinal bleed): Status: Acute Category: Medical Code(s): K92.2 - Gastrointestinal hemorrhage, unspecified (2) Hyponatremia: Status: Acute Category: Medical Code(s): E87.1 - Hypo-osmolality and hyponatremia (3) Acute exacerbation of chronic obstructive pulmonary disease: Status: Acute Category: Medical Code(s): J44.1 - Chronic obstructive pulmonary disease with (acute) exacerbation (4) Post-tussive emesis: Status: Acute Category: Medical Code(s): R11.10 - Vomiting, unspecified (5) Hypertension: Status: Chronic Qualifiers: Hypertension type: primary hypertension Qualified Code(s): I10 - Essential (primary) hypertension Category: Medical Code(s): I10 - Essential (primary) hypertension (6) Hyperlipidemia: Status: Acute Qualifiers: Hyperlipidemia type: unspecified Qualified Code(s): E78.5 - Hyperlipidemia, unspecified Category: Medical Code(s): E78.5 - Hyperlipidemia, unspecified (7) Schizophrenia: Status: Chronic Qualifiers: Schizophrenia type: unspecified Qualified Code(s): F20.9 - Schizophrenia, unspecified Category: Medical Code(s): F20.9 - Schizophrenia, unspecified (8) Diabetes mellitus: Status: Chronic Qualifiers: Diabetes mellitus complication status: without complication Diabetes mellitus penitentiary insulin use: without penitentiary use Diabetes mellitus type: type 2 Qualified Code(s): E11.9 - Type 2 diabetes mellitus without complications Category: Medical Code(s): E11.9 - Type 2 diabetes mellitus without complications (9) Anemia: Status: Acute Category: Medical Code(s): D64.9 - Anemia, unspecified Plan 68-year-old female with extensive past history who [facility]. Has had persistent cough with posttussive emesis and concern for coffee-ground emesis. On workup in the ER, found to have hyponatremia and anemia. Discussed case with ER physician, request admission for COPD exacerbation, anemia, possible hematemesis. I agreed to admit for further treatment. Given the prolonged nature of her cough for over 3 weeks and posttussive emesis, will continue treatment for possible pertussis with comprehensive respiratory panel to evaluate. Necessitating inpatient care. Continue to monitor serial H&H. Continue antibiotics for possible atypical pneumonia. Further imaging pending. Surgery assisting with care. Problems addressed as follows: COPD exacerbation Posttussive emesis Anemia suspicious for GI bleed -White count up today to 13.4. Hemoglobin down slightly at 8.3. Platelets down slightly at 207. Repeat H&H this afternoon at 5. Repeat CBC, CMP, magnesium ordered for the morning. -Discussed case with surgery this morning, will monitor serial H&H, consider EGD in the morning if continues to have drop in hemoglobin. Continue pantoprazole 40 mg twice daily IV -New oxygen requirement, continue supplemental oxygen as needed, currently on 2 L with goal sats greater 90%. -Flu and COVID-negative -Per my review of chest x-ray, has significant bilateral scarring with perihilar congestion. no focal consolidation. -Will obtain CT abdomen pelvis without contrast. This will evaluate the lower portion of her chest but also look at abdomen for other pathology. Further management pending results -DuoNebs every 6 hours scheduled -Continue azithromycin 500 mg daily. Will treat for at least 5 days -BNP marginal at 184. review of chart shows echocardiogram from 2020 with grade 1 diastolic dysfunction and preserved EF -Continue supplemental oxygen as needed, goal sats greater 90%. Currently on 2 L Hyponatremia: -Sodium improved to 131 this morning up from 125 on admission. Potassium 4.6, magnesium 2.3. Kidney function stable with BUN 22, creatinine 0.8. Schizophrenia Mood disorder -Continue benztropine 2 mg daily, citalopram 20 mg daily, Klonopin 0.5 mg to stay, donepezil 5 mg nightly, Risperdal 2 mg twice daily Peripheral artery disease/CAD: holding Xarelto, aspirin, Plavix in the send of suspected hematemesis. Full code Holding anticoagulation in the setting of suspected GI bleed Full liquid diet till midnight, n.p.o. thereafter
--- NOTE | 2024-02-02 13:25 | CT_ITS ---
FINAL REPORT TECHNIQUE: Axial images through the abdomen and pelvis were performed without contrast. This study was performed with techniques to keep radiation doses as low as reasonably achievable, (ALARA). Individualized dose reduction techniques using automated exposure control or adjustment of mA and/or kV according to the patient's size were employed. CLINICAL HISTORY: Abdominal pain and distention COMPARISON: 06/29/2021 FINDINGS: Abdomen: There is new bibasilar consolidation compared to the prior exam. The liver parenchyma is homogeneous. The gallbladder is contracted and contains tiny, calcified stones. The spleen, pancreas, adrenals and kidneys are unremarkable. Pelvis: The urinary bladder is unremarkable. The appendix is not visualized. The uterus is present and lies eccentric to the right. There is no pelvic mass or inflammation. There are moderate advanced changes of osteoarthritis in the lower lumbar facets. IMPRESSION: Contracted, stone filled gallbladder. New, bibasilar consolidation. Reviewed, Interpreted and Dictated by Florentino Cuevas MD Transcribed by Gogo Wasserman Authenticated and [facility]
[2024-02-02] MEDS: BUMETANIDE 1MG/4ML VIAL 1 MG IV (16:58)
[2024-02-02] MEDS: CEFTRIAXONE SODIUM 1 GM in 0.9 % SODIUM CHLORIDE 50 ML IV (18:21)
[2024-02-02 18:33] LABS: Hematocrit 27.6 % (37.0-47.0); Hemoglobin 8.6 g/dL (12.2-16.2)
--- NOTE | 2024-02-02 18:41 | PC.NURSE ---
Pt alert only to person. she has been lethargic most of day but will arouse if spoken to. Klonopin and gabapentin have been held per MD because of pt being lethargic. Pt has woken up a little to drink some fluids off tray. NPO after midnight tonight for possible scope in morning. Pt resting comfortably in bed. bed alarm on and call light in reach.
--- NOTE | 2024-02-02 20:17 | PC.NURSE ---
At this time, the patient was complaining of having a headache and requested for Tylenol. Froylan SILVERIO was paged to obtain an order for Tylenol.
[2024-02-02] MEDS: ACETAMINOPHEN 500MG TAB 500 MG PO (20:20)
[2024-02-02] MEDS: DONEPEZIL 5MG TAB 5 MG PO (20:21)
[2024-02-02] MEDS: risperiDONE 1MG TABLET 1 MG PO (20:21)
[2024-02-03] VITALS (14 sets, daily range): BP systolic 97–142; BP diastolic 44–66; PULSE 77–95; RESP 16–20; TEMP 36.3–37.1; O2SAT 93–100; BMI 34.2
[2024-02-03] MEDS: IPRATROPIUM/ALBUTEROL 3 ML NEB IH ×3 (00:03→11:40)
--- NOTE | 2024-02-03 04:28 | PC.NURSE ---
Patient is alert to self; she could state her birthday correctly. However, patient does not know where she is at and occasionally has confused speech. Speech pattern is slightly incoherent but appropriate. She was observed to have eyes closed, respirations even and unlabored on 2 L of oxygen via nasal cannula, and no apparent distress throughout the majority of the night. She was given a bed bath with a purewick/brief change this shift; she is incontinent of bowel/bladder. She has been having adequate urine output and adequate intake of ice water this shift, both of which has been documented accordingly. Urine noticed to be light yellow, clear, and odorless. No bowel movement recorded this shift but she is passing gas. Patient has been NPO since midnight pending consult; she previously tolerated a full liquid diet. Tylenol was given once thus far for a reported headache and a warm blanket for comfort; patient was able to rest after receiving. Upon auscultation of her lungs, air movement was noted to be diminished. Auscultation of her heart and bowels were within normal findings this shift. Small, scattered scabs were noted on her bilateral posterior forearms. Tremors in upper extremities with a poor grasp also noted. Patient has an occasional gargled cough. Blood pressures have been soft, and heart rate has been slightly elevated (> 90, < 100) this shift. Scheduled medications were administered as appropriately per APR. Patient swallowed PO pills beautifully. At this time, the patient is resting supine in bed. She does not have any further complaints (denies pain and nausea/vomiting). Bed alarm on. Call light within reach. Patient's money (placed in red biohazard bag) has been locked in her room as requested.
--- NOTE | 2024-02-03 05:15 | PC.NURSE ---
At this time, the patient's scabbing on her bilateral posterior forearms was dressed due to scratching. Mild bleeding noticed from opening of the tiny scrapes. Moisturizer applied on the scabs/dry skin. A non-adherent pad and tegaderm was used to dress the areas. No pain was reported by the patient.
[2024-02-03 07:08] LABS: HCV Ab Non Reactive (Non Reactive)
[2024-02-03] MEDS: AZITHROMYCIN 500 MG in 0.9 % SODIUM CHLORIDE 250 ML 250 MG IV (09:01)
[2024-02-03] MEDS: risperiDONE 1MG TABLET 1 MG PO (09:01)
[2024-02-03] MEDS: CITALOPRAM 20MG TABLET 20 MG PO (09:02)
[2024-02-03] MEDS: METOPROLOL SUCCINATE XL 25MG TABLET 25 MG PO (09:02)
[2024-02-03] MEDS: BENZTROPINE 1MG TABLET 2 MG PO (09:03)
[2024-02-03] MEDS: SODIUM CHLORIDE 0.9% 10ML VIAL 10 ML IV (09:03)
[2024-02-03] MEDS: PANTOPRAZOLE 40MG VIAL 40 MG IV (09:03)
[2024-02-03 10:49] LABS: Basophils % 0.3 % (0.1-2.0); Eosinophils # 0.3 K/mm3 (0.0-0.4); Eosinophils % 3.2 % (0.1-12.0); Hematocrit 26.1 % (37.0-47.0); Hemoglobin 8.2 g/dL (12.2-16.2); Lymphocytes # 1.2 K/mm3 (0.7-4.5); Lymphocytes % 13.3 % (10-50); Mean Corpuscular HGB Conc 31.4 g/dL (31.8-35.4); Mean Corpuscular Hemoglobin 28.7 pg (27.0-31.2); Mean Corpuscular Volume 91.3 fl (81-99); Mean Platelet Volume 8.5 fl (7.4-10.4); Monocytes # 0.8 K/mm3 (0.1-1.0); Monocytes % 9.1 % (1.7-9.3); Neutrophils # 6.4 K/mm3 (1.8-7.8); Neutrophils % 73.1 % (37.0-80.0); Platelet Count 196 K/mm3 (142-424); Red Blood Count 2.86 M/mm3 (4.20-5.40); Red Cell Distribution Width 15.9 % (11.5-17.5); White Blood Count 8.8 K/mm3 (4.8-10.8)
[2024-02-03 11:44] LABS: Chloride 98 mmol/L (98-107); Sodium 133 mmol/L (136-145)
[2024-02-03 11:45] LABS: Potassium 4.4 mmoL/L (3.5-5.1)
[2024-02-03 11:47] LABS: Alanine Aminotransferase 19 U/L (12-78); Albumin/Globulin Ratio 1.2 (1.1-1.8); Alkaline Phosphatase 63 U/L (38-126); Anion Gap 6.4 mEq/L (5-15); Aspartate Amino Transferase 39 U/L (14-36); Bilirubin,Total 0.2 mg/dl (0.2-1.3); Blood Urea Nitrogen 23 mg/dl (7-17); Carbon Dioxide 33 mmol/L (22.0-30.0); Creatinine Clearance Estimated 78 mL/min (50-200); Estimated Glomerular Filt Rate 83 ml/min (>60); GFR (African American) 101 ML/MIN (>60); Globulin 2.6 g/dL (1.3-3.2); Total Protein,Serum 5.6 g/dl (6.3-8.2)
[2024-02-03 11:48] LABS: Calcium 8.5 mg/dl (8.4-10.2); Glucose 89 mg/dl (74-100); Magnesium 2.4 mg/dl (1.6-2.3)
[2024-02-03] MEDS: FUROSEMIDE 40MG/4ML VIAL 40 MG IV (13:08)
--- NOTE | 2024-02-03 13:16 | PC.NURSE ---
pt off floor for scope
--- NOTE | 2024-02-03 13:56 | P.PCN_ITS ---
Procedure: Date: 02/03/24 Patient Date of :: 1955 Procedure Performed:: Esophagogastroduodenoscopy Indications:: Patient is a 68-year-ol female previous resident at [facility], after recent hospitalization discharged to [facility] due to debility. She presented to the emergency department on 02/01/2024 with cough and reported posttussive emesis which appeared to be reportedly coffee-ground consistency. No reported melena. Hemoglobin upon presentation to the emergency department was 8.9, most recent hemoglobin at 9 in November. Sodium is 125 on presentation. Patient recently discontinued smoking after admission to residential facility. Chest x-ray reveals no evidence of any focal consolidation. Baseline hemoglobin is in the 11 range. However since 12/03/2023 hemoglobin has been 9. Upon presentation to the emergency department was 8.9. She has a history of coronary artery disease diagnosed after she underwent left heart catheterization with Dr. Dalton on 11/09/2022 and recommended medical management for which she is currently been on Xarelto and Plavix.patient managed medically for couple days with no clinical bleeding. Hemoglobin decreased to 8.2. To evaluate for possible source of blood loss or potential etiology of possible recurrent GI blood loss plan was made for EGD. Performing Provider:: Jose L Bean MD Referring Provider:: . Sedation:: MAC sedation Procedure:: Patient history was obtained and appropriate physical examination was performed. Patient's medications and allergies were reviewed. Informed consent was obtained after explaining the benefits, alternatives, and risks of the procedure including, but not limited to, bleeding, perforation, missed lesions, and adverse reaction to anesthesia medications. Patient was transported to endoscopy procedure room. Patient was connected to monitoring devices. Throughout the procedure the patient's blood pressure, pulse, and oxygen saturations were monitored continuously. Patient identifi cation and planned procedure were verified by the staff. Patient was positioned in lateral decubitus position. Olympus endoscope was inserted via the oropharynx. Esophagus was cannulated. There is some tortuosity to the esophagus consistent with esophageal dysmotility. Gastroesophageal junction was encountered at about 33 cm from the incisors. There was some focal minor nonbleeding esophagitis at the GE junction. Stomach was cannulated. There was a moderate sliding hiatal hernia. Retroflexion was performed. There was no evidence of active or stigmata of recent bleeding. However, full insufflation of the stomach was difficult to achieve due to constant regurgitation of gas and belching likely due to the patient having moderately large hiatal hernia. Pylorus was traversed. Endoscope was advanced to the distal duodenum which appeared unremarkable. Endoscope was withdrawn. , Findings:: Esophageal dysmotility Gastroesophageal junction at 33 cm Focal nonbleeding esophagitis at GE junction Moderately large sliding hiatal hernia . Recommendations:: May have had some minor oozing with coughing on anticoagulation upon presentation. No evidence of any active bleeding at this time. Recommend continue proton pump inhibitors. May need colonoscopy for full evaluation due to anemia. Complications:: None immediately apparent Estimated blood obtained (mL): 0 Colonoscopy Component Colonoscopy Component Was a colonoscopy performed during today's procedure?: No
--- NOTE | 2024-02-03 14:27 | P.PNANES_ITS ---
[facility] Disclaimer: The information contained in this section may have been updated after the patient was seen, as this information can be updated by other users. Medical History Coronary artery calcification seen on CAT scan Dyspnea Abnormal ankle brachial index (CECE) Abnormal electrocardiogram [ECG] [EKG] Hypertension Schizophrenia Seizure Depression HTN (hypertension) Family History Other No significant family history Social History Smoking Status: Current every day smoker tobacco type: cigarettes packs per day: 1 alcohol intake: never substance use type: denies use current occupational status: disabled and other Travel in the last 8 weeks: None household members: other housing: assisted living facility current occupational exposures/hazards: No caffeine: Yes Have you lived/traveled outside [place] in past 30 days?: No Contact w/someone who lives/traveled outside [place] past 30 days?: No Exposure to someone with infectious disease in past 14 days?: No Do you have a fever (greater than 100.4 F or 38 C)?: No Have you tested positive for COVID-19: No Exposed to someone with COVID-19 in past 14 days?: No Do you have a sore throat?: No Do you have a cough?: No Do you have any weakness?: No Are you experiencing any nausea/vomitting?: Yes Do you have any diarrhea?: No Are you experiencing any unusual bleeding?: No Do you have any muscle aches/pain?: No Do you have any abdominal pain?: No Are you experiencing loss of taste or smell?: No [facility] Anesthesia Checklist Patient Identification Patient Identification: Arm Band and Family Structural Data Admitted From: Inpatient Planned Operative Procedure/s: EGD Consent for Planned Operative Procedure(s) Verified: Yes Verified Documents: Surgical Consent and History and Physical NPO Status Verified Time NPO: 00:00 Additional verifications Patient : No Anesthesia Reactions: No Hx Blood Transfusions: No Blood Transfusion Reaction: No Cephalosporin Allergy: No Previous Colonoscopy: Yes Airway Assessment Mallampati Score:: Class II C-Spine Mobility Assessed: Yes TMJ Mobility Assessed: Yes Dentition: Edentulous Neurological Assessment Level of Consciousness: Awake, Follows Commands and Disoriented Hx Seizures: No Numbness or tingling in extremities: No Anesthesia Plan Anesthesia Risk discussed: Yes ASA Class: III Anesthesia Type: MAC
--- NOTE | 2024-02-03 14:52 | EXP.DC.SUM ---
General Admission date:: 02/01/24 Discharge date: 02/03/24 HPI HPI HPI: Patient is a 68-year-old female previous resident at [place], after recent hospitalization discharged to [facility] due to debility. She presented to the emergency department yesterday with cough and reported posttussive emesis which appeared to be reportedly coffee-ground consistency. No reported melena. Hemoglobin upon presentation to the emergency department was 8.9, most recent hemoglobin at 9 in November. Sodium is 125 on presentation. Patient recently discontinued smoking after admission to custodial facility. Chest x-ray reveals no evidence of any focal consolidation. Baseline hemoglobin is in the 11 range. However since 12/03/2023 hemoglobin has been 9. Upon presentation to the emergency department was 8.9. 9.5 today. She has a history of coronary artery disease diagnosed after she underwent left heart catheterization with Dr. Dalton on 11/09/2022 and recommended medical management for which she is currently been on Xarelto and Plavix. Hospital Course Hospital Course Hospital Course: Monitored H&H during admission. Hemoglobin remained stable and did not need transfusion. Surgery scoped patient on morning of discharge, 68-year-old female with extensive past history who [facility]. Has had persistent cough with posttussive emesis and concern for coffee-ground emesis. On workup in the ER, found to have hyponatremia and anemia. Discussed case with ER physician, request admission for COPD exacerbation, anemia, possible hematemesis. I agreed to admit for further treatment. Given the prolonged nature of her cough for over 3 weeks and posttussive emesis, will continue treatment for possible pertussis with comprehensive respiratory panel to evaluate. Necessitating inpatient care. No significant bleeding noted. Recommend holding anticoagulation. Stable to discharge back to nursing facility. Repeat labs in 1 week. Problems addressed as follows: COPD exacerbation Posttussive emesis Anemia suspicious for GI bleed - White count elevated on admission, improved to 8.8 by day of discharge. Hemoglobin 8.2, hematocrit stable at 26. Has fluctuated 26-28 through course of admission without transfusion. Platelets stable in the 200 range. Patient was initiated on ceftriaxone and azithromycin for COPD exacerbation versus pneumonia given atelectasis versus consolidation bilaterally in lower lobes on chest CT. Stable on 2 L oxygen. Stable to discharge home. Flu and COVID were negative. Patient noted to be anemic on admission. Concern for hematemesis. Surgery was consulted, hemoglobin did not drop significantly. No transfusion necessary during admission. Taken for EGD on day of discharge. Found to have no significant abnormalities or bleeding. Continue pantoprazole 40 mg daily. Recommend discontinuing Xarelto and Plavix as she is more than a year out from her last heart cath. Continue DuoNebs as needed along with inhaler regimen. Up and out of bed is much as possible to decrease risk for further pneumonia. Complete antibiotics with azithromycin and cefdinir at discharge. Medically stable to transition back to senior care for further care. -Of note, review of echo from 2020 showed grade 1 diastolic dysfunction. Increase Lasix to 40 mg once daily to help with CHF component of dyspnea. Hyponatremia: Sodium 25 on admission, sodium improving at 133 on day of discharge. Kidney function normal BUN 23, creatinine 0.7. Recommend repeat CBC, CMP, magnesium in 1 week Schizophrenia/Mood disorder: Continue benztropine 2 mg daily, citalopram 20 mg daily, Klonopin decreased to 0.25 mg twice daily, donepezil 5 mg nightly, Risperdal 2 mg twice daily Peripheral artery disease/CAD: holding Xarelto, aspirin, Plavix in the send of suspected hematemesis. Total time spent on discharge 36 minutes in counseling, documentation, chart review, and direct care with patient. Exam Data for Last 24 hours Vital signs and Labs for Last 24 Hours: Temp Pulse Resp BP Pulse Ox O2 Del Method O2 Flow Rate 98.7 F 89 16 97/56 L 93 L Nasal Cannula 2 02/03/24 14:15 02/03/24 14:15 02/03/24 14:15 02/03/24 14:15 02/03/24 14:15 02/03/24 14:15 02/03/24 14:15 Laboratory Results - last 24 hr 02/01/24 09:15: Hepatitis C Antibody Non reactive 02/02/24 18:10: Hgb 8.6 L, Hct 27.6 L 02/03/24 10:43: WBC 8.8 D, RBC 2.86 L, Hgb 8.2 L, Hct 26.1 L, MCV 91.3, MCH 28.7, MCHC 31.4 L, RDW 15.9, Plt Count 196, MPV 8.5, Neut % (Auto) 73.1, Lymph % (Auto) 13.3, [place] % (Auto) 9.1, Eos % (Auto) 3.2, Baso % (Auto) 0.3, Neut # (Auto) 6.4, Lymph # (Auto) 1.2, [place] # (Auto) 0.8, Eos # (Auto) 0.3, Baso # (Auto) 0.0 02/03/24 10:45: Sodium 133 L, Potassium 4.4, Chloride 98, Carbon Dioxide 33 H, Anion Gap 6.4, BUN 23 H, Creatinine 0.70, Estimated Creat Clear 78, Estimated GFR 83, Est GFR ( Amer) 101, Glucose 89, Calcium 8.5, Magnesium 2.4 H, Total Bilirubin 0.2, AST 39 H, ALT 19, Alkaline Phosphatase 63, Total Protein 5.6 L, Albumin 3.0 L, Globulin 2.6, Albumin/Globulin Ratio 1.2 I & O for Last 24 hours: Intake & Output 01/31/24 02/01/24 02/02/24 02/03/24 23:59 23:59 23:59 23:59 Intake Total 600 / 600 531 / 885 354 / 354 Output Total 750 / 750 2825 / 2825 0 / 0 Balance -150 / -150 -2294 / -1940 354 / 354 Weight 92.986 kg 93.259 kg 90.945 kg Constitutional Constitutional: no acute distress, average body habitus, chronically ill appearing and cooperative *Routine HEENT Exam Head: Present normocephalic and atraumatic Eye: Present EOMI and PERRL ENT: Present mucous membranes moist and oropharynx clear *Routine Neck Exam Neck: Present supple and full ROM *Routine Respiratory Exam Respiratory: Present prolonged expiratory phase, crackles (bases bilaterally), normal respiratory effort and able to speak in complete sentences; Absent accessory muscle use, rhonchi or wheezes *Routine Cardiovascular Exam Cardiovascular: Present RRR, Normal S1 and Normal S2; Absent murmur *Routine Abdominal Exam Abdominal: Present soft and normoactive bowel sounds; Absent tenderness, distended, rebound or guarding *Routine Rectal Exam Patient deferred: visual exam *Routine Exam Patient deferred: external exam *Routine Extremities Exam Extremities: Present full ROM, pulses intact and normal capillary refill; Absent edema or tenderness *Routine Neurological Exam Neurological: Present alert, CN II-XII intact, moving all extremities, normal tone and normal speech; Absent sensory deficit or motor deficit Comments: Oriented to self and situation. Results Data Completed and Pending Labs on day of discharge: Labs from last 24 hours 02/03/24 02/03/24 02/02/24 10:45 10:43 18:10 WBC 8.8 D RBC 2.86 L Hgb 8.2 L 8.6 L Hct 26.1 L 27.6 L MCV 91.3 MCH 28.7 MCHC 31.4 L RDW 15.9 Plt Count 196 MPV 8.5 Neut % (Auto) 73.1 Lymph % (Auto) 13.3 [place] % (Auto) 9.1 Eos % (Auto) 3.2 Baso % (Auto) 0.3 Neut # (Auto) 6.4 Lymph # (Auto) 1.2 [place] # (Auto) 0.8 Eos # (Auto) 0.3 Baso # (Auto) 0.0 Sodium 133 L Potassium 4.4 Chloride 98 Carbon Dioxide 33 H Anion Gap 6.4 BUN 23 H Creatinine 0.70 Estimated Creat Clear 78 Estimated GFR 83 Est GFR ( Amer) 101 Glucose 89 Calcium 8.5 Magnesium 2.4 H Total Bilirubin 0.2 AST 39 H ALT 19 Alkaline Phosphatase 63 Total Protein 5.6 L Albumin 3.0 L Globulin 2.6 Albumin/Globulin Ratio 1.2 Hepatitis C Antibody 02/01/24 09:15 WBC RBC Hgb Hct MCV MCH MCHC RDW Plt Count MPV Neut % (Auto) Lymph % (Auto) [place] % (Auto) Eos % (Auto) Baso % (Auto) Neut # (Auto) Lymph # (Auto) [place] # (Auto) Eos # (Auto) Baso # (Auto) Sodium Potassium Chloride Carbon Dioxide Anion Gap BUN Creatinine Estimated Creat Clear Estimated GFR Est GFR ( Amer) Glucose Calcium Magnesium Total Bilirubin AST ALT Alkaline Phosphatase Total Protein Albumin Globulin Albumin/Globulin Ratio Hepatitis C Antibody Non reactive DS: Diagnosis Discharge Diagnosis (1) Post-tussive emesis: Status: Acute Code(s): R11.10 - Vomiting, unspecified (2) UGIB (upper gastrointestinal bleed): Status: Acute Code(s): K92.2 - Gastrointestinal hemorrhage, unspecified Meds Home Medications and Allergies Home Medications ?Medication ?Instructions ?Recorded ?Confirmed ?Type benztropine 2 mg tablet 2 mg PO BID 04/08/17 02/01/24 History citalopram 20 mg tablet 20 mg PO DAILY 04/08/17 02/01/24 History ondansetron 4 mg disintegrating 4 mg PO Q6HP PRN Nausea #20 tabs 01/28/22 02/01/24 Rx tablet albuterol sulfate 90 mcg/actuation 2 puff inhalation Q4HP PRN 11/03/22 02/01/24 Rx aerosol inhaler Shortness Of Breath #8.5 grams donepezil 5 mg tablet 5 mg PO HS 11/20/22 02/01/24 History loperamide 2 mg tablet 2 mg PO Q3HP PRN Diarrhea 11/20/22 02/02/24 History acetaminophen 325 mg tablet 650 mg PO BID 11/21/22 02/01/24 History metformin 500 mg tablet 500 mg PO BIDWMEAL 11/21/22 02/01/24 History sennosides 8.6 mg tablet (senna) 17.2 mg PO DAILYP PRN Constipation 11/21/22 02/01/24 History gabapentin 400 mg capsule 400 mg PO TID Neuropathic pain 30 06/02/23 02/01/24 Rx days #90 caps risperidone 1 mg tablet 2 mg (2 x 1 mg) PO BID 30 days 06/02/23 02/01/24 Rx #120 tabs ferrous sulfate 325 mg (65 mg 325 mg PO DAILY 02/02/24 02/02/24 History iron) tablet fluticasone fur. 100 mcg-umeclid 1 ea inhalation DAILY 02/02/24 02/02/24 History 62.5 mcg-vilant 25 mcg inhalat.powder (Trelegy Ellipta) hydroxychloroquine 200 mg tablet 200 mg PO BID 02/02/24 02/02/24 History metoprolol tartrate 25 mg tablet 12.5 mg PO BID 02/02/24 02/02/24 History multivitamin 1 tab PO DAILY 02/02/24 02/02/24 History ropinirole 1 mg tablet 1 mg PO BID 02/02/24 02/02/24 History azithromycin 500 mg tablet 500 mg PO DAILY 2 days #2 tabs 02/03/24 Rx cefdinir 300 mg capsule 300 mg PO BID 4 days #8 caps 02/03/24 Rx clonazepam 0.5 mg tablet 0.25 mg (1/2 x 0.5 mg) PO BID 30 02/03/24 Rx days #30 ea furosemide 40 mg tablet 40 mg PO DAILY #30 tabs 02/03/24 Rx pantoprazole 40 mg tablet,delayed 40 mg PO DAILY #30 tabs 02/03/24 Rx release New Prescriptions to Start Prescriptions: wilder Jaramillo,Robert cefdinir Clint,Robert clonazepam Clint,Robert furosemide Clint,Robert pantoprazole Robert Jaramillo Allergies Allergy/AdvReac Type Severity Reaction Status Date / Time aspirin Allergy Intermediate edema Verified 11/20/22 18:04 Influenza Virus Vaccines AdvReac Intermediate Verified 11/20/22 18:04 Discharge Plan Disposition Patient Disposition[facility] Condition: Fair Discharge Order Discharge Orders: Discharge Order (Routine); Ordered 02/03/24 Ordered By: Robert Jaramillo Follow up Plan Prescriptions/Medication Reconciliation: New pantoprazole 40 mg tablet,delayed release (DR/EC) 40 mg PO DAILY Qty: 30 0RF azithromycin 500 mg tablet 500 mg PO DAILY 2 Days Qty: 2 0RF cefdinir 300 mg capsule 300 mg PO BID 4 Days Qty: 8 0RF Continued albuterol sulfate 90 mcg/actuation HFA aerosol inhaler 2 puff inhalation Q4HP PRN (Reason: Shortness Of Breath) Qty: 8.5 6RF gabapentin 400 mg capsule 400 mg PO TID 30 Days Qty: 90 5RF risperidone 1 mg Tablet 2 mg PO BID 30 Days Qty: 120 0RF citalopram 20 MG tablet 20 mg PO DAILY benztropine 2 MG tablet 2 mg PO BID ondansetron 4 MG tablet,disintegrating 4 mg PO Q6HP PRN (Reason: Nausea) Qty: 20 0RF loperamide 2 mg Tablet 2 mg PO Q3HP PRN (Reason: Diarrhea) donepezil 5 mg Tablet 5 mg PO HS metformin 500 mg tablet 500 mg PO BIDWMEAL sennosides [senna] 8.6 mg Tablet 17.2 mg PO DAILYP PRN (Reason: Constipation) acetaminophen 325 mg Tablet 650 mg PO BID multivitamin Tablet 1 tab PO DAILY ropinirole 1 mg tablet 1 mg PO BID ferrous sulfate 325 mg (65 mg iron) tablet 325 mg PO DAILY hydroxychloroquine 200 mg tablet 200 mg PO BID metoprolol tartrate 25 mg tablet 12.5 mg PO BID Trelegy Ellipta 100-62.5-25 mcg blister with device 1 ea INHALATION DAILY Changed furosemide 40 mg tablet 40 mg PO DAILY Qty: 30 0RF clonazepam 0.5 mg tablet 0.25 mg PO BID 30 Days Qty: 30 0RF Discontinued clopidogrel 75 mg tablet 75 mg PO DAILY omeprazole 20 mg capsule,delayed release(DR/EC) 20 mg PO DAILY Problem Reconciliation Problems Reviewed?: Yes Patient Discharge Instructions ACTIVITY: Continue current activity DIET: continue same diet Patient Instructions: DI for Chronic Obstructive Pulmonary Disease, DI for Hyponatremia, DI for Gastrointestinal Bleeding Print Language: Kyr[place]z Providers Primary Care Provider: Bobyb Bates Admit Provider: Robert Jaramillo Attending Provider: Robert Jaramillo
--- NOTE | 2024-02-03 15:16 | CARE MANAGER ---
Laboratory Tests 02/01/24 02/01/24 02/01/24 09:15 10:50 11:04 WBC 8.7 RBC 3.10 L Hgb 8.9 L Hct 27.7 L MCV 89.4 MCH 28.7 MCHC 32.1 RDW 15.3 Plt Count 236 MPV 9.3 Neut % (Auto) 73.3 Lymph % (Auto) 13.2 [place] % (Auto) 7.4 Eos % (Auto) 4.4 Baso % (Auto) 0.3 Neut # (Auto) 6.4 Lymph # (Auto) 1.2 [place] # (Auto) 0.7 Eos # (Auto) 0.4 Baso # (Auto) 0.0 PT 10.8 INR 0.96 VBG pH VBG pCO2 VBG pO2 VBG HCO3 VBG Total CO2 VBG O2 Saturation VBG Base Excess VBG Lactic Acid Sodium 125 L Potassium 4.6 Chloride 93 L Carbon Dioxide 32 H Anion Gap 4.6 L BUN 29 H Creatinine 0.80 Estimated Creat Clear 77 Estimated GFR 72 Est GFR ( Amer) 87 Glucose 145 H Calcium 8.6 Magnesium 1.7 Total Bilirubin 0.2 AST 37 H ALT 18 Alkaline Phosphatase 78 NT-Pro-B Natriuret Pep 184 H Total Protein 6.6 Albumin 3.5 Globulin 3.1 Albumin/Globulin Ratio 1.1 Lipase 28 Chlamy pneumoniae PCR Not detected Adenovirus (PCR) Not detected B. pertussis DNA (PCR) Not detected Coronavirus OC43 (PCR) Not detected Coronavirus HKU1 (PCR) Not detected Coronavirus 229E (PCR) Not detected SARS-CoV-2 (PCR) Not detected Coronavirus NL63 (PCR) Not detected Hepatitis C Antibody Non reactive HIV Ag/Ab Combo Qual Negative Human Metapneumovir PCR Not detected Influenza A (H1) PCR Not detected Influ A (H1N1/09) PCR Not detected Influenza A (H3) PCR Not detected Influenza Type A (PCR) Not detected Influenza A Untype (PCR) Influenza Type B (PCR) Not detected M. pneumoniae (PCR) Not detected Parainfluenza 1 (PCR) Not detected Parainfluenza 2 (PCR) Not detected Parainfluenza 3 (PCR) Not detected Parainfluenza 4 (PCR) Not detected RSV (PCR) Not detected Entero/Rhino (PCR) Not detected Blood Type O Positive Antibody Screen Negative 02/01/24 02/01/24 02/01/24 11:05 11:13 18:25 WBC RBC Hgb 9.5 L Hct 29.1 L MCV MCH MCHC RDW Plt Count MPV Neut % (Auto) Lymph % (Auto) [place] % (Auto) Eos % (Auto) Baso % (Auto) Neut # (Auto) Lymph # (Auto) [place] # (Auto) Eos # (Auto) Baso # (Auto) PT INR VBG pH 7.38 VBG pCO2 54.2 H VBG pO2 53.0 H VBG HCO3 31.6 H VBG Total CO2 33.3 H VBG O2 Saturation 85.7 H VBG Base Excess 6.6 H VBG Lactic Acid 1.8 Sodium Potassium Chloride Carbon Dioxide Anion Gap BUN Creatinine Estimated Creat Clear Estimated GFR Est GFR ( Amer) Glucose Calcium Magnesium Total Bilirubin AST ALT Alkaline Phosphatase NT-Pro-B Natriuret Pep Total Protein Albumin Globulin Albumin/Globulin Ratio Lipase Chlamy pneumoniae PCR Adenovirus (PCR) B. pertussis DNA (PCR) Coronavirus OC43 (PCR) Coronavirus HKU1 (PCR) Coronavirus 229E (PCR) SARS-CoV-2 (PCR) Not detected Coronavirus NL63 (PCR) Hepatitis C Antibody HIV Ag/Ab Combo Qual Human Metapneumovir PCR Influenza A (H1) PCR Influ A (H1N1/09) PCR Influenza A (H3) PCR Influenza Type A (PCR) Influenza A Untype (PCR) Not detected Influenza Type B (PCR) Not detected M. pneumoniae (PCR) Parainfluenza 1 (PCR) Parainfluenza 2 (PCR) Parainfluenza 3 (PCR) Parainfluenza 4 (PCR) RSV (PCR) Entero/Rhino (PCR) Blood Type Antibody Screen 02/02/24 02/02/24 02/03/24 06:24 18:10 10:43 WBC 13.4 H D 8.8 D RBC 2.87 L 2.86 L Hgb 8.3 L D 8.6 L 8.2 L Hct 25.7 L 27.6 L 26.1 L MCV 89.5 91.3 MCH 28.9 28.7 MCHC 32.3 31.4 L RDW 15.5 15.9 Plt Count 207 196 MPV 8.9 8.5 Neut % (Auto) 83.2 H 73.1 Lymph % (Auto) 8.8 L 13.3 [place] % (Auto) 6.9 9.1 Eos % (Auto) 0.1 3.2 Baso % (Auto) 0.1 0.3 Neut # (Auto) 11.1 H 6.4 Lymph # (Auto) 1.2 1.2 [place] # (Auto) 0.9 0.8 Eos # (Auto) 0.0 0.3 Baso # (Auto) 0.0 0.0 PT INR VBG pH VBG pCO2 VBG pO2 VBG HCO3 VBG Total CO2 VBG O2 Saturation VBG Base Excess VBG Lactic Acid Sodium 131 L Potassium 4.6 Chloride 99 Carbon Dioxide 34 H Anion Gap 2.6 L BUN 22 H Creatinine 0.80 Estimated Creat Clear 80 Estimated GFR 72 Est GFR ( Amer) 87 Glucose 126 H Calcium 9.0 Magnesium 2.3 D Total Bilirubin 0.2 AST 36 ALT 19 Alkaline Phosphatase 69 NT-Pro-B Natriuret Pep Total Protein 6.3 Albumin 3.3 L Globulin 3.0 Albumin/Globulin Ratio 1.1 Lipase Chlamy pneumoniae PCR Adenovirus (PCR) B. pertussis DNA (PCR) Coronavirus OC43 (PCR) Coronavirus HKU1 (PCR) Coronavirus 229E (PCR) SARS-CoV-2 (PCR) Coronavirus NL63 (PCR) Hepatitis C Antibody HIV Ag/Ab Combo Qual Human Metapneumovir PCR Influenza A (H1) PCR Influ A (H1N1/09) PCR Influenza A (H3) PCR Influenza Type A (PCR) Influenza A Untype (PCR) Influenza Type B (PCR) M. pneumoniae (PCR) Parainfluenza 1 (PCR) Parainfluenza 2 (PCR) Parainfluenza 3 (PCR) Parainfluenza 4 (PCR) RSV (PCR) Entero/Rhino (PCR) Blood Type Antibody Screen 02/03/24 10:45 WBC RBC Hgb Hct MCV MCH MCHC RDW Plt Count MPV Neut % (Auto) Lymph % (Auto) [place] % (Auto) Eos % (Auto) Baso % (Auto) Neut # (Auto) Lymph # (Auto) [place] # (Auto) Eos # (Auto) Baso # (Auto) PT INR VBG pH VBG pCO2 VBG pO2 VBG HCO3 VBG Total CO2 VBG O2 Saturation VBG Base Excess VBG Lactic Acid Sodium 133 L Potassium 4.4 Chloride 98 Carbon Dioxide 33 H Anion Gap 6.4 BUN 23 H Creatinine 0.70 Estimated Creat Clear 78 Estimated GFR 83 Est GFR ( Amer) 101 Glucose 89 Calcium 8.5 Magnesium 2.4 H Total Bilirubin 0.2 AST 39 H ALT 19 Alkaline Phosphatase 63 NT-Pro-B Natriuret Pep Total Protein 5.6 L Albumin 3.0 L Globulin 2.6 Albumin/Globulin Ratio 1.2 Lipase Chlamy pneumoniae PCR Adenovirus (PCR) B. pertussis DNA (PCR) Coronavirus OC43 (PCR) Coronavirus HKU1 (PCR) Coronavirus 229E (PCR) SARS-CoV-2 (PCR) Coronavirus NL63 (PCR) Hepatitis C Antibody HIV Ag/Ab Combo Qual Human Metapneumovir PCR Influenza A (H1) PCR Influ A (H1N1/09) PCR Influenza A (H3) PCR Influenza Type A (PCR) Influenza A Untype (PCR) Influenza Type B (PCR) M. pneumoniae (PCR) Parainfluenza 1 (PCR) Parainfluenza 2 (PCR) Parainfluenza 3 (PCR) Parainfluenza 4 (PCR) RSV (PCR) Entero/Rhino (PCR) Blood Type Antibody Screen
[2024-02-03] MEDS: CEFTRIAXONE SODIUM 1 GM in 0.9 % SODIUM CHLORIDE 50 ML IV (15:49)
--- NOTE | 2024-02-03 15:59 | PC.NURSE ---
Addendum entered by Makeda Yao RN 02/03/24 16:11: notified [facility] for transport Original Note: called report to [facility]
== END 2024-02-03 16:54 | DRG 369 ==
LOC: ER 13:37 → 2ND 13:55
PROVIDERS: Surgery; Admitting Provider Internal Medicine Adolescent Medicine; Emergency Provider Emergency Medicine; PCP Nurse Practitioner Acute Care; Visit Provider Internal Medicine Adolescent Medicine
PROC: 0DJ08ZZ Inspection of Upper Intestinal Tract, Via Natural or Artificial Opening Endoscopic (ICD-10-PCS; principal; 2024-02-03 13:30)
DX: K20.91 Esophagitis, unspecified with bleeding (principal); E87.1 Hypo-osmolality and hyponatremia; J44.1 Chronic obstructive pulmonary disease with (acute) exacerbation; I10 Essential (primary) hypertension; E78.5 Hyperlipidemia, unspecified; F20.9 Schizophrenia, unspecified; D64.9 Anemia, unspecified; K44.9 Diaphragmatic hernia without obstruction or gangrene; E11.51 Type 2 diabetes mellitus with diabetic peripheral angiopathy without gangrene
CPT/HCPCS: 44376; 36415; 71045; 74176; 80053; 82803; 83690; 83735; 83880; 85014; 85018; 85025; 85610; 86803; 86850; 87389; 87633; 87636; 93005; 94640; 94761; 99252; 99291; J0456; J0696; J1939; J1940; J2919; J7050; J7620; Q0162

== ENCOUNTER 2024-03-13 09:41 | Outpatient (CLI) | payer MEDICARE, MEDICAID, SELFPAY ==
--- NOTE | 2024-03-13 09:42 | CT_ITS ---
FINAL REPORT TECHNIQUE: After the administration of intravenous contrast, axial images were obtained through the abdomen and pelvis by computed tomography. This study was performed with technique to keep radiation doses as low as reasonably achievable, (ALARA). Individualized dose reduction techniques using automated exposure control or adjustment of the MA and/or KV according to the patient's size were employed. CLINICAL HISTORY: Abdominal pain oral contrast finished at 8:30 am COMPARISON: 02/02/2024 FINDINGS: Abdomen: Previously seen bibasilar consolidation has improved. The liver is normal in size and attenuation. Gallstones are seen in a contracted gallbladder. The spleen is unremarkable. The adrenals are normal. The pancreas is unremarkable. The kidneys enhance appropriately. The aorta is normal in caliber. There is no free fluid or adenopathy. Pelvis: The appendix is not identified. Uterus is eccentric to the right. The urinary bladder is unremarkable. There is no free fluid or adenopathy. IMPRESSION: Improved bibasilar consolidation. Cholelithiasis and a contracted gallbladder. Reviewed, Interpreted and Dictated by Florentino Cuevas MD Transcribed by Fatimah Calhoun Authenticated and [facility]
[2024-03-13 10:08] LABS: Blood Urea Nitrogen 14 mg/dl (7-17); Estimated Glomerular Filt Rate 83 ml/min (>60); GFR (African American) 101 ML/MIN (>60)
[2024-03-13] MEDS: BARIUM SULFATE(READI-CAT2);450ML BOTTLE 450 ML PO (10:52)
[2024-03-13] MEDS: SODIUM CHLORIDE 0.9% 10ML SYR (RAD ONLY) 10 ML IV (10:52)
[2024-03-13] MEDS: IOPAMIDOL-370 (76%);100ML BOTTLE 75 ML IV (10:52)
== END 2024-03-13 23:59 | disposition home or self-care (01) ==
LOC: RAD 09:42
PROVIDERS: PCP Nurse Practitioner Acute Care; Visit Provider Surgery
DX: D64.9 Anemia, unspecified (principal); R10.9 Unspecified abdominal pain
CPT/HCPCS: 36415; 74177; 82565; 84520; Q9967

== ENCOUNTER 2024-03-29 12:07 | Outpatient (CLI) | payer MEDICARE, MEDICAID, SELFPAY ==
[2024-03-29 12:35] LABS: Basophils # 0.1 K/mm3 (0-0.2); Basophils % 0.7 % (0.1-2.0); Eosinophils # 0.5 K/mm3 (0.0-0.4); Eosinophils % 6.5 % (0.1-12.0); Hematocrit 32.5 % (37.0-47.0); Hemoglobin 10.1 g/dL (12.2-16.2); Lymphocytes # 1.9 K/mm3 (0.7-4.5); Lymphocytes % 24.1 % (10-50); Mean Corpuscular HGB Conc 31.1 g/dL (31.8-35.4); Mean Corpuscular Hemoglobin 27.8 pg (27.0-31.2); Mean Corpuscular Volume 89.5 fl (81-99); Mean Platelet Volume 9.3 fl (7.4-10.4); Monocytes # 0.9 K/mm3 (0.1-1.0); Monocytes % 11.2 % (1.7-9.3); Neutrophils # 4.4 K/mm3 (1.8-7.8); Neutrophils % 57.1 % (37.0-80.0); Platelet Count 254 K/mm3 (142-424); Red Blood Count 3.63 M/mm3 (4.20-5.40); Red Cell Distribution Width 14.1 % (11.5-17.5); Reticulocyte % (Auto) 1.7 % (0.9-3.2); White Blood Count 7.7 K/mm3 (4.8-10.8)
[2024-03-29 13:15] LABS: Albumin Level 4.3 g/dl (3.5-5.0); Chloride 99 mmol/L (98-107); Potassium 4.8 mmoL/L (3.5-5.1); Sodium 135 mmol/L (136-145)
[2024-03-29 13:18] LABS: Alanine Aminotransferase 27 U/L (12-78); Albumin/Globulin Ratio 1.5 (1.1-1.8); Alkaline Phosphatase 79 U/L (38-126); Anion Gap 14.8 mEq/L (5-15); Aspartate Amino Transferase 36 U/L (14-36); Blood Urea Nitrogen 17 mg/dl (7-17); Carbon Dioxide 26 mmol/L (22.0-30.0); Estimated Glomerular Filt Rate 55 ml/min (>60); GFR (African American) 67 ML/MIN (>60); Globulin 2.9 g/dL (1.3-3.2); Glucose 89 mg/dl (74-100); Iron 282 ug/dL (37-170); Total Protein,Serum 7.2 g/dl (6.3-8.2)
[2024-03-29 13:19] LABS: Calcium 9.2 mg/dl (8.4-10.2)
[2024-03-29 13:25] LABS: Bilirubin,Total 0.1 mg/dl (0.2-1.3)
[2024-03-29 13:28] LABS: Total Iron Binding Capacity 361 ug/dL (265-497)
[2024-03-29 14:39] LABS: Folate > 20.00 ng/mL
[2024-03-29 15:48] LABS: Ferritin 16.7 ng/ml (11.1-264)
[2024-03-29 19:10] LABS: Vitamin B12 460 pg/mL (239-931)
[2024-03-29 19:17] LABS: Lactate Dehydrogenase 242 U/L (313-618)
[2024-03-30 08:14] LABS: Haptoglobin 263 mg/dL (37-355)
== END 2024-03-29 23:59 | disposition home or self-care (01) ==
LOC: LAB 14:52
PROVIDERS: PCP Internal Medicine Adolescent Medicine; Visit Provider Internal Medicine Medical Oncology
DX: D64.9 Anemia, unspecified (principal)
CPT/HCPCS: 36415; 80053; 82607; 82728; 82746; 83010; 83540; 83550; 83615; 85025; 85044; 86880

== ENCOUNTER 2024-06-24 03:15 | Emergency (ER) | payer MEDICARE, MEDICAID, SELFPAY ==
[2024-06-24] VITALS (7 sets, daily range): BP systolic 142–183; BP diastolic 51–72; PULSE 64–80; RESP 16; TEMP 36.6; O2SAT 92–98; BMI 52.3
--- NOTE | 2024-06-24 03:11 | XR_ITS ---
PROCEDURE INFORMATION: Exam: XR Left Forearm Exam date and time: 06/24/2024 3:46 AM Age: 68 years old Clinical indication: Injury or trauma; Fall; Blunt trauma (contusions or hematomas); Shoulder; Left TECHNIQUE: Imaging protocol: Radiologic exam of the left forearm. Views: 2 views. COMPARISON: CR XR ELBOW LT MIN 3V 06/24/2024 3:46 AM FINDINGS: Bones/joints: Normal. Soft tissues: Normal. IMPRESSION: No acute findings.
--- NOTE | 2024-06-24 03:11 | XR_ITS ---
PROCEDURE INFORMATION: Exam: XR Left Elbow Exam date and time: 06/24/2024 3:46 AM Age: 68 years old Clinical indication: Injury or trauma; Fall; Blunt trauma (contusions or hematomas); Shoulder; Left TECHNIQUE: Imaging protocol: Radiologic exam of the left elbow. Views: 3 or more views. COMPARISON: CR XR ELBOW LT MIN 3V 06/24/2024 3:46 AM FINDINGS: Bones/joints: Normal. Soft tissues: Normal. IMPRESSION: No acute findings.
--- NOTE | 2024-06-24 03:11 | XR_ITS ---
PROCEDURE INFORMATION: Exam: XR Left Knee Exam date and time: 06/24/2024 3:46 AM Age: 68 years old Clinical indication: Injury or trauma; Fall; Blunt trauma; Knee; Left TECHNIQUE: Imaging protocol: Radiologic exam of the left knee. Views: 3 views. COMPARISON: US ARTERIAL LOWER EXT REST 09/29/2021 9:32 AM FINDINGS: Bones/joints: Normal. Soft tissues: Normal. IMPRESSION: No acute findings.
--- NOTE | 2024-06-24 03:11 | XR_ITS ---
PROCEDURE INFORMATION: Exam: XR Left Humerus Exam date and time: 06/24/2024 3:46 AM Age: 68 years old Clinical indication: Injury or trauma; Fall; Blunt trauma (contusions or hematomas); Shoulder; Left TECHNIQUE: Imaging protocol: Radiologic exam of the left humerus. Views: 2 or more views. COMPARISON: CR XR HUMERUS LT 06/24/2024 3:46 AM FINDINGS: Bones/joints: Fracture with acute angulation through the neck of the humerus. Soft tissues: Normal. IMPRESSION: Fracture with acute angulation through the neck of the humerus.
--- NOTE | 2024-06-24 03:15 | XR_ITS ---
PROCEDURE INFORMATION: Exam: XR Left Shoulder Exam date and time: 06/24/2024 3:46 AM Age: 68 years old Clinical indication: Injury or trauma; Fall; Blunt trauma (contusions or hematomas); Shoulder; Left TECHNIQUE: Imaging protocol: Radiologic exam of the left shoulder. Views: 2 or more views. COMPARISON: CR XR HUMERUS LT 06/24/2024 3:46 AM FINDINGS: Bones/joints: Fracture through the neck of the humerus. There is acute angulation at the fracture site. Soft tissues: Normal. IMPRESSION: Fracture through the neck of the humerus. There is acute angulation at the fracture site.
--- NOTE | 2024-06-24 03:18 | CT_ITS ---
PROCEDURE INFORMATION: Exam: CT Head Without Contrast Exam date and time: 06/24/2024 3:30 AM Age: 68 years old Clinical indication: Injury or trauma; Fall; Blunt trauma (contusions or hematomas); Additional info: Fall, hit head TECHNIQUE: Imaging protocol: Computed tomography of the head without contrast. Radiation optimization: All CT scans at this facility use at least one of these dose optimization techniques: automated exposure control; mA and/or kV adjustment per patient size (includes targeted exams where dose is matched to clinical indication); or iterative reconstruction. COMPARISON: CT HEAD/BRAIN WO CON 05/31/2023 3:08 PM FINDINGS: Brain: Mild chronic microvascular ischemic disease without acute intraparenchymal hemorrhage and no obvious acute ischemic stroke. No intra-or extra-axial fluid collection, no supra-or infratentorial mass, no mass effect or midline shift. Cerebral ventricles: Mildly dilated ventricles, sulci and basal cisterns without evidence of hydrocephalus. Paranasal sinuses: Mild chronic mucoperiosteal thickening in the visualized paranasal sinuses. Mastoid air cells: No mastoid effusion. Bones: Visualized skull bones are grossly normal. IMPRESSION: 1. Mild chronic microvascular disease and generalized atrophy without acute intracranial abnormality. 2. No evidence of acute hemorrhage, mass lesion or obvious acute ischemic infarction. PROCEDURE INFORMATION: Exam: CT Maxillofacial Without Contrast Exam date and time: 06/24/2024 3:30 AM Age: 68 years old Clinical indication: Injury or trauma; Fall; Blunt trauma (contusions or hematomas); Additional info: Fall, hit head TECHNIQUE: Imaging protocol: Computed tomography of the face without contrast. Radiation optimization: All CT scans at this facility use at least one of these dose optimization techniques: automated exposure control; mA and/or kV adjustment per patient size (includes targeted exams where dose is matched to clinical indication); or iterative reconstruction. COMPARISON: CT HEAD/BRAIN WO CON 05/31/2023 3:08 PM FINDINGS: Paranasal sinuses: Mild chronic mucoperiosteal thickening in the visualized paranasal sinuses. Orbital cavities: See below. Mastoid air cells: No evidence of mastoid effusion. Bones: The mandible, maxilla, paranasal sinuses, pterygoid plates, nasal bones, bony orbital fowler, zygomatic arches, temporal bones, bones of the skull base are unremarkable without acute displaced fracture. No dislocation at the temporomandibular joints. IMPRESSION: No evidence of acute maxillofacial bony injury.
--- NOTE | 2024-06-24 03:24 | CT_ITS ---
PROCEDURE INFORMATION: Exam: CT Cervical Spine Without Contrast Exam date and time: 06/24/2024 3:42 AM Age: 68 years old Clinical indication: Injury or trauma; Fall; Blunt trauma TECHNIQUE: Imaging protocol: Computed tomography of the cervical spine without contrast. Radiation optimization: All CT scans at this facility use at least one of these dose optimization techniques: automated exposure control; mA and/or kV adjustment per patient size (includes targeted exams where dose is matched to clinical indication); or iterative reconstruction. COMPARISON: CT CERVICAL SPINE WO CON 05/05/2023 2:35 PM FINDINGS: Bones: Normal curvature of the spine, alignment of the vertebral bodies is grossly normal. Coarse bony trabecular pattern suggestive of diffuse osteopenia. No evidence of acute compression fracture or deformity in the cervical spine. No acute fracture involving the vertebral bodies or their posterior elements. Discs/Spinal canal/Neural foramina: Chronic degenerative changes in the visualized cervical spine. Lungs: Scarring, septal thickening, ground-glass opacities and paraseptal emphysema in the lung apices. Soft tissues: Pre-and paravertebral soft tissues are grossly normal. IMPRESSION: Chronic degenerative changes without an acute bony cervical spine injury or abnormality. COMMENTS: Recommend followup with MRI if clinically suspicion for discoligamentous/soft tissue or cord abnormality.
--- NOTE | 2024-06-24 04:31 | CT_ITS ---
PROCEDURE INFORMATION: Exam: CT Left Upper Extremity Without Contrast, Upper Arm Exam date and time: 06/24/2024 5:01 AM Age: 68 years old Clinical indication: Injury or trauma; Fall; Blunt trauma (contusions or hematomas); Shoulder; Left; Additional info: Fall proximal humeral FX TECHNIQUE: Imaging protocol: Computed tomography of the left upper extremity without contrast. Exam focused on the upper arm. Radiation optimization: All CT scans at this facility use at least one of these dose optimization techniques: automated exposure control; mA and/or kV adjustment per patient size (includes targeted exams where dose is matched to clinical indication); or iterative reconstruction. COMPARISON: CR XR ELBOW LT MIN 3V 06/24/2024 3:46 AM FINDINGS: Bones/joints: There is a fracture through the neck of the humerus with impaction and angulation at the fracture site. Fracture lines extend into the head of the humerus. The glenoid is intact as is the remainder of the shoulder. Soft tissues: Normal. IMPRESSION: Fracture through the neck of the humerus with impaction and angulation at the fracture site. Fracture lines extend into the head of the humerus. The glenoid is intact as is the remainder of the shoulder.
--- NOTE | 2024-06-24 04:32 | HMH.EDGENADL ---
Discharge Plan Disposition Patient Disposition: Xfer SNF Condition: Fair Prescriptions Prescriptions: New hydrocodone-acetaminophen 5-325 mg tablet 1 tab PO Q6H PRN (Reason: pain (scale score 7-10)) Qty: 12 0RF No Action Neupro 1 mg/24 hour patch 24 hour 1 mg transdermal risperidone 2 mg tablet PO amantadine HCl 100 mg capsule PO omeprazole 40 mg capsule,delayed release(DR/EC) PO albuterol sulfate 90 mcg/actuation HFA aerosol inhaler 2 puff inhalation Q4HP PRN (Reason: Shortness Of Breath) Qty: 8.5 6RF gabapentin 400 mg capsule 400 mg PO TID 30 Days Qty: 90 5RF risperidone 1 mg Tablet 2 mg PO BID 30 Days Qty: 120 0RF citalopram 20 MG tablet 20 mg PO DAILY benztropine 2 MG tablet 2 mg PO BID ondansetron 4 MG tablet,disintegrating 4 mg PO Q6HP PRN (Reason: Nausea) Qty: 20 0RF loperamide 2 mg Tablet 2 mg PO Q3HP PRN (Reason: Diarrhea) donepezil 5 mg Tablet 5 mg PO HS metformin 500 mg tablet 500 mg PO BIDWMEAL sennosides [senna] 8.6 mg Tablet 17.2 mg PO DAILYP PRN (Reason: Constipation) acetaminophen 325 mg Tablet 650 mg PO BID multivitamin Tablet 1 tab PO DAILY ropinirole 1 mg tablet 1 mg PO BID ferrous sulfate 325 mg (65 mg iron) tablet 325 mg PO DAILY hydroxychloroquine 200 mg tablet 200 mg PO BID metoprolol tartrate 25 mg tablet 12.5 mg PO BID Trelegy Ellipta 100-62.5-25 mcg blister with device 1 ea INHALATION DAILY pantoprazole 40 mg tablet,delayed release (DR/EC) 40 mg PO DAILY Qty: 30 0RF furosemide 40 mg tablet 40 mg PO DAILY Qty: 30 0RF clonazepam 0.5 mg tablet 0.25 mg PO BID 30 Days Qty: 30 0RF Referrals Follow up/Referrals: Brent Hodges DO [Staff Physician] - See instructions (L humeral neck fx [facility]) Provider,Nancy, [Primary Care Provider] - See instructions Abdiaziz Ruiz MD [Staff Physician] - See instructions (L humeral neck fx in sling, neurovascularly intact Needs outpatient followup with [facility], please help facilitate this since she is a [place] patient I have sent a referral to [facility]. Thank you!) Activity Restrictions/Add. Instructions Additional Instructions/Restrictions: You were evaluated in the ER and are believed to be appropriate for discharge at this time. Sling to remain in place at all times except for hygiene Do not move the left shoulder Take Tylenol/ibuprofen if needed for pain, do not exceed the recommended daily dose Take prescribed hydrocodone if needed for severe breakthrough pain -this medication contains acetaminophen (Tylenol)-consider this when calculating daily dose Follow-up with Dr. Hodges (orthopedics) on Tuesday. Call first thing Tuesday morning for an appointment - [phone] Follow-up with your primary care doctor for reevaluation in a few days. Return to the ER with any new, worsening, or otherwise concerning symptoms. Clinical Impressions Clinical Impression: Closed fracture of neck of left humerus, Fall Print Language Print Language: Italian Discharge ED Provider: Tiny Morin General Adult HPI General Chief complaint: Fall Stated complaint: Fall Time Seen by Provider: 06/24/24 03:40 Mode of Arrival: EMS Source of Information: EMS Description of Symptoms (Recalled from ER Triage Doc. by RN): Patient fell out of chair; is alert and oriented; states she hit her head (front) and that she landed on her left side. Left arm pain and left knee pain are the only complaints. Not on blood thinners. History of Present Illness HPI narrative: 68-year-old female presents to the ER from [facility] after a fall. Patient reports she was sitting in a chair when she slid out of it landing on her left side. She did not syncopize or have any lightheadedness before the fall. It was a mechanical fall. She did strike her head but did not lose consciousness. No blood thinners. Patient complains primarily of left upper extremity pain. She is worried about her left shoulder. She states she has minimal use of both of her hands due to previous injuries but has sensation intact in both hands. She also has mild left knee pain. No neck pain, back pain, chest pain, or abdominal pain. No other complaints or concerns. Related Data Home Medications ?Medication ?Instructions ?Recorded ?Confirmed benztropine 2 mg tablet 2 mg PO BID 04/08/17 05/03/24 citalopram 20 mg tablet 20 mg PO DAILY 04/08/17 05/03/24 donepezil 5 mg tablet 5 mg PO HS 11/20/22 05/03/24 loperamide 2 mg tablet 2 mg PO Q3HP PRN Diarrhea 11/20/22 05/03/24 acetaminophen 325 mg tablet 650 mg PO BID 11/21/22 05/03/24 metformin 500 mg tablet 500 mg PO BIDWMEAL 11/21/22 05/03/24 sennosides 8.6 mg tablet (senna) 17.2 mg PO DAILYP PRN Constipation 11/21/22 05/03/24 ferrous sulfate 325 mg (65 mg 325 mg PO DAILY 02/02/24 05/03/24 iron) tablet fluticasone fur. 100 mcg-umeclid 1 ea inhalation DAILY 02/02/24 05/03/24 62.5 mcg-vilant 25 mcg inhalat.powder (Trelegy Ellipta) hydroxychloroquine 200 mg tablet 200 mg PO BID 02/02/24 05/03/24 metoprolol tartrate 25 mg tablet 12.5 mg PO BID 02/02/24 05/03/24 multivitamin 1 tab PO DAILY 02/02/24 05/03/24 ropinirole 1 mg tablet 1 mg PO BID 02/02/24 05/03/24 amantadine HCl 100 mg capsule mg PO 03/29/24 05/03/24 omeprazole 40 mg capsule,delayed mg PO 03/29/24 05/03/24 release risperidone 2 mg tablet mg PO 03/29/24 05/03/24 rotigotine 1 mg/24 hour 1 mg transdermal 05/03/24 05/03/24 transdermal 24 hour patch (Neupro) Previous Rx's ?Medication ?Instructions ?Recorded ondansetron 4 mg disintegrating 4 mg PO Q6HP PRN Nausea #20 tabs 01/28/22 tablet albuterol sulfate 90 mcg/actuation 2 puff inhalation Q4HP PRN 11/03/22 aerosol inhaler Shortness Of Breath #8.5 grams gabapentin 400 mg capsule 400 mg PO TID Neuropathic pain 30 06/02/23 days #90 caps risperidone 1 mg tablet 2 mg (2 x 1 mg) PO BID 30 days 06/02/23 #120 tabs clonazepam 0.5 mg tablet 0.25 mg (1/2 x 0.5 mg) PO BID 30 02/03/24 days #30 ea furosemide 40 mg tablet 40 mg PO DAILY #30 tabs 02/03/24 pantoprazole 40 mg tablet,delayed 40 mg PO DAILY #30 tabs 02/03/24 release hydrocodone 5 mg-acetaminophen 325 1 tab PO Q6H PRN pain (scale score 05/18/25 mg tablet 7-10) #12 tabs Allergies Allergy/AdvReac Type Severity Reaction Status Date / Time aspirin Allergy Intermediate edema Verified 05/03/24 09:02 Influenza Virus Vaccines AdvReac Intermediate Verified 05/03/24 09:02 [facility] Disclaimer: The information contained in this section may have been updated after the patient was seen, as this information can be updated by other users. Medical History Coronary artery calcification seen on CAT scan Dyspnea Abnormal ankle brachial index (CECE) Abnormal electrocardiogram [ECG] [EKG] Hypertension Schizophrenia Seizure Depression HTN (hypertension) Surgical History History of esophagogastroduodenoscopy (EGD) Family History Other No significant family history Social History (Updated 05/03/24 @ 09:03 by Jacklyn Grant MA) Smoking Status: Never smoker alcohol intake: never substance use type: denies use current occupational status: disabled and other Travel in the last 8 weeks?: None household members: other housing: assisted living facility current occupational exposures/hazards: No caffeine: Yes Have you lived/traveled outside [place] in past 30 days?: No Contact w/someone who lives/traveled outside US past 30 days?: No Exposure to someone with infectious disease in past 14 days?: No Do you have a fever (greater than 100.4 F or 38 C)?: No Have you tested positive for COVID-19?: No Exposed to someone with COVID-19 in past 14 days?: No Do you have a sore throat?: No Do you have a cough?: No Do you have any weakness?: No Do you have any diarrhea?: No Are you experiencing any unusual bleeding?: No Do you have any muscle aches/pain?: No Do you have any abdominal pain?: No Are you experiencing loss of taste or smell?: No Other Medical History Have you received the Flu Vaccine for this season: No Have you received the Pneumonia Vaccine: Yes ROS Obtained: Yes Systems reviewed as appropriate & no additional complaints except as documented Per HPI Physical Exam General General appearance: alert, in no apparent distress and obese Head Head exam: atraumatic and normocephalic Eye Eye exam: Present PERRL and EOMI ENT ENT exam: Present mucous membranes moist Neck Neck exam: Present normal inspection and full ROM Chest Chest inspection: Present symmetric chest wall rise Respiratory Respiratory exam: Present normal lung sounds bilaterally; Absent respiratory distress, wheezes or stridor Cardiovascular Cardiovascular exam: Present regular rate and normal rhythm Abdominal Exam Abdominal exam: Present soft; Absent distention or tenderness Extremities Exam Extremities exam: Present tenderness (Tenderness to palpation of left shoulder with crepitus; no tenderness to palpation of the left knee, no swelling or effusion, no ligamentous laxity of the left knee) and other (Pelvis stable, neurovascularly intact distal to injuries, 2+ left radial pulse. Patient has decreased movement of the hands due to previous injuries but the movement that she has in her hands is reported by her to be at baseline); Absent full ROM (Range of motion left upper extremity limited secondary to left shoulder pain), edema or joint swelling Back Exam Back exam: Absent tenderness Neurological Exam Neurological exam: Present alert and oriented X3; Absent motor sensory deficit Psychiatric Psychiatric exam: Present normal affect and normal mood Skin Skin exam: Present warm and dry Medical Decision Making Medical Records Medical records reviewed: Yes I reviewed the patient's medical records. Screening: Per USPSTF and CDC recommendations, given the prevalence of disease in our region, it is our hospital?s policy to screen for HIV and viral Hepatitis for all patients aged 18 and over and those with ongoing risk factors. 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 Pt receiving controlled substance: No Vital Signs: 06/24/24 03:03 06/24/24 03:31 06/24/24 04:00 Temperature 97.9 F Temperature Source Oral Pulse Rate 75 80 Pulse Rate [Right Radial] 72 Respiratory Rate 16 Blood Pressure 172/53 H 179/58 H Blood Pressure [Right Arm] 180/65 H Blood Pressure Mean [Right Arm] 103 Blood Pressure Source [Right Arm] Automatic Cuff Blood Pressure Position [Right Arm] Supine 02 Sat by Pulse Oximetry 94 L 95 92 L Oxygen Delivery Method Room Air 06/24/24 04:32 Temperature Temperature Source Pulse Rate 80 Pulse Rate [Right Radial] Respiratory Rate Blood Pressure 183/72 H Blood Pressure [Right Arm] Blood Pressure Mean [Right Arm] Blood Pressure Source [Right Arm] Blood Pressure Position [Right Arm] 02 Sat by Pulse Oximetry 97 Oxygen Delivery Method Orders (Tests/Meds): ED MEDICATIONS Discontinued Medications Generic Name Dose Route Start Last Admin Trade Name Freq PRN Reason Stop Dose Admin Hydrocodone Bitart/Acetaminophen 1 tab 06/24/24 04:23 06/24/24 04:34 Hydrocodone/Apap 5/325 Mg Tablet PO 06/24/24 04:24 1 tab ONCE ONE Administration ORDERS Category Date Time Status CT cervical spine wo con Stat Cat Scan 06/24/24 03:[address] head/brain wo con Stat Cat Scan 06/24/24 03:[address] humerus LT wo con Stat Cat Scan 06/24/24 04:31 Completed XR elbow LT min 3V Stat Exams 06/24/24 03:11 Completed XR forearm LT 2V Stat Exams 06/24/24 03:11 Completed XR humerus LT Stat Exams 06/24/24 03:11 Completed XR knee LT 3V Stat Exams 06/24/24 03:11 Completed XR shoulder LT min 2V Stat Exams 06/24/24 03:15 Completed Medical Decision Narrative: In summary, this 68-year-old female presents from residential after fall out of chair, primary complaint of left upper extremity pain, also has mild left knee pain. On initial evaluation patient is hemodynamically stable, afebrile, GCS 15, no focal neurologic deficits, patient states she has limited use of both hands due to previous injury, she has tenderness to palpation of the left shoulder, there is crepitus on exam of the left shoulder, neurovascularly intact distally within the limitations of patient's previous injuries to the hands, sensation is intact and she does have some movement of the hand and fingers which she reports is at baseline. She does not have any tenderness or swelling or effusion of the left knee, no ligamentous laxity appreciated. Differential diagnosis includes but is not limited to intracranial bleed or C-spine injury cannot be ruled out secondary to patient's age so these were considered, also considered the possibility of skull fracture, left upper extremity fracture including proximal humerus fracture, osseous knee injury. Based on these concerns, I ordered CT imaging of the head and neck as well as left upper extremity and left knee imaging. X-rays of left upper extremity personally interpreted demonstrate proximal humerus fracture with displacement. Based on my personal interpretation I reached out to Dr. Hodges who is orthopedics on-call. We reviewed the images together and he recommends a sling with an immobilizing belt in order to prevent abduction of the arm. He recommends outpatient follow-up in 2 to 3 days. He does request that CT of the left humerus to be performed prior to discharge for surgical planning purposes. I appreciate his recommendations. Sling was placed on the patient with immobilizing belt to limit movement of the shoulder. I also administered hydrocodone for pain control. Patient remains neurovascularly intact. Additional x-rays were personally interpreted and I do not appreciate other acute osseous injury. See radiology reads for final interpretation. C-collar was cleared by me. No midline tenderness, no pain with range of motion. No neurologic deficits. CT head and CT C-spine were personally interpreted I do not appreciate acute traumatic injury, see radiology read for final interpretations. CT left humerus was obtained for surgical planning purposes as recommended by Dr. Hodges. On reevaluation patient is appropriate for discharge at this time. I prescribed [place] for outpatient management of severe pain if needed. Referral provided to Dr. Hodges. Patient was given instructions on symptomatic management, follow up instructions, and return precautions for the emergency department. Patient indicated understanding and was discharged in stable condition. Instructions were also relayed directly to [place]. Procedures Risk/Benefits of Procedure(s) Were Explained: Yes Orthopedic Splinting/Casting Injury #1: Side: left Upper Extremity Injury Location: shoulder Upper Extremity Immobilizer: sling/shoulder immobilizer Post Cast/Splinting Neuro Status: intact and no change Post Cast/Splinting Vasc Status: intact and no change Critical Care Critical Care Time Critical Care Time: No
--- NOTE | 2024-06-24 04:32 | PC.NURSE ---
Sling applied per MD order
[2024-06-24] MEDS: HYDROCODONE/APAP 5/325 MG TABLET 1 TAB PO (04:34)
--- NOTE | 2024-06-24 05:39 | PC.NURSE ---
report and followup instructions given to dana at nursing facility
== END 2024-06-24 06:20 ==
PROVIDERS: Emergency Provider Emergency Medicine
DX: S42.292A Other displaced fracture of upper end of left humerus, initial encounter for closed fracture (principal); M25.562 Pain in left knee; M25.512 Pain in left shoulder; W07.XXXA Fall from chair, initial encounter
CPT/HCPCS: 70450; 72125; 73030; 73060; 73080; 73090; 73200; 73562; 99285

== ENCOUNTER 2024-07-23 11:47 | Observation (INO) | payer MEDICARE, MEDICAID, SELFPAY ==
[2024-07-23] VITALS (18 sets, daily range): BP systolic 116–165; BP diastolic 41–87; PULSE 77–96; RESP 15–18; TEMP 36.2–37.1; O2SAT 90–100; BMI 34.9
--- NOTE | 2024-07-23 11:51 | ED_ITS ---
<Statement entered by Pasquale Bernal MD - 07/23/24 15:34> I was consulted by the KRAIG, and we discussed the complexity of the problems being addressed. I approved the treatment and management plan for this patient's care in the emergency department, thus performing a substantive portion of the medical decision making. Pasquale Bernal MD Discharge Plan Disposition Patient Disposition: Admitted Condition: Good Clinical Impressions Clinical Impression: Coffee ground emesis Discharge ED Provider: Pasquale Bernal General Adult HPI General Chief complaint: Nausea/Vomiting/Diarrhea Stated complaint: Vomiting coffee grounds Time Seen by Provider: 07/23/24 11:51 History of Present Illness HPI narrative: Patient presents for evaluation of coffee-ground emesis. Patient is a correction patient who has a past medical history of schizophrenia. She appears to be a suspect historian but currently appears oriented. She is however a [place] of [place] state. prison reports that patient had episode of vomiting that had coffee-ground appearance. Patient herself denies [id number] NSAID use, denies chest pain shortness of breath fever chills hemoptysis hematochezia melena diarrhea. EMS reports that there was a can of instant coffee at the patient's bedside. I asked the patient whether or not she had had coffee or ate her coffee and she denied. She does have a history of iron deficiency anemia and has seen Dr. Santiago in the past. She has also been scoped in January by Dr. Bravo Related Data Home Medications ?Medication ?Instructions ?Recorded ?Confirmed benztropine 2 mg tablet 2 mg PO BID 04/08/17 5 citalopram 20 mg tablet 20 mg PO DAILY 04/08/1706/08 donepezil 5 mg tablet 5 mg PO HS 11/20/22 06/28/24 loperamide 2 mg tablet 2 mg PO Q3HP PRN Diarrhea 06/28/24 acetaminophen 325 mg tablet 650 mg PO BID 11/21/22 metformin 500 mg tablet 500 mg PO BIDWMEAL 11/21/22 06/28/24 sennosides 8.6 mg tablet (senna) 17.2 mg PO DAILYP PRN Constipation 11/21/22 06/28/24 ferrous sulfate 325 mg (65 mg 325 mg PO DAILY 02/02/24 06/28/24 iron) tablet fluticasone fur. 100 mcg-umeclid 1 ea inhalation DAILY 02/02/24 06/28/24 62.5 mcg-vilant 25 mcg inhalat.powder (Trelegy Ellipta) hydroxychloroquine 200 mg tablet 200 mg PO BID 4 06/28/24 metoprolol tartrate 25 mg tablet 12.5 mg PO BID 06/28/24 multivitamin 1 tab PO DAILY 02/02/2406/08 ropinirole 1 mg tablet 1 mg PO BID 02/02/24 5 amantadine HCl 100 mg capsule mg PO 03/29/24 06/28/24 omeprazole 40 mg capsule,delayed mg PO 03/29/24 release risperidone 2 mg tablet mg PO 03/29/24 06/28/24 rotigotine 1 mg/24 hour 1 mg transdermal 05/03/24 transdermal 24 hour patch (Neupro) Previous Rx's ?Medication ?Instructions ?Recorded ondansetron 4 mg disintegrating 4 mg PO Q6HP PRN Nause a #20 tabs 01/28/22 tablet albuterol sulfate 90 mcg/actuation 2 puff inhalation Q 4HP PRN 11/03/22 aerosol inhaler Shortness Of Breath #8.5 gra ms gabapentin 400 mg capsule 400 mg PO TID Neuropathic pa in 30 06/02/23 days #90 caps risperidone 1 mg tablet 2 mg (2 x 1 mg) PO BID 30 da ys 06/02/23 #120 tabs clonazepam 0.5 mg tablet 0.25 mg (1/2 x 0.5 mg) PO BI D 30 02/03/24 days #30 ea furosemide 40 mg tablet 40 mg PO DAILY #30 tabs 01/08 08/30 pantoprazole 40 mg tablet,delayed 40 mg PO DAILY #30 t abs 02/03/24 release hydrocodone 5 mg-acetaminophen 325 1 tab PO Q6H PRN pa in (scale score 06/24/24 mg tablet 7-10) #12 tabs peg 3350-electrolytes 236 240 ml PO Q10M colonscopy #4 ,000 mL 07/05/24 gram-22.74 gram-6.74 gram-5.86 gram solution (Golytely) Allergies Allergy/AdvReac Type Severity Reaction Status Date / Time aspirin Allergy Intermediate edema Verified 06/28/24 13:01 Influenza Virus Vaccines AdvReac Intermediate Verified 06/28/24 13:01 [facility] Disclaimer: The information contained in this section may have been updated after the patient was seen, as this information can be updated by other users. Medical History Coronary artery calcification seen on CAT scan Dyspnea Abnormal ankle brachial index (CECE) Abnormal electrocardiogram [ECG] [EKG] Hypertension Schizophrenia Seizure Depression HTN (hypertension) Surgical History History of esophagogastroduodenoscopy (EGD) Family History Other No significant family history Social History (Updated 07/23/24 @ 15:10 by Annika Saini RN) Smoking Status: Former smoker tobacco type: cigarettes packs per day: 1 alcohol intake: never substance use type: denies use current occupational status: disabled and other Travel in the last 8 weeks?: None household members: other housing: assisted living facility current occupational exposures/hazards: No caffeine: Yes Other Medical History Have you received the Flu Vaccine for this season: No Have you received the Pneumonia Vaccine: Yes ROS Obtained: Yes Systems reviewed as appropriate & no additional complaints except as documented Physical Exam General General appearance: alert and in no apparent distress Respiratory Respiratory exam: Present normal lung sounds bilaterally Cardiovascular Cardiovascular exam: Present regular rate Neurological Exam Neurological exam: Present alert and oriented X3 Medical Decision Making Medical Records Medical records reviewed: Yes I reviewed the patient's medical records. Screening: Per USPSTF and CDC recommendations, given the prevalence of disease in our region, it is our hospital?s policy to screen for HIV and viral Hepatitis for all patients aged 18 and over and those with ongoing risk factors. 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 Pt receiving controlled substance: No Vital Signs: 07/23/24 11:49 07/23/24 11:54 07/23/24 12:01 Temperature 98.8 F Temperature Source Oral Pulse Rate 90 82 Pulse Rate [Right Radial] 94 H Respiratory Rate 15 Blood Pressure 139/54 L 150/52 H Blood Pressure [Right Arm] 139/87 Blood Pressure Mean 94 95 Blood Pressure Mean [Right Arm] 104 Blood Pressure Source Blood Pressure Source [Right Arm] Automatic Cuff Blood Pressure Position Blood Pressure Position [Right Arm] Sitting 02 Sat by Pulse Oximetry 93 L 95 95 Oxygen Delivery Method Room Air 07/23/24 13:09 07/23/24 14:56 Temperature 98.8 F Temperature Source Oral Pulse Rate 84 84 Pulse Rate [Right Radial] Respiratory Rate 15 Blood Pressure 165/49 H 160/67 H Blood Pressure [Right Arm] Blood Pressure Mean 87 Blood Pressure Mean [Right Arm] Blood Pressure Source Automatic Cuff Blood Pressure Source [Right Arm] Blood Pressure Position Supine Blood Pressure Position [Right Arm] 02 Sat by Pulse Oximetry 96 Oxygen Delivery Method Room Air Lab Data Lab results reviewed: Yes I reviewed the patient's lab results. Lab Results 07/23/24 12:20: WBC 5.8, RBC 2.94 L, Hgb 8.4 L, Hct 26.6 L, MCV 90.5, MCH 28.6, MCHC 31.6 L, RDW 15.9, Plt Count 226, MPV 9.2, Neut % (Auto) 80.3 H, Lymph % (Auto) 7.8 L, [place] % (Auto) 8.3, Eos % (Auto) 2.6, Baso % (Auto) 0.3, Neut # (Auto) 4.6, Lymph # (Auto) 0.5 L, [place] # (Auto) 0.5, Eos # (Auto) 0.2, Baso # (Auto) 0.0, Total Counted 100, Neutrophils % (Manual) 76, Lymphocytes % (Manual) 11, Monocytes % (Manual) 6, Eosinophils % (Manual) 7 H, Platelet Estimate Normal, RBC Morphology Normal, PT 10.9, INR 0.98, Sodium 131 L, Potassium 4.8, Chloride 99, Carbon Dioxide 29, Anion Gap 7.8, BUN 32 H, Creatinine 0.70, Estimated Creat Clear 75, Estimated GFR 83, Est GFR ( Amer) 101, Glucose 150 H, Calcium 8.8, Total Bilirubin 0.2, AST 30, ALT 18, Alkaline Phosphatase 92, Total Protein 6.6, Albumin 3.7, Globulin 2.9, Albumin/Globulin Ratio 1.3 07/23/24 13:41: Blood Type O Positive, Antibody Screen Negative 07/23/24 12:20 07/23/24 12:20 Orders (Tests/Meds): ED MEDICATIONS Generic Name Dose Route Start Last Admin Trade Name Idania PRN Reason Stop Dose Admin Acetaminophen 650 mg 07/23/24 14:46 Acetaminophen 325mg Tab PO 08/22/24 14:45 Q4HP PRN Fever or Mild Pain (1-3) Pantoprazole Sodium 80 mg/ 100 mls @ 10 mls/hr 07/23/24 12:15 07/23/24 12:48 Sodium Chloride IV 07/23/24 22:10 10 mls/hr .Q10H DAGOBERTO Administration Pantoprazole Sodium 80 mg/ 100 mls @ 10 mls/hr 07/23/24 22:10 Sodium Chloride IV 07/26/24 12:10 .Q10H DAGOBERTO Insulin Human Lispro 0 unit 07/23/24 16:30 Humalog 100 Units/Ml 10ml Vial (Ssi) SUBCUT 08/22/24 16:29 ACHS DAGOBERTO Protocol Ondansetron HCl 4 mg 07/23/24 14:46 Ondansetron 4mg/2ml Vial IV 08/22/24 14:45 Q8HP PRN Nausea Sodium Chloride 10 ml 07/23/24 12:04 Sodium Chloride 0.9% 10ml Vial IV 08/22/24 12:03 NEEDED PRN dilute protonix Discontinued Medications Generic Name Dose Route Start Last Admin Trade Name Idania PRN Reason Stop Dose Admin Sodium Chloride 1,000 mls @ 999 mls/hr 07/23/24 12:04 07/23/24 12:48 Sod Chlor 0.9% 1000ml Bag IV 07/23/24 13:04 999 mls/hr .Q1H1M ONE Administration Ondansetron HCl 4 mg 07/23/24 12:04 07/23/24 12:47 Ondansetron 4mg/2ml Vial IV 07/23/24 12:05 4 mg ONCE ONE Administration Pantoprazole Sodium 40 mg 07/23/24 12:04 07/23/24 12:47 Pantoprazole 40mg Vial IV 07/23/24 12:05 40 mg ONCE ONE Administration ORDERS Category Date Time Status Type and Screen Stat BBK 07/23/24 13:41 Completed CBC w/Auto Diff [Complete Blood Count Auto Diff] Stat Lab 07/23/24 12:20 Completed CMP [Comprehensive Metabolic Panel] Stat Lab 07/23/24 12:20 Completed INR [Prothrombin Time INR] Stat Lab 07/23/24 12:20 Completed Occult Blood,Stool Stat Lab 07/23/24 14:39 Completed Medical Decision Narrative: In summary patient is a 68-year-old female who presents to the emergency department for evaluation of coffee-ground emesis. Patient is currently hemodynamically stable with a blood pressure 139/54 heart rate 91 normal sinus rhythm on the bedside monitor breathing 15 times a minute satting at 93% on room air upon arrival, afebrile at 98.8. Physical exam is remarkable for a well- nourished well-developed 68-year-old female who is currently no acute distress. Breath sounds clinical bilateral to the bases without adventitious sounds. Abdomen is soft nontender no rebound no guarding no rigidity. Bowel sounds normal active.. Differential diagnosis includes upper GI bleed versus ingestion of coffee grounds. Initial workup will be conducted with hematologic labs. Initial interventions include crystalloid bolus Protonix bolus and Protonix drip. Initial workup reviewed by me and patient's hemoglobin today is 8.4 down from her previous of 10.1 however patient has been this low previously in January. Platelets are 226 and the remainder of her hematologic labs are nonactionable. Given that the patient is a questionable historian I had interactive discussion with Dr. Bravo of gastroenterology regarding patient presentation AU and management and he agreed that GI bleed cannot be ruled out thus he will plan for upper endoscopy. Given that I had interact discussion with hospital medicine regarding patient presentation and management and she will be admitted for further evaluation and care Critical Care Critical Care Time Critical Care Time: Yes Attestation: On 07/23/24, the high probability of a clinically significant, sudden or life threatening deterioration of the following system(s) required my full and direct attention, intervention and personal management. The time I documented below is in addition to time spent performing reported procedures but includes the following listed in this critical care notation. Total Time Total Critical Care Time: 30
[2024-07-23 12:30] LABS: Basophils % 0.3 % (0.1-2.0); Eosinophils # 0.2 Kmm3 (0.0-0.4); Eosinophils % 2.6 % (0.1-12.0); Hematocrit 26.6 % (37.0-47.0); Hemoglobin 8.4 g/dL (12.2-16.2); Immature Granulocytes # 0.04 10^3uL; Immature Granulocytes % 0.7 %; Lymphocytes # 0.5 K/mm3 (0.7-4.5); Lymphocytes % 7.8 % (10-50); Mean Corpuscular HGB Conc 31.6 g/dL (31.8-35.4); Mean Corpuscular Hemoglobin 28.6 pg (27.0-31.2); Mean Corpuscular Volume 90.5 fl (81-99); Mean Platelet Volume 9.2 fl (7.4-10.4); Monocytes # 0.5 K/mm3 (0.1-1.0); Monocytes % 8.3 % (1.7-9.3); Neutrophils # 4.6 K/mm3 (1.8-7.8); Neutrophils % 80.3 % (37.0-80.0); Nucleated Red Blood Cells # 0 10^3/uL; Nucleated Red Blood Cells % 0 %; Platelet Count 226 K/mm3 (142-424); Red Blood Count 2.94 M/mm3 (4.20-5.40); Red Cell Distribution Width 15.9 % (11.5-17.5); Red Cell Distribution Width-SD 53.5 fL; White Blood Count 5.8 K/mm3 (4.8-10.8)
[2024-07-23 12:34] LABS: Albumin Level 3.7 g/dl (3.5-5.0); Chloride 99 mmol/L (98-107); MANUAL DIFFERENTIAL MANUAL DIFFERENTIAL (MANUAL DIFF); Sodium 131 mmol/L (136-145)
[2024-07-23 12:35] LABS: Potassium 4.8 mmoL/L (3.5-5.1)
[2024-07-23 12:37] LABS: Alanine Aminotransferase 18 U/L (12-78); Albumin/Globulin Ratio 1.3 (1.1-1.8); Alkaline Phosphatase 92 U/L (38-126); Anion Gap 7.8 mEq/L (5-15); Aspartate Amino Transferase 30 U/L (14-36); Bilirubin,Total 0.2 mg/dl (0.2-1.3); Blood Urea Nitrogen 32 mg/dl (7-17); Carbon Dioxide 29 mmol/L (22.0-30.0); Creatinine Clearance Estimated 75 mL/min (50-200); Estimated Glomerular Filt Rate 83 ml/min (>60); GFR (African American) 101 ML/MIN (>60); Globulin 2.9 g/dL (1.3-3.2); Total Protein,Serum 6.6 g/dl (6.3-8.2)
[2024-07-23 12:38] LABS: Calcium 8.8 mg/dl (8.4-10.2); Glucose 150 mg/dl (74-100)
[2024-07-23 12:40] LABS: INR 0.98 (0.9-1.1); Prothrombin Time 10.9 seconds (10.1-12.5)
[2024-07-23] MEDS: PANTOPRAZOLE 40MG VIAL 40 MG IV (12:47)
[2024-07-23] MEDS: ONDANSETRON 4MG/2ML VIAL 4 MG IV (12:47)
[2024-07-23] MEDS: 0.9 % SODIUM CHLORIDE 1000ML 1,000 ML 999 ML IV (12:48)
[2024-07-23] MEDS: PANTOPRAZOLE SODIUM 80 MG in 0.9 % SODIUM CHLORIDE 100 ML 10 MG IV (12:48)
[2024-07-23 13:04] LABS: Eosinophils % 7 % (0-3); Lymphocytes % 11 % (10-50); Monocytes % 6 % (2-9); Neutrophils % 76 % (42-76); Total Cells Counted 100
[2024-07-23 13:06] LABS: Platelet Estimate Normal; RBC Morphology Normal
--- NOTE | 2024-07-23 14:26 | PC.NURSE ---
house moving supervisor informed of pt admission
--- NOTE | 2024-07-23 14:52 | PC.NURSE ---
TRN attempted to call cell phone number of pts state guardian verónica north [phone], no answer. will attempt to call hotline number [phone]
--- NOTE | 2024-07-23 14:53 | P.HP_ITS ---
<Statement entered by Roebrt Jaramillo MD - 07/23/24 17:13> Rounded on patient after nurse practitioner. Personally examined and interviewed patient. Agree with exam findings and care plan as documented. History of Present Illness *Admission Date: 07/23/24 *Reason for visit:: GI bleed, anemia *History of present illness: Ms. Van is a 68-year-old female arrived to the emergency room today via ambulance from [facility] after x 1 episode of coffee-ground emesis. She has a history of hypertension, hyperlipidemia, coronary artery disease, COPD, seizures, schizophrenia, diabetes mellitus type 2, weakness, anemia, and previous GI bleed. After emergency room workup patient was found to be anemic, hemoglobin 8.4 (baseline 10.1). Sodium is 131, no other electrolyte abnormalities noted. Otherwise unremarkable workup. The emergency room physician consulted GI who recommends a scope for further evaluation of possible GI bleed. [facility] Disclaimer: The information contained in this section may have been updated after the patient was seen, as this information can be updated by other users. Medical History Coronary artery calcification seen on CAT scan Dyspnea Abnormal ankle brachial index (CECE) Abnormal electrocardiogram [ECG] [EKG] Hypertension Schizophrenia Seizure Depression HTN (hypertension) Surgical History History of esophagogastroduodenoscopy (EGD) Family History Other No significant family history Social History (Updated 07/23/24 @ 15:10 by Annika Saini RN) Smoking Status: Former smoker tobacco type: cigarettes packs per day: 1 alcohol intake: never substance use type: denies use current occupational status: disabled and other Travel in the last 8 weeks?: None household members: other housing: assisted living facility current occupational exposures/hazards: No caffeine: Yes Other Medical History Have you received the Flu Vaccine for this season: No Have you received the Pneumonia Vaccine: Yes Review of Systems Review of Systems Review of systems (narrative): 14 point review of systems performed, pertinent positives and negatives as per HPI Meds Home Medications and Allergies Home Medications ?Medication ?Instructions ?Recorded ?Confirmed ?Type citalopram 20 mg tablet 20 mg PO DAILY 04/08/1707/08 History ondansetron 4 mg disintegrating 4 mg PO Q6HP PRN Nause a #20 tabs 01/28/22 07/23/24 Rx tablet albuterol sulfate 90 mcg/actuation 2 puff inhalation Q 4HP PRN 11/03/22 07/23/24 Rx aerosol inhaler Shortness Of Breath #8.5 gra ms loperamide 2 mg tablet 2 mg PO Q3HP PRN Diarrhea 07/23/24 History acetaminophen 325 mg tablet 650 mg PO BID 11/21/22 History metformin 500 mg tablet 500 mg PO BIDWMEAL 11/21/22 07/23/24 History sennosides 8.6 mg tablet (senna) 17.2 mg PO DAILYP PRN Constipation 11/21/22 07/23/24 History gabapentin 400 mg capsule 400 mg PO TID Neuropathic pa in 30 06/02/23 07/23/24 Rx days #90 caps ferrous sulfate 325 mg (65 mg 325 mg PO MOWEFR 4 07/23/24 History iron) tablet fluticasone fur. 100 mcg-umeclid 1 ea inhalation DAILY 02/02/24 07/23/24 History 62.5 mcg-vilant 25 mcg inhalat.powder (Trelegy Ellipta) hydroxychloroquine 200 mg tablet 200 mg PO BID 4 07/23/24 History metoprolol tartrate 25 mg tablet 12.5 mg PO BID 07/23/24 History multivitamin 1 tab PO DAILY 02/02/2407/08 History furosemide 40 mg tablet 40 mg PO DAILY #30 tabs 01/0807/23/24 Rx amantadine HCl 100 mg capsule 100 mg PO BID 03/29/24 0 07/23/24 History omeprazole 40 mg capsule,delayed 40 mg PO HS 03/29/24 07/23/24 History release risperidone 2 mg tablet 2 mg PO BID 03/29/24 5 History rotigotine 1 mg/24 hour 1 mg transdermal DAILY 05/0307/23/24 History transdermal 24 hour patch (Neupro) acetaminophen 500 mg tablet 1,000 mg PO Q6HP PRN Fever 07/23/24 07/23/24 History ascorbic acid (vitamin C) 500 mg 500 mg PO MOWEFR 07/0807/23/24 History tablet (Vitamin C) clonazepam 0.25 mg disintegrating 0.25 mg PO BID 07/2307/23/24 History tablet psyllium husk 3.4 gram/5.4 gram 1 tbsp PO DAILY 07/23/24 History oral powder (Metamucil) New Prescriptions to Start Prescriptions: Allergies Allergy/AdvReac Type Severity Reaction Status Date / Time aspirin Allergy Intermediate edema Verified 06/28/24 13:01 Influenza Virus Vaccines AdvReac Intermediate Verified 06/28/24 13:01 Exam Data for Last 24 hours Vital signs and Labs for Last 24 Hours: Temp Pulse Resp BP Pulse Ox O2 Del Method 98.8 F 84 15 165/49 H 96 Room Air 07/23/24 11:54 07/23/24 13:09 07/23/24 11:54 07/23/24 13:09 07/23/24 13:09 07/23/24 11:54 Laboratory Results - last 24 hr 07/23/24 12:20: WBC 5.8, RBC 2.94 L, Hgb 8.4 L, Hct 26.6 L, MCV 90.5, MCH 28.6, MCHC 31.6 L, RDW 15.9, Plt Count 226, MPV 9.2, Neut % (Auto) 80.3 H, Lymph % (Auto) 7.8 L, [place] % (Auto) 8.3, Eos % (Auto) 2.6, Baso % (Auto) 0.3, Neut # (Auto) 4.6, Lymph # (Auto) 0.5 L, [place] # (Auto) 0.5, Eos # (Auto) 0.2, Baso # (Auto) 0.0, Total Counted 100, Neutrophils % (Manual) 76, Lymphocytes % (Manual) 11, Monocytes % (Manual) 6, Eosinophils % (Manual) 7 H, Platelet Estimate Normal, RBC Morphology Normal, PT 10.9, INR 0.98, Sodium 131 L, Potassium 4.8, Chloride 99, Carbon Dioxide 29, Anion Gap 7.8, BUN 32 H, Creatinine 0.70, Estimated Creat Clear 75, Estimated GFR 83, Est GFR ( Amer) 101, Glucose 150 H, Calcium 8.8, Total Bilirubin 0.2, AST 30, ALT 18, Alkaline Phosphatase 92, Total Protein 6.6, Albumin 3.7, Globulin 2.9, Albumin/Globulin Ratio 1.3 07/23/24 13:41: Blood Type O Positive, Antibody Screen Negative I & O for Last 24 hours: Intake & Output 07/20/24 07/21/24 07/22/24 07/23/24 23:59 23:59 23:59 23:59 Output Total 600 / 600 Balance -600 / -600 Weight 86.636 kg Constitutional Constitutional: no acute distress and obese *Routine HEENT Exam Head: Present normocephalic Eye: Present EOMI and PERRL ENT: Present mucous membranes moist *Routine Neck Exam Neck: Present supple; Absent lymphadenopathy *Routine Respiratory Exam Respiratory: Present CTA bilaterally and able to speak in complete sentences *Routine Cardiovascular Exam Cardiovascular: Present RRR *Routine Abdominal Exam Abdominal: Present soft; Absent tenderness or distended *Routine Rectal Exam Rectal:: deferred *Routine Genitalia Exam Genitalia:: deferred *Routine Extremities Exam Extremities: Absent cyanosis, clubbing or edema *Routine Skin Exam Skin: Present warm; Absent rash Comments: Scattered bruising *Routine Neurological Exam Neurological: Present alert and oriented X3 Detailed Neurological Exam: Coma Scale Coma scale eye opening: Spontaneous Coma scale motor response: Obeys commands Coma scale verbal response: Oriented Coma scale total: 15 Assessment and Plan *Assessment and plan (1) Coffee ground emesis: Status: Acute Category: Medical Code(s): K92.0 - Hematemesis (2) Anemia: Status: Acute Category: Medical Code(s): D64.9 - Anemia, unspecified (3) Generalized abdominal pain: Status: Acute Category: Medical Code(s): R10.84 - Generalized abdominal pain (4) Hyperlipidemia: Status: Acute Qualifiers: Hyperlipidemia type: unspecified Qualified Code(s): E78.5 - Hyperlipidemia, unspecified Category: Medical Code(s): E78.5 - Hyperlipidemia, unspecified (5) Hypertension: Status: Chronic Qualifiers: Hypertension type: primary hypertension Qualified Code(s): I10 - Essential (primary) hypertension Category: Medical Code(s): I10 - Essential (primary) hypertension (6) Diabetes mellitus: Status: Chronic Qualifiers: Diabetes mellitus complication status: without complication Diabetes mellitus group home insulin use: without group home use Diabetes mellitus type: type 2 Qualified Code(s): E11.9 - Type 2 diabetes mellitus without complica tions Category: Medical Code(s): E11.9 - Type 2 diabetes mellitus without complications (7) Schizophrenia: Status: Chronic Qualifiers: Schizophrenia type: unspecified Qualified Code(s): F20.9 - Schizophrenia, unspecified Category: Medical Code(s): F20.9 - Schizophrenia, unspecified (8) COPD (chronic obstructive pulmonary disease): Status: Acute Qualifiers: COPD type: unspecified COPD Qualified Code(s): J44.9 - Chronic obstructive pulmonary disease, unspecified Category: Medical Code(s): J44.9 - Chronic obstructive pulmonary disease, unspecified (9) Generalized weakness: Status: Acute Category: Medical Code(s): R53.1 - Weakness (10) Frequent falls: Status: Acute Category: Medical Code(s): R29.6 - Repeated falls Plan Ms. Van is a 68-year-old female who presented to the emergency department after 1 episode of coffee-ground emesis. She lives at [facility], an ambulance was called for transfer to the emergency department. Workup was done in the emergency department and patient was found to be anemic with a hemoglobin of 8.6. Her baseline is 10.She was also found to be mildly hyponatremic with a sodium of 131, and elevated BUN of 32. Creat was normal at 0.70 other labs were unremarkable. THEODORA Nair called to discuss case with me, and decision was made for further admission and GI consult. #Coffee ground emesis #Anemia #Abdominal pain ? Patient states she had 1 episode of coffee-ground emesis this morning. She has been n.p.o. since that time. She does have a history of GI bleed, and anemia. [facility] She states she was having abdominal pain, rating it a 6 [facility] She currently denies any abdominal pain. She is tender to palpation. ?Patient was recently seen by Dr. Bean with general surgery and had a upper endoscopy on 02/03/2024, there was no evidence of active bleeding, though focal nonbleeding esophagitis was noted at the GE junction and a moderately large sliding her hiatal hernia, recommendation for continue PPIs. ?Patient did see Hafsa Palacios APRN with GI in April, suggestion was made for the patient to schedule a colonoscopy. Patient has never had a colonoscopy and does have a family history of colon cancer. ?Dr. Bravo with GI was consulted and decision was made for patient to have upper endoscopy today. ?Occult stool ordered, pending. ?Will start Protonix 40 mg twice daily IV pending EGD results. ?CBC, BMP, TSH, Lipid panel, mag ordered for a.m. labs. #Hyperlipidemia #Hypertension #Diabetes mellitus #Schizophrenia #COPD ?Patient vital signs within normal limits, patient normotensive, patient's O2 saturation above 95% on room air. ?Restart home medication. Citalopram 20 mg daily, Risperidone 2 mg twice daily, metoprolol 12.5 twice daily, metformin 500 mg twice daily, gabapentin 400 mg 3 times daily, furosemide 40 mg daily, clonazepam 0.25 mg twice daily, amantadine 100 mg twice daily. ?ACHS fingersticks and sliding scale ordered. #Generalized weakness #Frequent falls ?PT OT ordered for further evaluation. Full code N.p.o. diet No VTE, contraindicated Ambulate as tolerated
[2024-07-23 14:54] LABS: Occult Blood,Stool Negative (Negative)
--- NOTE | 2024-07-23 14:54 | PC.NURSE ---
call made to [phone], spoke with makenzie, she will check to see if pts guardian is available to speak.
--- NOTE | 2024-07-23 15:01 | PC.NURSE ---
TRN spoke with Kathy Vilchis, , and was given verbal consent for pt to have EGD.
[2024-07-23 15:30] LABS: Magnesium 1.8 mg/dl (1.6-2.3)
--- NOTE | 2024-07-23 15:50 | P.CONPHA_ITS ---
Pharmacy Intervention Comments: MEDICATION RECONCILIATION COMPLETE USING MAR FROM [facility].
--- NOTE | 2024-07-23 15:50 | HMH.PHAINT1 ---
Pharmacy Intervention Comments: MEDICATION RECONCILIATION COMPLETE USING MAR FROM [facility].
--- NOTE | 2024-07-23 16:50 | EXP.HP ---
History of Present Illness *Admission Date: 07/23/24 *History of present illness: Ms. Van is a 68-year-old female arrived to the emergency room today via ambulance from [facility] after x 1 episode of coffee-ground emesis. She has a history of hypertension, hyperlipidemia, coronary artery disease, COPD, seizures, schizophrenia, diabetes mellitus type 2, weakness, anemia, and previous GI bleed. After emergency room workup patient was found to be anemic, hemoglobin 8.4 (baseline 10.1). Sodium is 131, no other electrolyte abnormalities noted. Otherwise unremarkable workup. The emergency room physician consulted GI who recommends a scope for further evaluation of possible GI bleed. [facility] Disclaimer: The information contained in this section may have been updated after the patient was seen, as this information can be updated by other users. Medical History Coronary artery calcification seen on CAT scan Dyspnea Abnormal ankle brachial index (CECE) Abnormal electrocardiogram [ECG] [EKG] Hypertension Schizophrenia Seizure Depression HTN (hypertension) Surgical History History of esophagogastroduodenoscopy (EGD) Family History Other No significant family history Social History (Updated 07/23/24 @ 15:10 by Annika Saini RN) Smoking Status: Former smoker tobacco type: cigarettes packs per day: 1 alcohol intake: never substance use type: denies use current occupational status: disabled and other Travel in the last 8 weeks?: None household members: other housing: assisted living facility current occupational exposures/hazards: No caffeine: Yes Other Medical History Have you received the Flu Vaccine for this season: No Have you received the Pneumonia Vaccine: Yes Review of Systems Review of Systems Review of systems (narrative): Negative *Cardiovascular Comments: Negative *Gastrointestinal Comments: Negative *Genitourinary Comments: Negative *Musculoskeletal Comments: Negative *Neurologic Comments: Negative Meds Home Medications and Allergies Home Medications ?Medication ?Instructions ?Recorded ?Confirmed ?Type citalopram 20 mg tablet 20 mg PO DAILY 04/08/17 07/23/24 History ondansetron 4 mg disintegrating 4 mg PO Q6HP PRN Nausea #20 tabs 01/28/22 07/23/24 Rx tablet albuterol sulfate 90 mcg/actuation 2 puff inhalation Q4HP PRN 11/03/22 07/23/24 Rx aerosol inhaler Shortness Of Breath #8.5 grams loperamide 2 mg tablet 2 mg PO Q3HP PRN Diarrhea 11/20/22 07/23/24 History acetaminophen 325 mg tablet 650 mg PO BID 11/21/22 07/23/24 History metformin 500 mg tablet 500 mg PO BIDWMEAL 11/21/22 07/23/24 History sennosides 8.6 mg tablet (senna) 17.2 mg PO DAILYP PRN Constipation 11/21/22 07/23/24 History gabapentin 400 mg capsule 400 mg PO TID Neuropathic pain 30 06/02/23 07/23/24 Rx days #90 caps ferrous sulfate 325 mg (65 mg 325 mg PO MOWEFR 02/02/24 07/23/24 History iron) tablet fluticasone fur. 100 mcg-umeclid 1 ea inhalation DAILY 02/02/24 07/23/24 History 62.5 mcg-vilant 25 mcg inhalat.powder (Trelegy Ellipta) hydroxychloroquine 200 mg tablet 200 mg PO BID 02/02/24 07/23/24 History metoprolol tartrate 25 mg tablet 12.5 mg PO BID 02/02/24 07/23/24 History multivitamin 1 tab PO DAILY 02/02/24 07/23/24 History furosemide 40 mg tablet 40 mg PO DAILY #30 tabs 02/03/24 07/23/24 Rx amantadine HCl 100 mg capsule 100 mg PO BID 03/29/24 07/23/24 History omeprazole 40 mg capsule,delayed 40 mg PO HS 03/29/24 07/23/24 History release risperidone 2 mg tablet 2 mg PO BID 03/29/24 07/23/24 History rotigotine 1 mg/24 hour 1 mg transdermal DAILY 05/03/24 07/23/24 History transdermal 24 hour patch (Neupro) acetaminophen 500 mg tablet 1,000 mg PO Q6HP PRN Fever 07/23/24 07/23/24 History ascorbic acid (vitamin C) 500 mg 500 mg PO MOWEFR 07/23/24 07/23/24 History tablet (Vitamin C) clonazepam 0.25 mg disintegrating 0.25 mg PO BID 07/23/24 07/23/24 History tablet psyllium husk 3.4 gram/5.4 gram 1 tbsp PO DAILY 07/23/24 07/23/24 History oral powder (Metamucil) New Prescriptions to Start Prescriptions: Allergies Allergy/AdvReac Type Severity Reaction Status Date / Time aspirin Allergy Intermediate edema Verified 06/28/24 13:01 Influenza Virus Vaccines AdvReac Intermediate Verified 06/28/24 13:01 Exam Data for Last 24 hours Vital signs and Labs for Last 24 Hours: Temp Pulse Resp BP Pulse Ox O2 Del Method 98 F 84 17 133/51 L 98 Room Air 07/23/24 15:51 07/23/24 15:51 07/23/24 15:51 07/23/24 15:51 07/23/24 15:51 07/23/24 15:51 Laboratory Results - last 24 hr 07/23/24 12:20: WBC 5.8, RBC 2.94 L, Hgb 8.4 L, Hct 26.6 L, MCV 90.5, MCH 28.6, MCHC 31.6 L, RDW 15.9, Plt Count 226, MPV 9.2, Neut % (Auto) 80.3 H, Lymph % (Auto) 7.8 L, [place] % (Auto) 8.3, Eos % (Auto) 2.6, Baso % (Auto) 0.3, Neut # (Auto) 4.6, Lymph # (Auto) 0.5 L, [place] # (Auto) 0.5, Eos # (Auto) 0.2, Baso # (Auto) 0.0, Total Counted 100, Neutrophils % (Manual) 76, Lymphocytes % (Manual) 11, Monocytes % (Manual) 6, Eosinophils % (Manual) 7 H, Platelet Estimate Normal, RBC Morphology Normal, PT 10.9, INR 0.98, Sodium 131 L, Potassium 4.8, Chloride 99, Carbon Dioxide 29, Anion Gap 7.8, BUN 32 H, Creatinine 0.70, Estimated Creat Clear 75, Estimated GFR 83, Est GFR ( Amer) 101, Glucose 150 H, Calcium 8.8, Magnesium 1.8, Total Bilirubin 0.2, AST 30, ALT 18, Alkaline Phosphatase 92, Total Protein 6.6, Albumin 3.7, Globulin 2.9, Albumin/Globulin Ratio 1.3 07/23/24 13:41: Blood Type O Positive, Antibody Screen Negative 07/23/24 14:39: Stool Occult Blood Negative I & O for Last 24 hours: Intake & Output 07/20/24 07/21/24 07/22/24 07/23/24 23:59 23:59 23:59 23:59 Output Total 600 / 600 Balance -600 / -600 Weight 191 lb *Routine HEENT Exam Head: Present normocephalic Eye: Present EOMI and PERRL ENT: Present mucous membranes moist *Routine Neck Exam Neck: Present supple *Routine Respiratory Exam Respiratory: Present CTA bilaterally *Routine Cardiovascular Exam Cardiovascular: Present RRR *Routine Abdominal Exam Abdominal: Present soft and normoactive bowel sounds; Absent tenderness *Routine Rectal Exam Rectal:: deferred *Routine Genitalia Exam Genitalia:: deferred *Routine Extremities Exam Extremities: Absent cyanosis, clubbing or edema *Routine Skin Exam Skin: Present warm; Absent rash *Routine Neurological Exam Neurological: Present alert and oriented X3 Assessment and Plan *Assessment and plan (1) Coffee ground emesis: Status: Acute Category: Medical Code(s): K92.0 - Hematemesis (2) Anemia: Status: Acute Category: Medical Code(s): D64.9 - Anemia, unspecified Plan A/P: 1. Coffee-ground emesis and anemia is the preprocedural diagnosis. The patient will be anesthetized/sedated using MAC sedation. The patient has been seen and examined. Cardiac and lung assessment prior to the examination is stable. Proceed with planned diagnostic EGD.
--- NOTE | 2024-07-23 16:55 | HMH.PROCNOTE ---
[facility] Procedure Note Date: 07/23/24 Time: 17:09 Procedure Note:: Upper Endoscopy Procedure Report: Esophagogastroduodenoscopy with cold biopsies Endoscopost: Popeye Bravo II, MD Referring Physician: Bobby Bates Date of Procedure: July 23, 2024 Equipment: Olympus GIF 190 standard upper endoscope Sedation: MAC sedation Indications: Mrs. Van is a 68-year-old female who presented from the residential with coffee-ground emesis. I was notified by the ED for possible upper GI bleed. The patient does report that she drank coffee this morning. However, the residential felt that this was real and her hemoglobin hematocrit declined from previously. Her hemoglobin hematocrit were 10.1 and 32.5 in March 2024. Today her hemoglobin hematocrit are 8.4 and 26.6. Her BUN which is normally under 20 was 32 in the emergency department. She had normal creatinine of 0.70. She did have a similar story and underwent EGD with Dr. Jose L Bean in November 2023. The patient has been off of anticoagulants. The patient was previously referred to GI because of need for colonoscopy and she has never had a colonoscopy. She does have constipation alternating with diarrhea. She does get some mid abdominal discomfort. Procedure: Prior to the procedure, a history and physical exam was performed, and patient's medications and allergies were reviewed. The risks, benefits and alternatives of the sedation and procedure were discussed with the patient. All questions were answered and informed consent was obtained. The patient was brought to the procedure room. Patient identification and proposed procedure were verified by the physician and the nurse. The patient was placed in a left lateral decubitus position and the scope was passed under direct vision. Throughout the procedure, the patient's blood pressure, pulse, and oxygen saturations were monitored continuously. The upper GI endoscopy was accomplished without difficulty. The patient tolerated the procedure well. Findings: The scope was passed directly into the upper esophagus and advanced to the fourth portion of duodenum and proximal jejunum. A cold biopsy was taken from the proximal jejunum for disaccharidase assay. The proximal jejunum, post bulbar duodenum, ampulla and duodenal bulb were normal with normal mucosa and conniventes. There were no ulcerations or erosions. The scope was withdrawn through a normal duodenal bulb and pylorus into the stomach. There was very mild antral gastropathy. The body and fundus of the stomach were grossly normal. There were no ulcerations or erosions, AVM's or any coffee ground within the stomach. Upon retroflexion there was a small 2 cm hiatal hernia. The scope was then withdrawn into the esophagus. There was a serrated Z-line but no evidence of reflux esophagitis. Biopsies were taken at the GE junction. The remainder of the esophageal mucosa was normal. Impression: 1. Nonerosive GERD with small 2 cm hiatal hernia 2. Mild antral gastropathy Plan: I will obtain Hemoccult testing. There was no etiology for any upper GI bleed and I do suspect that the coffee-ground emesis was actually related to consumed coffee. If the patient is Hemoccult positive, would consider diagnostic colonoscopy as part of her evaluation for the anemia. She has not had any prior colonoscopy. This can certainly be done as an outpatient.
--- NOTE | 2024-07-23 17:15 | P.PNANES_ITS ---
[facility] Disclaimer: The information contained in this section may have been updated after the patient was seen, as this information can be updated by other users. Medical History Coronary artery calcification seen on CAT scan Dyspnea Abnormal ankle brachial index (CECE) Abnormal electrocardiogram [ECG] [EKG] Hypertension Schizophrenia Seizure Depression HTN (hypertension) Surgical History History of esophagogastroduodenoscopy (EGD) Family History Other No significant family history Social History Smoking Status: Former smoker tobacco type: cigarettes packs per day: 1 alcohol intake: never substance use type: denies use current occupational status: disabled and other Travel in the last 8 weeks?: None household members: other housing: assisted living facility current occupational exposures/hazards: No caffeine: Yes [facility] Anesthesia Checklist Patient Identification Patient Identification: Arm Band and Verbal (Name & ) Structural Data Admitted From: Inpatient Planned Operative Procedure/s: EGD Verified Documents: Surgical Consent and History and Physical NPO Status Verified Time NPO: 00:00 Additional verifications Anesthesia Reactions: No Hx Blood Transfusions: No Blood Transfusion Reaction: No Airway Assessment Mallampati Score:: Class II Neurological Assessment Level of Consciousness: Awake, Alert and Appropriate Anesthesia Plan Anesthesia Risk discussed: Yes Anesthesia Plan: Verified ASA Class: III Anesthesia Type: MAC
[2024-07-23 20:24] LABS: POC Glucose,Bedside 108 (70-110)
[2024-07-23] MEDS: GABAPENTIN 400MG CAPSULE 400 MG PO (21:23)
[2024-07-23] MEDS: METOPROLOL TARTRATE 25MG TABLET 12.5 MG PO (21:23)
[2024-07-23] MEDS: HYDROCODONE/APAP 5/325 MG TABLET 1 TAB PO (21:30)
[2024-07-24 04:00] VITALS: BP 123/48; PULSE 82; RESP 18; TEMP 36.8; O2SAT 87; BMI 36.0
[2024-07-24 06:50] LABS: POC Glucose,Bedside 98 (70-110)
[2024-07-24] MEDS: PANTOPRAZOLE SODIUM 80 MG in 0.9 % SODIUM CHLORIDE 100 ML 10 MG IV (06:54)
--- NOTE | 2024-07-24 07:33 | EXP.PN ---
Subjective *Date: 07/24/24 *Time: 07:33 Interval history: No further coffee-ground emesis and patient stable Exam Data for Last 24 hours Vital signs and Labs for Last 24 Hours: Temp Pulse Resp BP Pulse Ox O2 Del Method 98.2 F 82 18 123/48 L 87 L Room Air 07/24/24 04:00 07/24/24 04:00 07/24/24 04:00 07/24/24 04:00 07/24/24 04:00 07/24/24 06:30 Laboratory Results - last 24 hr 07/23/24 12:20: WBC 5.8, RBC 2.94 L, Hgb 8.4 L, Hct 26.6 L, MCV 90.5, MCH 28.6, MCHC 31.6 L, RDW 15.9, Plt Count 226, MPV 9.2, Neut % (Auto) 80.3 H, Lymph % (Auto) 7.8 L, [place] % (Auto) 8.3, Eos % (Auto) 2.6, Baso % (Auto) 0.3, Neut # (Auto) 4.6, Lymph # (Auto) 0.5 L, [place] # (Auto) 0.5, Eos # (Auto) 0.2, Baso # (Auto) 0.0, Total Counted 100, Neutrophils % (Manual) 76, Lymphocytes % (Manual) 11, Monocytes % (Manual) 6, Eosinophils % (Manual) 7 H, Platelet Estimate Normal, RBC Morphology Normal, PT 10.9, INR 0.98, Sodium 131 L, Potassium 4.8, Chloride 99, Carbon Dioxide 29, Anion Gap 7.8, BUN 32 H, Creatinine 0.70, Estimated Creat Clear 75, Estimated GFR 83, Est GFR ( Amer) 101, Glucose 150 H, Calcium 8.8, Magnesium 1.8, Total Bilirubin 0.2, AST 30, ALT 18, Alkaline Phosphatase 92, Total Protein 6.6, Albumin 3.7, Globulin 2.9, Albumin/Globulin Ratio 1.3 07/23/24 13:41: Blood Type O Positive, Antibody Screen Negative 07/23/24 14:39: Stool Occult Blood Negative 07/23/24 20:10: POC Glucose 108 07/24/24 06:11: POC Glucose 98 I & O for Last 24 hours: Intake & Output 07/21/24 07/22/24 07/23/24 07/24/24 23:59 23:59 23:59 23:59 Intake Total 240 / 240 Output Total 1350 / 1350 250 / 250 Balance -1350 / -1110 -10 / -10 Weight 191 lb 195 lb 12.8 oz Assessment and Plan *Assessment and plan (1) Coffee ground emesis: Status: Acute Category: Medical Code(s): K92.0 - Hematemesis (2) Anemia: Status: Acute Category: Medical Code(s): D64.9 - Anemia, unspecified Plan 1. Anemia. This is normocytic. The patient's iron, B12 and folate levels are normal and she is Hemoccult negative. Would recommend outpatient evaluation with hematology. 2. Colorectal cancer screening. I do feel that she may pose difficulty with bowel preparation. I would consider Cologuard specifically for this type of situation since less invasive and does not require preparation and sedation.
--- NOTE | 2024-07-24 07:40 | SW/DCPLANNER ---
Patient currently resides at [facility] level of care. I have updated Mariah allen/ [facility] that patient will return today [facility] level of care. Updated patient information will be faxed.
[2024-07-24 08:00] VITALS: BP 132/44; PULSE 80; RESP 20; TEMP 36.7; O2SAT 95
[2024-07-24 08:27] LABS: Basophils % 0.3 % (0.1-2.0); Eosinophils # 0.4 Kmm3 (0.0-0.4); Eosinophils % 5.7 % (0.1-12.0); Hematocrit 25.2 % (37.0-47.0); Hemoglobin 7.9 g/dL (12.2-16.2); Immature Granulocytes # 0.03 10^3uL; Immature Granulocytes % 0.5 %; Lymphocytes # 1.3 K/mm3 (0.7-4.5); Lymphocytes % 21.9 % (10-50); Mean Corpuscular HGB Conc 31.3 g/dL (31.8-35.4); Mean Corpuscular Hemoglobin 28.6 pg (27.0-31.2); Mean Corpuscular Volume 91.3 fl (81-99); Mean Platelet Volume 8.9 fl (7.4-10.4); Monocytes # 0.6 K/mm3 (0.1-1.0); Monocytes % 9.8 % (1.7-9.3); Neutrophils # 3.8 K/mm3 (1.8-7.8); Neutrophils % 61.8 % (37.0-80.0); Nucleated Red Blood Cells # 0 10^3/uL; Nucleated Red Blood Cells % 0 %; Platelet Count 219 K/mm3 (142-424); Red Blood Count 2.76 M/mm3 (4.20-5.40); Red Cell Distribution Width 16.2 % (11.5-17.5); Red Cell Distribution Width-SD 54.1 fL; White Blood Count 6.1 K/mm3 (4.8-10.8)
[2024-07-24 08:33] LABS: Chloride 102 mmol/L (98-107); Potassium 4.1 mmoL/L (3.5-5.1); Sodium 133 mmol/L (136-145)
[2024-07-24 08:36] LABS: Anion Gap 7.1 mEq/L (5-15); Blood Urea Nitrogen 14 mg/dl (7-17); Carbon Dioxide 28 mmol/L (22.0-30.0); Creatinine Clearance Estimated 77 mL/min (50-200); Estimated Glomerular Filt Rate 72 ml/min (>60); GFR (African American) 87 ML/MIN (>60); Triglycerides 99 mg/dl (30-150); VLDL Cholesterol 20 mg/dL (0-40)
[2024-07-24 08:37] LABS: Calcium 8.8 mg/dl (8.4-10.2); Chol/HDL Ratio 3.4 (1-3.5); Cholesterol 139 mg/dl (140-200); Glucose 117 mg/dl (74-100); HDL Cholesterol 41 mg/dl (40-60); Magnesium 1.9 mg/dl (1.6-2.3)
[2024-07-24 08:48] LABS: Direct LDL Cholesterol 57.19 mg/dL (100-129)
--- NOTE | 2024-07-24 09:22 | P.DS_ITS ---
<Statement entered by Robert Jaramillo MD - 07/24/24 14:08> Rounded on patient after nurse practitioner. Personally examined and interviewed patient. Agree with exam findings and care plan as documented. General Admission date:: 07/23/24 Discharge date: 07/24/24 HPI HPI HPI: Ms. Van is a 68-year-old female arrived to the emergency room today via ambulance from [facility] after x 1 episode of coffee-ground emesis. She has a history of hypertension, hyperlipidemia, coronary artery disease, COPD, seizures, schizophrenia, diabetes mellitus type 2, weakness, anemia, and previous GI bleed. After emergency room workup patient was found to be anemic, hemoglobin 8.4 (baseline 10.1). Sodium is 131, no other electrolyte abnormalities noted. Otherwise unremarkable workup. The emergency room physician consulted GI who recommends a scope for further evaluation of possible GI bleed. Hospital Course Hospital Course Hospital Course: Ms. Van is a 68-year-old female arrived to the emergency room today via ambulance from [facility] after x 1 episode of coffee-ground emesis. She has a history of hypertension, hyperlipidemia, coronary artery disease, COPD, seizures, schizophrenia, diabetes mellitus type 2, weakness, anemia, and previous GI bleed. After emergency room workup patient was found to be anemic, hemoglobin 8.4 (baseline 10.1). Sodium is 131, no other electrolyte abnormalities noted. Otherwise unremarkable workup. The emergency room duc sician consulted GI who recommended a scope for further evaluation of possible GI bleed. #Coffee ground emesis #Anemia #Abdominal pain ?Patient stated on admission that she had 1 episode of coffee-ground emesis that morning, she states that she no longer has had any more coffee-ground emesis. Today she denies any more nausea, vomiting, diarrhea. She denies any amos red blood stools, or melena. Her occult stool was negative. She does currently take omeprazole 40 mg at bedtime, and an iron supplement. All iron studies were within normal limits, folate and B12 are also normal. ?Dr. Bravo with GI performed an EGD yesterday afternoon, per his note nothing abnormal was found. He does recommend that the patient have a Cologuard or a colonoscopy if they feel that she can tolerate the prep. ?Patient already follows with Hafsa Stump, SUPPORT ARCHITECT; she should follow-up with her as needed for any new concerns. ?Patient's BMP today shows mild hyponatremia at 133, and slightly elevated glucose at 117. Otherwise unremarkable. Her TSH is 2.0 ? Repeat CBC today showed a stable hemoglobin of 7.9. Patient baseline between 8-10. Her BUN is down to 14, from 32. Creatinine is normal at 0.80. Outpatient monitoring should be continued. ?Upon examination patient is completely asymptomatic. She denies shortness of breath, weakness, abdominal pain. #Hyperlipidemia #Hypertension #Diabetes mellitus #Schizophrenia #COPD ? Patient's vitals have remained within normal limits during patient's stay. ?Continue home medication. Citalopram 20 mg daily, Risperidone 2 mg twice daily, metoprolol 12.5 twice daily, metformin 500 mg twice daily, gabapentin 400 mg 3 times daily, furosemide 40 mg daily, clonazepam 0.25 mg twice daily, amantadine 100 mg twice daily. #Generalized weakness #Frequent falls ?PT OT to continue to see her back.-FDC. ?Patient has expressed some concerns regarding care given at the senior living, she states I never get a shower, it has been 7 weeks since I have gotten a shower discussed this with Tiara Olson, social sciences chair, she is going to reach out to [facility] of outpatient concerns. Total time spent on discharge 32 minutes in counseling, documentation, chart review, and direct care with patient. Exam Data for Last 24 hours Vital signs and Labs for Last 24 Hours: Temp Pulse Resp BP Pulse Ox O2 Del Method 98.1 F 80 20 132/44 L 95 Room Air 07/24/24 08:00 07/24/24 08:00 07/24/24 08:00 07/24/24 08:00 07/24/24 08:00 07/24/24 08:00 Laboratory Results - last 24 hr 07/23/24 12:20: WBC 5.8, RBC 2.94 L, Hgb 8.4 L, Hct 26.6 L, MCV 90.5, MCH 28.6, MCHC 31.6 L, RDW 15.9, Plt Count 226, MPV 9.2, Neut % (Auto) 80.3 H, Lymph % (Auto) 7.8 L, [place] % (Auto) 8.3, Eos % (Auto) 2.6, Baso % (Auto) 0.3, Neut # (Auto) 4.6, Lymph # (Auto) 0.5 L, [place] # (Auto) 0.5, Eos # (Auto) 0.2, Baso # (Auto) 0.0, Total Counted 100, Neutrophils % (Manual) 76, Lymphocytes % (Manual) 11, Monocytes % (Manual) 6, Eosinophils % (Manual) 7 H, Platelet Estimate Normal, RBC Morphology Normal, PT 10.9, INR 0.98, Sodium 131 L, Potassium 4.8, Chloride 99, Carbon Dioxide 29, Anion Gap 7.8, BUN 32 H, Creatinine 0.70, Estimated Creat Clear 75, Estimated GFR 83, Est GFR ( Amer) 101, Glucose 150 H, Calcium 8.8, Magnesium 1.8, Total Bilirubin 0.2, AST 30, ALT 18, Alkaline Phosphatase 92, Total Protein 6.6, Albumin 3.7, Globulin 2.9, Albumin/Globulin Ratio 1.3 07/23/24 13:41: Blood Type O Positive, Antibody Screen Negative 07/23/24 14:39: Stool Occult Blood Negative 07/23/24 20:10: POC Glucose 108 07/24/24 06:11: POC Glucose 98 07/24/24 08:24: WBC 6.1, RBC 2.76 L, Hgb 7.9 L, Hct 25.2 L, MCV 91.3, MCH 28.6, MCHC 31.3 L, RDW 16.2, Plt Count 219, MPV 8.9, Neut % (Auto) 61.8, Lymph % (Auto) 21.9, [place] % (Auto) 9.8 H, Eos % (Auto) 5.7, Baso % (Auto) 0.3, Neut # (Auto) 3.8, Lymph # (Auto) 1.3, [place] # (Auto) 0.6, Eos # (Auto) 0.4, Baso # (Auto) 0.0, Sodium 133 L, Potassium 4.1, Chloride 102, Carbon Dioxide 28, Anion Gap 7.1, BUN 14 D, Creatinine 0.80, Estimated Creat Clear 77, Estimated GFR 72, Est GFR ( Amer) 87, Glucose 117 H D, Calcium 8.8, Magnesium 1.9, Triglycerides 99, Cholesterol 139 L, LDL Cholesterol Direct 57.19 L, VLDL Cholesterol 20, HDL Cholesterol 41, Cholesterol/HDL Ratio 3.4, TSH 2.50 I & O for Last 24 hours: Intake & Output 07/21/24 07/22/24 07/23/24 07/24/24 23:59 23:59 23:59 23:59 Intake Total 240 / 240 Output Total 1350 / 1350 250 / 250 Balance -1350 / -1110 -10 / -10 Weight 86.636 kg 88.813 kg Constitutional Constitutional: no acute distress, average body habitus, chronically ill appearing and cooperative *Routine HEENT Exam Head: Present normocephalic and atraumatic Eye: Present EOMI and PERRL ENT: Present mucous membranes moist and oropharynx clear *Routine Neck Exam Neck: Present supple and full ROM *Routine Respiratory Exam Respiratory: Present prolonged expiratory phase, crackles (bases bilaterally), normal respiratory effort and able to speak in complete sentences; Absent accessory muscle use, rhonchi or wheezes *Routine Cardiovascular Exam Cardiovascular: Present RRR, Normal S1 and Normal S2; Absent murmur *Routine Abdominal Exam Abdominal: Present soft and normoactive bowel sounds; Absent tenderness, distended, rebound or guarding *Routine Rectal Exam Patient deferred: visual exam *Routine Exam Patient deferred: external exam *Routine Extremities Exam Extremities: Present full ROM, pulses intact and normal capillary refill; Absent edema or tenderness *Routine Neurological Exam Neurological: Present alert, CN II-XII intact, moving all extremities, normal tone and normal speech; Absent sensory deficit or motor deficit Comments: Oriented to self and situation. Results Data Completed and Pending Labs on day of discharge: Labs from last 24 hours 07/24/24 07/24/24 07/23/24 08:24 06:11 20:10 WBC 6.1 RBC 2.76 L Hgb 7.9 L Hct 25.2 L MCV 91.3 MCH 28.6 MCHC 31.3 L RDW 16.2 Plt Count 219 MPV 8.9 Neut % (Auto) 61.8 Lymph % (Auto) 21.9 [place] % (Auto) 9.8 H Eos % (Auto) 5.7 Baso % (Auto) 0.3 Neut # (Auto) 3.8 Lymph # (Auto) 1.3 [place] # (Auto) 0.6 Eos # (Auto) 0.4 Baso # (Auto) 0.0 Total Counted Neutrophils % (Manual) Lymphocytes % (Manual) Monocytes % (Manual) Eosinophils % (Manual) Platelet Estimate RBC Morphology PT INR Sodium 133 L Potassium 4.1 Chloride 102 Carbon Dioxide 28 Anion Gap 7.1 BUN 14 D Creatinine 0.80 Estimated Creat Clear 77 Estimated GFR 72 Est GFR ( Amer) 87 Glucose 117 H D POC Glucose 98 108 Calcium 8.8 Magnesium 1.9 Total Bilirubin AST ALT Alkaline Phosphatase Total Protein Albumin Globulin Albumin/Globulin Ratio Triglycerides 99 Cholesterol 139 L LDL Cholesterol Direct 57.19 L VLDL Cholesterol 20 HDL Cholesterol 41 Cholesterol/HDL Ratio 3.4 TSH 2.50 Stool Occult Blood Blood Type Antibody Screen 07/23/24 07/23/24 07/23/24 14:39 13:41 12:20 WBC 5.8 RBC 2.94 L Hgb 8.4 L Hct 26.6 L MCV 90.5 MCH 28.6 MCHC 31.6 L RDW 15.9 Plt Count 226 MPV 9.2 Neut % (Auto) 80.3 H Lymph % (Auto) 7.8 L [place] % (Auto) 8.3 Eos % (Auto) 2.6 Baso % (Auto) 0.3 Neut # (Auto) 4.6 Lymph # (Auto) 0.5 L [place] # (Auto) 0.5 Eos # (Auto) 0.2 Baso # (Auto) 0.0 Total Counted 100 Neutrophils % (Manual) 76 Lymphocytes % (Manual) 11 Monocytes % (Manual) 6 Eosinophils % (Manual) 7 H Platelet Estimate Normal RBC Morphology Normal PT 10.9 INR 0.98 Sodium 131 L Potassium 4.8 Chloride 99 Carbon Dioxide 29 Anion Gap 7.8 BUN 32 H Creatinine 0.70 Estimated Creat Clear 75 Estimated GFR 83 Est GFR ( Amer) 101 Glucose 150 H POC Glucose Calcium 8.8 Magnesium 1.8 Total Bilirubin 0.2 AST 30 ALT 18 Alkaline Phosphatase 92 Total Protein 6.6 Albumin 3.7 Globulin 2.9 Albumin/Globulin Ratio 1.3 Triglycerides Cholesterol LDL Cholesterol Direct VLDL Cholesterol HDL Cholesterol Cholesterol/HDL Ratio TSH Stool Occult Blood Negative Blood Type O Positive Antibody Screen Negative DS: Diagnosis Discharge Diagnosis (1) Coffee ground emesis: Status: Acute Code(s): K92.0 - Hematemesis (2) Anemia: Status: Acute Code(s): D64.9 - Anemia, unspecified Meds Home Medications and Allergies Home Medications ?Medication ?Instructions ?Recorded ?Confirmed ?Type citalopram 20 mg tablet 20 mg PO DAILY 04/08/1707/08 History ondansetron 4 mg disintegrating 4 mg PO Q6HP PRN Nause a #20 tabs 01/28/22 0 07/23/24 Rx tablet albuterol sulfate 90 mcg/actuation 2 puff inhalation Q 4HP PRN 11/03/22 07/23/24 Rx aerosol inhaler Shortness Of Breath #8.5 gra ms loperamide 2 mg tablet 2 mg PO Q3HP PRN Diarrhea 07/23/24 History acetaminophen 325 mg tablet 650 mg PO BID 11/21/22 History metformin 500 mg tablet 500 mg PO BIDWMEAL 11/21/22 07/23/24 History sennosides 8.6 mg tablet (senna) 17.2 mg PO DAILYP PRN Constipation 11/21/22 07/23/24 History gabapentin 400 mg capsule 400 mg PO TID Neuropathic pa in 30 06/02/23 07/23/24 Rx days #90 caps ferrous sulfate 325 mg (65 mg 325 mg PO MOWEFR 4 07/23/24 History iron) tablet fluticasone fur. 100 mcg-umeclid 1 ea inhalation DAILY 02/02/24 07/23/24 History 62.5 mcg-vilant 25 mcg inhalat.powder (Trelegy Ellipta) hydroxychloroquine 200 mg tablet 200 mg PO BID 4 07/23/24 History metoprolol tartrate 25 mg tablet 12.5 mg PO BID 07/23/24 History multivitamin 1 tab PO DAILY 02/02/2407/08 History furosemide 40 mg tablet 40 mg PO DAILY #30 tabs 01/0807/23/24 Rx amantadine HCl 100 mg capsule 100 mg PO BID 03/29/24 0 07/23/24 History omeprazole 40 mg capsule,delayed 40 mg PO HS 03/29/24 07/23/24 History release risperidone 2 mg tablet 2 mg PO BID 03/29/24 5 History rotigotine 1 mg/24 hour 1 mg transdermal DAILY 05/0307/23/24 History transdermal 24 hour patch (Neupro) acetaminophen 500 mg tablet 1,000 mg PO Q6HP PRN Fever 07/23/24 07/23/24 History ascorbic acid (vitamin C) 500 mg 500 mg PO MOWEFR 07/0807/23/24 History tablet (Vitamin C) clonazepam 0.25 mg disintegrating 0.25 mg PO BID 07/2307/23/24 History tablet psyllium husk 3.4 gram/5.4 gram 1 tbsp PO DAILY 07/23/24 History oral powder (Metamucil) New Prescriptions to Start Prescriptions: Allergies Allergy/AdvReac Type Severity Reaction Status Date / Time aspirin Allergy Intermediate edema Verified 06/28/24 13:01 Influenza Virus Vaccines AdvReac Intermediate Verified 06/28/24 13:01 Discharge Plan Disposition Patient Disposition: Xfer Intermediate Care Fac Condition: Good Discharge Order Discharge Orders: Discharge Order (Routine); Ordered 07/24/24 Ordered By: Jeaneth Mac Follow up Plan Follow up with: Popeye Bravo II, MD [Staff Physician, Gastroenterology] - 08/29/24 10:00 am Prescriptions/Medication Reconciliation: Continued Neupro 1 mg/24 hour patch 24 hour 1 mg transdermal DAILY risperidone 2 mg tablet 2 mg PO BID amantadine HCl 100 mg capsule 100 mg PO BID omeprazole 40 mg capsule,delayed release(DR/EC) 40 mg PO HS albuterol sulfate 90 mcg/actuation HFA aerosol inhaler 2 puff inhalation Q4HP PRN (Reason: Shortness Of Breath) Qty: 8.5 6RF gabapentin 400 mg capsule 400 mg PO TID 30 Days Qty: 90 5RF citalopram 20 MG tablet 20 mg PO DAILY ondansetron 4 MG tablet,disintegrating 4 mg PO Q6HP PRN (Reason: Nausea) Qty: 20 0RF loperamide 2 mg Tablet 2 mg PO Q3HP PRN (Reason: Diarrhea) metformin 500 mg tablet 500 mg PO BIDWMEAL sennosides [senna] 8.6 mg Tablet 17.2 mg PO DAILYP PRN (Reason: Constipation) acetaminophen 325 mg Tablet 650 mg PO BID multivitamin Tablet 1 tab PO DAILY ferrous sulfate 325 mg (65 mg iron) tablet 325 mg PO MOWEFR hydroxychloroquine 200 mg tablet 200 mg PO BID metoprolol tartrate 25 mg tablet 12.5 mg PO BID Trelemoira Ellipta 100-62.5-25 mcg blister with device 1 ea INHALATION DAILY furosemide 40 mg tablet 40 mg PO DAILY Qty: 30 0RF ascorbic acid (vitamin C) [Vitamin C] 500 mg Tablet 500 mg PO MOWEFR Metamucil 3.4 gram/5.4 gram Powder 1 tbsp PO DAILY Rx Instructions: mix into at least 8 oz of water or juice before administering acetaminophen 500 mg Tablet 1,000 mg PO Q6HP PRN (Reason: Fever) clonazepam 0.25 mg Tablet,Disintegrating 0.25 mg PO BID Problem Reconciliation Problems Reviewed?: Yes Patient Discharge Instructions ACTIVITY: Continue current activity DIET: continue same diet Patient Instructions: Anemia, Gastrointestinal Bleeding Print Language: Kyrgyz Providers Primary Care Provider: Bobby Bates Admit Provider: Robert Jaramillo Attending Provider: Robert Jaramillo
--- NOTE | 2024-07-24 09:48 | HMH.PTEV ---
Physical Therapy Evaluation Rehab PT IP Evaluation Start: 07/23/24 15:52 Freq: ONCE Status: Active Protocol: Document 07/24/24 09:43 DENNYS (Rec: 07/24/24 09:47 DENNYS [id number]) Subjective/History History History Per H&P: Ms. Van is a 68-year-old female arrived to the emergency room today via ambulance from [facility] after x 1 episode of coffee-ground emesis. She has a history of hypertension, hyperlipidemia, coronary artery disease, COPD, seizures , schizophrenia, diabetes mellitus type 2, weakness, anemia, and previous GI bleed. After emergency room workup patient was found to be anemic, hemoglobin 8.4 ( baseline 10.1). Sodium is 131, no other electrolyte abnormalities noted. Otherwise unremarkable workup. The emergency room physician consulted GI who recommends a scope for further evaluation of possible GI bleed. Subjective Subjective Pt reports she has lived at [facility] for >1 year. Pt reports she is usually IND with mobility but is not able to dress and bathe herself d/t limited LUE use (in sling). New diagnosis of No cancer in past 12 months? [facility] How much help from another person do you currently need... Turning from your A little back to your side while in a flat bed without using bedrails? Moving from lying on A little back to sitting on the side of a flat bed without using bedrails? Moving to and from a None bed to a chair ( including a wheelchair)? Standing up from a None chair using your arms? (e.g., wheelchair, bedside chair) Walking in hospital None room? Climbing 3-5 steps A little with a railing? Mobility Score 21 Mobility Level [facility] Mobility 6 Walk 10 steps or more Mobility Calculator Rehab PT IP Eval Objective Appearance Patient Behavior Appropriate,Cooperative Patient Orientation Person Difficulty following none instructions Speech Pattern Clear Ambulation Patient Able to Yes Ambulate Ambulation Observation IP General Gait No Deviations/Normal Pattern Observation Ambulation Distance 20 (feet) Ambulation Assistive None Device Ambulation Ability Supervision/Stand by Balance Ability to Arise Able, uses arms to help Sitting Balance Steady, safe Standing Balance Steady, wide stance Dynamic Sitting Good Balance Ability Dynamic Standing Good Balance Ability Transfers Bed Transfer Ability Supervision/Stand by Chair Transfer Supervision/Stand by Ability Sit to Stand Bed Supervision/Stand by Transfer Ability Rehab PT IP prob,goals,plan Problems Date of Evaluation: 07/24/24 Rehab Potential Rehab Potential Innapropriate for Skilled Therapy Discharge Plan PT Discharge Plan Pt most appropriate to return to nursing facility. Pt was able to demo safe household level ambulation with supervision. Pt is at her baseline with mobility and is therefore not appropriate for skilled acute care PT. Eval Complexity Eval Charge Codes 40279 - Moderate Complexity PHYSICIAN CERTIFICATION: I certify the specified therapy services for Josefina Van are required, authorized, and reviewed every 30 days.
[2024-07-24] MEDS: risperiDONE 1MG TABLET 2 MG PO (10:22)
[2024-07-24] MEDS: AMANTADINE 100MG CAPSULE 100 MG PO (10:23)
[2024-07-24] MEDS: FUROSEMIDE 40 MG TABLET PO (10:23)
[2024-07-24] MEDS: METFORMIN 500MG TABLET 500 MG PO ×2 (10:23→17:00)
[2024-07-24] MEDS: CITALOPRAM 20MG TABLET 20 MG PO (10:23)
[2024-07-24] MEDS: METOPROLOL TARTRATE 25MG TABLET 12.5 MG PO (10:24)
[2024-07-24] MEDS: GABAPENTIN 400MG CAPSULE 400 MG PO ×2 (10:27→14:49)
[2024-07-24] MEDS: clonazePAM 0.5MG TABLET 0.25 MG PO (10:27)
[2024-07-24 11:25] VITALS: BP 113/52; PULSE 70; RESP 20; TEMP 36.6; O2SAT 96
[2024-07-24 12:04] LABS: POC Glucose,Bedside 102 (70-110)
[2024-07-24 16:00] VITALS: BP 141/51; PULSE 87; RESP 16; TEMP 37.4; O2SAT 97
[2024-07-24 20:00] VITALS: BP 146/68; PULSE 89; RESP 17; TEMP 36.9; O2SAT 97
[2024-07-24] MEDS: ACETAMINOPHEN 325MG TAB 650 MG PO (20:13)
--- NOTE | 2024-07-24 20:18 | PC.NURSE ---
Patient left floor with EMS at 20:17.
[2024-07-25 10:10] LABS: POC Glucose,Bedside 102 (70-110)
[2024-07-26 13:24] LABS: POC Glucose,Bedside 117 (70-110)
[2024-07-27 14:12] LABS: Disclaimer Notes (.); Interpretation Notes (.); Lactase 44.56 (>/= 14.0); Maltase 335.05 (>/= 110.0); Palatinase 19.89 (>/= 8.5); Reference Notes (.); Sucrase 91.11 (>/= 25.0)
== END 2024-07-24 20:20 ==
LOC: ER 14:25 → 2ND 14:34
PROVIDERS: Internal Medicine Gastroenterology; Physician Assistant; Admitting Provider Internal Medicine Adolescent Medicine; Emergency Provider Emergency Medicine; PCP Nurse Practitioner Acute Care; Visit Provider Internal Medicine Adolescent Medicine
PROC: 0DJ08ZZ Inspection of Upper Intestinal Tract, Via Natural or Artificial Opening Endoscopic (ICD-10-PCS; CPT 43239; principal; 2024-07-23 16:10)
DX: K31.89 Other diseases of stomach and duodenum (principal); K21.9 Gastro-esophageal reflux disease without esophagitis; K92.0 Hematemesis; K44.9 Diaphragmatic hernia without obstruction or gangrene; K22.89 Other specified disease of esophagus; D64.9 Anemia, unspecified; E78.5 Hyperlipidemia, unspecified; I10 Essential (primary) hypertension; E11.9 Type 2 diabetes mellitus without complications; F20.9 Schizophrenia, unspecified; J44.9 Chronic obstructive pulmonary disease, unspecified; E66.9 Obesity, unspecified; I25.10 Atherosclerotic heart disease of native coronary artery without angina pectoris; F32.A Depression, unspecified; R56.9 Unspecified convulsions; R29.6 Repeated falls; Z68.36 Body mass index [BMI] 36.0-36.9, adult; Z88.7 Allergy status to serum and vaccine; Z88.8 Allergy status to other drugs, medicaments and biological substances; Z87.891 Personal history of nicotine dependence; Z79.83 Long term (current) use of bisphosphonates; Z79.84 Long term (current) use of oral hypoglycemic drugs; Z79.51 Long term (current) use of inhaled steroids; Z79.899 Other long term (current) drug therapy
CPT/HCPCS: 43239; 80048; 80053; 80061; 82272; 82657; 82962; 83735; 84443; 85007; 85025; 85027; 85610; 86850; 88305; 88313; 96374; 96375; 96376; 97162; 99291; G0328; G0378; J2003; J2405; J2470; J2704; J7030

== ENCOUNTER 2024-07-26 13:40 | Outpatient (CLI) | payer MEDICARE, MEDICAID, SELFPAY ==
--- NOTE | 2024-07-26 13:46 | XR_ITS ---
FINAL REPORT CLINICAL HISTORY: Left shoulder pain fx 6 weeks ago pt unable to fully extend the arm for axillary COMPARISON: 06/24/2024 FINDINGS: LEFT SHOULDER 3 views of the left shoulder were obtained. There is a displaced fracture of the surgical neck of the proximal humerus. On the lateral view, there is a rounded lucency within the fracture site, and a pathologic fracture cannot be excluded. Continued follow-up is suggested. IMPRESSION: Displaced fracture of the surgical neck of the proximal humerus, not significantly changed since prior exam of 06/24/2024. Reviewed, Interpreted and Dictated by Florentino Cuevas MD Transcribed by Laureen Fallon Authenticated and [facility]
== END 2024-07-26 23:59 | disposition home or self-care (01) ==
LOC: RAD 13:41
PROVIDERS: PCP Internal Medicine Adolescent Medicine; Visit Provider Orthopaedic Surgery
DX: S42.212A Unspecified displaced fracture of surgical neck of left humerus, initial encounter for closed fracture (principal)
CPT/HCPCS: 73030

== ENCOUNTER 2024-08-28 17:48 | Outpatient (CLI) | payer MEDICARE, MEDICAID, SELFPAY ==
[2024-08-28 18:43] LABS: Occult Blood,Stool Positive (Negative)
== END 2024-08-28 23:59 | disposition home or self-care (01) ==
LOC: LAB.DROPOF 17:50
PROVIDERS: PCP Nurse Practitioner Family; Visit Provider Nurse Practitioner Family
DX: D64.9 Anemia, unspecified (principal)
CPT/HCPCS: 82272; G0328

== ENCOUNTER 2024-08-30 12:40 | Outpatient (CLI) | payer MEDICARE, MEDICAID, SELFPAY ==
--- NOTE | 2024-08-30 12:42 | XR_ITS ---
FINAL REPORT CLINICAL HISTORY: left shoulder fx COMPARISON: 07/26/2024 FINDINGS: Five views of the left shoulder show comminuted impacted fracture of the left humeral neck. There is new callus formation evident indicating some fracture healing. However, bony union is incomplete. There is inferior subluxation noted. The acromioclavicular joint is intact. IMPRESSION: Partial healing humeral neck fracture. Reviewed, Interpreted and Dictated by Ata Harmon MD Transcribed by Leanne Xiong Authenticated and [facility]
== END 2024-08-30 23:59 | disposition home or self-care (01) ==
PROVIDERS: PCP Internal Medicine Adolescent Medicine; Visit Provider Orthopaedic Surgery
DX: S42.212D Unspecified displaced fracture of surgical neck of left humerus, subsequent encounter for fracture with routine healing (principal); X58.XXXD Exposure to other specified factors, subsequent encounter
CPT/HCPCS: 73030

== ENCOUNTER 2024-09-05 15:03 | Outpatient (CLI) | payer MEDICARE, MEDICAID, SELFPAY ==
[2024-09-05 15:42] LABS: Hematocrit 24.3 % (37.0-47.0); Hemoglobin 7.2 g/dL (12.2-16.2); Immature Granulocytes % 0.5 %; Mean Corpuscular HGB Conc 29.6 g/dL (31.8-35.4); Mean Corpuscular Hemoglobin 25.1 pg (27.0-31.2); Mean Corpuscular Volume 84.7 fl (81-99); Nucleated Red Blood Cells % 0 %; Platelet Count 315 K/mm3 (142-424); Red Blood Count 2.87 M/mm3 (4.20-5.40); Red Cell Distribution Width-SD 47.9 fL; White Blood Count 6.0 K/mm3 (4.8-10.8)
[2024-09-05 16:33] LABS: Iron 33 ug/dL (37-170)
[2024-09-05 16:42] LABS: Total Iron Binding Capacity 359 ug/dL (265-497)
[2024-09-05 17:09] LABS: Ferritin 8.42 ng/ml (11.1-264)
== END 2024-09-05 23:59 | disposition home or self-care (01) ==
LOC: LAB 15:04
PROVIDERS: PCP Internal Medicine Adolescent Medicine; Visit Provider Internal Medicine Medical Oncology
DX: D64.9 Anemia, unspecified (principal)
CPT/HCPCS: 36415; 82728; 83540; 83550; 85025

== ENCOUNTER 2024-09-17 09:56 | Outpatient (CLI) | payer MEDICARE, MEDICAID, SELFPAY ==
[2024-09-17 10:37] VITALS: BP 142/55; PULSE 76; RESP 16; TEMP 36.7; O2SAT 100
[2024-09-17] MEDS: ferumoxytoL 510 MG in 0.9 % SODIUM CHLORIDE 50 ML 268 MG IV (10:37)
[2024-09-17] MEDS: SODIUM CHLORIDE 0.9% 10ML FLUSH SYRINGE 10 ML IV (10:37)
[2024-09-17 10:55] VITALS: BP 140/59; PULSE 79; RESP 16; TEMP 36.7; O2SAT 98
== END 2024-09-17 11:10 | disposition home or self-care (01) ==
LOC: INF 10:11
PROVIDERS: PCP Internal Medicine Adolescent Medicine; Visit Provider Internal Medicine Medical Oncology
DX: D64.9 Anemia, unspecified (principal)
CPT/HCPCS: 96374; Q0138

== ENCOUNTER 2024-09-21 08:14 | Outpatient (CLI) | payer MEDICARE, MEDICAID, SELFPAY ==
[2024-09-21] VITALS (10 sets, daily range): BP systolic 88–139; BP diastolic 31–50; PULSE 62–74; RESP 17–18; TEMP 36.4–36.8; O2SAT 95–98
--- NOTE | 2024-09-21 08:30 | PC.NURSE ---
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
[2024-09-21 09:29] LABS: Hematocrit 25.2 % (37.0-47.0); Hemoglobin 7.5 g/dL (12.2-16.2)
[2024-09-21] MEDS: 0.9 % SODIUM CHLORIDE 250 ML 100 ML IV (13:24)
== END 2024-09-21 13:20 | disposition home or self-care (01) ==
LOC: INF 08:18
PROVIDERS: PCP Internal Medicine Adolescent Medicine; Visit Provider Nurse Practitioner Family
DX: D64.9 Anemia, unspecified (principal)
CPT/HCPCS: 36415; 36430; 85014; 85018; 86850; J7050; P9016

== ENCOUNTER 2024-09-24 09:45 | Outpatient (CLI) | payer MEDICARE, MEDICAID, SELFPAY ==
[2024-09-24 10:03] VITALS: BP 146/45; PULSE 72; RESP 18; O2SAT 98
[2024-09-24] MEDS: ferumoxytoL 510 MG in 0.9 % SODIUM CHLORIDE 50 ML 268 MG IV (10:03)
[2024-09-24 10:20] VITALS: BP 155/45; PULSE 68; RESP 18; O2SAT 98
== END 2024-09-24 10:20 | disposition home or self-care (01) ==
LOC: INF 09:46
PROVIDERS: PCP Internal Medicine Adolescent Medicine; Visit Provider Internal Medicine Adolescent Medicine
DX: D64.9 Anemia, unspecified (principal)
CPT/HCPCS: 96374; Q0138

== ENCOUNTER 2024-10-17 13:44 | Outpatient (CLI) | payer MEDICARE, MEDICAID, SELFPAY ==
[2024-10-17 14:21] LABS: Hematocrit 38.3 % (37.0-47.0); Hemoglobin 11.6 g/dL (12.2-16.2); Immature Granulocytes % 0.5 %; Mean Corpuscular HGB Conc 30.3 g/dL (31.8-35.4); Mean Corpuscular Hemoglobin 26.7 pg (27.0-31.2); Mean Corpuscular Volume 88.2 fl (81-99); Nucleated Red Blood Cells % 0 %; Platelet Count 192 K/mm3 (142-424); Red Blood Count 4.34 M/mm3 (4.20-5.40); Red Cell Distribution Width-SD 70.0 fL; White Blood Count 6.3 K/mm3 (4.8-10.8)
== END 2024-10-17 23:59 | disposition home or self-care (01) ==
PROVIDERS: PCP Internal Medicine Adolescent Medicine; Visit Provider Internal Medicine Medical Oncology
DX: D64.9 Anemia, unspecified (principal)
CPT/HCPCS: 36415; 85025